=== PATIENT | male | born 1950 | race Caucasian/White ===

== ENCOUNTER → 2016-06-17 | Outpatient (REF) | payer MEDICARE ==
[2016-06-17 16:13] LABS: MEAN CORPUSCULAR HEMOGLOBIN 30.9 pg (27.0-33.0); MEAN CORPUSCULAR HGB CONC 36.1 g/dl (32.0-36.5); MEAN CORPUSCULAR VOLUME 85.7 fl (80.0-96.0); PLATELET COUNT, AUTOMATED 218 k/mm3 (150-450); RED CELL DISTRIBUTION WIDTH 14.2 % (11.5-14.5); WHITE BLOOD COUNT 8.1 K/mm3 (4.0-10.0)
[2016-06-17 16:32] LABS: ALBUMIN 4.2 GM/DL (3.2-5.2); ALBUMIN/GLOBULIN RATIO 1.27 (1.00-1.93); ALKALINE PHOSPHATASE 69 U/L (45-117); ALT/SGPT 58 U/L (12-78); ANION GAP 11 MEQ/L (8-16); AST/SGOT 30 U/L (15-37); BILIRUBIN,TOTAL 0.4 MG/DL (0.2-1.0); BLOOD UREA NITROGEN 16 MG/DL (7-18); CALCIUM LEVEL 9.3 MG/DL (8.8-10.2); CARBON DIOXIDE LEVEL 26 MEQ/L (21-32); CHLORIDE LEVEL 103 MEQ/L (98-107); CHOLESTEROL LEVEL 164 MG/DL (<200); CREATININE FOR GFR 1.07 MG/DL (0.70-1.30); FERRITIN 179 NG/ML (26-388); GLOMERULAR FILTRATION RATE > 60.0 (>49); GLUCOSE, FASTING 175 MG/DL (80-110); PERCENT SATURATION 25.4 % (19.7-37.4); POTASSIUM SERUM 4.3 MEQ/L (3.5-5.1); SODIUM LEVEL 140 MEQ/L (136-145); TOTAL IRON BINDING CAPACITY 350 UG/DL (250-450); TOTAL PROTEIN 7.5 GM/DL (6.4-8.2); TRIGLYCERIDES LEVEL 267 MG/DL (<150)
[2016-06-17 16:41] LABS: VITAMIN B12 LEVEL 463 PG/ML (247-911)
== END ==
LOC: M SFHCPLAZ 11:11
PROVIDERS: ATTEND Family Medicine
DX: E53.8 Deficiency of other specified B group vitamins (principal); E78.5 Hyperlipidemia, unspecified; I10 Essential (primary) hypertension; K02.9 Dental caries, unspecified; E11.69 Type 2 diabetes mellitus with other specified complication
CPT/HCPCS: 36415; 80053; 80061; 82550; 82607; 82728; 83036; 83550; 85025; 86140; G0463

== ENCOUNTER → 2016-09-01 | Outpatient (CLI) | payer MEDICARE ==
[~2016-09-01] VITALS: Ht 182.9 cm; Wt 108.9 kg
[~2016-09-01] MED LIST: AMLO5TAB2 PO; ASPI1TAB PO; CRES5TAB PO; DYAZ37.5 PO; ERGO500014 PO; GLIM2TAB PO; HUMU1INJ2 SC; IBUP200C PO; LOSA50TA20 PO; METF500T PO; NS 1,000 ML IV SCH; OMEP10CASR PO; PROPOFOL 200 MG/20 ML VIAL As Ordered ONE
--- NOTE | 2016-09-01 07:56 | ROOR ---
Patient Name: Kirill Bowers Procedure Date: 09/01/2016 7:33 AM Date of : 1950 Age: 65 Room: [facility] Gender: Male Note Status: Finalized Procedure: Colonoscopy Indications: Screening for colorectal malignant neoplasm Providers: Gustabo CHIU MD Referring MD: Hema Alston MD Requesting Provider: Medicines: Monitored Anesthesia Care Complications: No immediate complications. Procedure: Pre-Anesthesia Assessment: - The heart rate, respiratory rate, oxygen saturations, blood pressure, adequacy of pulmonary ventilation, and response to care were monitored throughout the procedure. The Colonoscope was introduced through the anus and advanced to the cecum, identified by appendiceal orifice and ileocecal valve. The colonoscopy was performed without difficulty. The patient tolerated the procedure well. The quality of the bowel preparation was good. Findings: The perianal exam findings include skin tags. (Exam: Complete, Prep: Good or Excellent.) Four sessile polyps were found in the sigmoid colon and cecum. The polyps were 3 to 4 mm in size. These polyps were removed with a cold snare. Resection and retrieval were complete. Multiple medium-mouthed diverticula were found in the sigmoid colon. The exam was otherwise without abnormality on direct and retroflexion views. Impression: - Perianal skin tags found on perianal exam. - Four 3 to 4 mm polyps in the sigmoid colon and in the cecum, removed with a cold snare. Resected and retrieved. - Moderate diverticulosis in the sigmoid colon. - The examination was otherwise normal on direct and retroflexion views. Recommendation: - Telephone endoscopist for pathology results in 2 weeks. - If the pathology report reveals adenomatous tissue, then repeat the colonoscopy for surveillance in 3 years. - If the pathology report indicates hyperplastic polyp, then repeat colonoscopy for screening purposes in 10 years. Gustabo Chiu MD Gustabo CHIU MD 09/01/2016 7:56:20 AM This report has been signed electronically. Number of Addenda: 0 Note Initiated On: 09/01/2016 7:33 AM Estimated Blood Loss: Estimated blood loss: none.
[2016-09-01 08:20] VITALS: BP 115/77
== END | disposition home or self-care (01) ==
LOC: M OPP 06:56
PROVIDERS: ATTEND Internal Medicine Gastroenterology
DX: Z12.31 Encounter for screening mammogram for malignant neoplasm of breast (principal); D12.5 Benign neoplasm of sigmoid colon; D12.0 Benign neoplasm of cecum; K57.30 Diverticulosis of large intestine without perforation or abscess without bleeding; K64.4 Residual hemorrhoidal skin tags; I10 Essential (primary) hypertension; E78.00 Pure hypercholesterolemia, unspecified; E11.9 Type 2 diabetes mellitus without complications; R12 Heartburn; M19.90 Unspecified osteoarthritis, unspecified site; L40.9 Psoriasis, unspecified; Z79.899 Other long term (current) drug therapy; Z79.84 Long term (current) use of oral hypoglycemic drugs; Z79.4 Long term (current) use of insulin; Z79.82 Long term (current) use of aspirin; Z88.8 Allergy status to other drugs, medicaments and biological substances

== ENCOUNTER → 2016-10-17 | Outpatient (CLI) | payer MEDICARE ==
[~2016-10-17] MED LIST changes: -NS 1,000 ML IV SCH; -PROPOFOL 200 MG/20 ML VIAL As Ordered ONE
[2016-10-17 09:17] LABS: ALBUMIN 3.9 GM/DL (3.2-5.2); ALBUMIN/GLOBULIN RATIO 1.15 (1.00-1.93); ALKALINE PHOSPHATASE 89 U/L (45-117); ALT/SGPT 52 U/L (12-78); ANION GAP 8 MEQ/L (8-16); AST/SGOT 21 U/L (15-37); BILIRUBIN,TOTAL 0.4 MG/DL (0.2-1.0); BLOOD UREA NITROGEN 15 MG/DL (7-18); CALCIUM LEVEL 8.7 MG/DL (8.8-10.2); CARBON DIOXIDE LEVEL 30 MEQ/L (21-32); CHLORIDE LEVEL 97 MEQ/L (98-107); CHOLESTEROL LEVEL 170 MG/DL (<200); FERRITIN 145 NG/ML (26-388); GLOMERULAR FILTRATION RATE > 60.0 (>49); GLUCOSE, FASTING 278 MG/DL (80-110); PERCENT SATURATION 27.7 % (19.7-37.4); SODIUM LEVEL 135 MEQ/L (136-145); TOTAL IRON BINDING CAPACITY 364 UG/DL (250-450); TOTAL PROTEIN 7.3 GM/DL (6.4-8.2); TRIGLYCERIDES LEVEL 442 MG/DL (<150)
[2016-10-17 09:24] LABS: BASO % 0.7 % (0.0-1.0); EOS # 0.1 K/mm3 (0.0-0.50); EOS % 1.7 % (0.0-3.0); LARGE UNSTAINED CELL # 0.2 K/mm3 (0.0-0.4); LARGE UNSTAINED CELL % 3.5 % (0.0-4.0); LYMPH # 1.6 K/mm3 (1.5-4.5); LYMPH % 28.6 % (24.0-44.0); MEAN CORPUSCULAR HEMOGLOBIN 31.7 pg (27.0-33.0); MEAN CORPUSCULAR HGB CONC 35.6 g/dl (32.0-36.5); MONO # 0.4 K/mm3 (0.0-0.8); MONO % 7.1 % (0.0-5.0); NEUTROPHILS # 3.2 K/mm3 (1.8-7.7); NEUTROPHILS % 58.4 % (36.0-66.0); PLATELET COUNT, AUTOMATED 200 k/mm3 (150-450); RED CELL DISTRIBUTION WIDTH 12.9 % (11.5-14.5); WHITE BLOOD COUNT 5.5 K/mm3 (4.0-10.0)
[2016-10-17 09:41] LABS: VITAMIN B12 LEVEL 381 PG/ML (247-911)
== END ==
LOC: M WUC 08:04
PROVIDERS: ATTEND Family Medicine
DX: E53.8 Deficiency of other specified B group vitamins (principal); E78.5 Hyperlipidemia, unspecified; I10 Essential (primary) hypertension; Z79.899 Other long term (current) drug therapy

== ENCOUNTER → 2017-03-02 | Outpatient (REF) | payer MEDICARE ==
[~2017-03-02] MED LIST changes: +ACET30TAB PO; +CLEO300C2 PO; -IBUP200C PO; +IBUP200C10 PO; -METF500T PO; +METF500T13 PO
[2017-03-02 13:11] LABS: BASO % 0.8 % (0.0-1.0); EOS # 0.1 10^3/uL (0.0-0.50); EOS % 1.7 % (0.0-3.0); IMMATURE GRANULOCYTE % 0.8 % (0-0); LYMPH # 1.5 10^3/uL (1.5-4.5); LYMPH % 29.5 % (24.0-44.0); MEAN CORPUSCULAR HEMOGLOBIN 29.5 pg (27.0-33.0); MEAN CORPUSCULAR HGB CONC 33.8 g/dl (32.0-36.5); MEAN CORPUSCULAR VOLUME 87.1 fl (80.0-96.0); MONO # 0.4 10^3/uL (0.0-0.8); MONO % 8.5 % (0.0-5.0); NEUTROPHILS % 58.7 % (36.0-66.0); PLATELET COUNT, AUTOMATED 187 10^3/uL (150-450); RED CELL DISTRIBUTION WIDTH 13.1 % (11.5-14.5); WHITE BLOOD COUNT 5.2 10^3/uL (4.0-10.0)
[2017-03-02 13:27] LABS: VITAMIN B12 LEVEL 916 PG/ML (247-911)
[2017-03-02 13:40] LABS: ALBUMIN 3.7 GM/DL (3.2-5.2); ALBUMIN/GLOBULIN RATIO 1.12 (1.00-1.93); ALKALINE PHOSPHATASE 79 U/L (45-117); ALT/SGPT 50 U/L (12-78); ANION GAP 10 MEQ/L (8-16); AST/SGOT 22 U/L (15-37); BILIRUBIN,TOTAL 0.3 MG/DL (0.2-1.0); BLOOD UREA NITROGEN 13 MG/DL (7-18); CALCIUM LEVEL 7.9 MG/DL (8.8-10.2); CARBON DIOXIDE LEVEL 25 MEQ/L (21-32); CHLORIDE LEVEL 102 MEQ/L (98-107); CHOLESTEROL LEVEL 182 MG/DL (<200); CREATININE FOR GFR 0.97 MG/DL (0.70-1.30); GLOMERULAR FILTRATION RATE > 60.0 (>49); GLUCOSE, FASTING 286 MG/DL (80-110); POTASSIUM SERUM 3.9 MEQ/L (3.5-5.1); SODIUM LEVEL 137 MEQ/L (136-145); TRIGLYCERIDES LEVEL 388 MG/DL (<150)
== END ==
LOC: M LABDRAW1 11:52
PROVIDERS: ATTEND Family Medicine
DX: N18.2 Chronic kidney disease, stage 2 (mild) (principal); Z12.5 Encounter for screening for malignant neoplasm of prostate; Z79.899 Other long term (current) drug therapy
CPT/HCPCS: 36415; 80053; 80061; 81001; 82043; 82607; 82747; 83036; 84443; 85025; G0103

== ENCOUNTER → 2017-04-02 | Outpatient (REF) | payer MEDICARE ==
[2017-04-02 13:22] LABS: BASO % 0.4 % (0.0-1.0); EOS # 0.1 10^3/uL (0.0-0.50); EOS % 1.1 % (0.0-3.0); IMMATURE GRANULOCYTE % 0.7 % (0-0); LYMPH # 1.4 10^3/uL (1.5-4.5); LYMPH % 18.7 % (24.0-44.0); MEAN CORPUSCULAR HEMOGLOBIN 29.6 pg (27.0-33.0); MEAN CORPUSCULAR VOLUME 87.1 fl (80.0-96.0); MONO # 0.8 10^3/uL (0.0-0.8); MONO % 10.4 % (0.0-5.0); NEUTROPHILS % 68.7 % (36.0-66.0); PLATELET COUNT, AUTOMATED 245 10^3/uL (150-450); RED CELL DISTRIBUTION WIDTH 12.6 % (11.5-14.5); WHITE BLOOD COUNT 7.3 10^3/uL (4.0-10.0)
== END ==
LOC: M LAB REF 12:51
PROVIDERS: ATTEND Physician Assistant
DX: M25.522 Pain in left elbow (principal)

== ENCOUNTER → 2017-04-02 | Outpatient (CLI) | payer MEDICARE ==
--- NOTE | 2017-04-02 12:29 | REP ---
LEFT ELBOW, FOUR VIEWS: Four views of the left elbow are performed. I see no acute fracture or dislocation. There is an oval calcification along the lateral humeral epicondyle which may be tendinous in nature. Two oval calcifications posteriorly on the lateral view at the level of the distal end of the humerus probably represent calcifications in the triceps tendon. There is mild olecranon spurring. There is focal soft tissue swelling over the olecranon suspicious for bursitis. IMPRESSION: There appear to be tendinous calcifications present in the distal triceps and along the lateral humeral epicondyle. Focal soft tissue swelling over the olecranon is suspicious for bursitis. Signed by Federico Patiño MD 04/02/2017 02:38 P
== END ==
LOC: M ADAMS 10:42
PROVIDERS: ATTEND Physician Assistant
DX: M70.22 Olecranon bursitis, left elbow (principal); R60.0 Localized edema; M25.522 Pain in left elbow

== ENCOUNTER 2017-04-03 14:29 | Emergency (ER) | payer MEDICARE ==
[~2017-04-03] VITALS: Ht 182.9 cm; Wt 109.1 kg
[~2017-04-03 14:29] MED LIST changes: -ACET30TAB PO; -CLEO300C2 PO
--- NOTE | 2017-04-03 17:08 | REP ---
Left upper extremity duplex Doppler venous ultrasound. Real time compression and duplex Doppler evaluation of the left upper extremity deep venous system is performed. The left subclavian, jugular, axillary, brachial, basilic and cephalic veins are fully compressible where accessible with transducer pressure, and demonstrate no intraluminal thrombus and normal venous waveforms. There is no evidence of deep venous thrombosis. Impression: No evidence of deep venous thrombosis of the left upper extremity deep vein system. Signed by Federico Patiño MD 04/03/2017 04:59 P
[2017-04-03] MEDS ORDERED: CLEO300C2 PO (17:14)
[2017-04-03 17:24] VITALS: BP 148/94
[2017-04-03] MEDS ORDERED: ACET30TAB PO (17:26)
== END 2017-04-03 17:25 | disposition home or self-care (01) ==
LOC: M ED 14:29
DX: L03.114 Cellulitis of left upper limb (principal); E10.9 Type 1 diabetes mellitus without complications; K42.9 Umbilical hernia without obstruction or gangrene; Z79.899 Other long term (current) drug therapy; Z79.82 Long term (current) use of aspirin; Z79.4 Long term (current) use of insulin; Z88.1 Allergy status to other antibiotic agents; Z88.8 Allergy status to other drugs, medicaments and biological substances

== ENCOUNTER → 2017-06-30 | Outpatient (REF) | payer MEDICARE ==
[2017-06-30 12:46] LABS: BASO % 0.6 % (0.0-1.0); EOS # 0.1 10^3/uL (0.0-0.50); EOS % 1.7 % (0.0-3.0); HEMOGLOBIN 16.4 g/dl (14.0-18.0); IMMATURE GRANULOCYTE % 0.6 % (0-0); LYMPH # 1.8 10^3/uL (1.5-4.5); MEAN CORPUSCULAR HGB CONC 34.2 g/dl (32.0-36.5); MEAN CORPUSCULAR VOLUME 84.8 fl (80.0-96.0); MONO # 0.6 10^3/uL (0.0-0.8); MONO % 9.7 % (0.0-5.0); NEUTROPHILS # 3.7 10^3/uL (1.8-7.7); NEUTROPHILS % 58.4 % (36.0-66.0); PLATELET COUNT, AUTOMATED 213 10^3/uL (150-450); RED BLOOD COUNT 5.66 10^6/uL (4.30-6.10); WHITE BLOOD COUNT 6.3 10^3/uL (4.0-10.0)
[2017-06-30 13:08] LABS: TOTAL 25(OH) VITAMIN D 23.7 NG/ML (30.0-100.0)
[2017-06-30 13:09] LABS: PTH INTACT 38.3 PG/ML (14.0-72.0)
[2017-06-30 13:16] LABS: ESTIMATED AVERAGE GLUCOSE 200 MG/DL (60-110); HEMOGLOBIN A1c 8.6 %
[2017-06-30 13:35] LABS: ALBUMIN/GLOBULIN RATIO 1.11 (1.00-1.93); ALKALINE PHOSPHATASE 72 U/L (45-117); ALT/SGPT 41 U/L (12-78); ANION GAP 10 MEQ/L (8-16); AST/SGOT 22 U/L (7-37); BILIRUBIN,TOTAL 0.5 MG/DL (0.2-1.0); BLOOD UREA NITROGEN 14 MG/DL (7-18); CALCIUM LEVEL 9.2 MG/DL (8.8-10.2); CARBON DIOXIDE LEVEL 29 MEQ/L (21-32); CHLORIDE LEVEL 97 MEQ/L (98-107); CREATININE FOR GFR 1.17 MG/DL (0.70-1.30); FERRITIN 149 NG/ML (26-388); GLOMERULAR FILTRATION RATE > 60.0 (>49); GLUCOSE, FASTING 215 MG/DL (70-100); IRON (FE) 90 UG/DL (65-175); PERCENT SATURATION 26.3 % (19.7-50.0); POTASSIUM SERUM 4.2 MEQ/L (3.5-5.1); SODIUM LEVEL 136 MEQ/L (136-145); TOTAL IRON BINDING CAPACITY 342 UG/DL (250-450); TOTAL PROTEIN 7.6 GM/DL (6.4-8.2)
== END ==
LOC: M SFHCPLAZ 07:58
DX: N18.2 Chronic kidney disease, stage 2 (mild) (principal); E55.9 Vitamin D deficiency, unspecified; E11.69 Type 2 diabetes mellitus with other specified complication
CPT/HCPCS: 83550

== ENCOUNTER → 2017-10-30 | Outpatient (REF) | payer MEDICARE ==
[2017-10-30 10:22] LABS: BASO % 0.5 % (0.0-1.0); EOS # 0.1 10^3/uL (0.0-0.50); EOS % 2.1 % (0.0-3.0); HEMATOCRIT 46.2 % (42.0-52.0); HEMOGLOBIN 16.1 g/dl (13.5-17.5); LYMPH # 1.7 10^3/uL (1.5-4.5); LYMPH % 29.8 % (24.0-44.0); MEAN CORPUSCULAR HEMOGLOBIN 29.5 pg (27.0-33.0); MEAN CORPUSCULAR HGB CONC 34.8 g/dl (32.0-36.5); MEAN CORPUSCULAR VOLUME 84.8 fl (80.0-96.0); MONO # 0.6 10^3/uL (0.0-0.8); MONO % 10.5 % (0.0-5.0); NEUTROPHILS # 3.3 10^3/uL (1.8-7.7); NEUTROPHILS % 56.1 % (36.0-66.0); PLATELET COUNT, AUTOMATED 186 10^3/uL (150-450); RED BLOOD COUNT 5.45 10^6/uL (4.30-6.10); RED CELL DISTRIBUTION WIDTH 12.8 % (11.5-14.5); WHITE BLOOD COUNT 5.8 10^3/uL (4.0-10.0)
[2017-10-30 10:31] LABS: ALBUMIN/GLOBULIN RATIO 1.08 (1.00-1.93); ALKALINE PHOSPHATASE 93 U/L (45-117); ALT/SGPT 44 U/L (12-78); ANION GAP 8 MEQ/L (8-16); AST/SGOT 21 U/L (7-37); BILIRUBIN,TOTAL 0.2 MG/DL (0.2-1.0); BLOOD UREA NITROGEN 14 MG/DL (7-18); CALCIUM LEVEL 8.9 MG/DL (8.8-10.2); CARBON DIOXIDE LEVEL 29 MEQ/L (21-32); CHLORIDE LEVEL 102 MEQ/L (98-107); CREATININE FOR GFR 1.04 MG/DL (0.70-1.30); GLOMERULAR FILTRATION RATE > 60.0 (>49); GLUCOSE, FASTING 221 MG/DL (70-100); MAGNESIUM LEVEL 1.8 MG/DL (1.8-2.4); POTASSIUM SERUM 3.8 MEQ/L (3.5-5.1); SODIUM LEVEL 139 MEQ/L (136-145); TOTAL PROTEIN 7.7 GM/DL (6.4-8.2)
[2017-10-30 10:51] LABS: ESTIMATED AVERAGE GLUCOSE 214 MG/DL (60-110); HEMOGLOBIN A1c 9.1 %
[2017-10-30 18:35] LABS: MAU/CREAT RATIO 153.9 MCG/MG (0.0-30.0)
[2017-10-30 19:01] LABS: AMORPHOUS SEDIMENT SMALL (NEGATIVE); APPEARANCE, URINE HAZY (CLEAR); BACTERIA, URINE AUTO NEGATIVE (NEGATIVE); BILIRUBIN, URINE AUTO NEGATIVE (NEGATIVE); BLOOD, URINE BLOOD NEGATIVE (NEGATIVE); CALCIUM OXALATE CRYSTALS SMALL; COLOR, URINE YELLOW (YELLOW); GLUCOSE, URINE (UA) AUTO 3+ mg/dL (NEGATIVE); KETONE, URINE AUTO TRACE mg/dL (NEGATIVE); LEUKOCYTE ESTERASE, URINE AUTO NEGATIVE (NEGATIVE); MUCUS, URINE SMALL (NEGATIVE); NITRITE, URINE AUTO NEGATIVE (NEGATIVE); PROTEIN, URINE AUTO 1+ mg/dL (NEGATIVE); RBC, URINE AUTO 0 /HPF (0-3); SQUAMOUS EPITHELIAL CELL UR AU 0 /HPF (0-6); UROBILINOGEN, URINE AUTO 0.2 mg/dL (0.0-2.0); WBC, URINE AUTO 1 /HPF (0-3); YEAST LIKE CELL URINE AUTO SMALL
[2017-10-31 10:14] LABS: H PYLORI SERUM QUANT IgG ABY 0.54 (0.00-0.79)
== END ==
LOC: M SFHCPLAZ 08:08
DX: I10 Essential (primary) hypertension (principal); E11.69 Type 2 diabetes mellitus with other specified complication; M17.0 Bilateral primary osteoarthritis of knee
CPT/HCPCS: 83735

== ENCOUNTER → 2017-11-25 | Outpatient (CLI) | payer MEDICARE | LOC: M RAD 12:58 | DX: Z12.2 Encounter for screening for malignant neoplasm of respiratory organs (principal); F17.210 Nicotine dependence, cigarettes, uncomplicated | CPT/HCPCS: G0297 ==

== ENCOUNTER → 2018-02-09 | Outpatient (REF) | payer MEDICARE ==
[2018-02-09 13:02] LABS: ALBUMIN 3.8 GM/DL (3.2-5.2); ALKALINE PHOSPHATASE 87 U/L (45-117); ALT/SGPT 36 U/L (12-78); ANION GAP 8 MEQ/L (8-16); AST/SGOT 17 U/L (7-37); BILIRUBIN,TOTAL 0.4 MG/DL (0.2-1.0); BLOOD UREA NITROGEN 16 MG/DL (7-18); CALCIUM LEVEL 8.9 MG/DL (8.8-10.2); CARBON DIOXIDE LEVEL 28 MEQ/L (21-32); CHLORIDE LEVEL 99 MEQ/L (98-107); CREATININE FOR GFR 1.14 MG/DL (0.70-1.30); GLOMERULAR FILTRATION RATE > 60.0 (>49); GLUCOSE, FASTING 263 MG/DL (70-100); SODIUM LEVEL 135 MEQ/L (136-145); TOTAL PROTEIN 7.6 GM/DL (6.4-8.2)
== END ==
LOC: M SFHCPLAZ 09:04
DX: B35.3 Tinea pedis (principal)
CPT/HCPCS: 80053

== ENCOUNTER → 2018-02-27 | Outpatient (REF) | payer MEDICARE | LOC: M LAB REF 18:13 | DX: L03.115 Cellulitis of right lower limb (principal) | CPT/HCPCS: 87186 ==

== ENCOUNTER → 2018-03-04 | Outpatient (REF) | payer MEDICARE ==
[2018-03-04 11:38] LABS: BASO % 0.6 % (0.0-1.0); EOS # 0.1 10^3/uL (0.0-0.50); EOS % 1.8 % (0.0-3.0); HEMATOCRIT 42.6 % (42.0-52.0); HEMOGLOBIN 14.2 g/dl (13.5-17.5); LYMPH # 1.9 10^3/uL (1.5-4.5); LYMPH % 27.6 % (24.0-44.0); MEAN CORPUSCULAR HEMOGLOBIN 29.3 pg (27.0-33.0); MEAN CORPUSCULAR HGB CONC 33.3 g/dl (32.0-36.5); MEAN CORPUSCULAR VOLUME 87.8 fl (80.0-96.0); MONO # 0.6 10^3/uL (0.0-0.8); MONO % 8.5 % (0.0-5.0); NEUTROPHILS # 3.9 10^3/uL (1.8-7.7); NEUTROPHILS % 57.5 % (36.0-66.0); PLATELET COUNT, AUTOMATED 333 10^3/uL (150-450); RED BLOOD COUNT 4.85 10^6/uL (4.30-6.10); RED CELL DISTRIBUTION WIDTH 12.7 % (11.5-14.5); WHITE BLOOD COUNT 6.8 10^3/uL (4.0-10.0)
[2018-03-04 11:51] LABS: C REACTIVE PROTEIN QUANTITATIV 4.12 MG/DL (0.00-0.30)
[2018-03-04 11:58] LABS: ERYTHROCYTE SEDIMENTATION RATE 16 mm/hr (0-20)
[2018-03-04 14:36] LABS: LACTIC ACID SEPSIS PROTOCOL 2.1 MMOL/L (0.4-2.0)
== END ==
LOC: M SFHCPLAZ 11:27
DX: E11.621 Type 2 diabetes mellitus with foot ulcer (principal)
CPT/HCPCS: 83605

== ENCOUNTER → 2018-03-05 | Outpatient (CLI) | payer MEDICARE | LOC: M PLARAD 11:21 | DX: L03.115 Cellulitis of right lower limb (principal); M79.89 Other specified soft tissue disorders; E11.621 Type 2 diabetes mellitus with foot ulcer ==

== ENCOUNTER 2018-03-06 10:22 | Inpatient (IN) | payer MEDICARE ==
[2018-03-06] MEDS: LOSARTAN 50 MG TAB PO ×2 (09:00→21:38)
[2018-03-06] MEDS: ROSUVASTATIN 10 MG TAB (CRESTOR) PO (09:00)
[2018-03-06] MEDS: DYAZIDE 37.5/25 CAP (TRIAM/HCTZ) PO (09:00)
[2018-03-06] MEDS: CelecoXIB (CeleBREX) 100 MG CAP PO (09:00)
[2018-03-06] MEDS: ASPIRIN 81 MG ENTERIC TAB PO (09:00)
[2018-03-06] MEDS: amLODIPine 5 MG TAB PO ×2 (09:00→21:39)
[2018-03-06] MEDS ORDERED: GLUCOSE 4 GM CHEW TABLET PO (11:00)
[2018-03-06] MEDS ORDERED: DEXTROSE 50% 50 ML SYRINGE IV (11:00)
[2018-03-06] MEDS ORDERED: ONDANSETRON 4MG/2ML VIAL (J2405) IV ×2 (11:00→15:45)
[2018-03-06] MEDS ORDERED: GLUCAGON FOR INJ 1 MG VIAL (J1610) SC (11:00)
[2018-03-06 11:21] LABS: BASO % 0.8 % (0.0-1.0); EOS # 0.1 10^3/uL (0.0-0.50); EOS % 1.9 % (0.0-3.0); HEMATOCRIT 41.3 % (42.0-52.0); LYMPH # 1.6 10^3/uL (1.5-4.5); LYMPH % 34.8 % (24.0-44.0); MEAN CORPUSCULAR HEMOGLOBIN 29.2 pg (27.0-33.0); MEAN CORPUSCULAR HGB CONC 33.9 g/dl (32.0-36.5); MEAN CORPUSCULAR VOLUME 86.2 fl (80.0-96.0); MONO # 0.4 10^3/uL (0.0-0.8); MONO % 8.9 % (0.0-5.0); NEUTROPHILS # 2.3 10^3/uL (1.8-7.7); NEUTROPHILS % 49.6 % (36.0-66.0); PLATELET COUNT, AUTOMATED 327 10^3/uL (150-450); RED BLOOD COUNT 4.79 10^6/uL (4.30-6.10); RED CELL DISTRIBUTION WIDTH 12.7 % (11.5-14.5); WHITE BLOOD COUNT 4.7 10^3/uL (4.0-10.0)
[2018-03-06 11:54] LABS: ALBUMIN 3.6 GM/DL (3.2-5.2); ALBUMIN/GLOBULIN RATIO 0.97 (1.00-1.93); ALKALINE PHOSPHATASE 76 U/L (45-117); ALT/SGPT 27 U/L (12-78); ANION GAP 11 MEQ/L (8-16); AST/SGOT 11 U/L (7-37); BILIRUBIN,TOTAL 0.2 MG/DL (0.2-1.0); BLOOD UREA NITROGEN 14 MG/DL (7-18); CALCIUM LEVEL 9.3 MG/DL (8.8-10.2); CARBON DIOXIDE LEVEL 25 MEQ/L (21-32); CHLORIDE LEVEL 101 MEQ/L (98-107); CREATININE FOR GFR 0.94 MG/DL (0.70-1.30); GLOMERULAR FILTRATION RATE > 60.0 (>49); GLUCOSE, FASTING 267 MG/DL (70-100); POTASSIUM SERUM 4.6 MEQ/L (3.5-5.1); SODIUM LEVEL 137 MEQ/L (136-145); TOTAL PROTEIN 7.3 GM/DL (6.4-8.2)
[2018-03-06] MEDS: HumaLOG INSULIN (NovoLOG) PER UNIT SC ×3 (12:00→21:39)
[2018-03-06 12:03] LABS: ERYTHROCYTE SEDIMENTATION RATE 42 mm/hr (0-20)
[2018-03-06 12:25] LABS: BEDSIDE GLUCOSE 216 MG/DL (80-115)
[2018-03-06] MEDS: NS 1,000 ML IV (13:32)
[2018-03-06] MEDS ORDERED: PROPOFOL 200 MG/20 ML VIAL As Ordered ×3 (14:25→15:03)
[2018-03-06] MEDS: LIDOCAINE 1% SDV INJ 30 ML VIAL As Ordered (14:55)
[2018-03-06] MEDS: BUPIVACAINE HCL 0.25% 30 ML VIAL As Ordered (14:55)
[2018-03-06 15:29] LABS: BEDSIDE GLUCOSE 170 MG/DL (80-115)
[2018-03-06] MEDS ORDERED: HYDROMORPHONE HCL 0.5 MG/ 0.5 ML SYRINGE (J1170 PER 1) As Ordered ×2 (15:33→15:45)
[2018-03-06] MEDS: HYDROMORPHONE HCL 0.5 MG/ 0.5 ML SYRINGE (J1170 PER 1) IV ×5 (15:36→16:00)
[2018-03-06] MEDS ORDERED: fentaNYL 100 MCG/2 ML INJECTION (J3010) IV (15:45)
[2018-03-06] MEDS: LR 1,000 ML IV (15:45)
[2018-03-06] MEDS ORDERED: PERCOCET 5MG/325MG TAB PO (15:45)
[2018-03-06] MEDS ORDERED: ACETAMINOPHEN 500 MG TAB As Ordered (16:01)
[2018-03-06] MEDS: ACETAMINOPHEN 500 MG TAB PO (16:03)
[2018-03-06 16:51] LABS: BEDSIDE GLUCOSE 142 MG/DL (80-115)
[2018-03-06] MEDS: OMEPRAZOLE 20 MG CAP PO (18:32)
[2018-03-06] MEDS: metFORMIN XR 500MG TAB *GLUCOPHAGE XR PO (18:33)
[2018-03-06 20:18] LABS: BEDSIDE GLUCOSE 192 MG/DL (80-115)
[2018-03-06] MEDS: LEVEMIR (INSULIN DETEMIR) 1 UNITS/0.01ML SC (21:38)
[2018-03-06] MEDS: NORCO, ANEXSIA 5/325MG TABLET (HYDROcodone/ACETAMINOPHEN) PO (21:38)
[2018-03-06] MEDS: ENOXAPARIN 40 MG/0.4 ML SYRINGE (J1650) SC (21:39)
[2018-03-07] MEDS: ACETAMINOPHEN 500 MG TAB PO (01:13)
[2018-03-07 05:51] LABS: BASO % 0.5 % (0.0-1.0); EOS # 0.1 10^3/uL (0.0-0.50); EOS % 1.8 % (0.0-3.0); HEMOGLOBIN 13.2 g/dl (13.5-17.5); IMMATURE GRANULOCYTE % 2.1 % (0-3.0); LYMPH # 1.8 10^3/uL (1.5-4.5); LYMPH % 28.3 % (24.0-44.0); MEAN CORPUSCULAR HEMOGLOBIN 29.4 pg (27.0-33.0); MEAN CORPUSCULAR HGB CONC 33.8 g/dl (32.0-36.5); MEAN CORPUSCULAR VOLUME 86.9 fl (80.0-96.0); MONO # 0.6 10^3/uL (0.0-0.8); MONO % 8.8 % (0.0-5.0); NEUTROPHILS # 3.7 10^3/uL (1.8-7.7); NEUTROPHILS % 58.5 % (36.0-66.0); PLATELET COUNT, AUTOMATED 296 10^3/uL (150-450); RED BLOOD COUNT 4.49 10^6/uL (4.30-6.10); RED CELL DISTRIBUTION WIDTH 12.8 % (11.5-14.5); WHITE BLOOD COUNT 6.3 10^3/uL (4.0-10.0)
[2018-03-07 06:17] LABS: ALBUMIN 2.9 GM/DL (3.2-5.2); ALBUMIN/GLOBULIN RATIO 0.71 (1.00-1.93); ALKALINE PHOSPHATASE 53 U/L (45-117); ALT/SGPT 25 U/L (12-78); ANION GAP 8 MEQ/L (8-16); AST/SGOT 17 U/L (7-37); BILIRUBIN,TOTAL 0.2 MG/DL (0.2-1.0); BLOOD UREA NITROGEN 11 MG/DL (7-18); CALCIUM LEVEL 8.3 MG/DL (8.8-10.2); CARBON DIOXIDE LEVEL 28 MEQ/L (21-32); CHLORIDE LEVEL 103 MEQ/L (98-107); CREATININE FOR GFR 0.96 MG/DL (0.70-1.30); GLOMERULAR FILTRATION RATE > 60.0 (>49); GLUCOSE, FASTING 123 MG/DL (70-100); POTASSIUM SERUM 3.7 MEQ/L (3.5-5.1); SODIUM LEVEL 139 MEQ/L (136-145)
[2018-03-07] MEDS: CelecoXIB (CeleBREX) 100 MG CAP PO (08:32)
[2018-03-07] MEDS: LOSARTAN 50 MG TAB PO ×2 (08:33→20:34)
[2018-03-07] MEDS: ROSUVASTATIN 10 MG TAB (CRESTOR) PO (08:33)
[2018-03-07] MEDS: metFORMIN XR 500MG TAB *GLUCOPHAGE XR PO ×2 (08:33→17:48)
[2018-03-07] MEDS: DYAZIDE 37.5/25 CAP (TRIAM/HCTZ) PO (08:35)
[2018-03-07] MEDS: amLODIPine 5 MG TAB PO ×2 (08:35→20:34)
[2018-03-07] MEDS: HumaLOG INSULIN (NovoLOG) PER UNIT SC ×4 (08:37→20:34)
[2018-03-07] MEDS: LEVEMIR (INSULIN DETEMIR) 1 UNITS/0.01ML SC ×2 (08:39→20:33)
[2018-03-07] MEDS: PREVNAR 13 VACCINE SYRINGE (CPT CODE:90670) IM (08:41)
[2018-03-07] MEDS: INFLUENZA VIRUS VACCINE HIGH DOSE 0.5 ML SYRINGE (90662) IM (08:44)
[2018-03-07] MEDS: ASPIRIN 81 MG ENTERIC TAB PO (09:03)
[2018-03-07] MEDS: NORCO, ANEXSIA 5/325MG TABLET (HYDROcodone/ACETAMINOPHEN) PO ×2 (11:41→20:33)
[2018-03-07 11:57] LABS: BEDSIDE GLUCOSE 166 MG/DL (80-115)
[2018-03-07] MEDS ORDERED: PILL CRUSHER/CUTTER 1 EACH XX (12:45)
[2018-03-07 17:12] LABS: BEDSIDE GLUCOSE 174 MG/DL (80-115)
[2018-03-07] MEDS: OMEPRAZOLE 20 MG CAP PO (17:48)
[2018-03-07] MEDS: ENOXAPARIN 40 MG/0.4 ML SYRINGE (J1650) SC (20:35)
[2018-03-08 06:03] LABS: BEDSIDE GLUCOSE 162 MG/DL (80-115)
[2018-03-08 07:43] LABS: BEDSIDE GLUCOSE 136 MG/DL (80-115)
[2018-03-08 07:50] LABS: BASO % 0.5 % (0.0-1.0); EOS # 0.1 10^3/uL (0.0-0.50); EOS % 1.5 % (0.0-3.0); HEMATOCRIT 42.3 % (42.0-52.0); HEMOGLOBIN 14.3 g/dl (13.5-17.5); IMMATURE GRANULOCYTE % 1.2 % (0-3.0); LYMPH # 1.2 10^3/uL (1.5-4.5); MEAN CORPUSCULAR HEMOGLOBIN 29.1 pg (27.0-33.0); MEAN CORPUSCULAR HGB CONC 33.8 g/dl (32.0-36.5); MEAN CORPUSCULAR VOLUME 86.2 fl (80.0-96.0); MONO # 0.5 10^3/uL (0.0-0.8); NEUTROPHILS # 4.5 10^3/uL (1.8-7.7); NEUTROPHILS % 69.8 % (36.0-66.0); PLATELET COUNT, AUTOMATED 301 10^3/uL (150-450); RED BLOOD COUNT 4.91 10^6/uL (4.30-6.10); RED CELL DISTRIBUTION WIDTH 12.8 % (11.5-14.5); WHITE BLOOD COUNT 6.5 10^3/uL (4.0-10.0)
[2018-03-08] MEDS: LEVEMIR (INSULIN DETEMIR) 1 UNITS/0.01ML SC ×2 (08:00→20:36)
[2018-03-08] MEDS: CelecoXIB (CeleBREX) 100 MG CAP PO (08:01)
[2018-03-08] MEDS: HumaLOG INSULIN (NovoLOG) PER UNIT SC ×4 (08:01→20:35)
[2018-03-08] MEDS: DYAZIDE 37.5/25 CAP (TRIAM/HCTZ) PO (08:01)
[2018-03-08] MEDS: ASPIRIN 81 MG ENTERIC TAB PO (08:01)
[2018-03-08] MEDS: ROSUVASTATIN 10 MG TAB (CRESTOR) PO (08:01)
[2018-03-08] MEDS: metFORMIN XR 500MG TAB *GLUCOPHAGE XR PO ×2 (08:02→17:21)
[2018-03-08] MEDS: amLODIPine 5 MG TAB PO ×2 (08:03→20:34)
[2018-03-08] MEDS: LOSARTAN 50 MG TAB PO ×2 (08:04→20:35)
[2018-03-08 08:22] LABS: ERYTHROCYTE SEDIMENTATION RATE 43 mm/hr (0-20)
[2018-03-08 08:28] LABS: ALBUMIN 3.3 GM/DL (3.2-5.2); ALBUMIN/GLOBULIN RATIO 0.85 (1.00-1.93); ALKALINE PHOSPHATASE 59 U/L (45-117); ALT/SGPT 20 U/L (12-78); ANION GAP 6 MEQ/L (8-16); AST/SGOT 15 U/L (7-37); BILIRUBIN,TOTAL 0.3 MG/DL (0.2-1.0); BLOOD UREA NITROGEN 13 MG/DL (7-18); C REACTIVE PROTEIN QUANTITATIV 1.57 MG/DL (0.00-0.30); CALCIUM LEVEL 9.4 MG/DL (8.8-10.2); CARBON DIOXIDE LEVEL 31 MEQ/L (21-32); CHLORIDE LEVEL 102 MEQ/L (98-107); CREATININE FOR GFR 0.94 MG/DL (0.70-1.30); GLOMERULAR FILTRATION RATE > 60.0 (>49); GLUCOSE, FASTING 125 MG/DL (70-100); POTASSIUM SERUM 3.9 MEQ/L (3.5-5.1); SODIUM LEVEL 139 MEQ/L (136-145); TOTAL PROTEIN 7.2 GM/DL (6.4-8.2)
[2018-03-08] MEDS ORDERED: LIDOCAINE 1% MDV 20ML VIAL As Ordered (11:36)
[2018-03-08 12:22] LABS: BEDSIDE GLUCOSE 179 MG/DL (80-115)
[2018-03-08 16:41] LABS: BEDSIDE GLUCOSE 178 MG/DL (80-115)
[2018-03-08] MEDS: SODIUM CHLORIDE 0.9% INJ 10 ML SYR IV ×2 (17:20→22:08)
[2018-03-08] MEDS: OMEPRAZOLE 20 MG CAP PO (17:21)
[2018-03-08 20:26] LABS: BEDSIDE GLUCOSE 192 MG/DL (80-115)
[2018-03-08] MEDS: ENOXAPARIN 40 MG/0.4 ML SYRINGE (J1650) SC (20:35)
[2018-03-08] MEDS: NORCO, ANEXSIA 5/325MG TABLET (HYDROcodone/ACETAMINOPHEN) PO (22:08)
[2018-03-09] MEDS: SODIUM CHLORIDE 0.9% INJ 10 ML SYR IV ×3 (04:52→22:03)
[2018-03-09 05:19] LABS: BASO # 0.1 10^3/uL (0.0-0.2); BASO % 0.8 % (0.0-1.0); EOS # 0.1 10^3/uL (0.0-0.50); EOS % 1.7 % (0.0-3.0); HEMATOCRIT 42.2 % (42.0-52.0); HEMOGLOBIN 14.2 g/dl (13.5-17.5); IMMATURE GRANULOCYTE % 1.3 % (0-3.0); LYMPH # 1.5 10^3/uL (1.5-4.5); LYMPH % 24.6 % (24.0-44.0); MEAN CORPUSCULAR HGB CONC 33.6 g/dl (32.0-36.5); MEAN CORPUSCULAR VOLUME 86.3 fl (80.0-96.0); MONO # 0.6 10^3/uL (0.0-0.8); MONO % 9.7 % (0.0-5.0); NEUTROPHILS # 3.7 10^3/uL (1.8-7.7); NEUTROPHILS % 61.9 % (36.0-66.0); PLATELET COUNT, AUTOMATED 281 10^3/uL (150-450); RED BLOOD COUNT 4.89 10^6/uL (4.30-6.10); RED CELL DISTRIBUTION WIDTH 12.9 % (11.5-14.5)
[2018-03-09 05:37] LABS: ERYTHROCYTE SEDIMENTATION RATE 56 mm/hr (0-20)
[2018-03-09 05:53] LABS: ALBUMIN 3.3 GM/DL (3.2-5.2); ALBUMIN/GLOBULIN RATIO 0.79 (1.00-1.93); ALKALINE PHOSPHATASE 64 U/L (45-117); ALT/SGPT 25 U/L (12-78); ANION GAP 7 MEQ/L (8-16); AST/SGOT 24 U/L (7-37); BILIRUBIN,TOTAL 0.3 MG/DL (0.2-1.0); BLOOD UREA NITROGEN 16 MG/DL (7-18); C REACTIVE PROTEIN QUANTITATIV 2.06 MG/DL (0.00-0.30); CALCIUM LEVEL 9.3 MG/DL (8.8-10.2); CARBON DIOXIDE LEVEL 29 MEQ/L (21-32); CHLORIDE LEVEL 103 MEQ/L (98-107); CREATININE FOR GFR 0.94 MG/DL (0.70-1.30); GLOMERULAR FILTRATION RATE > 60.0 (>49); GLUCOSE, FASTING 152 MG/DL (70-100); POTASSIUM SERUM 4.1 MEQ/L (3.5-5.1); SODIUM LEVEL 139 MEQ/L (136-145); TOTAL PROTEIN 7.5 GM/DL (6.4-8.2)
[2018-03-09] MEDS: HumaLOG INSULIN (NovoLOG) PER UNIT SC ×4 (07:53→21:00)
[2018-03-09] MEDS: metFORMIN XR 500MG TAB *GLUCOPHAGE XR PO ×2 (07:54→17:55)
[2018-03-09] MEDS: ROSUVASTATIN 10 MG TAB (CRESTOR) PO (09:15)
[2018-03-09] MEDS: ASPIRIN 81 MG ENTERIC TAB PO (09:15)
[2018-03-09] MEDS: CelecoXIB (CeleBREX) 100 MG CAP PO (09:15)
[2018-03-09] MEDS: LOSARTAN 50 MG TAB PO ×2 (09:16→21:32)
[2018-03-09] MEDS: DYAZIDE 37.5/25 CAP (TRIAM/HCTZ) PO (09:16)
[2018-03-09] MEDS: amLODIPine 5 MG TAB PO ×2 (09:17→21:32)
[2018-03-09] MEDS: LEVEMIR (INSULIN DETEMIR) 1 UNITS/0.01ML SC ×2 (09:18→21:33)
[2018-03-09 12:09] LABS: BEDSIDE GLUCOSE 201 MG/DL (80-115)
[2018-03-09 16:40] LABS: BEDSIDE GLUCOSE 202 MG/DL (80-115)
[2018-03-09] MEDS: OMEPRAZOLE 20 MG CAP PO (17:55)
[2018-03-09 21:14] LABS: BEDSIDE GLUCOSE 203 MG/DL (80-115)
[2018-03-09] MEDS: ENOXAPARIN 40 MG/0.4 ML SYRINGE (J1650) SC (21:33)
[2018-03-10] MEDS: SODIUM CHLORIDE 0.9% INJ 10 ML SYR IV (05:04)
[2018-03-10 05:28] LABS: BASO % 0.7 % (0.0-1.0); EOS # 0.2 10^3/uL (0.0-0.50); EOS % 2.6 % (0.0-3.0); HEMATOCRIT 42.4 % (42.0-52.0); HEMOGLOBIN 14.3 g/dl (13.5-17.5); IMMATURE GRANULOCYTE % 1.2 % (0-3.0); LYMPH # 1.7 10^3/uL (1.5-4.5); LYMPH % 28.9 % (24.0-44.0); MEAN CORPUSCULAR HEMOGLOBIN 29.2 pg (27.0-33.0); MEAN CORPUSCULAR HGB CONC 33.7 g/dl (32.0-36.5); MEAN CORPUSCULAR VOLUME 86.5 fl (80.0-96.0); MONO # 0.6 10^3/uL (0.0-0.8); NEUTROPHILS # 3.3 10^3/uL (1.8-7.7); NEUTROPHILS % 56.6 % (36.0-66.0); PLATELET COUNT, AUTOMATED 278 10^3/uL (150-450); RED CELL DISTRIBUTION WIDTH 12.8 % (11.5-14.5); WHITE BLOOD COUNT 5.9 10^3/uL (4.0-10.0)
[2018-03-10 05:52] LABS: ERYTHROCYTE SEDIMENTATION RATE 26 mm/hr (0-20)
[2018-03-10 06:01] LABS: ALBUMIN 3.4 GM/DL (3.2-5.2); ALBUMIN/GLOBULIN RATIO 0.81 (1.00-1.93); ALKALINE PHOSPHATASE 64 U/L (45-117); ALT/SGPT 27 U/L (12-78); ANION GAP 5 MEQ/L (8-16); AST/SGOT 23 U/L (7-37); BILIRUBIN,TOTAL 0.3 MG/DL (0.2-1.0); BLOOD UREA NITROGEN 18 MG/DL (7-18); C REACTIVE PROTEIN QUANTITATIV 1.43 MG/DL (0.00-0.30); CALCIUM LEVEL 9.3 MG/DL (8.8-10.2); CARBON DIOXIDE LEVEL 30 MEQ/L (21-32); CHLORIDE LEVEL 106 MEQ/L (98-107); CREATININE FOR GFR 1.04 MG/DL (0.70-1.30); GLOMERULAR FILTRATION RATE > 60.0 (>49); GLUCOSE, FASTING 144 MG/DL (70-100); POTASSIUM SERUM 4.1 MEQ/L (3.5-5.1); SODIUM LEVEL 141 MEQ/L (136-145); TOTAL PROTEIN 7.6 GM/DL (6.4-8.2)
[2018-03-10] MEDS: HumaLOG INSULIN (NovoLOG) PER UNIT SC ×2 (08:07→12:11)
[2018-03-10] MEDS: metFORMIN XR 500MG TAB *GLUCOPHAGE XR PO (09:03)
[2018-03-10] MEDS: CelecoXIB (CeleBREX) 100 MG CAP PO (09:25)
[2018-03-10] MEDS: LOSARTAN 50 MG TAB PO (09:26)
[2018-03-10] MEDS: DYAZIDE 37.5/25 CAP (TRIAM/HCTZ) PO (09:27)
[2018-03-10] MEDS: amLODIPine 5 MG TAB PO (09:27)
[2018-03-10] MEDS: ROSUVASTATIN 10 MG TAB (CRESTOR) PO (09:28)
[2018-03-10] MEDS: LEVEMIR (INSULIN DETEMIR) 1 UNITS/0.01ML SC (09:28)
[2018-03-10] MEDS: ASPIRIN 81 MG ENTERIC TAB PO (09:35)
[2018-03-10 11:54] LABS: BEDSIDE GLUCOSE 173 MG/DL (80-115)
== END 2018-03-10 13:15 | disposition home health service (06) | DRG 623 ==
LOC: M MS5PR 10:22
PROC: 0JBQ0ZZ Excision of Right Foot Subcutaneous Tissue and Fascia, Open Approach (ICD-10-PCS; principal; 2018-03-06 12:30)
PROC: 0HDMXZZ Extraction of Right Foot Skin, External Approach (ICD-10-PCS; 2018-03-06 12:30)
PROC: 02HV33Z Insertion of Infusion Device into Superior Vena Cava, Percutaneous Approach (ICD-10-PCS; 2018-03-06 14:39)
DX: E11.621 Type 2 diabetes mellitus with foot ulcer (principal); L03.115 Cellulitis of right lower limb; M86.171 Other acute osteomyelitis, right ankle and foot; M79.89 Other specified soft tissue disorders; E11.69 Type 2 diabetes mellitus with other specified complication; E11.21 Type 2 diabetes mellitus with diabetic nephropathy; E11.65 Type 2 diabetes mellitus with hyperglycemia; I12.9 Hypertensive chronic kidney disease with stage 1 through stage 4 chronic kidney disease, or unspecified chronic kidney disease; E11.51 Type 2 diabetes mellitus with diabetic peripheral angiopathy without gangrene; E66.9 Obesity, unspecified; K21.9 Gastro-esophageal reflux disease without esophagitis; M17.0 Bilateral primary osteoarthritis of knee; E78.5 Hyperlipidemia, unspecified; B35.3 Tinea pedis; L73.2 Hidradenitis suppurativa; L40.9 Psoriasis, unspecified; Z79.899 Other long term (current) drug therapy; Z79.4 Long term (current) use of insulin; E55.9 Vitamin D deficiency, unspecified; N18.2 Chronic kidney disease, stage 2 (mild); G25.0 Essential tremor; M20.11 Hallux valgus (acquired), right foot; Z88.1 Allergy status to other antibiotic agents; Z88.8 Allergy status to other drugs, medicaments and biological substances; M90.871 Osteopathy in diseases classified elsewhere, right ankle and foot; L97.509 Non-pressure chronic ulcer of other part of unspecified foot with unspecified severity

== ENCOUNTER → 2018-03-15 | Outpatient (REF) | payer MEDICARE ==
[2018-03-15 12:51] LABS: BASO # 0.1 10^3/uL (0.0-0.2); BASO % 0.6 % (0.0-1.0); EOS # 0.1 10^3/uL (0.0-0.50); EOS % 1.4 % (0.0-3.0); HEMATOCRIT 45.1 % (42.0-52.0); HEMOGLOBIN 15.4 g/dl (13.5-17.5); IMMATURE GRANULOCYTE % 0.7 % (0-3.0); LYMPH # 2.1 10^3/uL (1.5-4.5); MEAN CORPUSCULAR HGB CONC 34.1 g/dl (32.0-36.5); MEAN CORPUSCULAR VOLUME 87.7 fl (80.0-96.0); MONO # 0.8 10^3/uL (0.0-0.8); MONO % 9.6 % (0.0-5.0); NEUTROPHILS # 5.2 10^3/uL (1.8-7.7); NEUTROPHILS % 62.7 % (36.0-66.0); PLATELET COUNT, AUTOMATED 283 10^3/uL (150-450); RED BLOOD COUNT 5.14 10^6/uL (4.30-6.10); RETIC HEMOGLOBIN EQUIVALENT 35.3 pg (24-36); RETICULOCYTE # 106.9 10^9/L (17-77); RETICULOCYTE % 2.1 % (0.5-1.5); WHITE BLOOD COUNT 8.3 10^3/uL (4.0-10.0)
[2018-03-15 13:09] LABS: ALBUMIN 3.7 GM/DL (3.2-5.2); ALBUMIN/GLOBULIN RATIO 0.93 (1.00-1.93); ALKALINE PHOSPHATASE 67 U/L (45-117); ALT/SGPT 24 U/L (12-78); ANION GAP 8 MEQ/L (8-16); AST/SGOT 21 U/L (7-37); BILIRUBIN,TOTAL 0.3 MG/DL (0.2-1.0); BLOOD UREA NITROGEN 14 MG/DL (7-18); C REACTIVE PROTEIN QUANTITATIV 0.51 MG/DL (0.00-0.30); CALCIUM LEVEL 8.9 MG/DL (8.8-10.2); CARBON DIOXIDE LEVEL 30 MEQ/L (21-32); CHLORIDE LEVEL 101 MEQ/L (98-107); CREATININE FOR GFR 1.07 MG/DL (0.70-1.30); GLOMERULAR FILTRATION RATE > 60.0 (>49); GLUCOSE, FASTING 72 MG/DL (70-100); POTASSIUM SERUM 4.1 MEQ/L (3.5-5.1); SODIUM LEVEL 139 MEQ/L (136-145); TOTAL PROTEIN 7.7 GM/DL (6.4-8.2)
[2018-03-15 13:38] LABS: ESTIMATED AVERAGE GLUCOSE 209 MG/DL (60-110); HEMOGLOBIN A1c 8.9 %
[2018-03-15 13:45] LABS: ERYTHROCYTE SEDIMENTATION RATE 26 mm/hr (0-20)
== END ==
LOC: M LABDRAW1 12:31
DX: M86.60 Other chronic osteomyelitis, unspecified site (principal)
CPT/HCPCS: 80053

== ENCOUNTER → 2018-03-22 | Outpatient (REF) | payer MEDICARE ==
[2018-03-22 14:26] LABS: BASO % 0.5 % (0.0-1.0); EOS # 0.1 10^3/uL (0.0-0.50); EOS % 2.4 % (0.0-3.0); HEMATOCRIT 40.7 % (42.0-52.0); HEMOGLOBIN 13.8 g/dl (13.5-17.5); IMMATURE GRANULOCYTE % 0.5 % (0-3.0); LYMPH # 1.6 10^3/uL (1.5-4.5); LYMPH % 28.4 % (24.0-44.0); MEAN CORPUSCULAR HEMOGLOBIN 29.7 pg (27.0-33.0); MEAN CORPUSCULAR HGB CONC 33.9 g/dl (32.0-36.5); MEAN CORPUSCULAR VOLUME 87.7 fl (80.0-96.0); MONO # 0.6 10^3/uL (0.0-0.8); MONO % 10.5 % (0.0-5.0); NEUTROPHILS # 3.3 10^3/uL (1.8-7.7); NEUTROPHILS % 57.7 % (36.0-66.0); PLATELET COUNT, AUTOMATED 183 10^3/uL (150-450); RED BLOOD COUNT 4.64 10^6/uL (4.30-6.10); RED CELL DISTRIBUTION WIDTH 13.2 % (11.5-14.5); WHITE BLOOD COUNT 5.7 10^3/uL (4.0-10.0)
[2018-03-22 14:47] LABS: ERYTHROCYTE SEDIMENTATION RATE 16 mm/hr (0-20)
[2018-03-22 15:10] LABS: C REACTIVE PROTEIN QUANTITATIV 0.44 MG/DL (0.00-0.30)
== END ==
LOC: M SHH 14:09
DX: E11.69 Type 2 diabetes mellitus with other specified complication (principal)
CPT/HCPCS: 86140

== ENCOUNTER → 2018-04-01 | Outpatient (REF) | payer MEDICARE ==
[2018-04-01 12:26] LABS: BASO # 0.1 10^3/uL (0.0-0.2); BASO % 0.9 % (0.0-1.0); EOS # 0.2 10^3/uL (0.0-0.50); EOS % 2.7 % (0.0-3.0); HEMATOCRIT 42.7 % (42.0-52.0); HEMOGLOBIN 14.7 g/dl (13.5-17.5); IMMATURE GRANULOCYTE % 0.9 % (0-3.0); LYMPH # 1.6 10^3/uL (1.5-4.5); LYMPH % 29.2 % (24.0-44.0); MEAN CORPUSCULAR HEMOGLOBIN 29.4 pg (27.0-33.0); MEAN CORPUSCULAR HGB CONC 34.4 g/dl (32.0-36.5); MEAN CORPUSCULAR VOLUME 85.4 fl (80.0-96.0); MONO # 0.7 10^3/uL (0.0-0.8); MONO % 11.6 % (0.0-5.0); NEUTROPHILS # 3.1 10^3/uL (1.8-7.7); NEUTROPHILS % 54.7 % (36.0-66.0); PLATELET COUNT, AUTOMATED 205 10^3/uL (150-450); RED CELL DISTRIBUTION WIDTH 13.3 % (11.5-14.5); WHITE BLOOD COUNT 5.6 10^3/uL (4.0-10.0)
[2018-04-01 13:18] LABS: ERYTHROCYTE SEDIMENTATION RATE 22 mm/hr (0-20)
[2018-04-01 13:18] LABS: C REACTIVE PROTEIN QUANTITATIV 0.83 MG/DL (0.00-0.30)
== END ==
LOC: M SFHCPLAZ 09:40
DX: E11.69 Type 2 diabetes mellitus with other specified complication (principal)
CPT/HCPCS: 86140

== ENCOUNTER → 2018-04-12 | Outpatient (REF) | payer MEDICARE ==
[2018-04-12 15:04] LABS: BASO % 0.4 % (0.0-1.0); EOS # 0.2 10^3/uL (0.0-0.50); EOS % 3.1 % (0.0-3.0); HEMATOCRIT 40.6 % (42.0-52.0); HEMOGLOBIN 13.7 g/dl (13.5-17.5); IMMATURE GRANULOCYTE % 0.8 % (0-3.0); LYMPH # 1.4 10^3/uL (1.5-4.5); LYMPH % 26.8 % (24.0-44.0); MEAN CORPUSCULAR HEMOGLOBIN 29.5 pg (27.0-33.0); MEAN CORPUSCULAR HGB CONC 33.7 g/dl (32.0-36.5); MEAN CORPUSCULAR VOLUME 87.5 fl (80.0-96.0); MONO # 0.6 10^3/uL (0.0-0.8); MONO % 11.8 % (0.0-5.0); NEUTROPHILS % 57.1 % (36.0-66.0); PLATELET COUNT, AUTOMATED 197 10^3/uL (150-450); RED BLOOD COUNT 4.64 10^6/uL (4.30-6.10); RED CELL DISTRIBUTION WIDTH 13.7 % (11.5-14.5); WHITE BLOOD COUNT 5.2 10^3/uL (4.0-10.0)
[2018-04-12 15:16] LABS: ALBUMIN 3.8 GM/DL (3.2-5.2); ANION GAP 6 MEQ/L (8-16); BLOOD UREA NITROGEN 12 MG/DL (7-18); C REACTIVE PROTEIN QUANTITATIV 0.56 MG/DL (0.00-0.30); CALCIUM LEVEL 8.7 MG/DL (8.8-10.2); CARBON DIOXIDE LEVEL 29 MEQ/L (21-32); CHLORIDE LEVEL 101 MEQ/L (98-107); CREATININE FOR GFR 0.87 MG/DL (0.70-1.30); GLOMERULAR FILTRATION RATE > 60.0 (>49); GLUCOSE, FASTING 226 MG/DL (70-100); PHOSPHORUS LEVEL 2.7 MG/DL (2.5-4.9); SODIUM LEVEL 136 MEQ/L (136-145)
[2018-04-12 15:39] LABS: ERYTHROCYTE SEDIMENTATION RATE 10 mm/hr (0-20)
== END ==
LOC: M SHH 13:51
DX: M86.271 Subacute osteomyelitis, right ankle and foot (principal)
CPT/HCPCS: 80069

== ENCOUNTER 2018-06-30 15:50 | Inpatient (IN) | payer MEDICARE ==
[~2018-06-30] VITALS: Ht 180.3 cm; Wt 109.0 kg
[~2018-06-30 15:50] MED LIST changes: +ACET30TAB PO; -AMLO5TAB2 PO; +AMLO5TAB6 PO; +AUGM875T28 PO; +CELE1CAP4 PO; +CLEO300C2 PO; -IBUP200C10 PO; +IBUP200C25 PO; -LOSA50TA20 PO; +LOSA50TA88 PO; +METF500T4 PO; +NORCOTAB PO; +OMEP20TA PO; +TYLE650T35 PO; +VITA10002 PO; +VITA200016 PO
[2018-06-30 17:15] VITALS: BP 147/87
[2018-06-30] MEDS ORDERED: PERCOCET 5MG/325MG TAB PO PRN (17:30)
[2018-06-30] MEDS ORDERED: ACETAMINOPHEN TAB 650MG DOSE (2X325MG) PO PRN (17:30)
[2018-06-30 17:57] LABS: BASO # 0.1 10^3/uL (0.0-0.2); BASO % 0.7 % (0.0-1.0); EOS # 0.2 10^3/uL (0.0-0.50); EOS % 2.1 % (0.0-3.0); HEMATOCRIT 44.4 % (42.0-52.0); HEMOGLOBIN 15.2 g/dl (13.5-17.5); LYMPH # 2.4 10^3/uL (1.5-4.5); MEAN CORPUSCULAR HEMOGLOBIN 28.6 pg (27.0-33.0); MEAN CORPUSCULAR HGB CONC 34.2 g/dl (32.0-36.5); MEAN CORPUSCULAR VOLUME 83.5 fl (80.0-96.0); MONO # 0.8 10^3/uL (0.0-0.8); MONO % 10.9 % (0.0-5.0); NEUTROPHILS # 3.6 10^3/uL (1.8-7.7); NEUTROPHILS % 51.3 % (36.0-66.0); PLATELET COUNT, AUTOMATED 298 10^3/uL (150-450); RED BLOOD COUNT 5.32 10^6/uL (4.30-6.10)
[2018-06-30 18:14] LABS: BLOOD UREA NITROGEN 16 MG/DL (7-18); CALCIUM LEVEL 9.2 MG/DL (8.8-10.2); CARBON DIOXIDE LEVEL 29 MEQ/L (21-32); CHLORIDE LEVEL 104 MEQ/L (98-107); CREATININE FOR GFR 1.02 MG/DL (0.70-1.30); GLOMERULAR FILTRATION RATE > 60.0 (>49); GLUCOSE, FASTING 88 MG/DL (70-100); POTASSIUM SERUM 4.3 MEQ/L (3.5-5.1); SODIUM LEVEL 139 MEQ/L (136-145)
[2018-06-30] MEDS: PIPERACILLIN/TAZOBACTAM SOD 3.375 GM in D5W MINI-BAG PLUS 50 ML IV SCH (19:10)
[2018-06-30] MEDS ORDERED: ACETAMINOPHEN 650MG ER TAB (TYLENOL ARTHRITIS) PO PRN (20:45)
[2018-06-30] MEDS ORDERED: GLIMEPIRIDE 2 MG TAB PO SCH (21:00)
[2018-06-30] MEDS ORDERED: PILL CRUSHER/CUTTER 1 EACH XX PRN (21:00)
[2018-06-30 22:00] VITALS: BP 119/70
[2018-06-30] MEDS: VITAMIN D 1,000 INTERNATIONAL UNITS TABLET PO SCH (22:03)
[2018-06-30] MEDS: CYANOCOBALAMIN 500 MCG TAB PO SCH (22:03)
[2018-06-30] MEDS: OMEPRAZOLE 20 MG CAP PO SCH (22:03)
[2018-06-30] MEDS: amLODIPine 5 MG TAB PO SCH (22:04)
[2018-06-30] MEDS: HEPARIN SOD (PORCINE) 5000 UNITS/ML VIAL SC SCH (22:05)
[2018-06-30] MEDS: LOSARTAN 50 MG TAB PO SCH (22:05)
--- NOTE | 2018-06-30 22:12 | HPE ---
DATE OF ADMISSION: 06/30/2018 PRIMARY CARE PROVIDER: Hema Alston MD VETERINARY VIROLOGIST: Dr. Fraga CHIEF COMPLAINT: Worsening infection in the left second toe. 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 History is provided by himself. He stated he had infection in his right big toe and foot, which was treated by Dr. Chau last year in the hospital. In the last two weeks, he said he got infection in his left second toe, which is getting worse gradually. He saw urgent care recently, was started on Augmentin, which makes his infection a little bit better and he saw Dr. Fraga in the office today and had an x- ray done, which demonstrated he has bone infection. Dr. Fraga referred him to be admitted to the hospital directly for IV antibiotics, as well as possible amputation this coming Thursday. REVIEW OF SYSTEMS: No fever, no chills. No blurred vision. No shortness of breath. No chest pain. No nausea, no vomiting. No abdominal pain. No diarrhea. No tingling, numbness, weakness in arms, lower extremities. All other system review was negative. MEDICAL HISTORY: 1. Type 2 diabetes 2. Hypertension. 3. Dyslipidemia. PAST SURGICAL HISTORY: 1. Right 4th and big toe debridement. ALLERGIES: No known drug allergies. SOCIAL HISTORY: He smoked one and half packs a day for about 40 years and quit in 2016. No alcohol abuse. No illicit drug abuse. He is living at home. He is a full code. FAMILY HISTORY: Reviewed. No family history of diabetes or coronary artery disease. MEDICATIONS: - amlodipine 5 mg by mouth daily - aspirin 81 mg by mouth daily - Celebrex 200 mg by mouth daily - vitamin B12 1000 mcg by mouth daily - glimepiride 2 mg by mouth daily - Dyazide 37.5/25 mg one capsule per day. - insulin 26 units subcutaneous every morning and 100 mg every evening - losartan 50 mg by mouth twice a day - metformin 500 mg by mouth twice a day - omeprazole 20 mg by mouth daily - Crestor 5 mg by mouth daily PHYSICAL EXAMINATION: VITAL SIGNS: Temperature is 97.5, heart rate is 90, respiratory rate 20, blood pressure 140/87, oxygen saturation 96% on room air. GENERAL: He is awake, alert, oriented times 3. He is not acute distress. HEENT: Atraumatic. Pupils equal, round and reactive to light. No jaundice. Extraocular muscles intact. Ears, nose and throat normal. Mouth: Mucosa moist. NECK: No jugular venous distension (JVD) or bruits. LUNGS: Clear. No wheezing, no crackles. HEART: S1, S2 regular. No murmur. ABDOMEN: Soft, Bowel sounds positive, nontender. LOWER EXTREMITIES: No edema in bilateral lower extremities. Regarding his left foot, there is infection in the second toe with pus drainage. Also, he has more chronic wound of his right big toe, which seems like it is not infected. NEUROLOGICAL: Nonfocal. SKIN: No rash. PSYCHOLOGICAL: No acute psychosis. Complete blood count (CBC) and basic metabolic panel (BMP) are pending. IMPRESSION: 1. Left second toe osteomyelitis. 2. Type 2 diabetes. 3. Hypertension. 4. Dyslipidemia. 5. Chronic ulcer in the right big toe. PLAN: The patient will be admitted to the med-surg floor. I will treat him IV Zosyn and follow cultures. Will continue the home medications. Dr. Fraga was consulted and plan for toe amputation on Thursday. RODERICK
[2018-06-30] MEDS: HumuLIN N INSULIN (NovoLIN N) PER UNIT SC SCH (23:14)
[2018-07-01] MEDS: PIPERACILLIN/TAZOBACTAM SOD 3.375 GM in D5W MINI-BAG PLUS 50 ML IV SCH ×3 (02:00→18:42)
[2018-07-01 06:00] VITALS: BP 108/54
[2018-07-01] MEDS: HEPARIN SOD (PORCINE) 5000 UNITS/ML VIAL SC SCH ×3 (06:45→21:53)
[2018-07-01] MEDS ORDERED: CelecoXIB (CeleBREX) 100 MG CAP PO SCH (09:00)
[2018-07-01] MEDS ORDERED: ASPIRIN 81 MG ENTERIC TAB PO SCH (09:00)
[2018-07-01] MEDS ORDERED: DEXTROSE 50% 50 ML SYRINGE IV PRN (09:15)
[2018-07-01] MEDS ORDERED: GLUCOSE 4 GM CHEW TABLET PO PRN (09:15)
[2018-07-01] MEDS ORDERED: GLUCAGON FOR INJ 1 MG VIAL (J1610) SC PRN (09:15)
--- NOTE | 2018-07-01 09:23 | IPNPDOC ---
Subjective Date Seen The patient was seen on 07/01/18. Subjective Chief Complaint/HPI Pt is examined at bedside with family member in the room. He states that he is feeling good in general. Denies pain in the left second toe except some discomfort. Denies any fever, chills, SOB, chest pain, palpitation, of calf pain. General: Denies: Chills Constitutional: Denies: Chills, Fever Skin: Reports: Other (open wound on left 2nd toe per patient) Pulmonary: Denies: Dyspnea, Pleuritic Chest Pain Cardiovascular: Denies: Chest Pain, Palpitations Gastrointestinal: Denies: Nausea, Diarrhea, Constipation Neurological: Denies: Confusion Objective Physical Examination General Exam: Positive: Alert, Cooperative, No Acute Distress Eye Exam: Positive: Conjunctiva & lids normal; Negative: Sclera icteric ENT Exam: Positive: Atraumatic, Mucous membr. moist/pink Neck Exam: Positive: Supple Chest Exam: Positive: Clear to auscultation, Normal air movement; Negative: Rales, Rhonchi, Wheezing Heart Exam: Positive: Rate Normal, Regular Rhythm, Normal S1; Negative: Murmurs Abdomen Exam: Positive: Normal bowel sounds, Soft; Negative: Tenderness Extremity Exam: Positive: Other (left second and third big toe covered with dressing) Skin Exam: Positive: Nl turgor and temperature (except cannot assess left second index and third finger as it was covered with bandage/dressing), Other skin issue (left second and third big toe covered with dressing. Psoriasis noted on bilateral upper extremities) Neuro Exam: Positive: Normal Speech Psych Exam: Positive: Mental status NL, Mood NL, Memory Intact, Oriented x 3 Assessment /Plan Problems (1) Hypertension Status: Chronic Problem Text: BP 108/54 this morning. On home med amlodipine, Dyazide, and Lorsartan. Holding parameters with SBP<105 or DBP<65 were ordered. Continue aiden l signs as scheduled. (2) Osteomyelitis Status: Acute Problem Text: Left second phalanx osteomyelitis shown on X ray in Dr. Jill menard's office; source of infection from cutaneous tissue. Afebrile without leukocytosis. Podiatry is following. On IV Zosyn. Possible amputation tmrw. Continue vital signs, tylenol, and pain meds as scheduled. Trend CRP and CBC. Hold Aspirin and celecoxib now in preparation for surgery. Hold heparin SC 6-12 hrs before surgery. NPO after midnight and will start IV LR at midnight. Will order PT/OT after surgery 07/02 AM PMH of osteomyelitis of first right proximal phalanx shown in foot MRI treated w ith IV antibiotics; it was noted there was abscess and s/p I&D 02/2018. (3) DM2 (diabetes mellitus, type 2) Status: Chronic Problem Text: Patient POC glucose low this morning at 68. Home med Metformin already on hold. It is noted that pt's Metformin on ECW is 500mg BID instead of 1000mg BID; per ECW, pt is on Glimpiride 4mg QPM instead of 2mg QPM. D/t low blood glucose. Hold Glimpeiride. Sliding scale insulin, FSBS AC&HS, and h ypoglycemic protocol ordered. (4) Dyslipidemia Status: Chronic Problem Text: continue home med Crestor (5) Chronic ulcer of great toe of right foot Status: Chronic Problem Text: chronic ulcer of right big toe. 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 Consider wound care Plan/VTE VTE Prophylaxis Ordered?: Yes (SC heparin) Plan Diet: Continue Current Activity: Continue Current Medications: Other Med: (change home PO DM meds. Change to insulin sliding scale) Diagnostics: Repeat Labs in AM, Obtain Cultures Disposition left 2nd toe cellulitis scheduled 07/[address] Springer. Blood cx X2 ordered. Aspirin and Celecoxib ordered. Hold heparin 6-12 hrs before s urgery. NPO and start IV LR starting midnight. VS, I&O, 24H, Fishbone Vital Signs/I&O Vital Signs Date Time Temp Pulse Resp B/P (MAP) Pulse Ox O2 Delivery O2 Flow Rate FiO2 07/01/18 06:00 98.1 78 18 108/54 (72) 91 Room Air I&O- Last 24 Hours up to 6 AM 07/01/18 05:59 Intake Total 1180 ml Output Total 0 ml Balance 1180 ml Laboratory Data 24H LABS Laboratory Tests 2 06/30/18 17:02: Bedside Glucose (Misc Panel) 100 06/30/18 17:44: Immature Granulocyte % (Auto) 1.0, White Blood Count 7.0, Red Blood Count 5.32, Hemoglobin 15.2, Hematocrit 44.4, Mean Corpuscular Volume 83.5, Mean Corpuscular Hemoglobin 28.6, Mean Corpuscular Hemoglobin Concent 34.2, Red Cell Distribution Width 12.4, Platelet Count 298, Neutrophils (%) (Auto) 51.3, Lymphocytes (%) (Auto) 34.0, Monocytes (%) (Auto) 10.9H, Eosinophils (%) (Auto) 2.1, Basophils (%) (Auto) 0.7, Neutrophils # (Auto) 3.6, Lymphocytes # (Auto) 2.4, Monocytes # (Auto) 0.8, Eosinophils # (Auto) 0.2, Basophils # (Auto) 0.1, Nucleated Red Blood Cells % (auto) 0.0, Anion Gap 6L, Glomerular Filtration Rate > 60.0, Blood Urea Nitrogen 16, Creatinine 1.02, Sodium Level 139, Potassium Level 4.3, Chloride Level 104, Carbon Dioxide Level 29, Calcium Level 9.2 06/30/18 21:20: Bedside Glucose (Misc Panel) 120H 07/01/18 06:17: Bedside Glucose (Misc Panel) 68L 07/01/18 09:13: Bedside Glucose (Misc Panel) 92 CBC/BMP Laboratory Tests 06/30/18 17:44 Red Blood Count 5.32, Mean Corpuscular Volume 83.5, Mean Corpuscular Hemoglobin 28.6, Mean Corpuscular Hemoglobin Concent 34.2, Red Cell Distribution Width 12.4, Neutrophils (%) (Auto) 51.3, Lymphocytes (%) (Auto) 34.0, Monocytes (%) (Auto) 10.9 H, Eosinophils (%) (Auto) 2.1, Basophils (%) (Auto) 0.7, Neutrophils # (Auto) 3.6, Lymphocytes # (Auto) 2.4, Monocytes # (Auto) 0.8, Eosinophils # (Auto) 0.2, Basophils # (Auto) 0.1, Calcium Level 9.2 ELENA MCMILLAN DO Jul 01, 2018 09:23
[2018-07-01] MEDS: ROSUVASTATIN 10 MG TAB (CRESTOR) PO SCH (10:42)
[2018-07-01] MEDS: DYAZIDE 37.5/25 CAP (TRIAM/HCTZ) PO SCH (10:42)
[2018-07-01] MEDS: LOSARTAN 50 MG TAB PO SCH ×2 (10:42→21:50)
[2018-07-01] MEDS: amLODIPine 5 MG TAB PO SCH ×2 (10:43→21:51)
[2018-07-01] MEDS: HumuLIN N INSULIN (NovoLIN N) PER UNIT SC SCH ×2 (12:12→21:51)
[2018-07-01 14:00] VITALS: BP 120/71
[2018-07-01] MEDS ORDERED: LR 1,000 ML IV SCH (15:00)
--- NOTE | 2018-07-01 17:40 | IPN ---
DATE: 07/01/2018 at 5:21 p.m. CHIEF COMPLAINT: Patient seen today at bedside for evaluation of osteomyelitis of the 2nd toe of his left foot. Patient was seen in my office yesterday with swelling, increasing pain of the 2nd toe of the right foot. Patient was seen in urgent care on Thursday and put on antibiotics; however, his toe worsened. Evaluation at my office revealed osteomyelitis of the distal phalanx, and he was sent for hospital admission. HOME MEDICATIONS: - amlodipine 5 mg - aspirin 81 mg - Celebrex 200 mg - vitamin B12 at 1000 mcg - glimepiride 2 mg - Dyazide - insulin 26 units - losartan 50 mg - metformin 500 mg twice a day - omeprazole 20 mg daily - Crestor 5 mg daily PAST MEDICAL HISTORY: 1. Type 2 diabetes. 2. Hypertension. 3. Dyslipidemia. 4. Chronic foot ulcerations with diabetic neuropathy. PHYSICAL EXAMINATION: Reveals an ulceration with swelling on the distal aspect of the 2nd toe. Review of x-rays from my office reveal osteomyelitis of the distal phalanx. Patient's temperature today is 98.1, pulse 95, respirations 18, blood pressure is 120/71, pulse oximetry is 63 on room air. LABORATORY STUDIES: Reveal a white count of 7.0. C-reactive protein is 0.99. Fasting glucose is 88, GFR is greater than 60. ASSESSMENT: Osteomyelitis, 2nd toe, left foot. PLAN: Patient is nothing by mouth at midnight, scheduled in the morning for a partial 2nd toe amputation, left foot. We discussed with the patient on discharge Augmentin 875 mg one by mouth twice a day. His questions were answered.
[2018-07-01] MEDS ORDERED: HumaLOG INSULIN (NovoLOG) PER UNIT SC SCH (21:00)
[2018-07-01] MEDS: CYANOCOBALAMIN 500 MCG TAB PO SCH (21:49)
[2018-07-01] MEDS: VITAMIN D 1,000 INTERNATIONAL UNITS TABLET PO SCH (21:50)
[2018-07-01] MEDS: OMEPRAZOLE 20 MG CAP PO SCH (21:51)
[2018-07-01 22:00] VITALS: BP 129/95
[2018-07-02] MEDS: PIPERACILLIN/TAZOBACTAM SOD 3.375 GM in D5W MINI-BAG PLUS 50 ML IV SCH ×2 (01:00→09:15)
[2018-07-02] MEDS: LR 1,000 ML IV SCH ×3 (01:00→14:40)
[2018-07-02 06:00] VITALS: BP 117/60
[2018-07-02] MEDS ORDERED: NEOSPORIN GU IRRIG 20 ML VIAL As Ordered ONE (07:19)
[2018-07-02] MEDS ORDERED: BACITRACIN PWD 50,000 UNITS VIAL As Ordered ONE (07:19)
[2018-07-02] MEDS ORDERED: LIDOCAINE 2% MDV 20 ML VIAL As Ordered ONE (07:19)
[2018-07-02] MEDS ORDERED: BUPIVACAINE HCL 0.5% 30 ML VIAL As Ordered ONE (07:19)
--- NOTE | 2018-07-02 08:35 | IPNPDOC ---
Subjective Date Seen The patient was seen on 07/02/18. Subjective Chief Complaint/HPI Pt this morning without new concerns. Plans for OR today. General: Denies: Fatigue Constitutional: Denies: Chills, Fever Skin: Denies: Rash, Lesions Pulmonary: Denies: Dyspnea, Cough Cardiovascular: Denies: Chest Pain, Palpitations Gastrointestinal: Denies: Nausea, Vomiting Neurological: Denies: Weakness Psych: Reports: Mood Normal Objective Physical Examination General Exam: Positive: Alert, Cooperative, No Acute Distress ENT Exam: Positive: Atraumatic, Mucous membr. moist/pink Neck Exam: Positive: Supple Chest Exam: Positive: Clear to auscultation, Normal air movement; Negative: Rales, Rhonchi, Wheezing Heart Exam: Positive: Rate Normal, Regular Rhythm, Normal S1; Negative: Murmurs Abdomen Exam: Positive: Normal bowel sounds, Soft; Negative: Tenderness Extremity Exam: Positive: Other (left second and third big toe covered with dressing) Skin Exam: Positive: Nl turgor and temperature (except cannot assess left second index and third finger as it was covered with bandage/dressing), Other skin issue (left second and third big toe covered with dressing. Psoriasis noted on bilateral upper extremities) Neuro Exam: Positive: Normal Speech Psych Exam: Positive: Mental status NL, Mood NL Assessment /Plan Problems (1) Hypertension Status: Chronic Problem Text: 07/02 Pressures stable, will advise to hold morning dose of Dyazide and Losartan prior to OR today. 07/01 BP 108/54 this morning. On home med amlodipine, Dyazide, and Lorsartan. Holding parameters with SBP<105 or DBP<65 were ordered. Continue vital signs as scheduled. (2) Osteomyelitis Status: Acute Problem Text: Left second phalanx osteomyelitis shown on X ray in Dr. Fraga's office; source of infection from cutaneous tissue. Afebrile without leukocytosis. Podiatry is following. On IV Zosyn. Possible amputation today. Continue vital signs, tylenol, and pain meds as scheduled. Trend CRP and CBC. Hold Aspirin and celecoxib now in preparation for surgery. Hold heparin SC 6-12 hrs before surgery. NPO after midnight and will start IV LR at midnight. Will order PT/OT after surgery 07/02 AM PMH of osteomyelitis of first right proximal phalanx shown in foot MRI treated with IV antibiotics; it was noted there was abscess and s/p I&D 02/2018. (3) DM2 (diabetes mellitus, type 2) Status: Chronic Problem Text: Metformin and Glimipiride on hold. Sliding scale insulin, FSBS AC&HS, and hypoglycemic protocol ordered. (4) Dyslipidemia Status: Chronic Problem Text: continue home med Crestor (5) Chronic ulcer of great toe of right foot Status: Chronic Problem Text: chronic ulcer of right big toe. 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 Consider wound care Plan/VTE VTE Prophylaxis Ordered?: Yes (SC heparin) Plan Diet: Continue Current Activity: Continue Current Medications: Other Med: (change home PO DM meds. Change to insulin sliding scale) Diagnostics: Repeat Labs in AM, Obtain Cultures VS, I&O, 24H, Fishbone Vital Signs/I&O Vital Signs Date Time Temp Pulse Resp B/P (MAP) Pulse Ox O2 Delivery O2 Flow Rate FiO2 07/02/18 06:00 98.4 72 18 117/60 (79) 93 Room Air I&O- Last 24 Hours up to 6 AM 07/02/18 06:00 Intake Total 3065 ml Output Total 0 ml Balance 3065 ml Laboratory Data 24H LABS Laboratory Tests 2 07/01/18 09:13: Bedside Glucose (Misc Panel) 92 07/01/18 10:11: C-Reactive Protein, Quantitative 0.99H 07/01/18 11:25: Bedside Glucose (Misc Panel) 153H 07/01/18 16:27: Bedside Glucose (Misc Panel) 244H 07/01/18 20:41: Bedside Glucose (Misc Panel) 221H 07/02/18 05:31: C-Reactive Protein, Quantitative 0.77H 07/02/18 06:39: Bedside Glucose (Misc Panel) 97 Microbiology Microbiology 07/01/18 Blood Culture, Received Pending 07/01/18 Blood Culture, Received Pending ANGELICA LUCERO PA-C Jul 02, 2018 08:35
[2018-07-02] MEDS: ROSUVASTATIN 10 MG TAB (CRESTOR) PO SCH (09:15)
[2018-07-02 09:16] VITALS: BP 123/76
[2018-07-02] MEDS: amLODIPine 5 MG TAB PO SCH (09:16)
[2018-07-02] MEDS: HumuLIN N INSULIN (NovoLIN N) PER UNIT SC SCH (09:16)
[2018-07-02] MEDS: DYAZIDE 37.5/25 CAP (TRIAM/HCTZ) PO SCH (09:17)
[2018-07-02] MEDS: LOSARTAN 50 MG TAB PO SCH (09:17)
[2018-07-02] MEDS ORDERED: PROPOFOL 200 MG/20 ML VIAL As Ordered ONE ×4 (13:15→13:44)
[2018-07-02] MEDS ORDERED: LIDOCAINE 2% INJ 100 MG/5 ML SDV (FOR ANES.) As Ordered ONE (13:16)
[2018-07-02] MEDS ORDERED: MIDAZOLAM INJ 2 MG/2 ML VIAL (J2250) As Ordered ONE (13:16)
[2018-07-02] MEDS ORDERED: ONDANSETRON 4MG/2ML VIAL (J2405) As Ordered ONE (13:16)
[2018-07-02] MEDS ORDERED: fentaNYL 100 MCG/2 ML INJECTION (J3010) As Ordered ONE (13:18)
[2018-07-02] MEDS ORDERED: GENTAMICIN SULF INJ 80MG/2ML VIAL (J1580) As Ordered ONE (14:43)
[2018-07-02] MEDS ORDERED: LR 1,000 ML IV SCH (15:30)
[2018-07-02] MEDS ORDERED: PERCOCET 5MG/325MG TAB PO PRN (15:30)
[2018-07-02 15:45] VITALS: BP 126/79
[2018-07-02 16:15] VITALS: BP 158/98
[2018-07-02] MEDS ORDERED: HUMU1INJ2 SC (17:45)
[2018-07-02] MEDS ORDERED: METF500T4 PO (17:46)
[2018-07-02] MEDS ORDERED: GLIM4TAB PO (17:48)
[2018-07-02] MEDS ORDERED: AUGM875T28 PO (17:57)
--- NOTE | 2018-07-03 07:36 | RO ---
DATE OF PROCEDURE: 07/02/2018 PREPROCEDURE DIAGNOSIS: Osteomyelitis distal phalanx 2nd toe, left foot. POSTPROCEDURE DIAGNOSIS: Osteomyelitis distal phalanx 2nd toe, left foot. PROCEDURE: Partial 2nd toe amputation, left foot. SURGEON: Dr. Anthony Fraga DPM FORMWORK CARPENTER: None. ANESTHESIA: Local monitored anesthesia care (MAC). IRRIGATION: Dilute vancomycin solution 1 liter with a low pressure pulse lavage system. HARDWARE UTILIZED: None. HEMOSTASIS: None. ESTIMATED BLOOD LOSS: Less than 5 mL. DESCRIPTION OF PROCEDURE: On 07/02/2018, this 67-year-old male was taken from his hospital room to the operating room and placed on the operating table in the supine position. Following the induction of IV sedation and local and regional anesthesia, the left lower extremity was prepped and draped in the usual aseptic manner. Attention was directed to the patient's left foot. There was noted to be an ulcer extending to bone. Review of the x-rays revealed osteomyelitis of the distal phalanx. At this time, a fishmouth incision was placed on the 2nd toe just distal to the proximal interphalangeal joint. Dissection was carried down to bone. The skin was flapped in a dorsal direction, and the toe was disarticulated at the proximal interphalangeal joint. Utilizing a power saw, an osteotomy was performed at the anatomical neck of the proximal phalanx from dorsal to plantar, through and through. All bleeders as encountered were electrocoagulated using one liter of dilute gentamicin solution with a low pressure pulse lavage. The wound was irrigated. The wound was then closed with #3-0 nylon in a simple interrupted type fashion. The distal phalanx was dissected from the distal end of the toe and sent to microbacteriology for aerobic and anaerobic exam. The patient can be discharged on Augmentin 875 mg one by mouth twice a day until his bone cultures are available. His questions were answered.
== END 2018-07-02 18:50 | disposition home or self-care (01) | DRG 617 ==
LOC: M MS5PR 16:33
PROVIDERS: ADMIT Hospitalist; ATTEND Family Medicine
PROC: 0Y6S0Z3 Detachment at Left 2nd Toe, Low, Open Approach (ICD-10-PCS; principal; 2018-07-02 12:45)
DX: E11.69 Type 2 diabetes mellitus with other specified complication (principal); M86.172 Other acute osteomyelitis, left ankle and foot; E11.621 Type 2 diabetes mellitus with foot ulcer; I10 Essential (primary) hypertension; E78.5 Hyperlipidemia, unspecified; M90.872 Osteopathy in diseases classified elsewhere, left ankle and foot; Z79.899 Other long term (current) drug therapy; Z79.82 Long term (current) use of aspirin; Z79.4 Long term (current) use of insulin; E11.42 Type 2 diabetes mellitus with diabetic polyneuropathy; Z87.891 Personal history of nicotine dependence; L97.524 Non-pressure chronic ulcer of other part of left foot with necrosis of bone; E11.51 Type 2 diabetes mellitus with diabetic peripheral angiopathy without gangrene

== ENCOUNTER → 2018-07-20 | Outpatient (REF) | payer MEDICARE ==
[~2018-07-20] MED LIST changes: +GLIM4TAB PO
== END ==
LOC: M LAB REF 15:48
PROVIDERS: ATTEND Podiatrist
DX: L03.039 Cellulitis of unspecified toe (principal)

== ENCOUNTER → 2018-07-28 | Outpatient (REF) | payer MEDICARE ==
[2018-07-28 13:01] LABS: BASO % 0.3 % (0.0-1.0); EOS # 0.1 10^3/uL (0.0-0.50); HEMATOCRIT 46.2 % (42.0-52.0); HEMOGLOBIN 15.6 g/dl (13.5-17.5); LYMPH # 1.4 10^3/uL (1.5-4.5); LYMPH % 15.8 % (24.0-44.0); MEAN CORPUSCULAR HEMOGLOBIN 28.9 pg (27.0-33.0); MEAN CORPUSCULAR HGB CONC 33.8 g/dl (32.0-36.5); MEAN CORPUSCULAR VOLUME 85.7 fl (80.0-96.0); MONO # 0.7 10^3/uL (0.0-0.8); MONO % 8.1 % (0.0-5.0); NEUTROPHILS # 6.5 10^3/uL (1.8-7.7); NEUTROPHILS % 74.2 % (36.0-66.0); PLATELET COUNT, AUTOMATED 231 10^3/uL (150-450); RED BLOOD COUNT 5.39 10^6/uL (4.30-6.10); WHITE BLOOD COUNT 8.8 10^3/uL (4.0-10.0)
[2018-07-28 13:40] LABS: ALBUMIN 3.8 GM/DL (3.2-5.2); ALT/SGPT 33 U/L (12-78); BILIRUBIN,TOTAL 0.4 MG/DL (0.2-1.0); BLOOD UREA NITROGEN 18 MG/DL (7-18); C REACTIVE PROTEIN QUANTITATIV 0.66 MG/DL (0.00-0.30); CALCIUM LEVEL 8.9 MG/DL (8.8-10.2); CARBON DIOXIDE LEVEL 27 MEQ/L (21-32); CHLORIDE LEVEL 99 MEQ/L (98-107); CHOLESTEROL LEVEL 170 MG/DL (<200); CHOLESTEROL RISK RATIO 6.071 (<5); CREATININE FOR GFR 1.03 MG/DL (0.70-1.30); GLOMERULAR FILTRATION RATE > 60.0 (>49); GLUCOSE, FASTING 190 MG/DL (70-100); HDL CHOLESTEROL 28 MG/DL (>40); LDL CHOLESTEROL 68 MG/DL (<100); NON-HDL-C 142 MG/DL; POTASSIUM SERUM 4.3 MEQ/L (3.5-5.1); SODIUM LEVEL 134 MEQ/L (136-145); TOTAL 25(OH) VITAMIN D 30.2 NG/ML (30.0-100.0); TRIGLYCERIDES LEVEL 372 MG/DL (<150); VITAMIN B12 LEVEL 1205 PG/ML (247-911)
== END ==
LOC: M SFHCPLAZ 09:17
PROVIDERS: ATTEND Family Medicine
DX: I10 Essential (primary) hypertension (principal); E55.9 Vitamin D deficiency, unspecified; E53.8 Deficiency of other specified B group vitamins; E78.5 Hyperlipidemia, unspecified; N18.2 Chronic kidney disease, stage 2 (mild); E66.9 Obesity, unspecified

== ENCOUNTER 2018-08-13 14:51 | Day surgery (SDC) | payer MEDICARE ==
[~2018-08-13] VITALS: Ht 210.8 cm; Wt 114.7 kg
[2018-08-13] MEDS ORDERED: LR 1,000 ML IV ONE (15:00)
[2018-08-13] MEDS ORDERED: VANCOMYCIN HCL 1,000 MG, VIAL MATE ADAPTER 1 EACH in D5W 250 ML IV ONE (15:00)
[2018-08-13] MEDS ORDERED: BUPIVACAINE HCL 0.5% 10 ML VIAL SC ONE (18:52)
[2018-08-13] MEDS ORDERED: VANCOMYCIN HCL 500 MG/10 ML VIAL (J3370) As Ordered ONE (19:00)
[2018-08-13] MEDS ORDERED: LIDOCAINE 2% MDV 20 ML VIAL SC ONE (19:27)
[2018-08-13] MEDS ORDERED: dexameTHASONE 4 MG/ML 1ML VIAL (J1100) As Ordered ONE (19:33)
[2018-08-13] MEDS ORDERED: ONDANSETRON 4MG/2ML VIAL (J2405) As Ordered ONE (19:33)
[2018-08-13] MEDS ORDERED: MIDAZOLAM INJ 2 MG/2 ML VIAL (J2250) As Ordered ONE (19:33)
[2018-08-13] MEDS ORDERED: fentaNYL 100 MCG/2 ML INJECTION (J3010) As Ordered ONE (19:33)
[2018-08-13] MEDS ORDERED: PROPOFOL 500 MG/50 ML VIAL As Ordered ONE (19:33)
[2018-08-13 20:30] VITALS: BP 127/79
--- NOTE | 2018-08-14 09:02 | REP ---
Left foot four views post op second digit amputation: The second digit has been amputated at the MTP articulation. Mineralization is normal. Joint spaces and skeletal structures otherwise are unremarkable except for incidentally identified calcaneal plantar and Achilles spurs. Electronically Signed by Federico Parikh MD 08/14/2018 08:55 A
--- NOTE | 2018-08-14 11:38 | RO ---
DATE OF PROCEDURE: 08/13/2018 PREPROCEDURE DIAGNOSIS: Osteomyelitis second toe left foot. POSTPROCEDURE DIAGNOSIS: Osteomyelitis second toe left foot. PROCEDURE: Second toe amputation at the metatarsal phalangeal joint left foot. SURGEON: Dr. Anthony Fraga DPM MARKETING ANALYTICS LEAD: None. ANESTHESIA: Local MAC. IRRIGATION: Dilute gentamicin solution with a low pressure pulse lavage system 1 liter. HEMOSTASIS: None. DESCRIPTION OF OPERATION: On 08/13/2018, this 67-year old male was taken from his hospital room to the operating room and placed on the operating table in supine position. Following induction of IV sedation, local and regional anesthesia, the left lower extremity was prepped and draped in the usual aseptic manner. Attention was directed to the patient's left foot where there was noted to be an ulcer with the end of the proximal phalanx sticking into the wound. A modified Racquet incision was then placed over the second metatarsal phalangeal joint and incision was made straight to bone. Careful dissection, the proximal phalanx was released at the metatarsal phalangeal joint and the bone was sent to microbacteriology for aerobic and anaerobic cultures. All bleeders as encountered were electrocoagulated. Utilizing 1 liter of dilute vancomycin solution with a low pressure pulse lavage system, the wound was irrigated. The wound was closed with #3-0 Nylon suture in a simple interrupted type fashion. Dry sterile dressing was applied consisting of Adaptic, 4x4, 4x4 splint, and Coban. Patient apparently having tolerated the procedure well was taken from the operating room to the recovery room for further monitoring by the anesthesia department. Postoperative instructions given upon discharge.
== END 2018-08-13 20:35 | disposition home or self-care (01) ==
LOC: M SDC 14:51
PROVIDERS: ATTEND Podiatrist
DX: M86.172 Other acute osteomyelitis, left ankle and foot (principal); L97.522 Non-pressure chronic ulcer of other part of left foot with fat layer exposed; L97.524 Non-pressure chronic ulcer of other part of left foot with necrosis of bone; E11.42 Type 2 diabetes mellitus with diabetic polyneuropathy; E11.621 Type 2 diabetes mellitus with foot ulcer; Z79.82 Long term (current) use of aspirin; Z79.84 Long term (current) use of oral hypoglycemic drugs; Z79.4 Long term (current) use of insulin; Z79.899 Other long term (current) drug therapy; K21.9 Gastro-esophageal reflux disease without esophagitis; L40.8 Other psoriasis; I10 Essential (primary) hypertension; E78.5 Hyperlipidemia, unspecified; Z87.891 Personal history of nicotine dependence; J44.9 Chronic obstructive pulmonary disease, unspecified
CPT/HCPCS: 28820; 73630; 87070; 87075; 87077; 87186; 87205; 88304; 88311; J1100; J2250; J2405; J3010; J3370

== ENCOUNTER → 2018-12-02 | Outpatient (REF) | payer MEDICARE ==
[~2018-12-02] MED LIST changes: +ACET-716 PO; -ACET30TAB PO; -ASPI1TAB PO; +ASPI81TA26 PO; -ERGO500014 PO; +HYDR-3715 PO; -NORCOTAB PO; +VITA500045 PO
[2018-12-02 09:49] LABS: APPEARANCE, URINE CLEAR (CLEAR); BACTERIA, URINE AUTO NEGATIVE (NEGATIVE); BILIRUBIN, URINE AUTO NEGATIVE (NEGATIVE); BLOOD, URINE BLOOD NEGATIVE (NEGATIVE); COLOR, URINE YELLOW (YELLOW); GLUCOSE, URINE (UA) AUTO 1+ mg/dL (NEGATIVE); KETONE, URINE AUTO NEGATIVE (NEGATIVE); LEUKOCYTE ESTERASE, URINE AUTO NEGATIVE (NEGATIVE); MUCUS, URINE SMALL (NEGATIVE); NITRITE, URINE AUTO NEGATIVE (NEGATIVE); PROTEIN, URINE AUTO NEGATIVE (NEGATIVE); RBC, URINE AUTO 3 /HPF (0-3); SPECIFIC GRAVITY URINE AUTO 1.017 (1.002-1.035); SQUAMOUS EPITHELIAL CELL UR AU 0 /HPF (0-6); UROBILINOGEN, URINE AUTO 0.2 mg/dL (0.0-2.0); WBC, URINE AUTO 0 /HPF (0-3)
[2018-12-02 09:51] LABS: BASO % 0.7 % (0.0-1.0); EOS # 0.1 10^3/uL (0.0-0.50); EOS % 1.3 % (0.0-3.0); HEMATOCRIT 46.3 % (42.0-52.0); HEMOGLOBIN 15.7 g/dl (13.5-17.5); LYMPH # 1.7 10^3/uL (1.5-4.5); LYMPH % 28.5 % (24.0-44.0); MEAN CORPUSCULAR HEMOGLOBIN 28.6 pg (27.0-33.0); MEAN CORPUSCULAR HGB CONC 33.9 g/dl (32.0-36.5); MEAN CORPUSCULAR VOLUME 84.5 fl (80.0-96.0); MONO # 0.7 10^3/uL (0.0-0.8); MONO % 11.4 % (0.0-5.0); NEUTROPHILS # 3.4 10^3/uL (1.8-7.7); NEUTROPHILS % 56.9 % (36.0-66.0); PLATELET COUNT, AUTOMATED 208 10^3/uL (150-450); RED BLOOD COUNT 5.48 10^6/uL (4.30-6.10)
[2018-12-02 10:10] LABS: HEMOGLOBIN A1c 8.7 %
[2018-12-02 10:31] LABS: MALB URINE SIEMENS 49.4 MG/L; MAU/CREAT RATIO 41.1 MCG/MG (0.0-30.0)
[2018-12-02 10:36] LABS: ALT/SGPT 45 U/L (12-78); BILIRUBIN,TOTAL 0.4 MG/DL (0.2-1.0); BLOOD UREA NITROGEN 17 MG/DL (7-18); CALCIUM LEVEL 9.2 MG/DL (8.8-10.2); CARBON DIOXIDE LEVEL 28 MEQ/L (21-32); CHLORIDE LEVEL 101 MEQ/L (98-107); CREATININE FOR GFR 1.15 MG/DL (0.70-1.30); GLOMERULAR FILTRATION RATE > 60.0 (>49); GLUCOSE, FASTING 184 MG/DL (70-100); MAGNESIUM LEVEL 1.9 MG/DL (1.8-2.4); SODIUM LEVEL 137 MEQ/L (136-145); TOTAL PROTEIN 7.5 GM/DL (6.4-8.2)
== END ==
LOC: M SFHCPLAZ 08:14
PROVIDERS: ATTEND Family Medicine
DX: N18.2 Chronic kidney disease, stage 2 (mild) (principal); E11.69 Type 2 diabetes mellitus with other specified complication; Z12.5 Encounter for screening for malignant neoplasm of prostate
CPT/HCPCS: 36415; 80053; 81001; 82043; 83036; 83735; 85025; 85046; G0103

== ENCOUNTER → 2019-03-01 | Outpatient (REF) | payer MEDICARE ==
[~2019-03-01] MED LIST changes: +CYAN100049 PO; +METF-791 PO; -METF500T4 PO; -VITA10002 PO
== END ==
LOC: M LAB REF 17:11
PROVIDERS: ATTEND Podiatrist
DX: L03.125 Acute lymphangitis of right lower limb (principal); M79.674 Pain in right toe(s)

== ENCOUNTER → 2019-06-07 | Outpatient (REF) | payer MEDICARE ==
[~2019-06-07] MED LIST changes: -GLIM2TAB PO; +GLIM2TAB2 PO; -GLIM4TAB PO; +GLIM4TAB3 PO; +OMEP-358 PO; -OMEP20TA PO
== END ==
LOC: M LAB REF 15:29
PROVIDERS: ATTEND Podiatrist
DX: L03.031 Cellulitis of right toe (principal)

== ENCOUNTER → 2019-06-29 | Outpatient (CLI) | payer MEDICARE ==
[~2019-06-29] MED LIST changes: -GLIM2TAB2 PO; +GLIM2TAB4 PO; -GLIM4TAB3 PO; +GLIM4TAB5 PO
--- NOTE | 2019-06-29 14:43 | REP ---
Right lower extremity arterial duplex ultrasound for heel/mid foot ulcer: Brachial artery peak systole: 140 mmHg. Dorsalis pedis peak systole: 140 mmHg. AROMATHERAPIST peak systole: 130 mmHg. LEELEE: 1.0. Peak Systolic Phasicity Velocity NETWORK ADMINISTRATOR 104.4 triphasic Profunda 82 portable triphasic SFA prox 125.1 triphasic SFA mid 109.2 triphasic SFA dist 97.3 triphasic Pop 94.1 triphasic VERONICA prox 205.1 monophasic Tib/P tr 59.3 monophasic AROMATHERAPIST pr 53.1 monophasic AROMATHERAPIST dst 55.9 monophasic VERONICA dst 76.5 monophasic There is mild/moderate atheromatous plaque throughout. The plaque is focally more prominent in the mid femoral artery. There is focal stenosis in the proximal VERONICA. Wave forms are monophasic from the proximal to the distal VERONICA including the tibial/peroneal trunk; and in the proximal to distal AROMATHERAPIST. Wave forms are triphasic from the NETWORK ADMINISTRATOR to the popliteal artery. Electronically Signed by Federico Parikh MD 06/29/2019 02:36 P
== END ==
LOC: M RAD 09:57
PROVIDERS: ATTEND Surgery
DX: L97.412 Non-pressure chronic ulcer of right heel and midfoot with fat layer exposed (principal); L97.513 Non-pressure chronic ulcer of other part of right foot with necrosis of muscle

== ENCOUNTER → 2019-07-12 | Outpatient (CLI) | payer MEDICARE ==
--- NOTE | 2019-07-12 15:06 | REPPI ---
PA and lateral chest, three views single PA and two lateral views: Comparison is 03/16/2013. The lung aragon are clear. The cardiac size is normal. The hollis, mediastinum, and skeletal structures are unremarkable. Impression: Negative PA and lateral chest. There is no interval change. Electronically Signed by Federico Parikh MD 07/12/2019 02:57 P
[2019-07-12 18:17] LABS: ALBUMIN 3.9 GM/DL (3.2-5.2); ALT/SGPT 39 U/L (12-78); BILIRUBIN,TOTAL 0.2 MG/DL (0.2-1.0); BLOOD UREA NITROGEN 13 MG/DL (7-18); CARBON DIOXIDE LEVEL 29 MEQ/L (21-32); CHLORIDE LEVEL 97 MEQ/L (98-107); CREATININE FOR GFR 0.99 MG/DL (0.70-1.30); GLOMERULAR FILTRATION RATE > 60.0 (>49); GLUCOSE, FASTING 279 MG/DL (70-100); POTASSIUM SERUM 4.1 MEQ/L (3.5-5.1); SODIUM LEVEL 133 MEQ/L (136-145); TOTAL PROTEIN 7.4 GM/DL (6.4-8.2)
[2019-07-12 18:27] LABS: HEMOGLOBIN 15.1 g/dl (13.5-17.5); MEAN CORPUSCULAR HEMOGLOBIN 29.4 pg (27.0-33.0); MEAN CORPUSCULAR HGB CONC 33.6 g/dl (32.0-36.5); MEAN CORPUSCULAR VOLUME 87.7 fl (80.0-96.0); PLATELET COUNT, AUTOMATED 211 10^3/uL (150-450); RED BLOOD COUNT 5.13 10^6/uL (4.30-6.10); WHITE BLOOD COUNT 5.8 10^3/uL (4.0-10.0)
[2019-07-12 18:31] LABS: HEMOGLOBIN A1c 8.3 %
== END ==
LOC: M PLAIMG 14:09
PROVIDERS: ATTEND Surgery
DX: E11.621 Type 2 diabetes mellitus with foot ulcer (principal); L97.509 Non-pressure chronic ulcer of other part of unspecified foot with unspecified severity

== ENCOUNTER → 2019-07-29 | Outpatient (CLI) | payer MEDICARE ==
--- NOTE | 2019-07-29 16:38 | REP ---
CT chest without contrast: Low-dose screening exam. History: Nicotine dependence. Comparison chest CT study is from November 25, 2017. Comparison chest x-ray July 12, 2019. Findings: There are emphysematous changes again noted in the upper lobes. No pulmonary mass lesion is visible. No significant pulmonary nodule is seen. There is benign pleural plaquing on the right anteriorly. This is unchanged. Impression: Lung RADS 1 negative findings. Repeat screening exam suggested in 1 year. Electronically Signed by Ayo Tafoya MD 07/29/2019 05:08 P
== END ==
LOC: M RAD 14:22
PROVIDERS: ATTEND Family Medicine
DX: Z12.2 Encounter for screening for malignant neoplasm of respiratory organs (principal); Z87.891 Personal history of nicotine dependence

== ENCOUNTER → 2019-08-09 | Outpatient (POV) | payer MEDICARE ==
[~2019-08-09] VITALS: Ht 185.4 cm; Wt 115.9 kg
[2019-08-09 09:45] VITALS: BP 160/88
--- NOTE | 2019-08-10 08:59 | IRCOV ---
[facility] IR Consult Office Visit IR Consult Office Visit DATE: Aug 09, 2019 REASON FOR CONSULTATION/CHIEF COMPLAINT: Nonhealing right lower extremity wound. HISTORY OF PRESENT ILLNESS: 68-year-old diabetic male, ex-smoker presents with difficult to heal right plantar ulcer. This is present for greater than one year. He is now undergoing treatment with Dr. Pozo and wears a total contact cast. Post cast placement, he states ulcer is healing and is now less than 0.5 cm. Hyperbaric treatment was proposed but patient is extremely claustrophobic and could not tolerate the treatments. He does have a history of left second toe amputation performed a year ago. He reports intermittent claudication when he walks around [place]. It is relieved by rest. He does sometimes get rest pain in the legs in bed and has to get up and about. He denie s chest pain, shortness of breath, paroxysmal nocturnal dyspnea or orthopnea. No prior heart attacks or strokes. He states he is now controlling his diabetes better, prior hemoglobin A1c was 8.1. No prior leg angiograms or intervention. ALLERGIES: Please see below. HOME MEDICATIONS: Please see below. PAST MEDICAL HISTORY: Diabetes Psoriasis Hypertension Hidradenitis GERD Osteoarthritis PAST SURGICAL HISTORY: 1. Left second toe amputation 2019 Right phalanx debridement Colonoscopy FAMILY HISTORY: Noncontributory. SOCIAL HISTORY: Quit smoking 6 and half years ago. No alcohol or drugs. REVIEW OF SYSTEMS: Otherwise negative PHYSICAL EXAMINATION: VITAL SIGNS: Please see below. GENERAL APPEARANCE: Appears well. Comfortable at rest. HEENT: No scleral icterus. RESPIRATORY: Normal breathing at rest. CARDIOVASCULAR: Normal rate. ABDOMEN: Soft nontender. EXTREMITIES: Right lower extremity: Contact cast in place. Skin above-knee warm to touch. Femoral pulse 2+ Left lower extremity: No edema. 2 nd toe amputation. No gangrene. Warm to touch. Femoral pulse 2+ popliteal pulse 2+ DP/PT -. sensation normal. motor 5 out of 5. callous over the left medial arch. No open wounds. NEUROLOGICAL: Alert and oriented. PSYCHIATRIC: Appropriate to circumstance. LABORATORY DATA: 07/12/2019 hemoglobin 15.1 hematocrit 45 WBC 5.8 platelets 211 sodium 133 potassium 4.1 BUN 13 creatinine 0.99 hemoglobin A1c 8.3 LDL cholesterol 68 Imaging: I personally reviewed the lower extremity arterial ultrasound of the right leg from June 2019. There is below-knee atherosclerotic disease in run off vessels with monophasic waveforms. ASSESSMENT/PLAN: 68 male with diabetes and bilateral lower extremity critical limb ischemia with active wound on the right lower extremity and prior amputation on the left. Patient does suffer with intermittent claudication and rest pain. I agree patient would benefit from angiography and below-knee intervention if possible. We have scheduled the patient for this procedure. He has good cholesterol control with goal LDL less than 70. His hemoglobin A1c goal should be less than 7 and he is aware of this. We discussed the importance of exercise for peripheral circulation and diabetes control; target hemoglobin A1c less than 7. He is on a statin, aspirin and JOVANI inhibitor all cardioprotective. After intervention I may start him on Plavix. I spent 30 minutes in consultation with the patient. Thank you for this referral. CC Dr. Pozo Allergies Coded Allergies: MS - Atorvastatin (Unverified Adverse Reaction, Intermediate, ELEVATED LFT, 08/13/18) MS - Pravastatin (Unverified Adverse Reaction, Intermediate, ELEVATED LFT, 08/13/18) MS - JOVANI Inhibitors (Unverified Adverse Reaction, Unknown, COUGH, 08/13/18) Home Medications Scheduled Amlodipine Besylate (Amlodipine Besylate), 5 MG PO BID, (Reported) Aspirin (Aspirin EC), 81 MG PO DAILY, (Reported) Celecoxib (Celebrex), 200 MG PO DAILY, (Reported) Cholecalciferol (Vitamin D3) (Vitamin D3), 2,000 UNIT PO QPM, (Reported) Cyanocobalamin (Vitamin B-12) (Vitamin B-12), 1,000 MCG PO QPM, (Reported) Glimepiride (Glimepiride), 4 MG PO BID Insulin NPH Human Isophane (Humulin N Kwikpen), 100 UNITS SC QPM, (Reported) Insulin NPH Human Isophane (Humulin N Kwikpen), 26 UNITS SC QAM Losartan Potassium (Losartan Potassium), 50 MG PO BID, (Reported) Metformin HCl (Metformin HCl ER), 500 MG PO BID Omeprazole (Omeprazole), 20 MG PO QPM, (Reported) Rosuvastatin Calcium (Crestor), 5 MG PO DAILY, (Reported) Triamterene/Hydrochlorothiazid (Dyazide 37.5-25 Capsule), 1 CAP PO DAILY, (Reported) Scheduled PRN Acetaminophen (Tylenol Arthritis), 650 MG PO Q8H PRN for PAIN, (Reported) VS, I&O, 24H, Fishbone Vital Signs/I&O Vital Signs Date Time Temp Pulse Resp B/P (MAP) Pulse Ox O2 Delivery O2 Flow Rate FiO2 08/09/19 09:45 97.7 73 18 160/88 (112) 94 Room Air JUNIOR SHARIF MD Aug 10, 2019 08:59
== END ==
LOC: M IRPOV 09:36
PROVIDERS: ATTEND Radiology Diagnostic Radiology
DX: I70.245 Atherosclerosis of native arteries of left leg with ulceration of other part of foot (principal); I70.213 Atherosclerosis of native arteries of extremities with intermittent claudication, bilateral legs; I70.223 Atherosclerosis of native arteries of extremities with rest pain, bilateral legs; L97.419 Non-pressure chronic ulcer of right heel and midfoot with unspecified severity; E11.621 Type 2 diabetes mellitus with foot ulcer; L40.9 Psoriasis, unspecified; K21.9 Gastro-esophageal reflux disease without esophagitis; Z87.891 Personal history of nicotine dependence; Z89.422 Acquired absence of other left toe(s)

== ENCOUNTER → 2019-10-03 | Outpatient (REF) | payer MEDICARE ==
[2019-10-03 12:50] LABS: BASO % 0.5 % (0.0-1.0); EOS # 0.1 10^3/uL (0.0-0.5); EOS % 1.9 % (0.0-3.0); HEMATOCRIT 46.5 % (42.0-52.0); HEMOGLOBIN 16.4 g/dl (13.5-17.5); LYMPH # 1.5 10^3/uL (1.5-5.0); LYMPH % 25.7 % (24.0-44.0); MEAN CORPUSCULAR HEMOGLOBIN 30.2 pg (27.0-33.0); MEAN CORPUSCULAR HGB CONC 35.3 g/dl (32.0-36.5); MEAN CORPUSCULAR VOLUME 85.6 fl (80.0-96.0); MONO # 0.6 10^3/uL (0.0-0.8); MONO % 10.6 % (0.0-5.0); NEUTROPHILS # 3.5 10^3/uL (1.5-8.5); NEUTROPHILS % 60.4 % (36.0-66.0); PLATELET COUNT, AUTOMATED 179 10^3/uL (150-450); RED BLOOD COUNT 5.43 10^6/uL (4.30-6.10); WHITE BLOOD COUNT 5.8 10^3/uL (4.0-10.0)
[2019-10-03 13:01] LABS: ALBUMIN 3.9 GM/DL (3.2-5.2); ALT/SGPT 47 U/L (12-78); BILIRUBIN,TOTAL 0.4 MG/DL (0.2-1.0); BLOOD UREA NITROGEN 14 MG/DL (7-18); CALCIUM LEVEL 9.1 MG/DL (8.8-10.2); CARBON DIOXIDE LEVEL 29 MEQ/L (21-32); CHLORIDE LEVEL 102 MEQ/L (98-107); CHOLESTEROL LEVEL 141 MG/DL (<200); CREATININE FOR GFR 0.94 MG/DL (0.70-1.30); FREE T4 1.17 NG/DL (0.76-1.46); GLOMERULAR FILTRATION RATE > 60.0 (>49); GLUCOSE, FASTING 190 MG/DL (70-100); HDL CHOLESTEROL 30 MG/DL (>40); LDL CHOLESTEROL 46 MG/DL (<100); NON-HDL-C 111 MG/DL; PTH INTACT 30.7 PG/ML (18.5-88.0); SODIUM LEVEL 135 MEQ/L (136-145); TOTAL 25(OH) VITAMIN D 32.2 NG/ML (30.0-100.0); TOTAL PROTEIN 7.3 GM/DL (6.4-8.2); TRIGLYCERIDES LEVEL 323 MG/DL (<150)
[2019-10-03 13:32] LABS: HEMOGLOBIN A1c 8.1 %
== END ==
LOC: M SFHCPLAZ 09:57 → M SFHCADAM 10:00
PROVIDERS: ATTEND Family Medicine
DX: I10 Essential (primary) hypertension (principal); E78.5 Hyperlipidemia, unspecified; E11.69 Type 2 diabetes mellitus with other specified complication; Z12.5 Encounter for screening for malignant neoplasm of prostate
CPT/HCPCS: 80053; 80061; 82306; 83036; 83970; 84439; 84443; 85025; 85046; G0103

== ENCOUNTER → 2019-12-01 | Outpatient (CLI) | payer MEDICARE ==
[~2019-12-01] MED LIST changes: +ISOVUE-300 61% 50ML VIAL As Ordered ONE; +LIDOCAINE 1% MDV 20ML VIAL As Ordered ONE; -METF-791 PO; +METF-838 PO; +MIDAZOLAM INJ 2MG/2ML VIAL (J2250 PER 1MG) As Ordered ONE; +TRAM50TA2 PO; +diphenhydrAMINE 50MG/ML VIAL (J1200) As Ordered ONE; +fentaNYL 100 MCG/2 ML INJECTION (J3010) As Ordered ONE
[2019-12-01 07:06] LABS: HEMATOCRIT 48.2 % (42.0-52.0); HEMOGLOBIN 16.5 g/dl (13.5-17.5); MEAN CORPUSCULAR HEMOGLOBIN 29.5 pg (27.0-33.0); MEAN CORPUSCULAR HGB CONC 34.2 g/dl (32.0-36.5); MEAN CORPUSCULAR VOLUME 86.2 fl (80.0-96.0); PLATELET COUNT, AUTOMATED 198 10^3/uL (150-450); RED BLOOD COUNT 5.59 10^6/uL (4.30-6.10); WHITE BLOOD COUNT 5.5 10^3/uL (4.0-10.0)
--- NOTE | 2019-12-01 07:25 | IRHP ---
[facility] IR Pre-Procedure H & P General Date of Service: Dec 01, 2019 Procedure: Same Day Surgery Interval History and Physical I have seen the patient and reviewed last H & P performed within 30 days. There is no significant interval change. History of Present Illness Chief Complaint The patient is a 69-year-old male admitted with a reason for visit of PAD. PRE-PROCEDURE DIAGNOSIS: PAD HEART: normal rate. LUNGS: normal breathing at rest. ASA Classification ASA Classification: III-Severe systemic dis. Mallampati Score: II NPO: Yes Problems with prior sedation: No Obstructive Sleep Apnea: No Plan moderate sedation Allergies Coded Allergies: MS - Atorvastatin (Unverified Adverse Reaction, Intermediate, ELEVATED LFT, 08/13/18) MS - Pravastatin (Unverified Adverse Reaction, Intermediate, ELEVATED LFT, 08/13/18) MS - JOVANI Inhibitors (Unverified Adverse Reaction, Unknown, COUGH, 08/13/18) Home Medications Scheduled Amlodipine Besylate (Amlodipine Besylate), 5 MG PO BID, (Reported) Aspirin (Aspirin EC), 81 MG PO DAILY, (Reported) Celecoxib (Celebrex), 200 MG PO DAILY, (Reported) Cholecalciferol (Vitamin D3) (Vitamin D3), 2,000 UNIT PO QPM, (Reported) Glimepiride (Glimepiride), 4 MG PO BID Insulin NPH Human Isophane (Humulin N Kwikpen), 100 UNITS SC QPM, (Reported) Insulin NPH Human Isophane (Humulin N Kwikpen), 26 UNITS SC QAM Losartan Potassium (Losartan Potassium), 50 MG PO BID, (Reported) Metformin HCl (Metformin HCl ER), 500 MG PO BID Omeprazole (Omeprazole), 20 MG PO QPM, (Reported) Rosuvastatin Calcium (Crestor), 5 MG PO DAILY, (Reported) Triamterene/Hydrochlorothiazid (Dyazide 37.5-25 Capsule), 1 CAP PO DAILY, (Reported) Scheduled PRN Acetaminophen (Tylenol Arthritis), 650 MG PO Q8H PRN for PAIN, (Reported) Tramadol HCl (Tramadol HCl), 50 MG PO for PAIN OR FEVER, (Reported) Discontinued Medications Cyanocobalamin (Vitamin B-12) (Vitamin B-12), 1,000 MCG PO QPM, (Reported) Discontinued Reason: Pt states not taking VS, I&O, 24H, Fishbone Vital Signs/I&O Vital Signs Date Time Temp Pulse Resp B/P (MAP) Pulse Ox O2 Delivery O2 Flow Rate FiO2 12/01/19 06:56 97.6 78 20 95 Room Air Laboratory Data 24H LABS Laboratory Tests 2 12/01/19 06:55: Nucleated Red Blood Cells % (auto) 0.0 CBC/BMP Laboratory Tests 12/01/19 06:55 JUNIOR SHARIF MD Dec 01, 2019 07:25
[2019-12-01 07:29] LABS: ALBUMIN 3.9 GM/DL (3.2-5.2); ALT/SGPT 43 U/L (12-78); BILIRUBIN,TOTAL 0.3 MG/DL (0.2-1.0); BLOOD UREA NITROGEN 15 MG/DL (7-18); CALCIUM LEVEL 9.2 MG/DL (8.8-10.2); CARBON DIOXIDE LEVEL 27 MEQ/L (21-32); CHLORIDE LEVEL 105 MEQ/L (98-107); CREATININE FOR GFR 1.08 MG/DL (0.70-1.30); GLOMERULAR FILTRATION RATE > 60.0 (>49); GLUCOSE, FASTING 146 MG/DL (70-100); SODIUM LEVEL 136 MEQ/L (136-145); TOTAL PROTEIN 7.8 GM/DL (6.4-8.2)
--- NOTE | 2019-12-01 12:19 | POST-OPPD ---
Postoperative Procedure Note Date Of Procedure: Dec 01, 2019 Time Of Procedure: 12:17 PREOPERATIVE DIAGNOSIS:PAD POSTOPERATIVE DIAGNOSIS: same FINDINGS: right TP trunk and peroneal artery disease PROCEDURE: angioplasty of peroneal artery and TP trunk with improved 3 vessel run off to the right foot. SURGEON: Gaudencio ANESTHESIA: mod sed ESTIMATED BLOOD LOSS: < 5 ml COMPLICATIONS: none POSTOPERATIVE CONDITION: stable JUNIOR SHARIF MD Dec 01, 2019 12:19
[2019-12-01 13:22] VITALS: BP 164/96
--- NOTE | 2019-12-05 12:40 | REP ---
IR Right leg angiogram. IR Selective Right iliac artery catheterization. IR Selective Right common femoral artery catheterization. IR Ultrasound guided left common femoral artery access. IR Moderate sedation. Clinical Information: Right lower extremity rest pain. Prior non healing wounds. Physician: Dr Ratliff.Procedure: The patient was advised of the benefits, risks, and alternatives of the procedure and informed consent was obtained.A time out was performed with verification of the patient's name, MRN, site of procedure, and type of procedure to be performed. The patient was positioned in the supine position on the angiographic table. The site was prepped and draped in the usual sterile fashion.Moderate sedation was performed by the physician including the presence of an independent trained observer who assisted in monitoring the patient's level of consciousness and physiological status. Following the administration of Fentanyl and Versed, the physician spent 120 minutes of continuous [id number]-[id number] time with the patient. A body art technician radiograph reveals no gross abnormality. Ultrasound of the left groin demonstrates a patent left common femoral artery. The left common femoral artery was accessed with a micropuncture kit, under ultrasound guidance. A VIAP wire was advanced into the aorta, under ultrasound guidance. The micropuncture sheath was exchanged over the wire for a a 6-[place] vascular sheath. A flush catheter was advanced over the wire and used to catheterize the abdominal aorta. A pelvic arteriogram was performed. This demonstrates ectatic/ small aneurysmal infrarenal abdominal aorta. Patent bilateral common iliac, internal iliac and right external iliac artery. A Glidewire was advanced through the flush catheter and under fluoroscopy guidance was used to gain up and over access into the right common iliac artery. The flush catheter was exchanged over the wire for a glide cath. The glide cath in conjunction with a Glidewire was used to catheterize the right common femoral artery. A right leg angiogram was performed from this location. This demonstrates patent common femoral artery, superficial femoral artery and profunda femoris. Angiography further down the leg was performed and this demonstrates patent popliteal artery. A below-knee runoff arteriogram was performed and this demonstrates patent anterior tibial artery. Occlusion of the tibioperoneal trunk. There is slow three-vessel runoff to the right foot because of tibioperoneal, proximal peroneal artery occlusion/stenosis. The wire and catheter under fluoroscopy guidance were used to catheterize the peroneal artery. A 3 x 200 mm [place] balloon was advanced over the wire under fluoroscopy guidance and positioned in the peroneal artery and tibioperoneal trunk. This was used to angioplasty the tibioperoneal trunk and proximal peroneal artery. Heparin was administered. The balloon was deflated. A post angioplasty follow-up arteriogram was performed and this demonstrates resolution of tibioperoneal occlusion. There is now rapid flow through the tibioperoneal trunk into the posterior tibial and peroneal artery. Resolution of proximal peroneal artery stenosis. There is good flow within the anterior tibial artery. Completion runoff arteriogram to the right foot was performed and this demonstrates good flow in the anterior and posterior tibial arteries which, remain patent to the foot. Improved flow in the peroneal artery which terminates at the ankle. No vessel spasm, dissection, cutoff or distal emboli. Catheter wire and sheath were removed. A 6-[place] Mynx device was used to close the right groin arteriotomy, hemostasis achieved and a sterile dressing was applied to the site. Patient tolerated the procedure well and was transferred to PRU in stable condition. Complications: None. Estimated blood loss: Less than 5 ml. Impression: 1. Right leg angiogram demonstrates tibioperoneal occlusion and peroneal artery stenosis. 2. Successful tibioperoneal and peroneal artery angioplasty with improved three-vessel runoff to the right foot. Thank you for this referral. Cc Júnior Barnes PA-C Electronically Signed by Estelle Ratliff MD 12/05/2019 12:39 P
== END ==
LOC: M IRPRO 06:30
PROVIDERS: ATTEND Radiology Diagnostic Radiology
DX: I70.201 Unspecified atherosclerosis of native arteries of extremities, right leg (principal)
CPT/HCPCS: 37228; 37232; 75710; 80053; 85027; 99152; 99153; C1725; C1760; C1769; C1887; C1894; J1644; J2250; J3010; Q9967

== ENCOUNTER → 2019-12-08 | Outpatient (CLI) | payer MEDICARE ==
[~2019-12-08] MED LIST changes: +ACET650T61 PO; +AMLO1TAB24 PO; -AMLO5TAB6 PO; +CLOPIDOGREL 75 MG TAB As Ordered ONE; +INSUNSD SC; +KETOROLAC 30 MG/ML 1ML VIAL As Ordered ONE; +PERCOCET 5MG/325MG TAB As Ordered ONE; +PROMETHAZINE INJ 25 MG/ML VIAL (J2550) As Ordered ONE; -TYLE650T35 PO
--- NOTE | 2019-12-08 07:47 | IRHP ---
[facility] IR Pre-Procedure H & P General Date of Service: Dec 08, 2019 Procedure: Same Day Surgery Interval History and Physical I have seen the patient and reviewed last H & P performed within 30 days. There is no significant interval change. History of Present Illness Chief Complaint The patient is a 69-year-old male admitted with a reason for visit of PAD. PRE-PROCEDURE DIAGNOSIS: PAD HEART: normal rate. LUNGS: normal breathing at rest. ASA Classification ASA Classification: III-Severe systemic dis. Mallampati Score: II NPO: Yes Problems with prior sedation: No Obstructive Sleep Apnea: No Plan moderate sedation Allergies Coded Allergies: MS - Atorvastatin (Unverified Adverse Reaction, Intermediate, ELEVATED LFT, 08/13/18) MS - Pravastatin (Unverified Adverse Reaction, Intermediate, ELEVATED LFT, 08/13/18) MS - JOVANI Inhibitors (Unverified Adverse Reaction, Unknown, COUGH, 08/13/18) Home Medications Scheduled Amlodipine Besylate (Amlodipine Besylate), 5 MG PO BID, (Reported) Aspirin (Aspirin EC), 81 MG PO DAILY, (Reported) Celecoxib (Celebrex), 200 MG PO DAILY, (Reported) Cholecalciferol (Vitamin D3) (Vitamin D3), 2,000 UNIT PO QPM, (Reported) Glimepiride (Glimepiride), 4 MG PO BID Insulin Human NPH (Humulin N), 40 UNITS SC QAM, (Reported) Insulin NPH Human Isophane (Humulin N Kwikpen), 100 UNITS SC QPM, (Reported) Losartan Potassium (Losartan Potassium), 50 MG PO BID, (Reported) Metformin HCl (Metformin HCl ER), 500 MG PO BID Omeprazole (Omeprazole), 20 MG PO QPM, (Reported) Rosuvastatin Calcium (Crestor), 5 MG PO DAILY, (Reported) Triamterene/Hydrochlorothiazid (Dyazide 37.5-25 Capsule), 1 CAP PO DAILY, (Reported) Scheduled PRN Acetaminophen (Tylenol Arthritis), 650 MG PO Q8H PRN for PAIN, (Reported) Tramadol HCl (Tramadol HCl), 50 MG PO for PAIN OR FEVER, (Reported) Discontinued Medications Insulin NPH Human Isophane (Humulin N Kwikpen), 26 UNITS SC QAM Discontinued Reason: Re-entering as new VS, I&O, 24H, Fishbone Vital Signs/I&O Vital Signs Date Time Temp Pulse Resp B/P (MAP) Pulse Ox O2 Delivery O2 Flow Rate FiO2 12/08/19 06:57 97.6 91 20 96 Room Air JUNIOR SHARIF MD Dec 08, 2019 07:47
--- NOTE | 2019-12-08 10:13 | POST-OPPD ---
Postoperative Procedure Note Date Of Procedure: Dec 08, 2019 Time Of Procedure: 09:59 PREOPERATIVE DIAGNOSIS: Rest pain. POSTOPERATIVE DIAGNOSIS: same FINDINGS: complete left distal SFA and popliteal occlusion with distal reconstitution via collaterals. Poor below knee run off, AT patent. PT and peroneal fed by collateral. AT patent into foot. Distal posterior tibial occlusion. PROCEDURE: attempt at distal SFA and popliteal recanalization failed. Patient will be brought back for ipsilateral antegrade and pedal retrograde attempt. SURGEON: Gaudencio ANESTHESIA: mod sed ESTIMATED BLOOD LOSS: < 5 ml COMPLICATIONS: none POSTOPERATIVE CONDITION: stable JUNIOR SHARIF MD Dec 08, 2019 10:13
[2019-12-08 15:43] VITALS: BP 134/74
--- NOTE | 2019-12-12 14:36 | REP ---
IR Left leg angiogram. IR Selective left iliac artery catheterization. IR Selective left common femoral artery catheterization. IR Ultrasound guided right common femoral artery access. IR Moderate sedation. Clinical Information: Left lower extremity rest pain. Physician: Dr Ratliff.Procedure: The patient was advised of the benefits, risks, and alternatives of the procedure and informed consent was obtained.A time out was performed with verification of the patient's name, MRN, site of procedure, and type of procedure to be performed. The patient was positioned in the supine position on the angiographic table. The site was prepped and draped in the usual sterile fashion.Moderate sedation was performed by the physician including the presence of an independent trained observer who assisted in monitoring the patient's level of consciousness and physiological status. Following the administration of Fentanyl and Versed, the physician spent 120 minutes of continuous rrdd-[id number]-nwex time with the patient. A warehouseman radiograph reveals no gross abnormality. Ultrasound right groin demonstrates patent right common femoral artery. The right common femoral artery was accessed with a micropuncture kit, under ultrasound guidance. A [employer] wire was advanced into the aorta. The micropuncture sheath was exchanged over the wire for a a 6-[place] vascular sheath. A flush catheter was advanced over the wire and used to catheterize the abdominal aorta. A pelvic arteriogram was performed. This demonstrates small infrarenal abdominal aneurysm. Patent left common iliac, internal iliac and external iliac arteries. A Glidewire was advanced through the flush catheter and under fluoroscopy guidance was used to gain up and over access into the left common iliac artery. The flush catheter was exchanged over the wire for a glide cath. The glide cath in conjunction with a Glidewire was used to catheterize the left common femoral artery. A left leg angiogram was performed from this location. This demonstrates patent left common femoral, proximal superficial femoral and profunda femoris. Angiogram further down the left leg demonstrates patent mid superficial femoral artery. Complete occlusion of the distal superficial femoral artery with reconstitution of the popliteal artery via collaterals. Extensive collaterals around the left knee. A below-knee runoff arteriogram was performed and this demonstrates reconstitution of the distal popliteal artery via collaterals. Occlusion of the tibioperoneal trunk. Stenosis at the proximal anterior tibial artery. Patent proximal anterior tibial artery, posterior tibial artery and peroneal artery. Runoff arteriogram to the left foot demonstrates patent anterior tibial artery and dorsalis pedis. Distal posterior tibial artery occlusion; artery terminates at the ankle. The glide cath was exchanged over the wire for a [place] catheter. The catheter in conjunction with the wire was used under fluoroscopy guidance, to try to recanalize the occluded distal superficial femoral artery. The glide wire was exchanged for a glide advantage wire. Further attempts to recanalize the distal superficial femoral artery were made under fluoroscopy guidance. The [place] catheter was exchanged over the wire for a [employer] angled catheter. Intermittent injection of contrast shows catheterization of collaterals off the distal superficial femoral artery. Multiple attempts were made to try to recanalize the occluded left distal superficial femoral artery without success. The catheter was retracted back to the mid superficial femoral artery and injection of contrast demonstrates preserved forward flow in the distal popliteal artery, supplying the anterior tibial artery and tibioperoneal trunk. The distal SFA appears irregular with dissection planes. The catheter wire and sheath were removed, pressure held and hemostasis achieved. A sterile dressing was applied to the site. Patient tolerated the procedure well and was transferred to PRU in stable condition. Complications: None. Estimated blood loss: Less than 5 ml. Impression: 1. Left leg angiogram demonstrates complete occlusion of the distal left superficial femoral artery with distal reconstitution of the popliteal artery via collaterals. 2. Below-knee runoff arteriogram demonstrates poor supply to the popliteal artery due to occluded distal SFA. Patent anterior tibial artery which course into the foot. Patent dorsalis pedis. Occluded tibioperoneal trunk with reconstitution of the posterior tibial and peroneal artery which continue to the foot. Posterior tibial artery terminates at the ankle. 3. Unsuccessful contralateral antegrade distal SFA recanalization. The patient will be brought back for ipsilateral antegrade and retrograde approach to distal SFA occlusion. Thank you for this referral. Electronically Signed by Estelle Ratliff MD 12/12/2019 02:34 P
== END ==
LOC: M IRPRO 06:29
PROVIDERS: ATTEND Radiology Diagnostic Radiology
DX: I70.222 Atherosclerosis of native arteries of extremities with rest pain, left leg (principal); I70.92 Chronic total occlusion of artery of the extremities; I71.4 Abdominal aortic aneurysm, without rupture; Z79.4 Long term (current) use of insulin; Z79.82 Long term (current) use of aspirin; Z79.899 Other long term (current) drug therapy; Z88.1 Allergy status to other antibiotic agents; Z88.8 Allergy status to other drugs, medicaments and biological substances
CPT/HCPCS: 36245; 75710; 99152; 99153; C1760; C1769; C1887; C1894; J1200; J1644; J1885; J2250; J3010; Q9967

== ENCOUNTER → 2019-12-27 | Outpatient (POV) | payer MEDICARE ==
[~2019-12-27] MED LIST changes: -CLOPIDOGREL 75 MG TAB As Ordered ONE; -ISOVUE-300 61% 50ML VIAL As Ordered ONE; -KETOROLAC 30 MG/ML 1ML VIAL As Ordered ONE; -LIDOCAINE 1% MDV 20ML VIAL As Ordered ONE; -MIDAZOLAM INJ 2MG/2ML VIAL (J2250 PER 1MG) As Ordered ONE; -PERCOCET 5MG/325MG TAB As Ordered ONE; -PROMETHAZINE INJ 25 MG/ML VIAL (J2550) As Ordered ONE; -diphenhydrAMINE 50MG/ML VIAL (J1200) As Ordered ONE; -fentaNYL 100 MCG/2 ML INJECTION (J3010) As Ordered ONE
--- NOTE | 2019-12-28 08:28 | IRPN ---
[facility] IR Progress Note IR Progress Note DATE: Dec 27, 2019 Patient agreed to this telephone consultation. Duration of call 20 minutes. FOLLOW-UP: 69 male with PAD and prior 2 toe left lower extremity amputation, underwent diagnostic angiogram which shows complete distal SFA and proximal popliteal occlusion with collateral reconstitution of distal popliteal artery. 3 vessel run off to the foot with below knee, multifocal, small segment stenosis and occlusions. Recanalization of SFA was not possible at the last session. Patient report no mass or pain at the right groin access site. No change in symptoms in left leg which are mainly pain at rest. No new ulcers and no new gangrene. Patient is able to walk and allowed to bear weight on legs. Patient has had poor blood sugar control in the past and working to improve this. He is on aspirin and Plavix. ON EXAMINATION: No video on patient side. IMPRESSION: 69 male with diabetes, PAD and bilateral lower extremity pain at rest, improved after right leg intervention. Left leg angiogram shows long segment distal SFA occlusion. This maybe amenable to retrograde recanalization. However, patient would need to be on the table for a few hours plus flat in recovery and patient has back issues which make it hard for him to lay flat. We discussed options for better pain control for his back, in recovery and shortening the recovery period. He would like to proceed and we will schedule him for late February. cc Dr. Alston. Allergies Coded Allergies: MS - Atorvastatin (Unverified Adverse Reaction, Intermediate, ELEVATED LFT, 08/13/18) MS - Pravastatin (Unverified Adverse Reaction, Intermediate, ELEVATED LFT, 08/13/18) MS - JOVANI Inhibitors (Unverified Adverse Reaction, Unknown, COUGH, 08/13/18) JUNIOR SHARIF MD Dec 28, 2019 08:28
== END ==
LOC: M TMIRPOV 07:50
PROVIDERS: ATTEND Radiology Diagnostic Radiology
DX: I70.223 Atherosclerosis of native arteries of extremities with rest pain, bilateral legs (principal); I70.92 Chronic total occlusion of artery of the extremities; E11.51 Type 2 diabetes mellitus with diabetic peripheral angiopathy without gangrene; Z89.422 Acquired absence of other left toe(s)

== ENCOUNTER → 2020-02-29 | Outpatient (CLI) | payer MEDICARE ==
[2020-02-29 13:35] LABS: BASO # 0.1 10^3/uL (0.0-0.2); BASO % 0.8 % (0.0-1.0); EOS # 0.1 10^3/uL (0.0-0.5); EOS % 1.6 % (0.0-3.0); HEMOGLOBIN 16.8 g/dl (13.5-17.5); LYMPH % 31.1 % (24.0-44.0); MEAN CORPUSCULAR HEMOGLOBIN 29.4 pg (27.0-33.0); MEAN CORPUSCULAR HGB CONC 33.6 g/dl (32.0-36.5); MEAN CORPUSCULAR VOLUME 87.6 fl (80.0-96.0); MONO # 0.8 10^3/uL (0.0-0.8); MONO % 12.6 % (0.0-5.0); NEUTROPHILS # 3.4 10^3/uL (1.5-8.5); NEUTROPHILS % 53.1 % (36.0-66.0); PLATELET COUNT, AUTOMATED 214 10^3/uL (150-450); RED BLOOD COUNT 5.71 10^6/uL (4.30-6.10); WHITE BLOOD COUNT 6.3 10^3/uL (4.0-10.0)
[2020-02-29 14:04] LABS: ALBUMIN 4.1 GM/DL (3.2-5.2); ALT/SGPT 46 U/L (12-78); BILIRUBIN,TOTAL 0.4 MG/DL (0.2-1.0); BLOOD UREA NITROGEN 17 MG/DL (7-18); C REACTIVE PROTEIN QUANTITATIV 0.62 MG/DL (0.00-0.30); CALCIUM LEVEL 9.3 MG/DL (8.8-10.2); CARBON DIOXIDE LEVEL 28 MEQ/L (21-32); CHLORIDE LEVEL 102 MEQ/L (98-107); CHOLESTEROL LEVEL 153 MG/DL (<200); CREATININE FOR GFR 1.25 MG/DL (0.70-1.30); GLOMERULAR FILTRATION RATE > 60.0 (>49); GLUCOSE, FASTING 175 MG/DL (70-100); HDL CHOLESTEROL 34 MG/DL (>40); LDL CHOLESTEROL 77 MG/DL (<100); NON-HDL-C 119 MG/DL; NT-PRO BNP 30 PG/ML (<125); POTASSIUM SERUM 3.9 MEQ/L (3.5-5.1); SODIUM LEVEL 137 MEQ/L (136-145); TOTAL PROTEIN 7.7 GM/DL (6.4-8.2); TRIGLYCERIDES LEVEL 212 MG/DL (<150)
[2020-02-29 14:06] LABS: VITAMIN B12 LEVEL 420 PG/ML (247-911)
[2020-02-29 14:44] LABS: HEMOGLOBIN A1c 7.2 %
[2020-03-05 10:33] LABS: THYROID PEROXIDASE ANTIBODY 30.6 U/ML (<60.0)
== END ==
LOC: M PLALAB 09:14
PROVIDERS: ATTEND Family Medicine
DX: N18.3 Chronic kidney disease, stage 3 (moderate) (principal); I12.9 Hypertensive chronic kidney disease with stage 1 through stage 4 chronic kidney disease, or unspecified chronic kidney disease; Z79.899 Other long term (current) drug therapy

== ENCOUNTER → 2020-07-18 | Outpatient (REF) | payer MEDICARE ==
[2020-07-18 12:46] LABS: BASO % 0.6 % (0.0-1.0); EOS # 0.1 10^3/uL (0.0-0.5); EOS % 1.6 % (0.0-3.0); HEMATOCRIT 47.3 % (42.0-52.0); HEMOGLOBIN 16.3 g/dl (13.5-17.5); LYMPH # 1.9 10^3/uL (1.5-5.0); LYMPH % 31.4 % (24.0-44.0); MEAN CORPUSCULAR HEMOGLOBIN 29.9 pg (27.0-33.0); MEAN CORPUSCULAR HGB CONC 34.5 g/dl (32.0-36.5); MEAN CORPUSCULAR VOLUME 86.8 fl (80.0-96.0); MONO # 0.7 10^3/uL (0.0-0.8); MONO % 10.8 % (0.0-5.0); NEUTROPHILS # 3.4 10^3/uL (1.5-8.5); PLATELET COUNT, AUTOMATED 213 10^3/uL (150-450); RED BLOOD COUNT 5.45 10^6/uL (4.30-6.10); WHITE BLOOD COUNT 6.2 10^3/uL (4.0-10.0)
[2020-07-18 13:16] LABS: CHOLESTEROL RISK RATIO 4.818 (<5)
[2020-07-18 13:20] LABS: PTH INTACT 43.1 PG/ML (18.5-88.0); TOTAL 25(OH) VITAMIN D 18.2 NG/ML (30.0-100.0)
[2020-07-18 13:33] LABS: HEMOGLOBIN A1c 7.9 %
== END ==
LOC: M SFHCADAM 10:16
PROVIDERS: ATTEND Family Medicine
DX: E11.69 Type 2 diabetes mellitus with other specified complication (principal); E78.5 Hyperlipidemia, unspecified; I10 Essential (primary) hypertension; N18.2 Chronic kidney disease, stage 2 (mild); E53.8 Deficiency of other specified B group vitamins

== ENCOUNTER → 2020-09-19 | Outpatient (CLI) | payer MEDICARE ==
--- NOTE | 2020-09-19 15:02 | REP ---
INDICATION: ENCOUNTER SCREENING FOR LUNG CA. COMPARISON: 07/29/2019. TECHNIQUE: Low dose screening CT chest performed without the use of intravenous contrast. FINDINGS: Lungs: Clear, no infiltrate or nodule. There are stable emphysematous changes. Mild pleural plaquing is again noted bilaterally. Heart: Not enlarged. Thoracic aorta: No aneurysm. Visualized osseous structures: There are degenerative changes of the spine. IMPRESSION: Category 1 negative low dose noncontrast CT chest. Repeat screening exam suggested in 1 year. <Electronically signed by Federico Patiño > 09/19/20 [id number]
== END ==
LOC: M RAD 12:38
PROVIDERS: ATTEND Family Medicine
DX: Z12.2 Encounter for screening for malignant neoplasm of respiratory organs (principal); Z87.891 Personal history of nicotine dependence; J43.9 Emphysema, unspecified

== ENCOUNTER → 2020-10-19 | Outpatient (REF) | payer MEDICARE ==
[2020-10-19 12:50] LABS: BASO % 0.7 % (0.0-1.0); EOS # 0.1 10^3/uL (0.0-0.5); EOS % 1.5 % (0.0-3.0); HEMOGLOBIN 16.8 g/dl (13.5-17.5); LYMPH # 1.7 10^3/uL (1.5-5.0); LYMPH % 28.2 % (24.0-44.0); MEAN CORPUSCULAR HEMOGLOBIN 29.9 pg (27.0-33.0); MEAN CORPUSCULAR HGB CONC 33.6 g/dl (32.0-36.5); MONO # 0.7 10^3/uL (0.0-0.8); MONO % 11.4 % (2.0-8.0); NEUTROPHILS # 3.4 10^3/uL (1.5-8.5); NEUTROPHILS % 57.5 % (36.0-66.0); PLATELET COUNT, AUTOMATED 216 10^3/uL (150-450); RED BLOOD COUNT 5.62 10^6/uL (4.30-6.10); WHITE BLOOD COUNT 5.9 10^3/uL (4.0-10.0)
[2020-10-19 13:17] LABS: HEMOGLOBIN A1c 8.7 %
[2020-10-19 13:23] LABS: ALBUMIN 3.9 GM/DL (3.2-5.2); ALT/SGPT 56 U/L (12-78); BILIRUBIN,TOTAL 0.5 MG/DL (0.2-1.0); BLOOD UREA NITROGEN 10 MG/DL (7-18); CARBON DIOXIDE LEVEL 29 MEQ/L (21-32); CHLORIDE LEVEL 102 MEQ/L (98-107); CREATININE FOR GFR 0.95 MG/DL (0.70-1.30); FERRITIN 195 NG/ML (26-388); GLOMERULAR FILTRATION RATE > 60.0 (>49); GLUCOSE, FASTING 133 MG/DL (70-100); POTASSIUM SERUM 3.9 MEQ/L (3.5-5.1); SODIUM LEVEL 138 MEQ/L (136-145); TOTAL PROTEIN 7.2 GM/DL (6.4-8.2)
[2020-10-19 13:24] LABS: TOTAL 25(OH) VITAMIN D 17.3 NG/ML (30.0-100.0)
[2020-10-19 13:25] LABS: PTH INTACT 45.7 PG/ML (18.5-88.0)
== END ==
LOC: M SFHCPLAZ 09:58 → M SFHCADAM 10:27
PROVIDERS: ATTEND Family Medicine
DX: E11.69 Type 2 diabetes mellitus with other specified complication (principal); E55.9 Vitamin D deficiency, unspecified; Z12.5 Encounter for screening for malignant neoplasm of prostate; E53.8 Deficiency of other specified B group vitamins; Z79.899 Other long term (current) drug therapy
CPT/HCPCS: 80053; 82306; 82728; 83036; 83970; 85025; G0103

== ENCOUNTER 2020-12-06 15:23 | Inpatient (IN) | payer MEDICARE ==
[~2020-12-06] VITALS: Ht 182.9 cm; Wt 106.5 kg
[2020-12-06] MEDS ORDERED: ACETAMINOPHEN 325 MG TAB PO ONE (17:10)
[2020-12-06 17:19] LABS: BASO % 0.1 % (0.0-1.0); EOS % 0.1 % (0.0-3.0); HEMATOCRIT 46.5 % (42.0-52.0); HEMOGLOBIN 15.7 g/dl (13.5-17.5); LYMPH # 0.7 10^3/uL (1.5-5.0); LYMPH % 4.6 % (24.0-44.0); MEAN CORPUSCULAR HEMOGLOBIN 29.7 pg (27.0-33.0); MEAN CORPUSCULAR HGB CONC 33.8 g/dl (32.0-36.5); MEAN CORPUSCULAR VOLUME 87.9 fl (80.0-96.0); MONO # 1.5 10^3/uL (0.0-0.8); MONO % 10.2 % (2.0-8.0); NEUTROPHILS # 12.4 10^3/uL (1.5-8.5); NEUTROPHILS % 84.3 % (36.0-66.0); PLATELET COUNT, AUTOMATED 248 10^3/uL (150-450); RED BLOOD COUNT 5.29 10^6/uL (4.30-6.10)
[2020-12-06 17:25] LABS: WHITE BLOOD COUNT 14.7 10^3/uL (4.0-10.0)
--- NOTE | 2020-12-06 17:32 | REP ---
INDICATION: infection; r/o osteo/ air COMPARISON: 08/13/2018 TECHNIQUE: AP, lateral, bilateral oblique views left foot. FINDINGS: Prior amputation at the level of the 2nd metatarsophalangeal joint is again noted. Significant soft tissue swelling is now appreciated and elements of subcutaneous emphysema are identified adjacent to the 1st metatarsophalangeal joint suggesting cellulitis and underlying inflammatory changes. The osseous structures demonstrate degenerative changes primarily involving the 1st MTP joint as well as the midfoot and tarsometatarsal joints. No obvious acute fracture or dislocation. IMPRESSION: 1. Soft tissue swelling with elements of subcutaneous emphysema suggesting cellulitis and inflammatory changes primarily surrounding the 1st toe and MTP joint. 2. Prior 2nd toe amputation without progressive changes. 3. Degenerative changes are appreciated. No definite evidence to suggest osteomyelitis by radiographic evaluation. <Electronically signed by Balbir Brown > 12/06/20 [id number]
[2020-12-06] MEDS ORDERED: PIPERACILLIN/TAZOBACTAM SOD 3.375 GM in D5W MINI-BAG PLUS 50 ML IV ONE (17:45)
[2020-12-06] MEDS ORDERED: VANCOMYCIN HCL 2,000 MG in D5W 500 ML IV ONE (17:45)
[2020-12-06 17:53] LABS: ERYTHROCYTE SEDIMENTATION RATE 61 mm/hr (0-20)
[2020-12-06 17:55] LABS: ALBUMIN 3.5 GM/DL (3.2-5.2); ALT/SGPT 22 U/L (12-78); BILIRUBIN,DIRECT 0.3 MG/DL (0.0-0.2); BILIRUBIN,TOTAL 0.6 MG/DL (0.2-1.0); BLOOD UREA NITROGEN 14 MG/DL (7-18); CALCIUM LEVEL 9.2 MG/DL (8.8-10.2); CARBON DIOXIDE LEVEL 28 MEQ/L (21-32); CHLORIDE LEVEL 95 MEQ/L (98-107); CREATININE FOR GFR 1.09 MG/DL (0.70-1.30); GLOMERULAR FILTRATION RATE > 60.0 (>42); GLUCOSE, FASTING 135 MG/DL (70-100); POTASSIUM SERUM 3.8 MEQ/L (3.5-5.1); SODIUM LEVEL 133 MEQ/L (136-145); TOTAL PROTEIN 7.5 GM/DL (6.4-8.2)
[2020-12-06 19:12] LABS: RSV AMPLIFICATION NEGATIVE (NEGATIVE)
[2020-12-06] MEDS ORDERED: VANCOMYCIN HCL 1,000 MG, VIAL MATE ADAPTER 1 EACH in NS 250 ML IV ONE ×2 (20:00→21:00)
[2020-12-06] MEDS ORDERED: GLUCAGON INJ 1MG VIAL SC PRN (20:15)
[2020-12-06] MEDS ORDERED: DEXTROSE 50% 50 ML SYRINGE IV PRN (20:15)
[2020-12-06] MEDS ORDERED: GLUCOSE 4GM CHEW TABLET PO PRN (20:15)
[2020-12-06] MEDS ORDERED: GLIM4TAB5 PO (20:48)
[2020-12-06] MEDS ORDERED: TRIA37.53 PO (20:48)
[2020-12-06] MEDS ORDERED: CLOP75TA2 PO (20:48)
--- NOTE | 2020-12-06 21:37 | REPVR ---
PROCEDURE INFORMATION: Exam: CT Left Lower Extremity Without Contrast, Foot Exam date and time: 12/06/2020 7:57 PM Age: 70 years old Clinical indication: Swelling, leg or foot; Additional info: Left foot infection TECHNIQUE: Imaging protocol: CT of the Left lower extremity without contrast was performed. Exam focused on the foot. Radiation optimization: All CT scans at this facility use at least one of these dose optimization techniques: automated exposure control; mA and/or kV adjustment per patient size (includes targeted exams where dose is matched to clinical indication); or iterative reconstruction. COMPARISON: MRI-Foot W/O FOL WITH 03/05/2018 11:50 AM FINDINGS: Bones/joints: Prior amputation of the 2nd toe. Changes of advanced osteoarthritis in the ankle and foot with subchondral cystic changes throughout the intertarsal and tarsometatarsal joints. No acute fracture or destructive bone lesions. Soft tissues: Subcutaneous edema in the distal foreleg extending into the foot and ankle. There is subcutaneous emphysema in the medial forefoot with small area of ulceration along the plantar surface of the foot. No foreign bodies are seen. No abscess or fluid collections. IMPRESSION: 1. Generalized subcutaneous edema. Subcutaneous emphysema in the medial forefoot no drainable abscess or destructive changes to suggest osteomyelitis. 2. Advanced osteoarthritis. No acute fracture or malalignment. Electronically signed by: Gutierrez Fraser On 12/06/2020 21:36:57 PM
[2020-12-06] MEDS ORDERED: MAALOX 30 ML SUSP *UDC PO PRN (23:40)
[2020-12-06] MEDS ORDERED: MOM 30ML SUSPENSION UDC PO PRN (23:40)
[2020-12-07] VITALS (10 sets, daily range): BP systolic 117–140; BP diastolic 64–92
[2020-12-07] MEDS: HumaLOG INSULIN (NovoLOG) PER UNIT SC SCH ×5 (01:26→21:16)
[2020-12-07] MEDS: HumuLIN N INSULIN (NovoLIN N) PER UNIT SC SCH ×3 (01:30→21:16)
[2020-12-07] MEDS: DOCUSATE SODIUM 100MG CAPSULE PO SCH ×3 (01:36→21:18)
[2020-12-07] MEDS: ACETAMINOPHEN TAB 650MG DOSE (2X325MG) PO PRN ×2 (01:37→08:57)
--- NOTE | 2020-12-07 04:20 | HPEPDOC ---
[facility] Medical History & Physical Date of Admission Dec 06, 2020 Date of Service: Dec 06, 2020 Attending Physician: ROSANA CHAUDHARY MD MPH History and Physical CHIEF COMPLAINT: Left foot wound HISTORY OF PRESENT ILLNESS: Mr. Bowers is a 70 year old IDDM with mild neuropathy who developed worsening diabetic foot wound over the past few days. Patient believes that he may have stepped on something while walking out on his deck in socks but he is unable to reliably check is feet and eventually on day of presentation to the ED noticed that he was having bleeding drainage and decided to come into the ED. He reports mild pain to his left foot but otherwise feels well. He has been seen by wound care specialists in the past. ROS: A 10 point ROS was obtained and was unremarkable except as noted above PAST MEDICAL PROBLEMS: IDDM 2 Diabetic foot ulcers COPD GERD HLD HTN PAST SURGICAL HISTORY: Right foot resection Umbilical hernia repair MEDICATIONS: See record SOCIAL HISTORY: LIVES: Lives at home WORK: Retired TOBACCO: former ALCOHOL: occasional PHYSICAL EXAMINATION: VITAL SIGNS: Reviewed, see below GENERAL: Well appearing overweight male, lying in bed, serosang drainage from bottom of left foot, NAD HEENT: AT/NC, EOMI, PERRLA, Mucosa slightly dry NECK: supple HEART: RRR no M/R/G, DPP 1+ bilaterally LUNGS: CTAB, W/R/R ABDOMEN: obese, soft, nontender, active bowel sounds SKIN: 1cm puncture wound on mid plantar aspect of left foot with induration and redness surrounding foot. Slight pungent purulent odor is appreciated MSK: Moving extremities spontaneously NEURO: decreased sensation to soft touch to bilateral mid shins, Still able to feel pain associated with foot wound PSYCH: euthymic LABS: reviewed RADIOLOGY: Left foot XR: IMPRESSION: 1. Generalized subcutaneous edema. Subcutaneous emphysema in the medial forefoot no drainable abscess or destructive changes to suggest osteomyelitis. 2. Advanced osteoarthritis. No acute fracture or malalignment. Left foot CT: IMPRESSION: 1. Generalized subcutaneous edema. Subcutaneous emphysema in the medial forefoot no drainable abscess or destructive changes to suggest osteomyelitis. 2. Advanced osteoarthritis. No acute fracture or malalignment. MICROBIOLOGY: No recent, last cultures were 2019 of right foot showing staph, e coli, and strep ASSESSMENT: Mr. Bowers is a 70 year old male w/ diabetic neuropathy who presents with worsening diabetic foot wound on bottom of left foot. CT imaging shows cellulitis. PLAN: # Diabetic left foot wound: This is a new issue that is progressive with evidence of leukocytosis and elevated CRP as well as features concerning for SIRS. Blood cultures are pending as are wound cultures. HR has improved following abx and fluid administration and patient has minimal pain at this time. CT imaging is not evident of osteomyelitis or necrotizing fasciitis. Will have podiatry consult in the morning for consideration for debridement. Patient is currently NPO. Meds: Vancomycin Zosyn Trend blood cultures and wound cultures Podiatry consult NPO pending decision for surgery in the morning Tylenol PRN pain # IDDM 2 with neuropathy: Patient has had several diabetic foot infections in the past and presents with same. Glucose is currently well controlled. As he is NPO and hospitalized will reduce NPH and add ISS. Meds: NPH 35U QAM and 75U QHS ISS # Hyponatremia: This is a new but mild issue with unclear etiology, however likely related to acute illness. Will replete with IVF and recheck in the morning. Meds: None # HTN: Patient is currently normotensive. Will continue ARB and CCB but hold HCTZ in setting of possible surgical interventions. Meds: Losartan 50mg BID Amlodipine 5mg BID HOLD Triamterene/HCTZ # CAD: Continuing some medications, however in light of no recent cardiac procedures will hold Plavix in setting of possible OR and can resume after. Meds: BP and HLD medications as per above Hold Plavix # GERD: Continue home medication Meds: Omeprazole 20mg daily # HLD: Continue home medication Meds: Rosuvastatin 5mg DISPO: Med/Surg inpatient DIET: NPO DVT PROPHY: Lovenox DISCHARGE: Pending improvement in diabetic foot wound CONSULTS: PT, SW, podiatry Vital Signs Vital Signs Date Time Temp Pulse Resp B/P (MAP) Pulse Ox O2 Delivery O2 Flow Rate FiO2 12/07/20 03:44 97.7 20 119/70 (86) 98 Room Air 12/07/20 01:00 101 Laboratory Data Labs 24H Laboratory Tests 2 12/06/20 17:09: Immature Granulocyte % (Auto) 0.7, Neutrophils (%) (Auto) 84.3H, Lymphocytes (%) (Auto) 4.6L, Monocytes (%) (Auto) 10.2H, Eosinophils (%) (Auto) 0.1, Basophils (%) (Auto) 0.1, Neutrophils # (Auto) 12.4H, Lymphocytes # (Auto) 0.7L, Monocytes # (Auto) 1.5H, Eosinophils # (Auto) 0.0, Basophils # (Auto) 0.0, Nucleated Red Blood Cells % (auto) 0.0, Erythrocyte Sedimentation Rate 61H, Anion Gap 10, Glomerular Filtration Rate > 60.0, Lactic Acid Level 1.7, Calcium Level 9.2, Total Bilirubin 0.6, Direct Bilirubin 0.3H, Aspartate Amino Transf (AST/SGOT) 10, Alanine Aminotransferase (ALT/SGPT) 22, Alkaline Phosphatase 70, C-Reactive Protein, Quantitative 16.60H, Total Protein 7.5, Albumin 3.5, Albumin/Globulin Ratio 0.9 12/06/20 18:16: Coronavirus (COVID-19)(PCR) NEGATIVE, Influenza Type A (RT-PCR) NEGATIVE, Influenza Type B (RT-PCR) NEGATIVE, Respiratory Syncytial Virus (PCR) NEGATIVE 12/07/20 00:38: Bedside Glucose (Misc Panel) 156H CBC/BMP Laboratory Tests 12/06/20 17:09 Microbiology Microbiology 12/06/20 Blood Culture, Received Pending 12/06/20 Blood Culture, Received Pending Home Medications Scheduled Amlodipine Besylate (Amlodipine Besylate) 5 Mg Tab, 5 MG PO BID Clopidogrel Bisulfate (Clopidogrel) 75 Mg Tablet, 75 MG PO DAILY Glimepiride (Glimepiride) 4 Mg Tablet, 4 MG PO BID Insulin Human NPH (Humulin N) 100 Unit/1 Ml Vial, 44 UNITS SC DAILY Insulin NPH Human Isophane (Humulin N Kwikpen) 100 Unit/Ml Inj, 100 UNITS SC QHS Losartan Potassium (Losartan Potassium) 50 Mg Tab, 50 MG PO BID Omeprazole (Omeprazole) 20 Mg Tab, 20 MG PO QHS Rosuvastatin Calcium (Crestor) 5 Mg Tab, 5 MG PO DAILY Triamterene/Hydrochlorothiazid (Triamterene-Hctz 37.5-25 mg Cp) 1 Each Capsule, 1 CAP PO DAILY Scheduled PRN Acetaminophen (Tylenol Arthritis) 650 Mg Tab, 1,300 MG PO Q8H PRN for PAIN LEVEL 1-5 Tramadol HCl (Tramadol HCl) 50 Mg Tablet, 100 MG PO BID PRN for PAIN LEVEL 6-10 Allergies Coded Allergies: JOVANI Inhibitors (Verified Allergy, Unknown, 12/06/20) atorvastatin (Verified Allergy, Unknown, 12/06/20) pravastatin (Verified Allergy, Unknown, 12/06/20) A-FIB/CHADSVASC A-FIB History Current/History of A-Fib/PAF?: No Current PO Anticoag Therapy: No Age/Risk Factor Scoring CHADSVASC: CHADSVASC Response (Comments) Value Age Risk Factor Age 65-74 years old 1 Gender Risk Factor Male 0 Hx of CHF No 0 Hx of HTN Yes 1 Hx of Stroke/TIA/or VTE No 0 Hx of Diabetes Yes 1 Hx of Vascular Disease Yes 1 Total 4 Treatment Treatment ordered: Other Other anticoagulant ordered: ROSANA JASSO MD MPH Dec 07, 2020 04:20
[2020-12-07] MEDS: PIPERACILLIN/TAZOBACTAM SOD 3.375 GM in D5W MINI-BAG PLUS 50 ML IV SCH ×4 (04:44→22:34)
[2020-12-07] MEDS: OMEPRAZOLE 20 MG CAP PO SCH ×2 (04:44→21:17)
[2020-12-07 05:22] LABS: HEMATOCRIT 41.9 % (42.0-52.0); MEAN CORPUSCULAR HEMOGLOBIN 29.4 pg (27.0-33.0); MEAN CORPUSCULAR HGB CONC 33.4 g/dl (32.0-36.5); PLATELET COUNT, AUTOMATED 231 10^3/uL (150-450); RED BLOOD COUNT 4.76 10^6/uL (4.30-6.10); WHITE BLOOD COUNT 11.1 10^3/uL (4.0-10.0)
[2020-12-07 05:43] LABS: BLOOD UREA NITROGEN 14 MG/DL (7-18); CALCIUM LEVEL 8.2 MG/DL (8.8-10.2); CARBON DIOXIDE LEVEL 30 MEQ/L (21-32); CHLORIDE LEVEL 100 MEQ/L (98-107); CREATININE FOR GFR 0.95 MG/DL (0.70-1.30); GLOMERULAR FILTRATION RATE > 60.0 (>42); GLUCOSE, FASTING 136 MG/DL (70-100); POTASSIUM SERUM 3.5 MEQ/L (3.5-5.1); SODIUM LEVEL 138 MEQ/L (136-145)
[2020-12-07] MEDS: VANCOMYCIN HCL 1,000 MG, VIAL MATE ADAPTER 1 EACH in NS 250 ML IV SCH ×3 (06:02→21:15)
[2020-12-07] MEDS: LOSARTAN 50MG TABLET PO SCH ×2 (08:59→21:18)
[2020-12-07] MEDS: amLODIPine 5 MG TAB PO SCH ×2 (08:59→21:17)
[2020-12-07] MEDS: ROSUVASTATIN 10 MG TAB (CRESTOR) PO SCH (08:59)
[2020-12-07] MEDS: ENOXAPARIN 40MG/0.4ML SYRINGE (J1650 PER 10MG) SC SCH (09:04)
--- NOTE | 2020-12-07 13:12 | CR ---
CONSULTATION DATE: 12/07/2020 REASON FOR CONSULTATION: Left foot ulcer. HISTORY OF PRESENT ILLNESS: Mr. Bowers is a 70-year-old diabetic male who presents with an ulceration. He believes it has been there for about one week. He does have neuropathy so he is not sure. He presented to the ER for treatment of this. MEDICAL HISTORY: Significant for insulin dependent diabetes, COPD, GERD, hyperlipidemia, hypertension. PAST SURGICAL HISTORY: Left second toe amputation, umbilical hernia repair. ALLERGIES: JOVANI inhibitors, atorvastatin and pravastatin. REVIEW OF SYSTEMS: He denies nausea, vomiting, fever or chills. PHYSICAL EXAMINATION: Vitals are reviewed. T-max of 99.1. LABS: White blood cell count on admission was 14.7, today it is 11.1. ESR on admission 61. CRP on admission was 16.6. X-rays and CT scans are negative for osteomyelitis but there is soft tissue emphysema near the first metatarsal head. Lower extremity examination: There is erythema and edema to the left foot. There is a small ulceration on the plantar arch where there is some purulent material as well as a necrotic appearing bulla at the medial aspect of the left first metatarsal. ASSESSMENT: A 70-year-old diabetic male with left foot abscess. PLAN: Will bring to the Operating Room for incision and drainage, keep NPO.
--- NOTE | 2020-12-07 13:23 | IPNPDOC ---
Text Note Date of Service The patient was seen on 12/07/20. NOTE Subjective: Patient was seen and examined at bedside this morning. Tells me his foot hurts otherwise he feels well he denies fevers or chills denies shortness of breath or chest pain. No acute overnight events reported to me. Dr. Fraga was consulted however overnight physician did not speak with him and he is away I had to cancel the consult and place a new consult for Dr. Son who agreed to come and see the patient and likely will take him to the OR today for I&D. Objective: Constitutional: Awake and alert, in no apparent distress. ENT: Sclera are clear. Mucosa is moist. Respiratory: Lungs CTA bilaterally. No respiratory distress. Cardiovascular: RRR S1 and S2 are normal, no murmur Gastrointestinal: Abdomen is soft, non distended, non tender Neurologic: No focal neurological deficit. Mental Status: A&O x3, normal affect Skin: Left foot is dressed and was not examined again today and will be referred to podiatry Assessment/plan: Mr. Bowers is a 70 year old male w/ diabetic neuropathy who presents with worsening diabetic foot wound on bottom of left foot. podiatry consulted to take him to OR today. # Diabetic left foot wound: Podiatry Dr. Son will take him to the OR today for I&D. Leukocytosis is improving with IV vancomycin and Zosyn which will be continued. Wound cultures and blood cultures pending. CT imaging foot reviewed. # DM: ISS. Frequent Accu-Cheks. Hypoglycemic precautions. NPH 35U QAM and 75U QHS # Hyponatremia: Resolved with IV fluids. # Hypertension: Continue home meds. Monitor and titrate # CAD; Plavix on hold due to going to the OR today can be resumed after. Continue statin. # GERD: Omeprazole 20mg daily # HLD: Rosuvastatin 5mg # DVT prophylaxis: Lovenox A Yousef Hospitalist Meaghan HOLDEN, I+O Meaghan HOLDEN, I+O Laboratory Tests 12/06/20 17:09 12/07/20 04:36 Vital Signs Date Time Temp Pulse Resp B/P (MAP) Pulse Ox O2 Delivery O2 Flow Rate FiO2 12/07/20 08:59 140/72 12/07/20 08:59 90 12/07/20 08:00 99.1 18 92 Room Air I&O- Last 24 Hours up to 6 AM 12/07/20 06:00 Intake Total 100 ml Output Total 50 ml Balance 50 ml RENAN BEARD MD Dec 07, 2020 13:23
[2020-12-07] MEDS ORDERED: MIDAZOLAM INJ 2MG/2ML VIAL (J2250 PER 1MG) As Ordered ONE (15:53)
[2020-12-07] MEDS ORDERED: ONDANSETRON 4MG/2ML VIAL As Ordered ONE (15:53)
[2020-12-07] MEDS ORDERED: LIDOCAINE 2% 100MG/5ML SDV (FOR ANES.) As Ordered ONE (15:53)
[2020-12-07] MEDS ORDERED: propofoL 500 MG/50 ML VIAL As Ordered ONE (15:53)
[2020-12-07] MEDS ORDERED: fentaNYL 100 MCG/2 ML INJECTION (J3010) As Ordered ONE (15:54)
[2020-12-07] MEDS ORDERED: LIDOCAINE 1% SDV 30ML VIAL As Ordered ONE (15:57)
[2020-12-07] MEDS ORDERED: BUPIVACAINE HCL 0.5% 30 ML VIAL As Ordered ONE (15:57)
[2020-12-07] MEDS ORDERED: dexameTHASONE 4 MG/ML 1ML VIAL (J1100 PER 1MG) As Ordered ONE (15:58)
[2020-12-07] MEDS ORDERED: ONDANSETRON 4MG/2ML VIAL IV PRN (17:25)
[2020-12-07] MEDS ORDERED: oxyCODONE 5MG TAB PO PRN (17:25)
[2020-12-07] MEDS ORDERED: LR 1,000 ML IV SCH (17:25)
[2020-12-08] MEDS: VANCOMYCIN HCL 1,000 MG, VIAL MATE ADAPTER 1 EACH in NS 250 ML IV SCH ×3 (03:06→17:53)
[2020-12-08] MEDS: PIPERACILLIN/TAZOBACTAM SOD 3.375 GM in D5W MINI-BAG PLUS 50 ML IV SCH ×4 (04:44→21:00)
[2020-12-08 06:00] VITALS: BP 115/64
--- NOTE | 2020-12-08 07:25 | RO ---
OPERATIVE NOTE DATE OF OPERATION: 12/07/2020 PREOPERATIVE DIAGNOSIS: Left foot infection. POSTOPERATIVE DIAGNOSIS: Left foot infection. PROCEDURE: Left foot incision and drainage. SURGEON: Ricardo Son DPM CONDITIONER TENDER: None ANESTHESIA: Monitored anesthesia care, preop injection of 20 mL of a 1:1 mixture of 1% lidocaine plain, 1/2% Marcaine plain. ESTIMATED BLOOD LOSS: Minimal. MATERIALS: None. COMPLICATION: None. SPECIMEN: Anaerobic and aerobic cultures. CONDITION: Stable. INDICATIONS: Kirill Bowers is a 70-year-old diabetic male was admitted with left foot infection. He was noted to have soft tissue gas on x-ray and CT. Decision was made to bring him to the operating room for incision and drainage. The patient's side and site were identified and marked in the preoperative area. Consent was reviewed and obtained. The risks, complications and alternatives to the procedure were explained to the patient in detail and all questions were answered. DESCRIPTION OF PROCEDURE: The patient was brought to the operating room on a stretcher in supine position on monitored anesthesia care delivered by the anesthesia team. A preoperative injection of 20 mL of a 1:1 mixture of 1% Lidocaine plain and 1/2% Marcaine plain were injected into the left foot. The left foot was prepped and draped in normal sterile fashion. A tourniquet was applied to the left ankle but was not utilized during the procedure. The wound was inspected. There was necrotic tissue near the medial first metatarsal head and an ulceration on the plantar surface of the arch. A 15 blade was used to make an incision along the plantar arch as well as excise the necrotic tissue at the medial metatarsal head. The wound was deep going to the joint capsule and involving some of the capsule itself but does not penetrate deeper through the capsule or into the bone and seemed to be remaining superficial to the plantar fascia on the plantar surface. After all tissue was debrided, the site was irrigated with normal saline solution, bulb syringe. Cultures were taken of the purulent fluid, aerobic and anaerobic, gram stain. The site was packed with saline gauze. Sterile dressings were applied. The patient was brought to the PACU with vital signs stable, neurovascular status intact. He will be readmitted to the floor for antibiotics and wound care.
[2020-12-08] MEDS: ACETAMINOPHEN TAB 650MG DOSE (2X325MG) PO PRN ×2 (08:09→15:17)
[2020-12-08] MEDS: DOCUSATE SODIUM 100MG CAPSULE PO SCH ×2 (08:09→20:56)
[2020-12-08] MEDS: HumaLOG INSULIN (NovoLOG) PER UNIT SC SCH ×4 (08:09→20:46)
[2020-12-08] MEDS: ENOXAPARIN 40MG/0.4ML SYRINGE (J1650 PER 10MG) SC SCH (08:10)
[2020-12-08] MEDS: HumuLIN N INSULIN (NovoLIN N) PER UNIT SC SCH ×2 (08:10→20:59)
[2020-12-08] MEDS: ROSUVASTATIN 10 MG TAB (CRESTOR) PO SCH (08:10)
[2020-12-08] MEDS: LOSARTAN 50MG TABLET PO SCH ×2 (08:13→20:58)
[2020-12-08] MEDS: amLODIPine 5 MG TAB PO SCH ×2 (08:13→20:59)
[2020-12-08 08:23] LABS: HEMOGLOBIN 14.5 g/dl (13.5-17.5); MEAN CORPUSCULAR HEMOGLOBIN 29.5 pg (27.0-33.0); MEAN CORPUSCULAR VOLUME 89.6 fl (80.0-96.0); PLATELET COUNT, AUTOMATED 240 10^3/uL (150-450); RED BLOOD COUNT 4.91 10^6/uL (4.30-6.10); WHITE BLOOD COUNT 10.4 10^3/uL (4.0-10.0)
[2020-12-08 08:50] LABS: BLOOD UREA NITROGEN 12 MG/DL (7-18); CALCIUM LEVEL 8.6 MG/DL (8.8-10.2); CARBON DIOXIDE LEVEL 32 MEQ/L (21-32); CHLORIDE LEVEL 99 MEQ/L (98-107); CREATININE FOR GFR 0.97 MG/DL (0.70-1.30); GLOMERULAR FILTRATION RATE > 60.0 (>42); GLUCOSE, FASTING 185 MG/DL (70-100); POTASSIUM SERUM 4.2 MEQ/L (3.5-5.1); SODIUM LEVEL 137 MEQ/L (136-145); VANCOMYCIN LEVEL TROUGH 14.4 UG/ML (10.0-20.0)
--- NOTE | 2020-12-08 12:14 | IPN ---
PROGRESS NOTE DATE: 12/08/2020 Kirill is [facility]. He has osteomyelitis of his left foot as well as cellulitis. 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 He had an incision and drainage (I and D) of the left foot abscess in the operating room (OR) yesterday by Dr. Son. PHYSICAL EXAMINATION: Afebrile. Vital signs stable. LUNGS: Clear. HEART: Regular rate and rhythm. ABDOMEN: Soft, nontender. Foot is dressed. Defer to podiatry. LABORATORY DATA: White count is down to 10.4, hemoglobin is 14. Electrolytes unremarkable. Renal function is normal. IMPRESSION: 1. Osteomyelitis plus abscess, left foot. He is on Zosyn and vancomycin. Cultures are pending. White count is coming down. We will check a C-reactive protein (CRP) tomorrow. 2. Diabetes. Sliding-scale insulin. coverage recommended. 3. Hyperlipidemia. Will continue rosuvastatin 5 mg daily. 4. Blood pressure is well controlled on his current regimen.
--- NOTE | 2020-12-08 12:26 | IPN ---
PROGRESS NOTE DATE: 12/08/2020 SUBJECTIVE: Patient seen and examined. He states just a little pain. He denies other complaints. OBJECTIVE: Vitals are reviewed. He has remained afebrile. Lower extremity examination erythema and edema are improved. Limbs are inspected and seem free of any necrotic tissue or purulence. ASSESSMENT: A 70-year-old diabetic male with a left foot abscess status post incision and drainage. TREATMENT PLAN: Vashe and Hydrofera BLUE dressing changes ordered. Will tentatively plan to bring him to the operating room for partial wound closure on Thursday.
[2020-12-08 14:00] VITALS: BP 118/65
[2020-12-08] MEDS: OMEPRAZOLE 20 MG CAP PO SCH (20:58)
[2020-12-09] MEDS: VANCOMYCIN HCL 1,000 MG, VIAL MATE ADAPTER 1 EACH in NS 250 ML IV SCH ×3 (01:53→17:35)
[2020-12-09] MEDS: PIPERACILLIN/TAZOBACTAM SOD 3.375 GM in D5W MINI-BAG PLUS 50 ML IV SCH ×4 (03:34→21:22)
[2020-12-09 06:00] VITALS: BP 124/69
[2020-12-09 06:29] LABS: BASO # 0.1 10^3/uL (0.0-0.2); BASO % 0.6 % (0.0-1.0); EOS # 0.1 10^3/uL (0.0-0.5); EOS % 1.5 % (0.0-3.0); HEMATOCRIT 40.5 % (42.0-52.0); HEMOGLOBIN 13.3 g/dl (13.5-17.5); LYMPH # 1.5 10^3/uL (1.5-5.0); LYMPH % 18.8 % (24.0-44.0); MEAN CORPUSCULAR HEMOGLOBIN 29.3 pg (27.0-33.0); MEAN CORPUSCULAR HGB CONC 32.8 g/dl (32.0-36.5); MEAN CORPUSCULAR VOLUME 89.2 fl (80.0-96.0); MONO # 0.8 10^3/uL (0.0-0.8); MONO % 10.2 % (2.0-8.0); NEUTROPHILS # 5.3 10^3/uL (1.5-8.5); NEUTROPHILS % 67.9 % (36.0-66.0); PLATELET COUNT, AUTOMATED 227 10^3/uL (150-450); RED BLOOD COUNT 4.54 10^6/uL (4.30-6.10); WHITE BLOOD COUNT 7.8 10^3/uL (4.0-10.0)
[2020-12-09 06:47] LABS: BLOOD UREA NITROGEN 12 MG/DL (7-18); C REACTIVE PROTEIN QUANTITATIV 9.65 MG/DL (0.00-0.30); CALCIUM LEVEL 8.1 MG/DL (8.8-10.2); CARBON DIOXIDE LEVEL 31 MEQ/L (21-32); CHLORIDE LEVEL 103 MEQ/L (98-107); CREATININE FOR GFR 0.92 MG/DL (0.70-1.30); GLOMERULAR FILTRATION RATE > 60.0 (>42); GLUCOSE, FASTING 100 MG/DL (70-100); POTASSIUM SERUM 3.5 MEQ/L (3.5-5.1); SODIUM LEVEL 137 MEQ/L (136-145)
[2020-12-09] MEDS: HumaLOG INSULIN (NovoLOG) PER UNIT SC SCH ×4 (07:30→21:20)
[2020-12-09] MEDS: ENOXAPARIN 40MG/0.4ML SYRINGE (J1650 PER 10MG) SC SCH (09:53)
[2020-12-09] MEDS: HumuLIN N INSULIN (NovoLIN N) PER UNIT SC SCH ×2 (09:53→21:21)
[2020-12-09] MEDS: DOCUSATE SODIUM 100MG CAPSULE PO SCH ×2 (09:54→21:18)
[2020-12-09] MEDS: LOSARTAN 50MG TABLET PO SCH ×2 (09:55→21:20)
[2020-12-09] MEDS: ROSUVASTATIN 10 MG TAB (CRESTOR) PO SCH (09:55)
[2020-12-09] MEDS: amLODIPine 5 MG TAB PO SCH ×2 (09:57→21:19)
[2020-12-09] MEDS: traMADol 50 MG TAB PO PRN ×2 (10:07→18:06)
--- NOTE | 2020-12-09 10:56 | IPN ---
PROGRESS NOTE DATE: 12/09/2020 SUBJECTIVE: Kirill is seen in [address] [place] [id number]. He has osteomyelitis of his left foot. I dictated in error that he had amputation of his right foot; this was dictated in error, he has had a surgical procedure and there has been no amputation. He underwent incision and drainage (I&D) of his left foot abscess in the operating room on 12/07, and Dr. Son plans to take him back tomorrow for partial wound closure. He is having quite a bit of pain and uses tramadol on a regular basis at home. This has not been reordered. OBJECTIVE: VITAL SIGNS: Stable. LUNGS: Clear. HEART: Regular rate and rhythm. ABDOMEN: Soft and nontender. EXTREMITIES: No peripheral edema. His foot is dressed. LABORATORY DATA: White count 7.8. C-reactive is down to 9.6. Electrolytes unremarkable. IMPRESSION AND PLAN: Osteomyelitis of the foot. Continue vancomycin and Zosyn. Sensitivities are pending and just report Staphylococcus aureus, but does not tell me whether it is methicillin-sensitive Staphylococcus aureus (MSSA) and or methicillin-resistant Staphylococcus aureus (MRSA) yet. Surgical treatment per Dr. Son. Restart tramadol as needed. The rest of his medical problems are stable today.
[2020-12-09 14:00] VITALS: BP 121/64
[2020-12-09] MEDS: OMEPRAZOLE 20 MG CAP PO SCH (21:18)
[2020-12-09 22:00] VITALS: BP 157/90
[2020-12-10] MEDS: VANCOMYCIN HCL 1,000 MG, VIAL MATE ADAPTER 1 EACH in NS 250 ML IV SCH (01:59)
[2020-12-10] MEDS: PIPERACILLIN/TAZOBACTAM SOD 3.375 GM in D5W MINI-BAG PLUS 50 ML IV SCH ×4 (03:42→21:22)
[2020-12-10 06:00] VITALS: BP 130/70
[2020-12-10 06:05] LABS: HEMATOCRIT 41.5 % (42.0-52.0); HEMOGLOBIN 13.5 g/dl (13.5-17.5); MEAN CORPUSCULAR HEMOGLOBIN 29.3 pg (27.0-33.0); MEAN CORPUSCULAR HGB CONC 32.5 g/dl (32.0-36.5); MEAN CORPUSCULAR VOLUME 90.2 fl (80.0-96.0); PLATELET COUNT, AUTOMATED 255 10^3/uL (150-450); WHITE BLOOD COUNT 6.7 10^3/uL (4.0-10.0)
[2020-12-10 06:26] LABS: BLOOD UREA NITROGEN 10 MG/DL (7-18); CALCIUM LEVEL 8.6 MG/DL (8.8-10.2); CARBON DIOXIDE LEVEL 29 MEQ/L (21-32); CHLORIDE LEVEL 105 MEQ/L (98-107); CREATININE FOR GFR 0.93 MG/DL (0.70-1.30); GLOMERULAR FILTRATION RATE > 60.0 (>42); GLUCOSE, FASTING 97 MG/DL (70-100); POTASSIUM SERUM 4.1 MEQ/L (3.5-5.1); SODIUM LEVEL 141 MEQ/L (136-145)
[2020-12-10] MEDS: HumaLOG INSULIN (NovoLOG) PER UNIT SC SCH ×4 (07:12→20:52)
[2020-12-10] MEDS: HumuLIN N INSULIN (NovoLIN N) PER UNIT SC SCH ×2 (09:00→20:52)
[2020-12-10] MEDS: ROSUVASTATIN 10 MG TAB (CRESTOR) PO SCH (09:39)
[2020-12-10] MEDS: DOCUSATE SODIUM 100MG CAPSULE PO SCH ×2 (09:39→20:52)
[2020-12-10] MEDS: LOSARTAN 50MG TABLET PO SCH ×2 (09:40→20:53)
[2020-12-10] MEDS: amLODIPine 5 MG TAB PO SCH ×2 (09:40→20:54)
--- NOTE | 2020-12-10 11:50 | IPN ---
PROGRESS NOTE DATE: 12/10/2020 SUBJECTIVE: Kirill is going to the OR today with Dr. Son. No new symptoms. No fever, no chills. OBJECTIVE: VITAL SIGNS: Afebrile, vital signs stable. LUNGS: Clear. HEART: Regular rate and rhythm. ABDOMEN: Soft, nontender. EXTREMITIES: Left foot is dressed. IMPRESSION AND PLAN: 1. Osteomyelitis left foot. Going to the OR today for a partial wound closure by Dr. Son. We will continue Zosyn. We stopped Vancomycin toady. 2. Diabetes. Hold morning insulins as the patient is NPO. 3. Hyperlipidemia. Continue rosuvastatin. 4. Hypertension. Blood pressure is well controlled.
[2020-12-10] MEDS ORDERED: DEXTROSE 50% 50 ML SYRINGE IV ONE (11:55)
[2020-12-10] MEDS ORDERED: D5W/0.45% SODIUM CHLORIDE 1,000 ML IV SCH (11:55)
[2020-12-10 14:00] VITALS: BP 115/64
[2020-12-10] MEDS: OMEPRAZOLE 20 MG CAP PO SCH (20:52)
[2020-12-10] MEDS: traMADol 50 MG TAB PO PRN (21:23)
[2020-12-10 22:00] VITALS: BP 119/72
[2020-12-11] MEDS: PIPERACILLIN/TAZOBACTAM SOD 3.375 GM in D5W MINI-BAG PLUS 50 ML IV SCH ×4 (03:59→21:46)
[2020-12-11 06:00] VITALS: BP 130/78
[2020-12-11 06:36] LABS: HEMATOCRIT 42.1 % (42.0-52.0); HEMOGLOBIN 13.7 g/dl (13.5-17.5); MEAN CORPUSCULAR HEMOGLOBIN 29.1 pg (27.0-33.0); MEAN CORPUSCULAR HGB CONC 32.5 g/dl (32.0-36.5); MEAN CORPUSCULAR VOLUME 89.6 fl (80.0-96.0); PLATELET COUNT, AUTOMATED 265 10^3/uL (150-450); WHITE BLOOD COUNT 6.5 10^3/uL (4.0-10.0)
[2020-12-11 07:01] LABS: BLOOD UREA NITROGEN 9 MG/DL (7-18); CALCIUM LEVEL 8.4 MG/DL (8.8-10.2); CARBON DIOXIDE LEVEL 28 MEQ/L (21-32); CHLORIDE LEVEL 104 MEQ/L (98-107); CREATININE FOR GFR 0.97 MG/DL (0.70-1.30); GLOMERULAR FILTRATION RATE > 60.0 (>42); GLUCOSE, FASTING 146 MG/DL (70-100); POTASSIUM SERUM 4.3 MEQ/L (3.5-5.1); SODIUM LEVEL 137 MEQ/L (136-145)
[2020-12-11] MEDS: HumuLIN N INSULIN (NovoLIN N) PER UNIT SC SCH ×2 (08:50→19:55)
[2020-12-11] MEDS: ACETAMINOPHEN TAB 650MG DOSE (2X325MG) PO PRN (08:50)
[2020-12-11] MEDS: traMADol 50 MG TAB PO PRN ×2 (08:51→17:32)
[2020-12-11] MEDS: DOCUSATE SODIUM 100MG CAPSULE PO SCH ×2 (08:51→19:55)
[2020-12-11] MEDS: LOSARTAN 50MG TABLET PO SCH ×2 (08:51→19:56)
[2020-12-11] MEDS: amLODIPine 5 MG TAB PO SCH ×2 (08:51→19:56)
[2020-12-11] MEDS: HumaLOG INSULIN (NovoLOG) PER UNIT SC SCH ×4 (08:52→19:56)
[2020-12-11] MEDS: ROSUVASTATIN 10 MG TAB (CRESTOR) PO SCH (08:52)
[2020-12-11] MEDS: ENOXAPARIN 40MG/0.4ML SYRINGE (J1650 PER 10MG) SC SCH (09:00)
--- NOTE | 2020-12-11 10:16 | IPN ---
PROGRESS NOTE DATE: 12/11/2020 SUBJECTIVE: Kirill did not have his podiatry procedure yesterday and is being done at bedside today. No real change in status otherwise. OBJECTIVE: VITAL SIGNS: As listed. LUNGS: Clear. HEART: Regular rate and rhythm. ABDOMEN: Soft and nontender. EXTREMITIES: Left leg is dressed. IMPRESSION/PLAN: 1. Osteomyelitis, left foot. Bedside partial wound closure today. Currently on Zosyn. 2. Diabetes. Medications were held pending procedure that organomegaly was indicated to be performed yesterday, but is being performed today. 3. Hypertension/hyperlipidemia both stable.
[2020-12-11 14:00] VITALS: BP 141/80
--- NOTE | 2020-12-11 14:15 | IPN ---
PROGRESS NOTE DATE: 12/11/2020 SUBJECTIVE: The patient is seen and examined at bedside. He states he is doing alright and having very little pain. OBJECTIVE: Vitals are reviewed. He has been afebrile. On lower extremity examination erythema and edema are improved. Wound without significant necrotic tissue. LABORATORY DATA: Reviewed. White blood cell count is 6.5. Most recent CRP is 9.65. ASSESSMENT: A 70-year-old diabetic male with abscess status post incision and drainage. TREATMENT PLAN: Partial wound closure was performed using 3-0 nylon to the plantar wound and to the medial wound. The remaining wound covered with dry sterile gauze. New wound care orders written. Surgical shoe to be dispensed. The patient most likely will be able to be discharged tomorrow possibly on oral Levaquin. He should have follow-up with my office within one week.
[2020-12-11] MEDS: OMEPRAZOLE 20 MG CAP PO SCH (19:55)
[2020-12-11 22:00] VITALS: BP 137/75
[2020-12-12] MEDS: PIPERACILLIN/TAZOBACTAM SOD 3.375 GM in D5W MINI-BAG PLUS 50 ML IV SCH ×2 (03:37→09:06)
[2020-12-12 06:00] VITALS: BP 133/70
[2020-12-12 06:51] LABS: HEMATOCRIT 43.5 % (42.0-52.0); MEAN CORPUSCULAR HEMOGLOBIN 29.2 pg (27.0-33.0); MEAN CORPUSCULAR HGB CONC 32.2 g/dl (32.0-36.5); MEAN CORPUSCULAR VOLUME 90.6 fl (80.0-96.0); PLATELET COUNT, AUTOMATED 289 10^3/uL (150-450); WHITE BLOOD COUNT 7.8 10^3/uL (4.0-10.0)
[2020-12-12 07:14] LABS: BLOOD UREA NITROGEN 9 MG/DL (7-18); CALCIUM LEVEL 8.5 MG/DL (8.8-10.2); CARBON DIOXIDE LEVEL 32 MEQ/L (21-32); CHLORIDE LEVEL 102 MEQ/L (98-107); CREATININE FOR GFR 1.02 MG/DL (0.70-1.30); GLOMERULAR FILTRATION RATE > 60.0 (>42); GLUCOSE, FASTING 68 MG/DL (70-100); POTASSIUM SERUM 4.1 MEQ/L (3.5-5.1); SODIUM LEVEL 138 MEQ/L (136-145)
[2020-12-12] MEDS: HumaLOG INSULIN (NovoLOG) PER UNIT SC SCH ×2 (07:30→12:23)
[2020-12-12] MEDS: ENOXAPARIN 40MG/0.4ML SYRINGE (J1650 PER 10MG) SC SCH (09:00)
[2020-12-12] MEDS: HumuLIN N INSULIN (NovoLIN N) PER UNIT SC SCH (09:00)
[2020-12-12] MEDS: LOSARTAN 50MG TABLET PO SCH (09:01)
[2020-12-12] MEDS: ROSUVASTATIN 10 MG TAB (CRESTOR) PO SCH (09:01)
[2020-12-12 09:02] VITALS: BP 132/81
[2020-12-12] MEDS: amLODIPine 5 MG TAB PO SCH (09:02)
[2020-12-12] MEDS: DOCUSATE SODIUM 100MG CAPSULE PO SCH (09:02)
[2020-12-12] MEDS: traMADol 50 MG TAB PO PRN (09:12)
[2020-12-12] MEDS ORDERED: LEVO500T3 PO (10:42)
--- NOTE | 2020-12-12 11:07 | DSES ---
DISCHARGE SUMMARY DATE OF ADMISSION: 12/06/2020 DATE OF DISCHARGE: 12/12/2020 PRINCIPAL DIAGNOSIS: Abscess and osteomyelitis, left foot. SECONDARY DIAGNOSES: 1. Type 2 diabetes. 2. Hypertension. 3. Hyperlipidemia. HISTORY: The patient was admitted to hospital with an abscess/osteomyelitis left foot and underwent incision and drainage on 12/08/2020, by Dr. Son, and was placed on Zosyn and vancomycin. The vancomycin was discontinued. He was again placed on Zosyn and he improved with that. Yesterday, Dr. Son did a partial wound closure with surgical shoe planned and discharge on Levaquin planned. DISCHARGE PHYSICAL EXAMINATION: GENERAL APPEARANCE: On the day of discharge, he is eager to go. We are still waiting for the shoe. VITAL SIGNS: He is afebrile. His vitals are stable. LUNGS: Clear. HEART: Regular rhythm. ABDOMEN: Soft and nontender. EXTREMITIES: His wound is dressed. LABORATORY DATA: White count is normal at 7.8, hemoglobin 14, platelets 289,000, sodium 138, potassium 4, BUN 9, creatinine 1.0. Glucose this morning was 68. C-reactive protein was 16.6 on admission and 9.6 on 12/09. DISCHARGE DISPOSITION: The patient is discharged home in improved and stable condition. He will follow-up with his primary care provider, Dr. Alston, in a week. Follow-up with Dr. Son per his office. DISCHARGE DIET: Consistent carbohydrate and no added salt diet. DISCHARGE ACTIVITY: He is to be nonweightbearing on the affected foot. DISCHARGE MEDICATIONS: 1. Levaquin 500 mg daily for a week. Otherwise, he will continue: 1. Amlodipine 5 mg b.i.d. 2. Plavix 75 mg daily. 3. Glimepiride is on hold; we will see what his blood sugar looks like after discharge. He is just going to restart his NPH insulin and hold his oral agent. 4. NPH insulin 44 units in the morning and 100 units in the evening. 5. Losartan 50 mg b.i.d. 6. Omeprazole 20 mg q. h.s. 7. Rosuvastatin 5 mg daily. 8. Tramadol as needed for pain. 9. Triamterene/hydrochlorothiazide 37.5/25 one daily. At the time of this dictation, there are no pending labs.
[2020-12-12] MEDS ORDERED: FLAG500T PO (14:53)
== END 2020-12-12 13:31 | disposition home health service (06) | DRG 623 ==
LOC: M ED 15:23 → M ED INP 15:24 → OBSVTOIN 15:24 → M PCU 12-07 01:03 → M MSPAV 12-07 22:53
PROVIDERS: ADMIT General Practice; ATTEND Family Medicine
PROC: 0JBR0ZZ Excision of Left Foot Subcutaneous Tissue and Fascia, Open Approach (ICD-10-PCS; principal; 2020-12-07 16:00)
DX: E11.621 Type 2 diabetes mellitus with foot ulcer (principal); L97.929 Non-pressure chronic ulcer of unspecified part of left lower leg with unspecified severity; M86.272 Subacute osteomyelitis, left ankle and foot; I10 Essential (primary) hypertension; E78.5 Hyperlipidemia, unspecified; Z79.4 Long term (current) use of insulin; Z79.899 Other long term (current) drug therapy; J44.9 Chronic obstructive pulmonary disease, unspecified; K21.9 Gastro-esophageal reflux disease without esophagitis; I25.10 Atherosclerotic heart disease of native coronary artery without angina pectoris

== ENCOUNTER → 2021-01-29 | Outpatient (REF) | payer MEDICARE ==
[~2021-01-29] MED LIST changes: +CLOP75TA2 PO; +FLAG500T PO; +LEVO500T3 PO; +TRIA37.53 PO
== END ==
LOC: M LAB REF 11:46
PROVIDERS: ATTEND Physician Assistant
DX: L97.423 Non-pressure chronic ulcer of left heel and midfoot with necrosis of muscle (principal)

== ENCOUNTER → 2021-02-26 | Outpatient (CLI) | payer MEDICARE ==
[2021-02-26 10:30] LABS: BASO % 0.5 % (0.0-1.0); EOS # 0.1 10^3/uL (0.0-0.5); HEMATOCRIT 46.4 % (42.0-52.0); HEMOGLOBIN 15.3 g/dl (13.5-17.5); LYMPH % 25.4 % (24.0-44.0); MEAN CORPUSCULAR HEMOGLOBIN 28.3 pg (27.0-33.0); MEAN CORPUSCULAR VOLUME 85.8 fl (80.0-96.0); MONO # 0.9 10^3/uL (0.0-0.8); MONO % 11.1 % (2.0-8.0); NEUTROPHILS # 4.7 10^3/uL (1.5-8.5); NEUTROPHILS % 61.3 % (36.0-66.0); PLATELET COUNT, AUTOMATED 294 10^3/uL (150-450); RED BLOOD COUNT 5.41 10^6/uL (4.30-6.10); WHITE BLOOD COUNT 7.7 10^3/uL (4.0-10.0)
[2021-02-26 11:04] LABS: ALBUMIN 3.6 GM/DL (3.2-5.2); ALT/SGPT 25 U/L (12-78); BILIRUBIN,TOTAL 0.4 MG/DL (0.2-1.0); BLOOD UREA NITROGEN 11 MG/DL (7-18); CALCIUM LEVEL 9.6 MG/DL (8.8-10.2); CARBON DIOXIDE LEVEL 29 MEQ/L (21-32); CHLORIDE LEVEL 103 MEQ/L (98-107); CHOLESTEROL LEVEL 148 MG/DL (<200); CHOLESTEROL RISK RATIO 4.484 (<5); CREATININE FOR GFR 0.96 MG/DL (0.70-1.30); FREE T4 1.07 NG/DL (0.76-1.46); GLOMERULAR FILTRATION RATE > 60.0 (>42); GLUCOSE, FASTING 93 MG/DL (70-100); HDL CHOLESTEROL 33 MG/DL (>40); LDL CHOLESTEROL 77 MG/DL (<100); NON-HDL-C 115 MG/DL; NT-PRO BNP 69 PG/ML (<125); POTASSIUM SERUM 4.1 MEQ/L (3.5-5.1); SODIUM LEVEL 139 MEQ/L (136-145); TOTAL PROTEIN 7.7 GM/DL (6.4-8.2); TRIGLYCERIDES LEVEL 191 MG/DL (<150)
[2021-02-26 11:05] LABS: VITAMIN B12 LEVEL 377 PG/ML (247-911)
[2021-02-26 11:27] LABS: HEMOGLOBIN A1c 6.8 %
== END ==
LOC: M PLALAB 08:13
PROVIDERS: ATTEND Family Medicine
DX: E53.8 Deficiency of other specified B group vitamins (principal); E11.69 Type 2 diabetes mellitus with other specified complication; I10 Essential (primary) hypertension; Z79.4 Long term (current) use of insulin; Z79.899 Other long term (current) drug therapy

== ENCOUNTER → 2021-03-26 | Outpatient (POV) | payer MEDICARE ==
[~2021-03-26] VITALS: Ht 182.9 cm; Wt 105.0 kg
[2021-03-26 13:03] VITALS: BP 135/85
--- NOTE | 2021-03-28 10:54 | IRPN ---
[facility] IR Progress Note IR Progress Note DATE: Mar 26, 2021 FOLLOW-UP: Patient known to me with severe PAD and left lower extremity SFA popliteal occlusion. Patient's left lower extremity wounds are worsening. ON EXAMINATION: Left lower extremity edema. Skin pink in color. Warm to touch. Multiple wounds on the left foot freshly dressed today. I reviewed the wound descriptions from wound care. IMPRESSION: 70-year-old male with known severe PAD and known left lower extremity SFA and popliteal occlusion. I will attempt antegrade ipsilateral approach to this SFA popliteal occlusion and attempt recanalization/angioplasty and stenting if necessary. We discussed the risks and benefits of the procedure and patient is willing to proceed. We have scheduled the patient for left lower extremity antegrade ipsilateral SFA popliteal recanalization. Thank you for this referral. CC Dr. Pozo Cc Mandi Barnes PA-C Allergies Coded Allergies: JOVANI Inhibitors (Verified Allergy, Unknown, 12/06/20) atorvastatin (Verified Allergy, Unknown, 12/06/20) pravastatin (Verified Allergy, Unknown, 12/06/20) VS,Fishbone, I+O VS, Fishbone, I+O Vital Signs Date Time Temp Pulse Resp B/P (MAP) Pulse Ox O2 Delivery O2 Flow Rate FiO2 03/26/21 13:03 98.5 118 20 135/85 (102) 96 Room Air JUNIOR SHARIF MD Mar 28, 2021 10:54
== END ==
LOC: M IRPOV 10:57
PROVIDERS: ATTEND Radiology Diagnostic Radiology
DX: I70.235 Atherosclerosis of native arteries of right leg with ulceration of other part of foot (principal); L97.529 Non-pressure chronic ulcer of other part of left foot with unspecified severity; Z88.8 Allergy status to other drugs, medicaments and biological substances

== ENCOUNTER → 2021-04-03 | Outpatient (CLI) | payer MEDICARE ==
[~2021-04-03] MED LIST changes: +ISOVUE-300 61% 50ML VIAL As Ordered ONE; +LIDOCAINE 1% MDV 20ML VIAL As Ordered ONE; +MIDAZOLAM INJ 2MG/2ML VIAL (J2250 PER 1MG) As Ordered ONE; +NS 1,000 ML IV SCH; +ONDANSETRON 4MG/2ML VIAL IV PRN; +PERCOCET 5MG/325MG TAB As Ordered ONE; +PERCOCET 5MG/325MG TAB PO PRN; +diphenhydrAMINE 50MG/ML VIAL (J1200) As Ordered ONE; +fentaNYL 100 MCG/2 ML INJECTION (J3010) As Ordered ONE
--- NOTE | 2021-04-03 08:04 | IRHP ---
[facility] IR Pre-Procedure H & P General Date of Service: Apr 03, 2021 Procedure: Same Day Surgery Interval History and Physical I have seen the patient and reviewed last H & P performed within 30 days. There is no significant interval change. History of Present Illness Chief Complaint The patient is a 70-year-old male admitted with a reason for visit of PAD. PRE-PROCEDURE DIAGNOSIS: PAD HEART: Normal rate. LUNGS: Normal breathing at rest. ASA Classification ASA Classification: III-Severe systemic dis. Mallampati Score: II NPO: Yes Problems with prior sedation: No Obstructive Sleep Apnea: No Plan moderate sedation Allergies Coded Allergies: JOVANI Inhibitors (Verified Allergy, Unknown, 12/06/20) atorvastatin (Verified Allergy, Unknown, 12/06/20) pravastatin (Verified Allergy, Unknown, 12/06/20) Home Medications Scheduled Amlodipine Besylate (Amlodipine Besylate), 5 MG PO BID, (Reported) Clopidogrel Bisulfate (Clopidogrel), 75 MG PO DAILY, (Reported) Insulin Human NPH (Humulin N), 44 UNITS SC DAILY, (Reported) Insulin NPH Human Isophane (Humulin N Kwikpen), 100 UNITS SC QHS, (Reported) Levofloxacin (Levofloxacin), 1 TAB PO DAILY Losartan Potassium (Losartan Potassium), 50 MG PO BID, (Reported) Omeprazole (Omeprazole), 20 MG PO QHS, (Reported) Rosuvastatin Calcium (Crestor), 5 MG PO DAILY, (Reported) Triamterene/Hydrochlorothiazid (Triamterene-Hctz 37.5-25 mg Cp), 1 CAP PO DAILY, (Reported) Scheduled PRN Acetaminophen (Tylenol Arthritis), 1,300 MG PO Q8H PRN for PAIN LEVEL 1-5, (Reported) Tramadol HCl (Tramadol HCl), 100 MG PO BID PRN for PAIN LEVEL 6-10, (Reported) Discontinued Medications Metronidazole (Flagyl), 500 MG PO BID Discontinued Reason: Pt states not taking VS, I&O, 24H, Fishbone Vital Signs/I&O Vital Signs Date Time Temp Pulse Resp B/P (MAP) Pulse Ox O2 Delivery O2 Flow Rate FiO2 04/03/21 07:17 96.5 87 18 98 Room Air JUNIOR SHARIF MD Apr 03, 2021 08:04
[2021-04-03 16:00] VITALS: BP 127/66
--- NOTE | 2021-04-04 13:38 | IRPON ---
IR Postoperative Note Date Of Procedure: Apr 03, 2021 Time Of Procedure: 16:00 IR Postoperative Note IR Left leg angiogram IR Left below-knee runoff arteriogram. IR Ultrasound-guided left common femoral artery access. IR Moderate sedation. Clinical Information:Left lower extremity nonhealing wounds. Known distal SFA/popliteal P1 segment occlusion with reconstitution of the P2 segment of the popliteal artery and two-vessel runoff to the left foot. Attempt at ipsilateral antegrade SFA/pop recanalization. Physician: Dr. Ratliff. Procedure: The patient was advised of the benefits, risks, and alternatives of the procedure and informed consent was obtained. A time out was performed with verification of the patient's name, MRN, site of procedure, and type of procedure to be performed. The patient was positioned in the supine position on the angiographic table. The site was prepped and draped in the usual sterile fashion. Moderate sedation was performed by the physician including the presence of an independent trained RN, who assisted in monitoring the patient's level of consciousness and physiological status. Following the administration of fentanyl and Versed, the physician spent 60 minutes of continuous [id number] time with the patient. Ultrasound of the left groin demonstrates patent left common femoral artery. Lidocaine was used for local anesthesia. The left common femoral artery was accessed antegrade, under ultrasound guidance with a microintroducer set. A short 0.018" [place] wire was inserted under fluoroscopy guidance and the needle was exchanged for a 4 Fr microintroducer sheath. The guidewire and dilator were removed and a 0.035" Bentson wire was advanced under fluoroscopy guidance, into the superficial femoral artery. A 6 Fr sheath was placed over the wire. 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 This demonstrates a blunt cap. Large collaterals arise off the vessel, proximal to the occlusion and give preferential antegrade flow. We know from prior angiograms that there is distal reconstitution at the P2 level, therefore repeat angiography further down the left leg was not required on this occasion. An 035 Navic[place] catheter was advanced over the wire, under fluoroscopy guidance and advanced to the cap of the chronic total occlusion. A Glidewire was used in conjunction with the catheter, to try to recanalize the occluded vessel. The Glidewire was exchanged for an 018 fathom wire. The catheter was removed over the wire. An 018 [place] catheter was advanced over the fathom microwire, and used in conjunction with the microcatheter, to try to recanalize occluded vessel. The catheter was removed over the wire. A 5 Yi glide cath was advanced over the wire to the site of occlusion. A 2.4 Progret microcatheter was then advanced over the wire, through the diagnosti c catheter and a triaxial system was used, to try to probe the plaque to attempt recanalization of the occluded vessel. Multiple wire and catheter combinations were used without success. Follow-up contrast run was performed through the left sheath which demonstrates preserved antegrade flow in the patent superficial femoral artery and filling of the collaterals with no vessel damage, spasm or new cut off. Catheters, wire and sheath were removed, pressure held and hemostasis achieved. A sterile dressing was applied to the site. The patient tolerated the procedure well and was returned to the PRU in stable condition. EBL: < 5 mL. Complications:None. Impression: 1. Antegrade left lower extremity access and attempt at recanalization of distal SFA/proximal popliteal artery occlusion without success. 2. From prior angiograms, patient has known reconstitution of the P2 segment of the popliteal artery, and two-vessel runoff to the left foot. Patient and will be referred to vascular surgery for potential femoropopliteal bypass. Thank you for this referral. CC JUNIOR Alicea MD Apr 04, 2021 13:38
== END ==
LOC: M IRPRO 06:56
PROVIDERS: ATTEND Radiology Diagnostic Radiology
DX: I70.249 Atherosclerosis of native arteries of left leg with ulceration of unspecified site (principal); I70.92 Chronic total occlusion of artery of the extremities; L97.929 Non-pressure chronic ulcer of unspecified part of left lower leg with unspecified severity; Z79.4 Long term (current) use of insulin; Z79.899 Other long term (current) drug therapy; Z88.8 Allergy status to other drugs, medicaments and biological substances
CPT/HCPCS: 36247; 75710; 99152; 99153; C1729; C1769; C1887; C1894; J1644; J2250; J3010; Q9967

== ENCOUNTER → 2021-07-05 | Outpatient (REF) | payer MEDICARE ==
[~2021-07-05] MED LIST changes: -ISOVUE-300 61% 50ML VIAL As Ordered ONE; -LEVO500T3 PO; +LEVO500T4 PO; -LIDOCAINE 1% MDV 20ML VIAL As Ordered ONE; +LOSA50TA28 PO; -LOSA50TA88 PO; -MIDAZOLAM INJ 2MG/2ML VIAL (J2250 PER 1MG) As Ordered ONE; -NS 1,000 ML IV SCH; -ONDANSETRON 4MG/2ML VIAL IV PRN; -PERCOCET 5MG/325MG TAB As Ordered ONE; -PERCOCET 5MG/325MG TAB PO PRN; -diphenhydrAMINE 50MG/ML VIAL (J1200) As Ordered ONE; -fentaNYL 100 MCG/2 ML INJECTION (J3010) As Ordered ONE
[2021-07-05 12:33] LABS: BASO % 0.5 % (0.0-1.0); EOS # 0.1 10^3/uL (0.0-0.5); HEMOGLOBIN 14.6 g/dl (13.5-17.5); LYMPH # 1.5 10^3/uL (1.5-5.0); MEAN CORPUSCULAR HEMOGLOBIN 27.3 pg (27.0-33.0); MEAN CORPUSCULAR HGB CONC 31.7 g/dl (32.0-36.5); MONO # 0.7 10^3/uL (0.0-0.8); MONO % 9.8 % (2.0-8.0); NEUTROPHILS # 4.9 10^3/uL (1.5-8.5); NEUTROPHILS % 67.3 % (36.0-66.0); PLATELET COUNT, AUTOMATED 252 10^3/uL (150-450); RED BLOOD COUNT 5.35 10^6/uL (4.30-6.10); WHITE BLOOD COUNT 7.3 10^3/uL (4.0-10.0)
[2021-07-05 13:12] LABS: ALBUMIN 3.8 GM/DL (3.2-5.2); ALT/SGPT 21 U/L (12-78); BILIRUBIN,TOTAL 0.2 MG/DL (0.2-1.0); BLOOD UREA NITROGEN 15 MG/DL (7-18); CALCIUM LEVEL 9.4 MG/DL (8.8-10.2); CARBON DIOXIDE LEVEL 30 MEQ/L (21-32); CHLORIDE LEVEL 103 MEQ/L (98-107); CREATININE FOR GFR 0.99 MG/DL (0.70-1.30); FERRITIN 94 NG/ML (26-388); GLOMERULAR FILTRATION RATE > 60.0 (>42); GLUCOSE, FASTING 55 MG/DL (70-100); MAGNESIUM LEVEL 2.2 MG/DL (1.8-2.4); POTASSIUM SERUM 4.2 MEQ/L (3.5-5.1); SODIUM LEVEL 138 MEQ/L (136-145); TOTAL PROTEIN 7.8 GM/DL (6.4-8.2); VITAMIN B12 LEVEL 256 PG/ML (247-911)
[2021-07-05 15:54] LABS: HEMOGLOBIN A1c 6.6 %
== END ==
LOC: M SFHCADAM 09:46
PROVIDERS: ATTEND Family Medicine
DX: E11.69 Type 2 diabetes mellitus with other specified complication (principal); E53.8 Deficiency of other specified B group vitamins; Z12.5 Encounter for screening for malignant neoplasm of prostate
CPT/HCPCS: 80053; 82607; 82728; 83036; 83525; 83735; 85025; G0103

== ENCOUNTER 2021-07-15 12:41 | Inpatient (IN) | payer MEDICARE ==
[~2021-07-15] VITALS: Ht 182.9 cm; Wt 105.1 kg
[2021-07-15 14:20] VITALS: BP 129/91
[2021-07-15] MEDS ORDERED: GLUCAGON INJ 1MG VIAL SC PRN ×2 (14:45→16:35)
[2021-07-15] MEDS ORDERED: DEXTROSE 50% 50 ML SYRINGE IV PRN ×2 (14:45→16:35)
[2021-07-15] MEDS ORDERED: GLUCOSE 4GM CHEW TABLET PO PRN ×2 (14:45→16:35)
[2021-07-15 15:27] LABS: HEMATOCRIT 45.4 % (42.0-52.0); HEMOGLOBIN 14.1 g/dl (13.5-17.5); MEAN CORPUSCULAR HEMOGLOBIN 26.8 pg (27.0-33.0); MEAN CORPUSCULAR HGB CONC 31.1 g/dl (32.0-36.5); MEAN CORPUSCULAR VOLUME 86.1 fl (80.0-96.0); PLATELET COUNT, AUTOMATED 317 10^3/uL (150-450); RED BLOOD COUNT 5.27 10^6/uL (4.30-6.10)
[2021-07-15 15:35] LABS: INR 1.07; PROTHROMBIN TIME 14.3 SECONDS (12.7-14.5)
[2021-07-15 15:36] LABS: PARTIAL THROMBOPLASTIN TIME 40.8 SECONDS (25.9-37.0)
[2021-07-15 15:50] LABS: ALBUMIN 2.9 GM/DL (3.2-5.2); ALT/SGPT 20 U/L (12-78); BILIRUBIN,TOTAL 0.5 MG/DL (0.2-1.0); BLOOD UREA NITROGEN 16 MG/DL (7-18); CALCIUM LEVEL 9.6 MG/DL (8.8-10.2); CARBON DIOXIDE LEVEL 30 MEQ/L (21-32); CHLORIDE LEVEL 97 MEQ/L (98-107); CREATININE FOR GFR 1.06 MG/DL (0.70-1.30); GLOMERULAR FILTRATION RATE > 60.0 (>42); GLUCOSE, FASTING 302 MG/DL (70-100); POTASSIUM SERUM 4.1 MEQ/L (3.5-5.1); SODIUM LEVEL 133 MEQ/L (136-145); TOTAL PROTEIN 8.4 GM/DL (6.4-8.2)
[2021-07-15] MEDS ORDERED: METF-838 PO (15:50)
[2021-07-15] MEDS ORDERED: GLIM4TAB5 PO (15:50)
[2021-07-15] MEDS ORDERED: HOME MED LIST COMPLETE! XX SCH (16:35)
[2021-07-15] MEDS: ACETAMINOPHEN 500 MG TAB PO SCH ×2 (17:00→21:33)
[2021-07-15] MEDS ORDERED: HumaLOG INSULIN (NovoLOG) PER UNIT SC SCH ×2 (17:30→21:00)
[2021-07-15] MEDS: PIPERACILLIN/TAZOBACTAM SOD 3.375 GM in D5W MINI-BAG PLUS 50 ML IV SCH ×2 (17:38→23:12)
[2021-07-15] MEDS ORDERED: VANCOMYCIN HCL 1,000 MG, VIAL MATE ADAPTER 1 EACH in NS 250 ML IV ONE ×2 (18:00→19:00)
[2021-07-15 20:00] VITALS: BP 148/78
[2021-07-15] MEDS: OMEPRAZOLE 20MG CAP PO SCH (21:32)
[2021-07-15] MEDS: amLODIPine 5 MG TAB PO SCH (21:35)
[2021-07-15] MEDS: traMADol 50 MG TAB PO PRN (23:12)
[2021-07-15] MEDS: HumaLOG INSULIN (NovoLOG) PER UNIT SC SCH (23:50)
[2021-07-16] VITALS (10 sets, daily range): BP systolic 102–146; BP diastolic 41–78
[2021-07-16] MEDS: VANCOMYCIN HCL 1,000 MG, VIAL MATE ADAPTER 1 EACH in NS 250 ML IV SCH ×2 (04:14→13:33)
[2021-07-16] MEDS: PIPERACILLIN/TAZOBACTAM SOD 3.375 GM in D5W MINI-BAG PLUS 50 ML IV SCH ×4 (05:26→23:00)
[2021-07-16] MEDS: ACETAMINOPHEN 500 MG TAB PO SCH ×3 (05:27→20:25)
[2021-07-16 05:48] LABS: HEMOGLOBIN 12.4 g/dl (13.5-17.5); MEAN CORPUSCULAR HEMOGLOBIN 27.2 pg (27.0-33.0); MEAN CORPUSCULAR HGB CONC 31.8 g/dl (32.0-36.5); MEAN CORPUSCULAR VOLUME 85.5 fl (80.0-96.0); PLATELET COUNT, AUTOMATED 299 10^3/uL (150-450); RED BLOOD COUNT 4.56 10^6/uL (4.30-6.10); WHITE BLOOD COUNT 8.9 10^3/uL (4.0-10.0)
[2021-07-16 06:08] LABS: BLOOD UREA NITROGEN 13 MG/DL (7-18); CALCIUM LEVEL 8.6 MG/DL (8.8-10.2); CARBON DIOXIDE LEVEL 26 MEQ/L (21-32); CHLORIDE LEVEL 100 MEQ/L (98-107); CREATININE FOR GFR 0.95 MG/DL (0.70-1.30); GLOMERULAR FILTRATION RATE > 60.0 (>42); GLUCOSE, FASTING 183 MG/DL (70-100); POTASSIUM SERUM 3.9 MEQ/L (3.5-5.1); SODIUM LEVEL 134 MEQ/L (136-145)
[2021-07-16] MEDS: HumaLOG INSULIN (NovoLOG) PER UNIT SC SCH ×4 (06:08→21:00)
[2021-07-16] MEDS: ROSUVASTATIN 10 MG TAB (CRESTOR) PO SCH (08:28)
[2021-07-16] MEDS: traMADol 50 MG TAB PO PRN (08:30)
[2021-07-16] MEDS: amLODIPine 5 MG TAB PO SCH ×2 (08:30→20:26)
[2021-07-16] MEDS: ENOXAPARIN 40MG/0.4ML SYRINGE (J1650 PER 10MG) SC SCH (08:31)
[2021-07-16] MEDS ORDERED: propofoL 200 MG/20 ML VIAL As Ordered ONE (09:31)
[2021-07-16] MEDS ORDERED: LIDOCAINE 2% 100MG/5ML SDV (FOR ANES.) As Ordered ONE (09:32)
[2021-07-16] MEDS ORDERED: fentaNYL 100 MCG/2 ML INJECTION As Ordered ONE (09:32)
[2021-07-16] MEDS ORDERED: MIDAZOLAM INJ 2MG/2ML VIAL (J2250 PER 1MG) As Ordered ONE (09:32)
[2021-07-16] MEDS ORDERED: ONDANSETRON 4MG/2ML VIAL As Ordered ONE (09:32)
[2021-07-16] MEDS ORDERED: BUPIVACAINE HCL 0.5% 10ML VIAL As Ordered ONE (11:28)
[2021-07-16] MEDS ORDERED: LIDOCAINE 1% MDV 20ML VIAL As Ordered ONE (11:28)
[2021-07-16] MEDS ORDERED: LR 1,000 ML IV SCH (13:00)
[2021-07-16] MEDS ORDERED: oxyCODONE 5MG TAB PO PRN (13:00)
[2021-07-16] MEDS ORDERED: ONDANSETRON 4MG/2ML VIAL IV PRN (13:00)
[2021-07-16] MEDS: OMEPRAZOLE 20MG CAP PO SCH (20:25)
[2021-07-17] MEDS ORDERED: VANCOMYCIN HCL 1,000 MG, VIAL MATE ADAPTER 1 EACH in NS 250 ML IV SCH (01:00)
[2021-07-17 03:00] VITALS: BP 135/71
[2021-07-17] MEDS: ACETAMINOPHEN 500 MG TAB PO SCH ×3 (05:26→21:40)
[2021-07-17] MEDS: PIPERACILLIN/TAZOBACTAM SOD 3.375 GM in D5W MINI-BAG PLUS 50 ML IV SCH ×3 (05:26→17:18)
[2021-07-17 05:55] LABS: HEMOGLOBIN 12.8 g/dl (13.5-17.5); MEAN CORPUSCULAR HEMOGLOBIN 27.1 pg (27.0-33.0); MEAN CORPUSCULAR VOLUME 84.7 fl (80.0-96.0); PLATELET COUNT, AUTOMATED 321 10^3/uL (150-450); RED BLOOD COUNT 4.72 10^6/uL (4.30-6.10); WHITE BLOOD COUNT 8.9 10^3/uL (4.0-10.0)
[2021-07-17 06:00] VITALS: BP 129/80
[2021-07-17 06:19] LABS: BLOOD UREA NITROGEN 11 MG/DL (7-18); CALCIUM LEVEL 8.7 MG/DL (8.8-10.2); CARBON DIOXIDE LEVEL 27 MEQ/L (21-32); CHLORIDE LEVEL 100 MEQ/L (98-107); CREATININE FOR GFR 0.98 MG/DL (0.70-1.30); GLOMERULAR FILTRATION RATE > 60.0 (>42); GLUCOSE, FASTING 234 MG/DL (70-100); POTASSIUM SERUM 4.4 MEQ/L (3.5-5.1); SODIUM LEVEL 136 MEQ/L (136-145)
[2021-07-17 06:20] LABS: ERYTHROCYTE SEDIMENTATION RATE 57 mm/hr (0-20)
[2021-07-17] MEDS: ENOXAPARIN 40MG/0.4ML SYRINGE (J1650 PER 10MG) SC SCH (08:04)
[2021-07-17] MEDS: amLODIPine 5 MG TAB PO SCH ×2 (08:04→21:42)
[2021-07-17] MEDS: ROSUVASTATIN 10 MG TAB (CRESTOR) PO SCH (08:04)
[2021-07-17] MEDS: HumaLOG INSULIN (NovoLOG) PER UNIT SC SCH ×4 (08:05→22:06)
[2021-07-17] MEDS: ULTRACET TAB PO PRN ×2 (10:51→21:41)
[2021-07-17 14:00] VITALS: BP 130/70
[2021-07-17] MEDS: VANCOMYCIN HCL 1,000 MG, VIAL MATE ADAPTER 1 EACH in NS 250 ML IV SCH ×2 (14:16→21:40)
[2021-07-17] MEDS: OMEPRAZOLE 20MG CAP PO SCH (21:41)
[2021-07-17 22:00] VITALS: BP 144/78
[2021-07-18] MEDS: PIPERACILLIN/TAZOBACTAM SOD 3.375 GM in D5W MINI-BAG PLUS 50 ML IV SCH ×5 (01:53→21:53)
[2021-07-18 02:00] VITALS: BP 138/74
[2021-07-18] MEDS: ACETAMINOPHEN 500 MG TAB PO SCH ×3 (05:38→21:39)
[2021-07-18] MEDS: VANCOMYCIN HCL 1,000 MG, VIAL MATE ADAPTER 1 EACH in NS 250 ML IV SCH (06:45)
[2021-07-18] MEDS: HumaLOG INSULIN (NovoLOG) PER UNIT SC SCH ×4 (07:30→21:38)
[2021-07-18 08:19] LABS: HEMATOCRIT 37.4 % (42.0-52.0); HEMOGLOBIN 11.8 g/dl (13.5-17.5); MEAN CORPUSCULAR HGB CONC 31.6 g/dl (32.0-36.5); MEAN CORPUSCULAR VOLUME 85.6 fl (80.0-96.0); PLATELET COUNT, AUTOMATED 287 10^3/uL (150-450); RED BLOOD COUNT 4.37 10^6/uL (4.30-6.10); WHITE BLOOD COUNT 6.8 10^3/uL (4.0-10.0)
[2021-07-18 08:39] LABS: ERYTHROCYTE SEDIMENTATION RATE 82 mm/hr (0-20)
[2021-07-18 08:44] LABS: BLOOD UREA NITROGEN 7 MG/DL (7-18); CALCIUM LEVEL 8.6 MG/DL (8.8-10.2); CARBON DIOXIDE LEVEL 28 MEQ/L (21-32); CHLORIDE LEVEL 102 MEQ/L (98-107); CREATININE FOR GFR 0.92 MG/DL (0.70-1.30); GLOMERULAR FILTRATION RATE > 60.0 (>42); GLUCOSE, FASTING 227 MG/DL (70-100); POTASSIUM SERUM 4.2 MEQ/L (3.5-5.1); SODIUM LEVEL 138 MEQ/L (136-145)
[2021-07-18] MEDS: traMADol 50 MG TAB PO PRN (08:45)
[2021-07-18] MEDS: amLODIPine 5 MG TAB PO SCH ×2 (08:46→21:40)
[2021-07-18] MEDS: ENOXAPARIN 40MG/0.4ML SYRINGE (J1650 PER 10MG) SC SCH (08:46)
[2021-07-18] MEDS: ROSUVASTATIN 10 MG TAB (CRESTOR) PO SCH (08:46)
[2021-07-18 08:48] LABS: HEMOGLOBIN A1c 7.2 %
[2021-07-18 14:00] VITALS: BP 129/73
[2021-07-18] MEDS: ULTRACET TAB PO PRN (15:51)
[2021-07-18] MEDS: VANCOMYCIN HCL 750 MG, VIAL MATE ADAPTER 1 EACH in NS 250 ML IV SCH ×2 (15:52→22:59)
[2021-07-18 18:00] VITALS: BP 130/78
[2021-07-18] MEDS: LEVEMIR (INSULIN DETEMIR) 1 UNITS/0.01ML SC SCH (21:40)
[2021-07-18] MEDS: OMEPRAZOLE 20MG CAP PO SCH (21:40)
[2021-07-18 22:00] VITALS: BP 144/82
[2021-07-19 02:00] VITALS: BP 124/51
[2021-07-19] MEDS: PIPERACILLIN/TAZOBACTAM SOD 3.375 GM in D5W MINI-BAG PLUS 50 ML IV SCH ×4 (04:32→22:01)
[2021-07-19] MEDS: ULTRACET TAB PO PRN ×3 (04:41→20:06)
[2021-07-19 06:00] VITALS: BP 128/70
[2021-07-19] MEDS: VANCOMYCIN HCL 750 MG, VIAL MATE ADAPTER 1 EACH in NS 250 ML IV SCH ×3 (06:06→23:43)
[2021-07-19] MEDS: ACETAMINOPHEN 500 MG TAB PO SCH ×3 (06:06→22:01)
[2021-07-19 08:15] LABS: HEMATOCRIT 37.7 % (42.0-52.0); HEMOGLOBIN 11.9 g/dl (13.5-17.5); MEAN CORPUSCULAR HEMOGLOBIN 26.9 pg (27.0-33.0); MEAN CORPUSCULAR HGB CONC 31.6 g/dl (32.0-36.5); MEAN CORPUSCULAR VOLUME 85.3 fl (80.0-96.0); PLATELET COUNT, AUTOMATED 307 10^3/uL (150-450); RED BLOOD COUNT 4.42 10^6/uL (4.30-6.10); WHITE BLOOD COUNT 5.7 10^3/uL (4.0-10.0)
[2021-07-19] MEDS: ROSUVASTATIN 10 MG TAB (CRESTOR) PO SCH (08:24)
[2021-07-19] MEDS: ENOXAPARIN 40MG/0.4ML SYRINGE (J1650 PER 10MG) SC SCH (08:24)
[2021-07-19] MEDS: amLODIPine 5 MG TAB PO SCH ×2 (08:25→20:05)
[2021-07-19] MEDS: HumaLOG INSULIN (NovoLOG) PER UNIT SC SCH ×4 (08:26→20:06)
[2021-07-19 08:35] LABS: BLOOD UREA NITROGEN 8 MG/DL (7-18); CALCIUM LEVEL 8.6 MG/DL (8.8-10.2); CARBON DIOXIDE LEVEL 28 MEQ/L (21-32); CHLORIDE LEVEL 103 MEQ/L (98-107); CREATININE FOR GFR 0.88 MG/DL (0.70-1.30); GLOMERULAR FILTRATION RATE > 60.0 (>42); GLUCOSE, FASTING 237 MG/DL (70-100); POTASSIUM SERUM 4.1 MEQ/L (3.5-5.1); SODIUM LEVEL 136 MEQ/L (136-145)
[2021-07-19 16:00] VITALS: BP 134/78
[2021-07-19 20:01] VITALS: BP 145/83
[2021-07-19] MEDS: OMEPRAZOLE 20MG CAP PO SCH (20:05)
[2021-07-19] MEDS: LEVEMIR (INSULIN DETEMIR) 1 UNITS/0.01ML SC SCH (20:06)
[2021-07-20 04:56] VITALS: BP 125/72
[2021-07-20] MEDS: PIPERACILLIN/TAZOBACTAM SOD 3.375 GM in D5W MINI-BAG PLUS 50 ML IV SCH ×2 (05:01→11:20)
[2021-07-20] MEDS: ACETAMINOPHEN 500 MG TAB PO SCH (05:02)
[2021-07-20] MEDS: VANCOMYCIN HCL 750 MG, VIAL MATE ADAPTER 1 EACH in NS 250 ML IV SCH (06:20)
[2021-07-20 06:42] LABS: HEMATOCRIT 39.9 % (42.0-52.0); HEMOGLOBIN 12.6 g/dl (13.5-17.5); MEAN CORPUSCULAR HEMOGLOBIN 26.9 pg (27.0-33.0); MEAN CORPUSCULAR HGB CONC 31.6 g/dl (32.0-36.5); MEAN CORPUSCULAR VOLUME 85.3 fl (80.0-96.0); PLATELET COUNT, AUTOMATED 344 10^3/uL (150-450); RED BLOOD COUNT 4.68 10^6/uL (4.30-6.10); WHITE BLOOD COUNT 5.5 10^3/uL (4.0-10.0)
[2021-07-20 07:07] LABS: BLOOD UREA NITROGEN 9 MG/DL (7-18); CALCIUM LEVEL 8.8 MG/DL (8.8-10.2); CARBON DIOXIDE LEVEL 29 MEQ/L (21-32); CHLORIDE LEVEL 100 MEQ/L (98-107); CREATININE FOR GFR 0.97 MG/DL (0.70-1.30); GLOMERULAR FILTRATION RATE > 60.0 (>42); GLUCOSE, FASTING 257 MG/DL (70-100); POTASSIUM SERUM 4.1 MEQ/L (3.5-5.1); SODIUM LEVEL 135 MEQ/L (136-145)
[2021-07-20] MEDS ORDERED: PROB250C PO (09:13)
[2021-07-20] MEDS ORDERED: METR375C3 PO (09:13)
[2021-07-20] MEDS ORDERED: LEVO750T13 PO (09:13)
[2021-07-20] MEDS: HumaLOG INSULIN (NovoLOG) PER UNIT SC SCH ×2 (09:13→12:23)
[2021-07-20 09:14] VITALS: BP 125/72
[2021-07-20] MEDS: ROSUVASTATIN 10 MG TAB (CRESTOR) PO SCH (09:14)
[2021-07-20] MEDS: amLODIPine 5 MG TAB PO SCH (09:14)
[2021-07-20] MEDS: ENOXAPARIN 40MG/0.4ML SYRINGE (J1650 PER 10MG) SC SCH (09:14)
[2021-07-20] MEDS: ULTRACET TAB PO PRN (12:24)
== END 2021-07-20 13:20 | disposition home health service (06) | DRG 264 ==
LOC: M MS5PR 13:41
PROVIDERS: ADMIT Family Medicine; ATTEND Internal Medicine
PROC: 0Y9N0ZZ Drainage of Left Foot, Open Approach (ICD-10-PCS; 2021-07-16)
PROC: 0JBR0ZZ Excision of Left Foot Subcutaneous Tissue and Fascia, Open Approach (ICD-10-PCS; principal; 2021-07-16 11:30)
DX: E11.52 Type 2 diabetes mellitus with diabetic peripheral angiopathy with gangrene (principal); E11.610 Type 2 diabetes mellitus with diabetic neuropathic arthropathy; L97.519 Non-pressure chronic ulcer of other part of right foot with unspecified severity; E11.621 Type 2 diabetes mellitus with foot ulcer; L97.529 Non-pressure chronic ulcer of other part of left foot with unspecified severity; I73.9 Peripheral vascular disease, unspecified; K21.9 Gastro-esophageal reflux disease without esophagitis; J44.9 Chronic obstructive pulmonary disease, unspecified; Z87.891 Personal history of nicotine dependence; Z89.422 Acquired absence of other left toe(s); Z88.8 Allergy status to other drugs, medicaments and biological substances; Z79.82 Long term (current) use of aspirin; Z79.84 Long term (current) use of oral hypoglycemic drugs; Z79.899 Other long term (current) drug therapy; E11.42 Type 2 diabetes mellitus with diabetic polyneuropathy; Z20.822 Contact with and (suspected) exposure to COVID-19

== ENCOUNTER → 2021-11-07 | Outpatient (CLI) | payer MEDICARE ==
[~2021-11-07] MED LIST changes: +LEVO750T13 PO; +METR375C3 PO; +PROB250C PO; -TRIA37.53 PO; +TRIA37.577 PO
[2021-11-07 15:16] LABS: APPEARANCE, URINE CLEAR (CLEAR); BACTERIA, URINE AUTO NEGATIVE (NEGATIVE); BILIRUBIN, URINE AUTO NEGATIVE (NEGATIVE); BLOOD, URINE BLOOD NEGATIVE (NEGATIVE); COLOR, URINE YELLOW (YELLOW); GLUCOSE, URINE (UA) AUTO NEGATIVE (NEGATIVE); KETONE, URINE AUTO NEGATIVE (NEGATIVE); LEUKOCYTE ESTERASE, URINE AUTO NEGATIVE (NEGATIVE); MUCUS, URINE SMALL (NEGATIVE); NITRITE, URINE AUTO NEGATIVE (NEGATIVE); PROTEIN, URINE AUTO 1+ mg/dL (NEGATIVE); RBC, URINE AUTO 0 /HPF (0-3); SPECIFIC GRAVITY URINE AUTO 1.021 (1.002-1.035); SQUAMOUS EPITHELIAL CELL UR AU 0 /HPF (0-6); UROBILINOGEN, URINE AUTO 0.2 mg/dL (0.0-2.0); WBC, URINE AUTO 0 /HPF (0-3)
[2021-11-07 15:20] LABS: BASO # 0.1 10^3/uL (0.0-0.2); BASO % 0.8 % (0.0-1.0); EOS # 0.1 10^3/uL (0.0-0.5); EOS % 1.8 % (0.0-3.0); HEMATOCRIT 43.3 % (42.0-52.0); HEMOGLOBIN 13.1 g/dl (13.5-17.5); LYMPH # 1.4 10^3/uL (1.5-5.0); LYMPH % 21.6 % (24.0-44.0); MEAN CORPUSCULAR HEMOGLOBIN 25.5 pg (27.0-33.0); MEAN CORPUSCULAR HGB CONC 30.3 g/dl (32.0-36.5); MEAN CORPUSCULAR VOLUME 84.2 fl (80.0-96.0); MONO # 0.7 10^3/uL (0.0-0.8); NEUTROPHILS # 4.2 10^3/uL (1.5-8.5); NEUTROPHILS % 64.4 % (36.0-66.0); PLATELET COUNT, AUTOMATED 342 10^3/uL (150-450); RED BLOOD COUNT 5.14 10^6/uL (4.30-6.10); WHITE BLOOD COUNT 6.5 10^3/uL (4.0-10.0)
[2021-11-07 15:51] LABS: ALBUMIN 3.3 GM/DL (3.2-5.2); ALT/SGPT 14 U/L (12-78); BILIRUBIN,TOTAL 0.2 MG/DL (0.2-1.0); BLOOD UREA NITROGEN 12 MG/DL (7-18); CALCIUM LEVEL 9.8 MG/DL (8.8-10.2); CARBON DIOXIDE LEVEL 33 MEQ/L (21-32); CHLORIDE LEVEL 101 MEQ/L (98-107); CREATININE FOR GFR 1.04 MG/DL (0.70-1.30); GLOMERULAR FILTRATION RATE > 60.0 (>42); GLUCOSE, FASTING 68 MG/DL (70-100); NT-PRO BNP 84 PG/ML (<125); POTASSIUM SERUM 4.8 MEQ/L (3.5-5.1); SODIUM LEVEL 139 MEQ/L (136-145); TOTAL PROTEIN 8.2 GM/DL (6.4-8.2)
[2021-11-07 15:55] LABS: TOTAL 25(OH) VITAMIN D 15.9 NG/ML (30.0-100.0)
[2021-11-07 15:56] LABS: MALB URINE SIEMENS 47.6 MG/L; PTH INTACT 31.2 PG/ML (18.5-88.0); VITAMIN B12 LEVEL 425 PG/ML (247-911)
== END ==
LOC: M PLALAB 10:41
PROVIDERS: ATTEND Family Medicine
DX: E53.8 Deficiency of other specified B group vitamins (principal); I10 Essential (primary) hypertension; E55.9 Vitamin D deficiency, unspecified; R10.13 Epigastric pain; E11.69 Type 2 diabetes mellitus with other specified complication

== ENCOUNTER 2022-01-08 20:47 | Observation (INO) | payer MEDICARE ==
[~2022-01-08] VITALS: Ht 182.9 cm; Wt 110.5 kg
[~2022-01-08 20:47] MED LIST changes: +LEVO1TAB39 PO; +LEVO1TAB40 PO; -LEVO500T4 PO; -LEVO750T13 PO
[2022-01-08] MEDS ORDERED: ISOVUE-370 76% 100ML VIAL As Ordered ONE (21:07)
[2022-01-08 21:22] LABS: BASO % 0.4 % (0.0-1.0); EOS # 0.1 10^3/uL (0.0-0.5); EOS % 0.7 % (0.0-3.0); HEMATOCRIT 43.9 % (42.0-52.0); LYMPH # 1.4 10^3/uL (1.5-5.0); LYMPH % 17.1 % (24.0-44.0); MEAN CORPUSCULAR HEMOGLOBIN 25.1 pg (27.0-33.0); MEAN CORPUSCULAR HGB CONC 31.9 g/dl (32.0-36.5); MEAN CORPUSCULAR VOLUME 78.8 fl (80.0-96.0); MONO # 0.7 10^3/uL (0.0-0.8); MONO % 8.7 % (2.0-8.0); NEUTROPHILS % 71.8 % (36.0-66.0); PLATELET COUNT, AUTOMATED 302 10^3/uL (150-450); RED BLOOD COUNT 5.57 10^6/uL (4.30-6.10); WHITE BLOOD COUNT 8.3 10^3/uL (4.0-10.0)
[2022-01-08 21:33] LABS: INR 1.01; PROTHROMBIN TIME 13.7 SECONDS (12.7-14.5)
[2022-01-08 21:34] LABS: PARTIAL THROMBOPLASTIN TIME 43.8 SECONDS (25.9-37.0)
[2022-01-08] MEDS ORDERED: MIDAZOLAM INJ 2MG/2ML VIAL (J2250 PER 1MG) IV ONE ×2 (22:00→22:50)
[2022-01-08 22:06] LABS: CK-MB VALUE MASS 1.6 NG/ML (<3.6); MB/CK RELATIVE INDEX 1.8 (< OR =4)
[2022-01-09] MEDS ORDERED: CLOPIDOGREL 75 MG TAB PO ONE (01:15)
[2022-01-09] MEDS ORDERED: ASPIRIN 325 MG TAB PO ONE (01:15)
[2022-01-09 01:38] LABS: RSV AMPLIFICATION NEGATIVE (NEGATIVE)
[2022-01-09] MEDS ORDERED: DEXTROSE 50% 50 ML SYRINGE IV PRN (01:45)
[2022-01-09] MEDS ORDERED: ACETAMINOPHEN TAB 650MG DOSE (2X325MG) PO PRN (01:45)
[2022-01-09] MEDS ORDERED: GLUCOSE 4GM CHEW TABLET PO PRN (01:45)
[2022-01-09] MEDS ORDERED: GLUCAGON INJ 1MG VIAL SC PRN (01:45)
[2022-01-09] MEDS ORDERED: MOM 30ML SUSPENSION UDC PO PRN (01:45)
[2022-01-09] MEDS ORDERED: MAALOX 30 ML SUSP *UDC PO PRN (01:45)
[2022-01-09] MEDS ORDERED: traMADol 50 MG TAB PO ONE (02:15)
[2022-01-09] MEDS ORDERED: INSUNSD SC (02:47)
[2022-01-09] MEDS ORDERED: HOME MED LIST COMPLETE! XX SCH (02:50)
[2022-01-09] MEDS ORDERED: OMEPRAZOLE 20MG CAP PO PRN (03:20)
[2022-01-09 04:26] VITALS: BP 136/84
[2022-01-09 06:06] LABS: HEMATOCRIT 45.5 % (42.0-52.0); HEMOGLOBIN 14.1 g/dl (13.5-17.5); MEAN CORPUSCULAR HEMOGLOBIN 24.7 pg (27.0-33.0); MEAN CORPUSCULAR VOLUME 79.8 fl (80.0-96.0); PLATELET COUNT, AUTOMATED 297 10^3/uL (150-450); WHITE BLOOD COUNT 7.2 10^3/uL (4.0-10.0)
[2022-01-09 06:43] LABS: ALBUMIN 3.4 GM/DL (3.2-5.2); ALT/SGPT 18 U/L (12-78); BILIRUBIN,TOTAL 0.3 MG/DL (0.2-1.0); BLOOD UREA NITROGEN 12 MG/DL (7-18); CALCIUM LEVEL 9.2 MG/DL (8.8-10.2); CARBON DIOXIDE LEVEL 27 MEQ/L (21-32); CHLORIDE LEVEL 101 MEQ/L (98-107); CHOLESTEROL LEVEL 133 MG/DL (<200); CHOLESTEROL RISK RATIO 4.586 (<5); CREATININE FOR GFR 0.89 MG/DL (0.70-1.30); GLOMERULAR FILTRATION RATE > 60.0 (>42); GLUCOSE, FASTING 125 MG/DL (70-100); HDL CHOLESTEROL 29 MG/DL (>40); LDL CHOLESTEROL 66 MG/DL (<100); MAGNESIUM LEVEL 2.1 MG/DL (1.8-2.4); NON-HDL-C 104 MG/DL; POTASSIUM SERUM 3.8 MEQ/L (3.5-5.1); SODIUM LEVEL 135 MEQ/L (136-145); TOTAL PROTEIN 7.7 GM/DL (6.4-8.2); TRIGLYCERIDES LEVEL 192 MG/DL (<150)
[2022-01-09 07:05] LABS: HEMOGLOBIN A1c 6.5 %
[2022-01-09] MEDS: HumuLIN N INSULIN (NovoLIN N) PER UNIT SC SCH (09:00)
[2022-01-09] MEDS ORDERED: LOSARTAN 50MG TABLET PO SCH (09:00)
[2022-01-09] MEDS ORDERED: DYAZIDE 37.5/25 CAP (TRIAM/HCTZ) PO SCH (09:00)
[2022-01-09] MEDS ORDERED: amLODIPine 5 MG TAB PO SCH (09:00)
[2022-01-09] MEDS ORDERED: ROSUVASTATIN 10 MG TAB (CRESTOR) PO SCH ×2 (09:00→14:00)
[2022-01-09] MEDS: traMADol 50 MG TAB PO SCH ×3 (09:44→20:29)
[2022-01-09] MEDS: HEPARIN SOD (PORCINE) 5000UNITS/ML 1ML VIAL/SYRINGE SC SCH ×2 (09:45→20:29)
[2022-01-09] MEDS: INSULIN LISPRO (NovoLOG) PER UNIT SC SCH ×3 (09:45→17:49)
[2022-01-09] MEDS ORDERED: PILL CUTTER 1 EACH XX PRN (18:30)
[2022-01-09 20:00] VITALS: BP 138/93
[2022-01-09] MEDS ORDERED: HumuLIN N INSULIN (NovoLIN N) PER UNIT SC SCH (21:00)
[2022-01-09] MEDS ORDERED: INSULIN LISPRO (NovoLOG) PER UNIT SC SCH (21:00)
[2022-01-09 22:00] VITALS: BP 138/93
[2022-01-10 06:16] VITALS: BP 134/79
[2022-01-10 06:35] LABS: HEMATOCRIT 45.6 % (42.0-52.0); HEMOGLOBIN 13.9 g/dl (13.5-17.5); MEAN CORPUSCULAR HEMOGLOBIN 24.8 pg (27.0-33.0); MEAN CORPUSCULAR HGB CONC 30.5 g/dl (32.0-36.5); MEAN CORPUSCULAR VOLUME 81.4 fl (80.0-96.0); PLATELET COUNT, AUTOMATED 304 10^3/uL (150-450); WHITE BLOOD COUNT 7.5 10^3/uL (4.0-10.0)
[2022-01-10 07:14] LABS: ALBUMIN 3.5 GM/DL (3.2-5.2); ALT/SGPT 19 U/L (12-78); BILIRUBIN,TOTAL 0.4 MG/DL (0.2-1.0); BLOOD UREA NITROGEN 15 MG/DL (7-18); CALCIUM LEVEL 9.1 MG/DL (8.8-10.2); CARBON DIOXIDE LEVEL 28 MEQ/L (21-32); CHLORIDE LEVEL 97 MEQ/L (98-107); CREATININE FOR GFR 1.09 MG/DL (0.70-1.30); GLOMERULAR FILTRATION RATE > 60.0 (>42); GLUCOSE, FASTING 166 MG/DL (70-100); MAGNESIUM LEVEL 2.1 MG/DL (1.8-2.4); POTASSIUM SERUM 4.2 MEQ/L (3.5-5.1); SODIUM LEVEL 133 MEQ/L (136-145); TOTAL PROTEIN 8.1 GM/DL (6.4-8.2)
[2022-01-10] MEDS: INSULIN LISPRO (NovoLOG) PER UNIT SC SCH (07:47)
[2022-01-10] MEDS ORDERED: CLOPIDOGREL 75 MG TAB PO SCH (09:00)
[2022-01-10] MEDS ORDERED: ASPIRIN 81 MG CHEW TABLET PO SCH (09:00)
[2022-01-10] MEDS ORDERED: ROSUVASTATIN 10 MG TAB (CRESTOR) PO SCH ×2 (09:00)
[2022-01-10] MEDS ORDERED: PNEUMOCOCCAL VACCINE 0.5ML SYRINGE (PNEUMOVAX 23) IM.IMMUN ONE (09:00)
[2022-01-10] MEDS: HumuLIN N INSULIN (NovoLIN N) PER UNIT SC SCH (09:07)
[2022-01-10] MEDS: HEPARIN SOD (PORCINE) 5000UNITS/ML 1ML VIAL/SYRINGE SC SCH (09:07)
[2022-01-10 09:08] VITALS: BP 128/84
[2022-01-10] MEDS: traMADol 50 MG TAB PO SCH (09:08)
[2022-01-10] MEDS ORDERED: CRES10TA PO (09:54)
== END 2022-01-10 12:05 | disposition home or self-care (01) ==
LOC: M ED 20:47 → EDBD 20:47 → M ED INP 20:48 → ENRESERV 01-09 03:19 → M MSPAV 01-09 04:26
PROVIDERS: ADMIT Internal Medicine; ATTEND Student in an Organized Health Care Education/Training Program
DX: I63.321 Cerebral infarction due to thrombosis of right anterior cerebral artery (principal); I65.01 Occlusion and stenosis of right vertebral artery; U07.1 COVID-19; E11.9 Type 2 diabetes mellitus without complications; I10 Essential (primary) hypertension; I73.9 Peripheral vascular disease, unspecified; E78.5 Hyperlipidemia, unspecified; K21.9 Gastro-esophageal reflux disease without esophagitis; L97.509 Non-pressure chronic ulcer of other part of unspecified foot with unspecified severity; Z79.4 Long term (current) use of insulin; Z79.84 Long term (current) use of oral hypoglycemic drugs; Z79.82 Long term (current) use of aspirin; Z79.899 Other long term (current) drug therapy; Z88.8 Allergy status to other drugs, medicaments and biological substances
CPT/HCPCS: 36415; 70450; 70496; 70498; 70551; 71045; 80047; 80053; 80061; 82550; 82553; 83036; 83735; 84484; 85025; 85027; 85610; 85730; 87631; 93005; 93041; 93306; 94760; 96372; 96374; 96376; 97161; 97165; 97530; 99285; G0378; J1644; J1815; J2250; Q9967

== ENCOUNTER → 2022-02-13 | Outpatient (CLI) | payer MEDICARE ==
[~2022-02-13] MED LIST changes: +CRES10TA PO
[2022-02-13 15:57] LABS: BASO % 0.4 % (0.0-1.0); EOS # 0.1 10^3/uL (0.0-0.5); HEMATOCRIT 44.7 % (42.0-52.0); LYMPH # 1.9 10^3/uL (1.5-5.0); LYMPH % 23.7 % (24.0-44.0); MEAN CORPUSCULAR HEMOGLOBIN 25.7 pg (27.0-33.0); MEAN CORPUSCULAR HGB CONC 31.3 g/dl (32.0-36.5); MONO # 0.8 10^3/uL (0.0-0.8); MONO % 9.7 % (2.0-8.0); NEUTROPHILS # 5.2 10^3/uL (1.5-8.5); NEUTROPHILS % 64.7 % (36.0-66.0); PLATELET COUNT, AUTOMATED 285 10^3/uL (150-450); RED BLOOD COUNT 5.45 10^6/uL (4.30-6.10)
[2022-02-13 16:59] LABS: ALBUMIN 3.6 GM/DL (3.2-5.2); ALT/SGPT 19 U/L (12-78); BILIRUBIN,TOTAL 0.3 MG/DL (0.2-1.0); BLOOD UREA NITROGEN 12 MG/DL (7-18); CALCIUM LEVEL 9.3 MG/DL (8.8-10.2); CARBON DIOXIDE LEVEL 27 MEQ/L (21-32); CHLORIDE LEVEL 101 MEQ/L (98-107); CREATININE FOR GFR 0.93 MG/DL (0.70-1.30); FERRITIN 52 NG/ML (26-388); GLOMERULAR FILTRATION RATE > 60.0 (>42); GLUCOSE, FASTING 83 MG/DL (70-100); SODIUM LEVEL 135 MEQ/L (136-145); TOTAL PROTEIN 7.8 GM/DL (6.4-8.2)
[2022-02-14 09:29] LABS: ALBUMIN 3.93 GM/DL (3.29-5.55); ALBUMIN % 50.4 % (55.8-66.1); ALPHA-1-GLOBULIN % 6.3 % (2.9-4.9); ALPHA-1-GLOBULINS 0.49 GM/DL (0.17-0.41); ALPHA-2-GLOBULINS % 15.4 % (7.1-11.8); BETA-1-GLOBULINS 0.44 GM/DL (0.28-0.60); BETA-1-GLOBULINS % 5.7 % (4.7-7.2); BETA-2-GLOBULINS 0.48 GM/DL (0.19-0.55); BETA-2-GLOBULINS % 6.2 % (3.2-6.5); GAMMA GLOBULINS 1.25 GM/DL (0.65-1.58)
== END ==
LOC: M PLALAB 14:04
PROVIDERS: ATTEND Family Medicine
DX: E53.8 Deficiency of other specified B group vitamins (principal); E11.69 Type 2 diabetes mellitus with other specified complication; M17.0 Bilateral primary osteoarthritis of knee
CPT/HCPCS: 36415; 80053; 80307; 82728; 83520; 84165; 85025; 85046; 86335; G0480

== ENCOUNTER → 2022-04-09 | Outpatient (CLI) | payer MEDICARE ==
[2022-04-09 13:01] LABS: BASO % 0.6 % (0.0-1.0); EOS # 0.1 10^3/uL (0.0-0.5); EOS % 1.6 % (0.0-3.0); HEMATOCRIT 44.2 % (42.0-52.0); HEMOGLOBIN 13.4 g/dl (13.5-17.5); LYMPH # 1.6 10^3/uL (1.5-5.0); LYMPH % 22.5 % (24.0-44.0); MEAN CORPUSCULAR HEMOGLOBIN 25.8 pg (27.0-33.0); MEAN CORPUSCULAR HGB CONC 30.3 g/dl (32.0-36.5); MONO # 0.8 10^3/uL (0.0-0.8); MONO % 11.2 % (2.0-8.0); NEUTROPHILS # 4.4 10^3/uL (1.5-8.5); NEUTROPHILS % 63.4 % (36.0-66.0); PLATELET COUNT, AUTOMATED 259 10^3/uL (150-450)
[2022-04-09 14:05] LABS: ALBUMIN 3.5 GM/DL (3.2-5.2); ALT/SGPT 17 U/L (12-78); BILIRUBIN,TOTAL 0.3 MG/DL (0.2-1.0); BLOOD UREA NITROGEN 16 MG/DL (7-18); CALCIUM LEVEL 9.2 MG/DL (8.8-10.2); CARBON DIOXIDE LEVEL 30 MEQ/L (21-32); CHLORIDE LEVEL 100 MEQ/L (98-107); CHOLESTEROL LEVEL 134 MG/DL (<200); CHOLESTEROL RISK RATIO 4.466 (<5); FREE T4 1.04 NG/DL (0.76-1.46); GLOMERULAR FILTRATION RATE > 60.0 (>42); GLUCOSE, FASTING 146 MG/DL (70-100); HDL CHOLESTEROL 30 MG/DL (>40); LDL CHOLESTEROL 69 MG/DL (<100); MAGNESIUM LEVEL 2.2 MG/DL (1.8-2.4); NON-HDL-C 104 MG/DL; NT-PRO BNP 65 PG/ML (<125); POTASSIUM SERUM 4.3 MEQ/L (3.5-5.1); SODIUM LEVEL 135 MEQ/L (136-145); TOTAL PROTEIN 7.9 GM/DL (6.4-8.2); TRIGLYCERIDES LEVEL 173 MG/DL (<150)
[2022-04-09 15:17] LABS: HEMOGLOBIN A1c 6.7 %
== END ==
LOC: M LABDRWAD 09:42
PROVIDERS: ATTEND Family Medicine
DX: I10 Essential (primary) hypertension (principal); E11.69 Type 2 diabetes mellitus with other specified complication

== ENCOUNTER → 2022-06-13 | Outpatient (CLI) | payer MEDICARE | LOC: M RAD 08:48 | PROVIDERS: ATTEND Family Medicine | DX: Z12.2 Encounter for screening for malignant neoplasm of respiratory organs (principal); Z87.891 Personal history of nicotine dependence ==

== ENCOUNTER → 2022-08-13 | Outpatient (REF) | payer MEDICARE ==
[2022-08-13 13:42] LABS: BASO % 0.7 % (0.0-1.0); EOS # 0.1 10^3/uL (0.0-0.5); EOS % 1.2 % (0.0-3.0); HEMATOCRIT 46.7 % (42.0-52.0); HEMOGLOBIN 14.5 g/dl (13.5-17.5); LYMPH # 1.5 10^3/uL (1.5-5.0); LYMPH % 24.8 % (24.0-44.0); MEAN CORPUSCULAR HEMOGLOBIN 25.9 pg (27.0-33.0); MEAN CORPUSCULAR VOLUME 83.5 fl (80.0-96.0); MONO # 0.7 10^3/uL (0.0-0.8); MONO % 12.1 % (2.0-8.0); NEUTROPHILS # 3.6 10^3/uL (1.5-8.5); NEUTROPHILS % 60.7 % (36.0-66.0); PLATELET COUNT, AUTOMATED 232 10^3/uL (150-450); RED BLOOD COUNT 5.59 10^6/uL (4.30-6.10); WHITE BLOOD COUNT 5.9 10^3/uL (4.0-10.0)
[2022-08-13 14:41] LABS: ALBUMIN 3.7 G/DL (3.2-5.2); ALKALINE PHOSPHATASE 85 U/L (46-116); ALT/SGPT 20 U/L (7.0-40); AST/SGOT 20 U/L (<34); BILIRUBIN,TOTAL 0.5 MG/DL (0.3-1.2); BLOOD UREA NITROGEN 18 MG/DL (9-23); CARBON DIOXIDE LEVEL 28 MMOL/L (20-31); CHLORIDE LEVEL 100 MMOL/L (98-107); CREATININE FOR GFR 0.91 MG/DL (0.70-1.30); FERRITIN 48.2 NG/ML (10.5-307.3); GLOMERULAR FILTRATION RATE > 60.0 (>42); GLUCOSE, FASTING 174 MG/DL (74-106); POTASSIUM SERUM 4.5 MMOL/L (3.5-5.1); PTH INTACT 56.9 PG/ML (18.5-88.0); SODIUM LEVEL 137 MMOL/L (136-145); TOTAL PROTEIN 7.5 G/DL (5.7-8.2)
[2022-08-13 16:28] LABS: HEMOGLOBIN A1c 6.7 % (4.0-6.0)
== END ==
LOC: M SFHCADAM 10:25
PROVIDERS: ATTEND Family Medicine
DX: E11.69 Type 2 diabetes mellitus with other specified complication (principal); I10 Essential (primary) hypertension; Z12.5 Encounter for screening for malignant neoplasm of prostate; E53.8 Deficiency of other specified B group vitamins; E55.9 Vitamin D deficiency, unspecified
CPT/HCPCS: 80053; 82306; 82728; 83036; 83880; 83970; 85025; 85046; G0103

== ENCOUNTER → 2022-11-21 | Outpatient (CLI) | payer MEDICARE | LOC: M RAD 13:14 | PROVIDERS: ATTEND Surgery | DX: E11.621 Type 2 diabetes mellitus with foot ulcer (principal); L97.522 Non-pressure chronic ulcer of other part of left foot with fat layer exposed; E11.51 Type 2 diabetes mellitus with diabetic peripheral angiopathy without gangrene; I70.335 Atherosclerosis of unspecified type of bypass graft(s) of the right leg with ulceration of other part of foot ==

== ENCOUNTER → 2022-12-31 | Outpatient (REF) | payer MEDICARE ==
[2022-12-31 13:43] LABS: HEMOGLOBIN A1c 7.1 % (4.0-6.0)
[2022-12-31 14:04] LABS: ALBUMIN 3.6 G/DL (3.2-5.2); ALKALINE PHOSPHATASE 73 U/L (46-116); ALT/SGPT 15 U/L (7.0-40); AST/SGOT 9 U/L (<34); BILIRUBIN,TOTAL 0.4 MG/DL (0.3-1.2); BLOOD UREA NITROGEN 9 MG/DL (9-23); CALCIUM LEVEL 9.4 MG/DL (8.3-10.6); CARBON DIOXIDE LEVEL 30 MMOL/L (20-31); CHLORIDE LEVEL 101 MMOL/L (98-107); CREATININE FOR GFR 0.93 MG/DL (0.70-1.30); GLOMERULAR FILTRATION RATE > 60.0 (>42); GLUCOSE, FASTING 87 MG/DL (74-106); MAGNESIUM LEVEL 1.7 MG/DL (1.8-2.4); POTASSIUM SERUM 4.5 MMOL/L (3.5-5.1); SODIUM LEVEL 139 MMOL/L (136-145); TOTAL PROTEIN 7.2 G/DL (5.7-8.2)
[2022-12-31 14:05] LABS: VITAMIN B12 LEVEL 332 PG/ML (211-911)
[2023-01-01 11:02] LABS: BASO % 0.5 % (0.0-1.0); EOS # 0.1 10^3/uL (0.0-0.5); EOS % 1.8 % (0.0-3.0); HEMATOCRIT 46.2 % (42.0-52.0); HEMOGLOBIN 14.5 g/dl (13.5-17.5); LYMPH # 1.8 10^3/uL (1.5-5.0); LYMPH % 23.1 % (24.0-44.0); MEAN CORPUSCULAR HEMOGLOBIN 26.9 pg (27.0-33.0); MEAN CORPUSCULAR HGB CONC 31.4 g/dl (32.0-36.5); MEAN CORPUSCULAR VOLUME 85.7 fl (80.0-96.0); MONO # 0.6 10^3/uL (0.0-0.8); MONO % 7.9 % (2.0-8.0); NEUTROPHILS % 65.4 % (36.0-66.0); PLATELET COUNT, AUTOMATED 296 10^3/uL (150-450); RED BLOOD COUNT 5.39 10^6/uL (4.30-6.10); WHITE BLOOD COUNT 7.7 10^3/uL (4.0-10.0)
== END ==
LOC: M SFHCPLAZ 10:22
PROVIDERS: ATTEND Family Medicine
DX: I50.32 Chronic diastolic (congestive) heart failure (principal); E11.42 Type 2 diabetes mellitus with diabetic polyneuropathy; E53.8 Deficiency of other specified B group vitamins; I10 Essential (primary) hypertension

== ENCOUNTER → 2023-01-05 | Outpatient (CLI) | payer MEDICARE ==
[~2023-01-05] MED LIST changes: +ISOVUE-370 76% 100ML VIAL As Ordered ONE
== END ==
LOC: M RAD 14:41
PROVIDERS: ATTEND Physician Assistant
DX: I70.245 Atherosclerosis of native arteries of left leg with ulceration of other part of foot (principal)
CPT/HCPCS: 75635; Q9967

== ENCOUNTER → 2023-02-02 | Outpatient (CLI) | payer MEDICARE ==
[~2023-02-02] MED LIST changes: -ISOVUE-370 76% 100ML VIAL As Ordered ONE
[2023-02-02 16:01] LABS: BASO % 0.6 % (0.0-1.0); EOS # 0.1 10^3/uL (0.0-0.5); EOS % 1.5 % (0.0-3.0); HEMATOCRIT 44.9 % (42.0-52.0); HEMOGLOBIN 14.1 g/dl (13.5-17.5); LYMPH # 1.5 10^3/uL (1.5-5.0); LYMPH % 22.4 % (24.0-44.0); MEAN CORPUSCULAR HEMOGLOBIN 26.5 pg (27.0-33.0); MEAN CORPUSCULAR HGB CONC 31.4 g/dl (32.0-36.5); MEAN CORPUSCULAR VOLUME 84.4 fl (80.0-96.0); MONO # 0.7 10^3/uL (0.0-0.8); MONO % 10.3 % (2.0-8.0); NEUTROPHILS # 4.4 10^3/uL (1.5-8.5); NEUTROPHILS % 64.3 % (36.0-66.0); PLATELET COUNT, AUTOMATED 271 10^3/uL (150-450); RED BLOOD COUNT 5.32 10^6/uL (4.30-6.10); WHITE BLOOD COUNT 6.9 10^3/uL (4.0-10.0)
[2023-02-02 16:21] LABS: INR 1.12; PROTHROMBIN TIME 14.1 SECONDS (12.5-14.5)
[2023-02-02 16:22] LABS: PARTIAL THROMBOPLASTIN TIME 34.3 SECONDS (24.8-34.2)
[2023-02-02 16:46] LABS: ALBUMIN 3.6 G/DL (3.2-5.2); ALKALINE PHOSPHATASE 88 U/L (46-116); ALT/SGPT 14 U/L (7.0-40); AST/SGOT 11 U/L (<34); BILIRUBIN,TOTAL 0.2 MG/DL (0.3-1.2); BLOOD UREA NITROGEN 10 MG/DL (9-23); CALCIUM LEVEL 8.9 MG/DL (8.3-10.6); CARBON DIOXIDE LEVEL 25 MMOL/L (20-31); CHLORIDE LEVEL 103 MMOL/L (98-107); CREATININE FOR GFR 0.84 MG/DL (0.70-1.30); GLOMERULAR FILTRATION RATE > 60.0 (>42); GLUCOSE, FASTING 173 MG/DL (74-106); POTASSIUM SERUM 4.4 MMOL/L (3.5-5.1); SODIUM LEVEL 139 MMOL/L (136-145); TOTAL PROTEIN 7.2 G/DL (5.7-8.2)
[2023-02-02 16:47] LABS: FERRITIN 56.5 NG/ML (10.5-307.3)
== END ==
LOC: M PLALAB 14:47
PROVIDERS: ATTEND Family Medicine
DX: Z01.818 Encounter for other preprocedural examination (principal); I50.32 Chronic diastolic (congestive) heart failure

== ENCOUNTER 2023-04-26 16:05 | Inpatient (IN) | payer MEDICARE ==
[~2023-04-26] VITALS: Ht 182.9 cm; Wt 112.7 kg
[2023-04-26] MEDS ORDERED: ACETAMINOPHEN 325 MG TAB PO ONE (16:25)
[2023-04-26] MEDS ORDERED: cefTRIAXone SOD 2 GM in D5W MINI-BAG PLUS 50 ML IV ONE (16:25)
[2023-04-26 16:53] LABS: VENOUS BASE EXCESS -1.6 (-2.0-2.0); VENOUS HCO3 23.3 MMOL/L (23.0-27.0); VENOUS PARTIAL PRESSURE O2 49.2 mmHg (30.0-50.0); VENOUS PH 7.383 UNITS (7.330-7.430); VENOUS STANDARD HCO3 22.8 MMOL/L; VENOUS TOTAL CO2 24.5 MMOL/L (24.0-28.0)
[2023-04-26 17:20] LABS: BASO % 0.2 % (0.0-1.0); EOS % 0.1 % (0.0-3.0); HEMATOCRIT 44.7 % (42.0-52.0); HEMOGLOBIN 14.6 g/dl (13.5-17.5); LYMPH # 0.7 10^3/uL (1.5-5.0); LYMPH % 5.5 % (24.0-44.0); MEAN CORPUSCULAR HEMOGLOBIN 27.5 pg (27.0-33.0); MEAN CORPUSCULAR HGB CONC 32.7 g/dl (32.0-36.5); MEAN CORPUSCULAR VOLUME 84.2 fl (80.0-96.0); MONO # 1.1 10^3/uL (0.0-0.8); MONO % 8.6 % (2.0-8.0); NEUTROPHILS # 10.5 10^3/uL (1.5-8.5); PLATELET COUNT, AUTOMATED 244 10^3/uL (150-450); RED BLOOD COUNT 5.31 10^6/uL (4.30-6.10); WHITE BLOOD COUNT 12.3 10^3/uL (4.0-10.0)
[2023-04-26 17:23] LABS: INR 1.19; PROTHROMBIN TIME 14.8 SECONDS (12.5-14.5)
[2023-04-26 17:24] LABS: PARTIAL THROMBOPLASTIN TIME 32.8 SECONDS (24.8-34.2)
[2023-04-26 17:27] LABS: ALBUMIN 3.7 G/DL (3.2-5.2); ALKALINE PHOSPHATASE 73 U/L (46-116); ALT/SGPT 16 U/L (7.0-40); AST/SGOT 13 U/L (<34); BILIRUBIN,DIRECT 0.2 MG/DL (<0.4); BILIRUBIN,TOTAL 0.5 MG/DL (0.3-1.2); BLOOD UREA NITROGEN 19 MG/DL (9-23); CALCIUM LEVEL 8.7 MG/DL (8.3-10.6); CARBON DIOXIDE LEVEL 24 MMOL/L (20-31); CHLORIDE LEVEL 100 MMOL/L (98-107); CREATININE FOR GFR 0.89 MG/DL (0.70-1.30); GLOMERULAR FILTRATION RATE > 60.0 (>42); GLUCOSE, FASTING 188 MG/DL (74-106); POTASSIUM SERUM 4.3 MMOL/L (3.5-5.1); SODIUM LEVEL 135 MMOL/L (136-145); TOTAL PROTEIN 7.5 G/DL (5.7-8.2)
[2023-04-26 17:33] LABS: PROCALCITONIN 0.11 ng/ml
[2023-04-26] MEDS ORDERED: ACET-683 PO (18:58)
[2023-04-26] MEDS ORDERED: HOME MED LIST COMPLETE! XX SCH (19:00)
[2023-04-26] MEDS ORDERED: GLUCOSE 4GM CHEW TABLET PO PRN (19:15)
[2023-04-26] MEDS ORDERED: GLUCAGON INJ 1MG VIAL SC PRN (19:15)
[2023-04-26] MEDS ORDERED: DEXTROSE 50% 50ML SYRINGE IV PRN (19:15)
[2023-04-26] MEDS ORDERED: OMEPRAZOLE 20MG CAP PO PRN (19:55)
[2023-04-26] MEDS ORDERED: PILL CUTTER 1 EACH XX PRN (20:15)
[2023-04-26] MEDS: INSULIN LISPRO (NovoLOG) PER UNIT SC SCH (21:00)
[2023-04-26] MEDS: ACETAMINOPHEN TAB 650MG DOSE (2X325MG) PO PRN (21:07)
[2023-04-26] MEDS: amLODIPine 5 MG TAB PO SCH (21:08)
[2023-04-26] MEDS: traMADol 50 MG TAB PO SCH (21:10)
[2023-04-26 21:26] VITALS: BP 139/76; TEMP 99.6; O2SAT 94
[2023-04-26] MEDS ORDERED: VANCOMYCIN HCL 1,000 MG, VIAL MATE ADAPTER 1 EACH in D5W 250 ML IV SCH (22:00)
[2023-04-26] MEDS ORDERED: VANCOMYCIN HCL 1,000 MG, VIAL MATE ADAPTER 1 EACH in D5W 250 ML IV ONE (23:00)
[2023-04-26] MEDS ORDERED: LOSARTAN 50MG TABLET PO ONE (23:00)
[2023-04-26] MEDS: PIPERACILLIN/TAZOBACTAM SOD 3.375 GM in D5W MINI-BAG PLUS 50 ML IV SCH (23:35)
[2023-04-27] VITALS (8 sets, daily range): BP systolic 108–142; BP diastolic 55–71; TEMP 98.2–101.3; O2SAT 92–98
[2023-04-27] MEDS: ACETAMINOPHEN TAB 650MG DOSE (2X325MG) PO PRN (01:24)
[2023-04-27] MEDS: PIPERACILLIN/TAZOBACTAM SOD 3.375 GM in D5W MINI-BAG PLUS 50 ML IV SCH ×4 (03:44→22:25)
[2023-04-27 06:21] LABS: MEAN CORPUSCULAR HEMOGLOBIN 27.7 pg (27.0-33.0); MEAN CORPUSCULAR HGB CONC 32.6 g/dl (32.0-36.5); PLATELET COUNT, AUTOMATED 233 10^3/uL (150-450); RED BLOOD COUNT 5.06 10^6/uL (4.30-6.10); WHITE BLOOD COUNT 12.1 10^3/uL (4.0-10.0)
[2023-04-27 07:26] LABS: ALBUMIN 3.3 G/DL (3.2-5.2); ALKALINE PHOSPHATASE 64 U/L (46-116); ALT/SGPT 12 U/L (7.0-40); AST/SGOT 9 U/L (<34); BLOOD UREA NITROGEN 18 MG/DL (9-23); CALCIUM LEVEL 8.2 MG/DL (8.3-10.6); CARBON DIOXIDE LEVEL 26 MMOL/L (20-31); CHLORIDE LEVEL 97 MMOL/L (98-107); CREATININE FOR GFR 1.02 MG/DL (0.70-1.30); GLOMERULAR FILTRATION RATE > 60.0 (>42); GLUCOSE, FASTING 239 MG/DL (74-106); POTASSIUM SERUM 4.1 MMOL/L (3.5-5.1); SODIUM LEVEL 131 MMOL/L (136-145); TOTAL PROTEIN 6.7 G/DL (5.7-8.2)
[2023-04-27] MEDS ORDERED: LEVEMIR (INSULIN DETEMIR) 1 UNITS/0.01ML SC SCH (09:00)
[2023-04-27] MEDS ORDERED: DYAZIDE 37.5/25 CAP (TRIAM/HCTZ) PO SCH (09:00)
[2023-04-27] MEDS: INSULIN LISPRO (NovoLOG) PER UNIT SC SCH ×4 (09:44→21:00)
[2023-04-27] MEDS: ROSUVASTATIN 10 MG TAB (CRESTOR) PO SCH (09:45)
[2023-04-27] MEDS: LOSARTAN 50MG TABLET PO SCH (09:48)
[2023-04-27] MEDS: amLODIPine 5 MG TAB PO SCH ×2 (09:48→22:25)
[2023-04-27] MEDS: CLOPIDOGREL 75 MG TAB PO SCH (09:48)
[2023-04-27] MEDS: traMADol 50 MG TAB PO SCH ×3 (09:49→22:26)
[2023-04-27] MEDS: ENOXAPARIN 40MG/0.4ML SYRINGE (J1650 PER 10MG) SC SCH (09:49)
[2023-04-27] MEDS: VANCOMYCIN HCL 750 MG, VIAL MATE ADAPTER 1 EACH in D5W 250 ML IV SCH ×2 (11:21→17:40)
[2023-04-27] MEDS ORDERED: NS 1,000 ML IV ONE (12:00)
[2023-04-27] MEDS ORDERED: ISOVUE-370 76% 100ML VIAL As Ordered ONE (18:53)
[2023-04-28] MEDS: VANCOMYCIN HCL 750 MG, VIAL MATE ADAPTER 1 EACH in D5W 250 ML IV SCH (01:12)
[2023-04-28 02:00] VITALS: BP 117/56; TEMP 99.7; O2SAT 90
[2023-04-28] MEDS: PIPERACILLIN/TAZOBACTAM SOD 3.375 GM in D5W MINI-BAG PLUS 50 ML IV SCH ×4 (02:22→21:38)
[2023-04-28 06:00] VITALS: BP 122/75; TEMP 98.8; O2SAT 98
[2023-04-28 06:10] LABS: BASO % 0.2 % (0.0-1.0); EOS % 0.2 % (0.0-3.0); HEMATOCRIT 39.1 % (42.0-52.0); HEMOGLOBIN 12.8 g/dl (13.5-17.5); LYMPH # 1.2 10^3/uL (1.5-5.0); LYMPH % 10.1 % (24.0-44.0); MEAN CORPUSCULAR HEMOGLOBIN 27.5 pg (27.0-33.0); MEAN CORPUSCULAR HGB CONC 32.7 g/dl (32.0-36.5); MEAN CORPUSCULAR VOLUME 84.1 fl (80.0-96.0); MONO # 1.2 10^3/uL (0.0-0.8); MONO % 10.1 % (2.0-8.0); NEUTROPHILS % 78.8 % (36.0-66.0); PLATELET COUNT, AUTOMATED 224 10^3/uL (150-450); RED BLOOD COUNT 4.65 10^6/uL (4.30-6.10); WHITE BLOOD COUNT 11.5 10^3/uL (4.0-10.0)
[2023-04-28 06:39] LABS: BLOOD UREA NITROGEN 14 MG/DL (9-23); CALCIUM LEVEL 8.2 MG/DL (8.3-10.6); CARBON DIOXIDE LEVEL 26 MMOL/L (20-31); CHLORIDE LEVEL 97 MMOL/L (98-107); GLOMERULAR FILTRATION RATE > 60.0 (>42); GLUCOSE, FASTING 251 MG/DL (74-106); POTASSIUM SERUM 4.3 MMOL/L (3.5-5.1); SODIUM LEVEL 130 MMOL/L (136-145)
[2023-04-28] MEDS: INSULIN LISPRO (NovoLOG) PER UNIT SC SCH ×4 (08:45→21:39)
[2023-04-28] MEDS: ENOXAPARIN 40MG/0.4ML SYRINGE (J1650 PER 10MG) SC SCH (08:48)
[2023-04-28] MEDS: amLODIPine 5 MG TAB PO SCH ×2 (08:49→21:37)
[2023-04-28] MEDS: traMADol 50 MG TAB PO SCH ×3 (08:49→21:38)
[2023-04-28] MEDS: ROSUVASTATIN 10 MG TAB (CRESTOR) PO SCH (08:49)
[2023-04-28] MEDS: LOSARTAN 50MG TABLET PO SCH (08:50)
[2023-04-28] MEDS: CLOPIDOGREL 75 MG TAB PO SCH (08:50)
[2023-04-28] MEDS ORDERED: LEVEMIR (INSULIN DETEMIR) 1 UNITS/0.01ML SC SCH (09:00)
[2023-04-28 10:00] VITALS: BP 117/71; TEMP 98.8; O2SAT 97
[2023-04-28] MEDS: VANCOMYCIN HCL 1,000 MG, VIAL MATE ADAPTER 1 EACH in D5W 250 ML IV SCH ×2 (10:10→17:39)
[2023-04-28 14:00] VITALS: BP 115/70; TEMP 97.6; O2SAT 97
[2023-04-28] MEDS: FLUCONAZOLE 100 MG TAB PO SCH (16:34)
[2023-04-28 18:00] VITALS: BP 113/82; TEMP 97.3; O2SAT 95
[2023-04-28 21:18] VITALS: BP 117/82; TEMP 98.1; O2SAT 100
[2023-04-28] MEDS: VANICREAM MOISTURIZING SKIN CREAM 113GM TUBE TOP SCH (21:38)
[2023-04-29] MEDS: VANCOMYCIN HCL 1,000 MG, VIAL MATE ADAPTER 1 EACH in D5W 250 ML IV SCH ×3 (01:27→16:47)
[2023-04-29 02:00] VITALS: BP 119/78; TEMP 98.8; O2SAT 96
[2023-04-29] MEDS: PIPERACILLIN/TAZOBACTAM SOD 3.375 GM in D5W MINI-BAG PLUS 50 ML IV SCH ×4 (02:47→20:45)
[2023-04-29 05:37] LABS: BASO % 0.4 % (0.0-1.0); EOS # 0.1 10^3/uL (0.0-0.5); EOS % 0.8 % (0.0-3.0); HEMATOCRIT 38.3 % (42.0-52.0); HEMOGLOBIN 12.8 g/dl (13.5-17.5); LYMPH # 1.1 10^3/uL (1.5-5.0); LYMPH % 13.3 % (24.0-44.0); MEAN CORPUSCULAR HEMOGLOBIN 27.8 pg (27.0-33.0); MEAN CORPUSCULAR HGB CONC 33.4 g/dl (32.0-36.5); MEAN CORPUSCULAR VOLUME 83.3 fl (80.0-96.0); MONO # 0.8 10^3/uL (0.0-0.8); MONO % 9.1 % (2.0-8.0); NEUTROPHILS # 6.3 10^3/uL (1.5-8.5); NEUTROPHILS % 75.9 % (36.0-66.0); PLATELET COUNT, AUTOMATED 228 10^3/uL (150-450); WHITE BLOOD COUNT 8.3 10^3/uL (4.0-10.0)
[2023-04-29 06:00] VITALS: BP_SYST 103; BP_SYST 117; BP_DIAS 63; BP_DIAS 76; TEMP 98.1; TEMP 98.2; O2SAT 94; O2SAT 99
[2023-04-29 06:18] LABS: BLOOD UREA NITROGEN 15 MG/DL (9-23); CALCIUM LEVEL 8.2 MG/DL (8.3-10.6); CARBON DIOXIDE LEVEL 26 MMOL/L (20-31); CHLORIDE LEVEL 99 MMOL/L (98-107); CREATININE FOR GFR 0.89 MG/DL (0.70-1.30); GLOMERULAR FILTRATION RATE > 60.0 (>42); GLUCOSE, FASTING 248 MG/DL (74-106); POTASSIUM SERUM 4.1 MMOL/L (3.5-5.1); SODIUM LEVEL 131 MMOL/L (136-145)
[2023-04-29] MEDS ORDERED: LEVEMIR (INSULIN DETEMIR) 1 UNITS/0.01ML SC SCH (09:00)
[2023-04-29] MEDS: INSULIN LISPRO (NovoLOG) PER UNIT SC SCH ×5 (09:14→20:44)
[2023-04-29] MEDS: CLOPIDOGREL 75 MG TAB PO SCH (09:15)
[2023-04-29] MEDS: ROSUVASTATIN 10 MG TAB (CRESTOR) PO SCH (09:15)
[2023-04-29] MEDS: ENOXAPARIN 40MG/0.4ML SYRINGE (J1650 PER 10MG) SC SCH (09:15)
[2023-04-29] MEDS: FLUCONAZOLE 100 MG TAB PO SCH (09:15)
[2023-04-29] MEDS: traMADol 50 MG TAB PO SCH ×3 (09:16→20:44)
[2023-04-29] MEDS: amLODIPine 5 MG TAB PO SCH ×2 (09:18→20:42)
[2023-04-29] MEDS: LOSARTAN 50MG TABLET PO SCH (09:18)
[2023-04-29] MEDS: VANICREAM MOISTURIZING SKIN CREAM 113GM TUBE TOP SCH ×2 (09:23→20:45)
[2023-04-29 10:00] VITALS: BP 117/62; TEMP 98.1; O2SAT 95
[2023-04-29 14:00] VITALS: BP 95/64; TEMP 98.1; O2SAT 95
[2023-04-29 18:42] VITALS: BP 109/58; TEMP 98.2; O2SAT 96
[2023-04-29] MEDS: LEVEMIR (INSULIN DETEMIR) 1 UNITS/0.01ML SC SCH (20:44)
[2023-04-29 21:24] VITALS: BP 116/63; TEMP 97.9; O2SAT 97
[2023-04-30] MEDS: VANCOMYCIN HCL 1,000 MG, VIAL MATE ADAPTER 1 EACH in D5W 250 ML IV SCH ×3 (01:31→18:06)
[2023-04-30 01:37] VITALS: BP 121/72; TEMP 98.1; O2SAT 98
[2023-04-30] MEDS: PIPERACILLIN/TAZOBACTAM SOD 3.375 GM in D5W MINI-BAG PLUS 50 ML IV SCH ×4 (03:29→20:58)
[2023-04-30 05:11] VITALS: BP 118/69; TEMP 98.4; O2SAT 97
[2023-04-30 05:36] LABS: BASO % 0.4 % (0.0-1.0); EOS # 0.1 10^3/uL (0.0-0.5); EOS % 1.4 % (0.0-3.0); HEMATOCRIT 38.5 % (42.0-52.0); HEMOGLOBIN 12.6 g/dl (13.5-17.5); LYMPH # 1.4 10^3/uL (1.5-5.0); LYMPH % 18.7 % (24.0-44.0); MEAN CORPUSCULAR HEMOGLOBIN 27.5 pg (27.0-33.0); MEAN CORPUSCULAR HGB CONC 32.7 g/dl (32.0-36.5); MEAN CORPUSCULAR VOLUME 84.1 fl (80.0-96.0); MONO # 0.9 10^3/uL (0.0-0.8); MONO % 11.8 % (2.0-8.0); NEUTROPHILS # 4.9 10^3/uL (1.5-8.5); NEUTROPHILS % 66.6 % (36.0-66.0); PLATELET COUNT, AUTOMATED 261 10^3/uL (150-450); RED BLOOD COUNT 4.58 10^6/uL (4.30-6.10); WHITE BLOOD COUNT 7.3 10^3/uL (4.0-10.0)
[2023-04-30 05:59] LABS: BLOOD UREA NITROGEN 11 MG/DL (9-23); CALCIUM LEVEL 8.2 MG/DL (8.3-10.6); CARBON DIOXIDE LEVEL 27 MMOL/L (20-31); CHLORIDE LEVEL 100 MMOL/L (98-107); CREATININE FOR GFR 0.81 MG/DL (0.70-1.30); GLOMERULAR FILTRATION RATE > 60.0 (>42); GLUCOSE, FASTING 208 MG/DL (74-106); POTASSIUM SERUM 4.2 MMOL/L (3.5-5.1); SODIUM LEVEL 134 MMOL/L (136-145)
[2023-04-30] MEDS: ROSUVASTATIN 10 MG TAB (CRESTOR) PO SCH (08:34)
[2023-04-30] MEDS: CLOPIDOGREL 75 MG TAB PO SCH (08:35)
[2023-04-30] MEDS: FLUCONAZOLE 100 MG TAB PO SCH (08:35)
[2023-04-30] MEDS: INSULIN LISPRO (NovoLOG) PER UNIT SC SCH ×7 (08:36→20:58)
[2023-04-30] MEDS: ENOXAPARIN 40MG/0.4ML SYRINGE (J1650 PER 10MG) SC SCH (08:36)
[2023-04-30] MEDS: traMADol 50 MG TAB PO SCH ×3 (08:37→20:57)
[2023-04-30] MEDS: VANICREAM MOISTURIZING SKIN CREAM 113GM TUBE TOP SCH ×2 (08:37→21:00)
[2023-04-30] MEDS: LEVEMIR (INSULIN DETEMIR) 1 UNITS/0.01ML SC SCH ×2 (08:38→20:59)
[2023-04-30] MEDS: LOSARTAN 50MG TABLET PO SCH (08:39)
[2023-04-30] MEDS: amLODIPine 5 MG TAB PO SCH ×2 (08:39→20:57)
[2023-04-30 10:00] VITALS: BP 134/65; TEMP 97.5; O2SAT 93
[2023-04-30 14:00] VITALS: BP 134/69; TEMP 98.2; O2SAT 96
[2023-04-30 18:00] VITALS: BP 115/54; TEMP 98.1; O2SAT 95
[2023-04-30 21:03] VITALS: BP 130/73; TEMP 98; O2SAT 97
[2023-05-01] MEDS: VANCOMYCIN HCL 1,000 MG, VIAL MATE ADAPTER 1 EACH in D5W 250 ML IV SCH ×2 (01:51→10:32)
[2023-05-01 01:53] VITALS: BP 112/59; TEMP 98.2; O2SAT 96
[2023-05-01] MEDS: PIPERACILLIN/TAZOBACTAM SOD 3.375 GM in D5W MINI-BAG PLUS 50 ML IV SCH ×2 (03:29→08:49)
[2023-05-01 04:53] VITALS: BP 133/71; TEMP 98.2; O2SAT 95
[2023-05-01 06:13] LABS: BASO # 0.1 10^3/uL (0.0-0.2); BASO % 0.8 % (0.0-1.0); EOS # 0.1 10^3/uL (0.0-0.5); EOS % 1.9 % (0.0-3.0); HEMOGLOBIN 12.5 g/dl (13.5-17.5); LYMPH # 1.3 10^3/uL (1.5-5.0); LYMPH % 19.8 % (24.0-44.0); MEAN CORPUSCULAR HEMOGLOBIN 27.1 pg (27.0-33.0); MEAN CORPUSCULAR HGB CONC 32.1 g/dl (32.0-36.5); MEAN CORPUSCULAR VOLUME 84.6 fl (80.0-96.0); MONO # 0.8 10^3/uL (0.0-0.8); MONO % 11.6 % (2.0-8.0); NEUTROPHILS # 4.1 10^3/uL (1.5-8.5); NEUTROPHILS % 63.9 % (36.0-66.0); PLATELET COUNT, AUTOMATED 266 10^3/uL (150-450); RED BLOOD COUNT 4.61 10^6/uL (4.30-6.10); WHITE BLOOD COUNT 6.5 10^3/uL (4.0-10.0)
[2023-05-01 06:41] LABS: BLOOD UREA NITROGEN 13 MG/DL (9-23); CALCIUM LEVEL 8.2 MG/DL (8.3-10.6); CARBON DIOXIDE LEVEL 27 MMOL/L (20-31); CHLORIDE LEVEL 100 MMOL/L (98-107); CREATININE FOR GFR 0.84 MG/DL (0.70-1.30); GLOMERULAR FILTRATION RATE > 60.0 (>42); GLUCOSE, FASTING 228 MG/DL (74-106); POTASSIUM SERUM 4.4 MMOL/L (3.5-5.1); SODIUM LEVEL 134 MMOL/L (136-145)
[2023-05-01] MEDS: INSULIN LISPRO (NovoLOG) PER UNIT SC SCH ×4 (07:30→12:35)
[2023-05-01] MEDS: LEVEMIR (INSULIN DETEMIR) 1 UNITS/0.01ML SC SCH (08:49)
[2023-05-01] MEDS: ENOXAPARIN 40MG/0.4ML SYRINGE (J1650 PER 10MG) SC SCH (08:49)
[2023-05-01 08:50] VITALS: BP 134/76
[2023-05-01] MEDS: LOSARTAN 50MG TABLET PO SCH (08:50)
[2023-05-01] MEDS: traMADol 50 MG TAB PO SCH (08:50)
[2023-05-01] MEDS: ROSUVASTATIN 10 MG TAB (CRESTOR) PO SCH (08:50)
[2023-05-01] MEDS: CLOPIDOGREL 75 MG TAB PO SCH (08:51)
[2023-05-01] MEDS: amLODIPine 5 MG TAB PO SCH (08:51)
[2023-05-01] MEDS: FLUCONAZOLE 100 MG TAB PO SCH (08:51)
[2023-05-01] MEDS: VANICREAM MOISTURIZING SKIN CREAM 113GM TUBE TOP SCH (08:58)
[2023-05-01 10:00] VITALS: BP 114/69; TEMP 97.9; O2SAT 94
[2023-05-01] MEDS ORDERED: BACT800T5 PO ×2 (11:15→11:20)
== END 2023-05-01 13:55 | disposition home or self-care (01) | DRG 314 ==
LOC: M ED 16:05 → EEVIPCON 18:57 → M ED INP 18:57 → ENRESERV 20:19 → M MSPAV 21:29
PROVIDERS: ADMIT Internal Medicine; ATTEND Internal Medicine Nephrology
DX: T82.898A Other specified complication of vascular prosthetic devices, implants and grafts, initial encounter (principal); A41.9 Sepsis, unspecified organism; L03.116 Cellulitis of left lower limb; L97.419 Non-pressure chronic ulcer of right heel and midfoot with unspecified severity; L97.929 Non-pressure chronic ulcer of unspecified part of left lower leg with unspecified severity; L97.519 Non-pressure chronic ulcer of other part of right foot with unspecified severity; I73.9 Peripheral vascular disease, unspecified; L40.9 Psoriasis, unspecified; E11.610 Type 2 diabetes mellitus with diabetic neuropathic arthropathy; E11.628 Type 2 diabetes mellitus with other skin complications; B37.9 Candidiasis, unspecified; E11.621 Type 2 diabetes mellitus with foot ulcer; E78.5 Hyperlipidemia, unspecified; E11.42 Type 2 diabetes mellitus with diabetic polyneuropathy; M17.0 Bilateral primary osteoarthritis of knee; I10 Essential (primary) hypertension; E66.9 Obesity, unspecified; E11.51 Type 2 diabetes mellitus with diabetic peripheral angiopathy without gangrene; Z79.4 Long term (current) use of insulin; Z79.899 Other long term (current) drug therapy; Z88.8 Allergy status to other drugs, medicaments and biological substances; Z20.822 Contact with and (suspected) exposure to COVID-19; Z89.422 Acquired absence of other left toe(s); Z86.73 Personal history of transient ischemic attack (TIA), and cerebral infarction without residual deficits; Z95.828 Presence of other vascular implants and grafts

== ENCOUNTER → 2023-06-16 | Outpatient (REF) | payer MEDICARE ==
[~2023-06-16] MED LIST changes: +ACET-683 PO; +BACT800T5 PO
[2023-06-16 13:34] LABS: BASO % 0.4 % (0.0-1.0); EOS # 0.1 10^3/uL (0.0-0.5); EOS % 1.1 % (0.0-3.0); HEMOGLOBIN 14.8 g/dl (13.5-17.5); LYMPH # 1.4 10^3/uL (1.5-5.0); LYMPH % 18.2 % (24.0-44.0); MEAN CORPUSCULAR HEMOGLOBIN 27.5 pg (27.0-33.0); MEAN CORPUSCULAR HGB CONC 31.5 g/dl (32.0-36.5); MEAN CORPUSCULAR VOLUME 87.2 fl (80.0-96.0); MONO # 0.8 10^3/uL (0.0-0.8); MONO % 11.1 % (2.0-8.0); NEUTROPHILS # 5.2 10^3/uL (1.5-8.5); NEUTROPHILS % 68.7 % (36.0-66.0); PLATELET COUNT, AUTOMATED 266 10^3/uL (150-450); RED BLOOD COUNT 5.39 10^6/uL (4.30-6.10); WHITE BLOOD COUNT 7.5 10^3/uL (4.0-10.0)
[2023-06-16 13:55] LABS: PSA SCREENING 0.86 NG/ML (< 4.00)
[2023-06-16 14:04] LABS: ALBUMIN 3.8 G/DL (3.2-5.2); ALKALINE PHOSPHATASE 76 U/L (46-116); ALT/SGPT 14 U/L (7.0-40); AST/SGOT 16 U/L (<34); BILIRUBIN,TOTAL 0.4 MG/DL (0.3-1.2); BLOOD UREA NITROGEN 16 MG/DL (9-23); CALCIUM LEVEL 8.9 MG/DL (8.3-10.6); CARBON DIOXIDE LEVEL 30 MMOL/L (20-31); CHLORIDE LEVEL 103 MMOL/L (98-107); CREATININE FOR GFR 0.88 MG/DL (0.70-1.30); GLOMERULAR FILTRATION RATE > 60.0 (>42); GLUCOSE, FASTING 91 MG/DL (74-106); POTASSIUM SERUM 4.3 MMOL/L (3.5-5.1); SODIUM LEVEL 141 MMOL/L (136-145); TOTAL PROTEIN 7.4 G/DL (5.7-8.2)
[2023-06-16 14:08] LABS: FERRITIN 40.3 NG/ML (10.5-307.3); PTH INTACT 47.5 PG/ML (18.5-88.0)
[2023-06-16 14:09] LABS: VITAMIN B12 LEVEL 262 PG/ML (211-911)
== END ==
LOC: M SFHCADAM 09:09
PROVIDERS: ATTEND Family Medicine
DX: I50.32 Chronic diastolic (congestive) heart failure (principal); Z79.899 Other long term (current) drug therapy; Z12.5 Encounter for screening for malignant neoplasm of prostate
CPT/HCPCS: 80053; 82607; 82728; 83036; 83735; 83970; 85025; G0103

== ENCOUNTER → 2023-10-08 | Outpatient (REF) | payer MEDICARE ==
[~2023-10-08] MED LIST changes: +BD I1MIS14 SC; +CEFD1CAP9 PO; +D31000CA4 PO; +DOXY-440 PO; +ELIQ5TAB PO; +GABA-282 PO; +INSU100I48 SQ; +INSUDET SC; +[UNRECOGNIZED DRUG - CODE] XX
== END ==
LOC: M SFHCPLAZ 11:34
PROVIDERS: ATTEND Family Medicine
DX: E53.8 Deficiency of other specified B group vitamins (principal); D50.9 Iron deficiency anemia, unspecified; E11.69 Type 2 diabetes mellitus with other specified complication; I50.32 Chronic diastolic (congestive) heart failure

== ENCOUNTER → 2023-11-05 | Outpatient (REF) | payer MEDICARE ==
[2023-11-05 14:44] LABS: BASO % 0.5 % (0.0-1.0); EOS # 0.1 10^3/uL (0.0-0.5); EOS % 1.4 % (0.0-3.0); HEMATOCRIT 45.9 % (42.0-52.0); HEMOGLOBIN 14.7 g/dl (13.5-17.5); LYMPH # 1.7 10^3/uL (1.5-5.0); LYMPH % 27.1 % (24.0-44.0); MEAN CORPUSCULAR HEMOGLOBIN 27.9 pg (27.0-33.0); MEAN CORPUSCULAR VOLUME 87.3 fl (80.0-96.0); MONO # 0.8 10^3/uL (0.0-0.8); MONO % 12.4 % (2.0-8.0); NEUTROPHILS # 3.6 10^3/uL (1.5-8.5); NEUTROPHILS % 57.6 % (36.0-66.0); PLATELET COUNT, AUTOMATED 270 10^3/uL (150-450); RED BLOOD COUNT 5.26 10^6/uL (4.30-6.10); WHITE BLOOD COUNT 6.3 10^3/uL (4.0-10.0)
[2023-11-05 14:57] LABS: ERYTHROCYTE SEDIMENTATION RATE 64 mm/hr (0-20)
== END ==
LOC: M SFHCADAM 09:42
PROVIDERS: ATTEND Family Medicine
DX: L03.116 Cellulitis of left lower limb (principal)

== ENCOUNTER → 2023-11-06 | Outpatient (REF) | payer MEDICARE | LOC: M SFHCLERA 11:09 | PROVIDERS: ATTEND Physician Assistant | DX: R53.1 Weakness (principal) ==

== ENCOUNTER → 2023-11-17 | Outpatient (REF) | payer MEDICARE ==
[2023-11-17 14:40] LABS: BASO % 0.7 % (0.0-1.0); EOS # 0.1 10^3/uL (0.0-0.5); EOS % 1.7 % (0.0-3.0); HEMATOCRIT 46.1 % (42.0-52.0); HEMOGLOBIN 14.6 g/dl (13.5-17.5); LYMPH # 1.6 10^3/uL (1.5-5.0); LYMPH % 26.4 % (24.0-44.0); MEAN CORPUSCULAR HGB CONC 31.7 g/dl (32.0-36.5); MEAN CORPUSCULAR VOLUME 88.3 fl (80.0-96.0); MONO # 0.6 10^3/uL (0.0-0.8); MONO % 10.5 % (2.0-8.0); NEUTROPHILS # 3.6 10^3/uL (1.5-8.5); PLATELET COUNT, AUTOMATED 231 10^3/uL (150-450); RED BLOOD COUNT 5.22 10^6/uL (4.30-6.10)
[2023-11-17 15:02] LABS: HEMOGLOBIN A1c 7.6 % (4.0-6.0)
[2023-11-17 15:25] LABS: FERRITIN 47.6 NG/ML (10.5-307.3); THYROID STIMULATING HORMONE 1.407 uIU/ML (0.55-4.78)
[2023-11-17 15:26] LABS: FREE T4 1.03 NG/DL (0.89-1.76)
[2023-11-17 15:27] LABS: VITAMIN B12 LEVEL 349 PG/ML (211-911)
[2023-11-17 15:31] LABS: ALBUMIN 3.6 G/DL (3.2-5.2); ALKALINE PHOSPHATASE 72 U/L (46-116); ALT/SGPT 19 U/L (7.0-40); AST/SGOT 19 U/L (<34); BILIRUBIN,TOTAL 0.2 MG/DL (0.3-1.2); BLOOD UREA NITROGEN 18 MG/DL (9-23); CARBON DIOXIDE LEVEL 29 MMOL/L (20-31); CHLORIDE LEVEL 104 MMOL/L (98-107); CHOLESTEROL LEVEL 174 MG/DL (<200); CHOLESTEROL RISK RATIO 5.87 (<5); CREATININE FOR GFR 0.86 MG/DL (0.70-1.30); GLOMERULAR FILTRATION RATE > 60.0 (>42); GLUCOSE, FASTING 115 MG/DL (74-106); HDL CHOLESTEROL 29.6 MG/DL (>40); NON-HDL-C 144.4 MG/DL; POTASSIUM SERUM 4.7 MMOL/L (3.5-5.1); SODIUM LEVEL 138 MMOL/L (136-145); TOTAL PROTEIN 7.2 G/DL (5.7-8.2); TRIGLYCERIDES LEVEL 357 MG/DL (<150)
== END ==
LOC: M SFHCPLAZ 10:55
PROVIDERS: ATTEND Family Medicine
DX: E53.8 Deficiency of other specified B group vitamins (principal); D50.9 Iron deficiency anemia, unspecified; E11.69 Type 2 diabetes mellitus with other specified complication; I50.32 Chronic diastolic (congestive) heart failure

== ENCOUNTER → 2024-01-11 | Outpatient (REF) | payer MEDICARE ==
[2024-01-11 18:27] LABS: BASO % 0.3 % (0.0-1.0); EOS # 0.1 10^3/uL (0.0-0.5); HEMOGLOBIN 14.6 g/dl (13.5-17.5); LYMPH # 1.3 10^3/uL (1.5-5.0); LYMPH % 22.8 % (24.0-44.0); MEAN CORPUSCULAR HEMOGLOBIN 28.4 pg (27.0-33.0); MEAN CORPUSCULAR HGB CONC 32.4 g/dl (32.0-36.5); MEAN CORPUSCULAR VOLUME 87.5 fl (80.0-96.0); MONO # 0.7 10^3/uL (0.0-0.8); MONO % 11.3 % (2.0-8.0); NEUTROPHILS # 3.7 10^3/uL (1.5-8.5); NEUTROPHILS % 63.9 % (36.0-66.0); PLATELET COUNT, AUTOMATED 239 10^3/uL (150-450); RED BLOOD COUNT 5.14 10^6/uL (4.30-6.10); WHITE BLOOD COUNT 5.8 10^3/uL (4.0-10.0)
[2024-01-11 18:38] LABS: INR 1.58; PROTHROMBIN TIME 18.3 SECONDS (12.5-14.5)
== END ==
LOC: M SFHCPLAZ 16:53 → M LABDRAWP 16:53
PROVIDERS: ATTEND Family Medicine
DX: D50.9 Iron deficiency anemia, unspecified (principal)

== ENCOUNTER 2024-02-27 19:36 | Inpatient (IN) | payer MEDICARE ==
[~2024-02-27] VITALS: Ht 172.7 cm; Wt 106.6 kg
[2024-02-27 20:22] LABS: VENOUS BASE EXCESS -0.7 (-2.0-2.0); VENOUS HCO3 24.8 MMOL/L (23.0-27.0); VENOUS O2 SATURATION 88.3 % (60.0-80.0); VENOUS PARTIAL PRESSURE CO2 44.1 mmHg (38.0-50.0); VENOUS PARTIAL PRESSURE O2 53.9 mmHg (30.0-50.0); VENOUS PH 7.368 UNITS (7.330-7.430); VENOUS STANDARD HCO3 23.7 MMOL/L; VENOUS TOTAL CO2 26.2 MMOL/L (24.0-28.0)
[2024-02-27 20:29] LABS: BASO % 0.2 % (0.0-1.0); EOS % 0.2 % (0.0-3.0); HEMATOCRIT 41.3 % (42.0-52.0); HEMOGLOBIN 13.5 g/dl (13.5-17.5); LYMPH # 0.4 10^3/uL (1.5-5.0); LYMPH % 5.2 % (24.0-44.0); MEAN CORPUSCULAR HGB CONC 32.7 g/dl (32.0-36.5); MEAN CORPUSCULAR VOLUME 85.7 fl (80.0-96.0); MONO # 0.6 10^3/uL (0.0-0.8); MONO % 7.2 % (2.0-8.0); NEUTROPHILS # 7.3 10^3/uL (1.5-8.5); NEUTROPHILS % 86.4 % (36.0-66.0); PLATELET COUNT, AUTOMATED 203 10^3/uL (150-450); RED BLOOD COUNT 4.82 10^6/uL (4.30-6.10); WHITE BLOOD COUNT 8.5 10^3/uL (4.0-10.0)
[2024-02-27 20:49] LABS: INR 2.41; PARTIAL THROMBOPLASTIN TIME 65.1 SECONDS (24.8-34.2); PROTHROMBIN TIME 25.3 SECONDS (12.5-14.5)
[2024-02-27 20:52] LABS: ALBUMIN 3.4 G/DL (3.2-5.2); ALKALINE PHOSPHATASE 76 U/L (46-116); ALT/SGPT 15 U/L (7.0-40); AMYLASE 60 U/L (30-118); AST/SGOT 36 U/L (<34); BILIRUBIN,DIRECT 0.1 MG/DL (<0.4); BILIRUBIN,TOTAL 0.4 MG/DL (0.3-1.2); BLOOD UREA NITROGEN 13 MG/DL (9-23); CALCIUM LEVEL 8.3 MG/DL (8.3-10.6); CARBON DIOXIDE LEVEL 26 MMOL/L (20-31); CHLORIDE LEVEL 104 MMOL/L (98-107); CREATININE FOR GFR 0.86 MG/DL (0.70-1.30); GLOMERULAR FILTRATION RATE > 60.0 (>42); GLUCOSE, FASTING 251 MG/DL (74-106); POTASSIUM SERUM 4.7 MMOL/L (3.5-5.1); SODIUM LEVEL 134 MMOL/L (136-145)
[2024-02-27 20:59] LABS: PROCALCITONIN 0.73 ng/ml
[2024-02-27] MEDS: NS 500 ML IV ONE (21:00)
[2024-02-27 21:15] LABS: APPEARANCE, URINE CLEAR (CLEAR); BACTERIA, URINE AUTO NEGATIVE (NEGATIVE); BILIRUBIN, URINE AUTO NEGATIVE (NEGATIVE); BLOOD, URINE BLOOD 2+ (NEGATIVE); COLOR, URINE YELLOW (YELLOW); GLUCOSE, URINE (UA) AUTO 3+ mg/dL (NEGATIVE); KETONE, URINE AUTO TRACE mg/dL (NEGATIVE); LEUKOCYTE ESTERASE, URINE AUTO NEGATIVE (NEGATIVE); MUCUS, URINE SMALL (NEGATIVE); NITRITE, URINE AUTO NEGATIVE (NEGATIVE); PROTEIN, URINE AUTO 2+ mg/dL (NEGATIVE); RBC, URINE AUTO 2 /HPF (0-3); SPECIFIC GRAVITY URINE AUTO 1.017 (1.002-1.035); SQUAMOUS EPITHELIAL CELL UR AU 0 /HPF (0-6); UROBILINOGEN, URINE AUTO 0.2 mg/dL (0.0-2.0); WBC, URINE AUTO 2 /HPF (0-3)
[2024-02-27] MEDS ORDERED: ISOVUE-370 76% 100ML VIAL As Ordered ONE (22:20)
[2024-02-27] MEDS: ACETAMINOPHEN *IV* 1,000 MG in IV 1 EA IV ONE (22:39)
[2024-02-27 23:11] LABS: CK-MB VALUE MASS < 1.0 NG/ML (<3.6)
[2024-02-27 23:17] LABS: CPK CREATINE PHOSPHOKINASE 127 U/L (46-171); MB/CK RELATIVE INDEX 0.78 (< OR =4)
[2024-02-27] MEDS: LEVALBUTEROL 1.25MG 0.5ML CONCENTRATE NEB NEB ONE ×2 (23:44)
[2024-02-28] MEDS ORDERED: GLUCAGON INJ 1MG VIAL SC PRN (00:10)
[2024-02-28] MEDS ORDERED: DEXTROSE 50% 50ML SYRINGE IV PRN (00:10)
[2024-02-28] MEDS ORDERED: GLUCOSE 4 GM CHEW PO PRN (00:10)
[2024-02-28] MEDS: UNRESOLVED CLARIFICATION ENTRY XX STA (00:13)
[2024-02-28] MEDS ORDERED: ACE65ERTAB PO (01:11)
[2024-02-28] MEDS ORDERED: ROSU5TAB40 PO (01:16)
[2024-02-28] MEDS ORDERED: HOME MED LIST COMPLETE! XX SCH (01:20)
[2024-02-28] MEDS ORDERED: HUMU1INJ2 INJ ×2 (01:21)
[2024-02-28] MEDS ORDERED: WARF-60 PO (01:21)
[2024-02-28] MEDS ORDERED: IPRATROPIUM 0.5MG/ALBUTEROL 2.5MG INH SOL UD 3ML (DUONEB) NEB PRN (01:55)
[2024-02-28] MEDS: cefTRIAXone SOD 2 GM in D5W MINI-BAG PLUS 50 ML IV SCH (02:45)
[2024-02-28] MEDS: amLODIPine 5 MG TAB PO SCH ×2 (02:46→20:14)
[2024-02-28] MEDS: traMADol 50 MG TAB PO PRN (02:46)
[2024-02-28] MEDS: GABAPENTIN 300 MG CAP PO SCH (02:46)
[2024-02-28] MEDS: ROSUVASTATIN 10 MG TAB (CRESTOR) PO SCH (02:47)
[2024-02-28] MEDS: NS 1,000 ML IV SCH (02:47)
[2024-02-28] MEDS: LOSARTAN 50MG TABLET PO SCH (02:47)
[2024-02-28] MEDS: NYSTATIN 100,000 UNITS/GM TOPICAL PWD 15GM TOP SCH (03:42)
[2024-02-28] MEDS: VANCOMYCIN HCL 1,000 MG, VIAL MATE ADAPTER 1 EACH in D5W 250 ML IV SCH (03:42)
[2024-02-28] MEDS: VANCOMYCIN HCL 1,000 MG, VIAL MATE ADAPTER 1 EACH in D5W 250 ML IV ONE (05:45)
[2024-02-28] MEDS: METOPROLOL TART 25 MG TABLET PO SCH (06:00)
[2024-02-28 06:56] LABS: HEMATOCRIT 39.7 % (42.0-52.0); HEMOGLOBIN 12.6 g/dl (13.5-17.5); MEAN CORPUSCULAR HEMOGLOBIN 27.5 pg (27.0-33.0); MEAN CORPUSCULAR HGB CONC 31.7 g/dl (32.0-36.5); MEAN CORPUSCULAR VOLUME 86.7 fl (80.0-96.0); PLATELET COUNT, AUTOMATED 202 10^3/uL (150-450); RED BLOOD COUNT 4.58 10^6/uL (4.30-6.10); WHITE BLOOD COUNT 9.7 10^3/uL (4.0-10.0)
[2024-02-28 07:00] LABS: INR 1.88; PROTHROMBIN TIME 20.9 SECONDS (12.5-14.5)
[2024-02-28 07:23] LABS: ALBUMIN 3.2 G/DL (3.2-5.2); ALKALINE PHOSPHATASE 67 U/L (46-116); ALT/SGPT 19 U/L (7.0-40); AST/SGOT 35 U/L (<34); BILIRUBIN,TOTAL 0.4 MG/DL (0.3-1.2); BLOOD UREA NITROGEN 11 MG/DL (9-23); CARBON DIOXIDE LEVEL 27 MMOL/L (20-31); CHLORIDE LEVEL 100 MMOL/L (98-107); CREATININE FOR GFR 0.86 MG/DL (0.70-1.30); GLOMERULAR FILTRATION RATE > 60.0 (>42); GLUCOSE, FASTING 340 MG/DL (74-106); MAGNESIUM LEVEL 1.7 MG/DL (1.8-2.4); POTASSIUM SERUM 4.4 MMOL/L (3.5-5.1); SODIUM LEVEL 131 MMOL/L (136-145); TOTAL PROTEIN 6.7 G/DL (5.7-8.2)
[2024-02-28 07:35] LABS: PROCALCITONIN 4.08 ng/ml
[2024-02-28] MEDS: PIPERACILLIN/TAZOBACTAM SOD 3.375 GM in D5W MINI-BAG PLUS 50 ML IV SCH (08:16)
[2024-02-28] MEDS: traMADol 50 MG TAB PO SCH (08:18)
[2024-02-28] MEDS: PANTOPRAZOLE 40MG TAB (PROTONIX) PO SCH (08:18)
[2024-02-28] MEDS: INSULIN LISPRO (NovoLOG) PER UNIT SC SCH (08:34)
[2024-02-28] MEDS: DYAZIDE 37.5/25 CAP (TRIAM/HCTZ) PO SCH (08:34)
[2024-02-28] MEDS: LEVEMIR (INSULIN DETEMIR) 1 UNITS/0.01ML SC SCH ×2 (08:34→20:13)
[2024-02-28] MEDS ORDERED: HumuLIN N INSULIN (NovoLIN N) PER UNIT SC SCH ×2 (09:00)
[2024-02-28] MEDS: MAG SULF 1GM/100ML (MAG RUN) 1 GM in IV 1 EA IV SCH (11:46)
[2024-02-28] MEDS: LEVEMIR (INSULIN DETEMIR) 1 UNITS/0.01ML SC ONE (11:46)
[2024-02-28 13:02] VITALS: BP 122/66; TEMP 100.4; O2SAT 95
[2024-02-28 16:43] VITALS: BP 120/66; TEMP 99.2; O2SAT 95
[2024-02-28] MEDS: WARFARIN SOD 3MG TAB PO SCH (17:09)
[2024-02-28 20:01] VITALS: BP 118/63; TEMP 99.8; O2SAT 94
[2024-02-28] MEDS ORDERED: PILL CUTTER 1 EACH XX ONE (20:23)
[2024-02-28] MEDS ORDERED: LEVEMIR (INSULIN DETEMIR) 1 UNITS/0.01ML SC SCH (21:00)
[2024-02-28 23:42] VITALS: BP 131/77; TEMP 100.9; O2SAT 20; O2SAT 95
[2024-02-29 03:43] VITALS: BP 134/72; TEMP 97.8; O2SAT 95
[2024-02-29] MEDS: ACETAMINOPHEN TAB 650MG DOSE (2X325MG) PO PRN (03:58)
[2024-02-29 07:02] LABS: HEMATOCRIT 39.3 % (42.0-52.0); HEMOGLOBIN 12.5 g/dl (13.5-17.5); MEAN CORPUSCULAR HEMOGLOBIN 27.7 pg (27.0-33.0); MEAN CORPUSCULAR HGB CONC 31.8 g/dl (32.0-36.5); MEAN CORPUSCULAR VOLUME 86.9 fl (80.0-96.0); PLATELET COUNT, AUTOMATED 192 10^3/uL (150-450); RED BLOOD COUNT 4.52 10^6/uL (4.30-6.10); WHITE BLOOD COUNT 9.4 10^3/uL (4.0-10.0)
[2024-02-29 07:34] LABS: ALBUMIN 2.8 G/DL (3.2-5.2); ALKALINE PHOSPHATASE 57 U/L (46-116); ALT/SGPT 13 U/L (7.0-40); AST/SGOT 19 U/L (<34); BILIRUBIN,TOTAL 0.7 MG/DL (0.3-1.2); BLOOD UREA NITROGEN 14 MG/DL (9-23); CALCIUM LEVEL 7.6 MG/DL (8.3-10.6); CARBON DIOXIDE LEVEL 27 MMOL/L (20-31); CHLORIDE LEVEL 103 MMOL/L (98-107); CREATININE FOR GFR 0.85 MG/DL (0.70-1.30); GLOMERULAR FILTRATION RATE > 60.0 (>42); GLUCOSE, FASTING 169 MG/DL (74-106); SODIUM LEVEL 131 MMOL/L (136-145); TOTAL PROTEIN 6.4 G/DL (5.7-8.2)
[2024-02-29 08:00] VITALS: BP 125/69; TEMP 99.2; O2SAT 93
[2024-02-29] MEDS: LEVEMIR (INSULIN DETEMIR) 1 UNITS/0.01ML SC SCH ×2 (08:48→20:29)
[2024-02-29] MEDS: FUROSEMIDE 40MG/4ML VIAL IV ONE ×2 (08:49→16:36)
[2024-02-29 12:00] VITALS: BP 112/58; TEMP 97.7; O2SAT 95
[2024-02-29 16:00] VITALS: BP 120/56; TEMP 97.8
[2024-02-29 20:00] VITALS: BP 109/70; TEMP 97.9; O2SAT 96
[2024-02-29] MEDS: DOXYCYCLINE HYCLATE 100MG TABLET PO SCH (20:27)
[2024-03-01 04:11] VITALS: BP 110/63; TEMP 97.8; O2SAT 92
[2024-03-01 06:31] LABS: HEMATOCRIT 40.5 % (42.0-52.0); MEAN CORPUSCULAR HEMOGLOBIN 27.5 pg (27.0-33.0); MEAN CORPUSCULAR HGB CONC 32.1 g/dl (32.0-36.5); MEAN CORPUSCULAR VOLUME 85.8 fl (80.0-96.0); PLATELET COUNT, AUTOMATED 195 10^3/uL (150-450); RED BLOOD COUNT 4.72 10^6/uL (4.30-6.10)
[2024-03-01 06:52] LABS: INR 1.65; PARTIAL THROMBOPLASTIN TIME 50.1 SECONDS (24.8-34.2)
[2024-03-01 07:05] LABS: ALBUMIN 2.8 G/DL (3.2-5.2); ALKALINE PHOSPHATASE 57 U/L (46-116); ALT/SGPT 22 U/L (7.0-40); AST/SGOT 56 U/L (<34); BILIRUBIN,TOTAL 0.4 MG/DL (0.3-1.2); BLOOD UREA NITROGEN 15 MG/DL (9-23); CARBON DIOXIDE LEVEL 28 MMOL/L (20-31); CHLORIDE LEVEL 102 MMOL/L (98-107); CREATININE FOR GFR 0.93 MG/DL (0.70-1.30); GLOMERULAR FILTRATION RATE > 60.0 (>42); GLUCOSE, FASTING 95 MG/DL (74-106); POTASSIUM SERUM 3.7 MMOL/L (3.5-5.1); SODIUM LEVEL 135 MMOL/L (136-145); TOTAL PROTEIN 6.7 G/DL (5.7-8.2)
[2024-03-01] MEDS: LEVEMIR (INSULIN DETEMIR) 1 UNITS/0.01ML SC SCH ×2 (11:47→21:40)
[2024-03-01 12:38] VITALS: BP 133/64; TEMP 98.4; O2SAT 96
[2024-03-01 16:00] VITALS: BP 126/59; TEMP 97.9; O2SAT 96
[2024-03-01] MEDS: FLUCONAZOLE 100 MG TAB PO SCH (17:02)
[2024-03-01 19:25] VITALS: BP 121/64; TEMP 97.9; O2SAT 96
[2024-03-01] MEDS: LORazepam 0.5 MG TAB PO ONE (19:59)
[2024-03-01] MEDS: LORazepam 1 MG TAB PO ONE (20:20)
[2024-03-01] MEDS: DICLOFENAC EPOLAMINE 1.3% PATCH TOP SCH (21:43)
[2024-03-02 03:45] VITALS: BP 129/68; TEMP 97.5; O2SAT 95
[2024-03-02 08:11] VITALS: BP 119/58; O2SAT 96
[2024-03-02 08:36] LABS: BASO % 0.4 % (0.0-1.0); EOS # 0.1 10^3/uL (0.0-0.5); EOS % 1.1 % (0.0-3.0); HEMATOCRIT 40.1 % (42.0-52.0); LYMPH # 1.1 10^3/uL (1.5-5.0); LYMPH % 15.1 % (24.0-44.0); MEAN CORPUSCULAR HEMOGLOBIN 27.7 pg (27.0-33.0); MEAN CORPUSCULAR HGB CONC 32.4 g/dl (32.0-36.5); MEAN CORPUSCULAR VOLUME 85.3 fl (80.0-96.0); MONO # 0.7 10^3/uL (0.0-0.8); MONO % 9.9 % (2.0-8.0); NEUTROPHILS # 5.2 10^3/uL (1.5-8.5); NEUTROPHILS % 72.7 % (36.0-66.0); PLATELET COUNT, AUTOMATED 207 10^3/uL (150-450); WHITE BLOOD COUNT 7.2 10^3/uL (4.0-10.0)
[2024-03-02 08:42] LABS: ERYTHROCYTE SEDIMENTATION RATE 89 mm/hr (0-20)
[2024-03-02 09:13] LABS: BLOOD UREA NITROGEN 12 MG/DL (9-23); CALCIUM LEVEL 8.3 MG/DL (8.3-10.6); CARBON DIOXIDE LEVEL 27 MMOL/L (20-31); CHLORIDE LEVEL 103 MMOL/L (98-107); CREATININE FOR GFR 0.77 MG/DL (0.70-1.30); GLOMERULAR FILTRATION RATE > 60.0 (>42); GLUCOSE, FASTING 133 MG/DL (74-106); POTASSIUM SERUM 3.9 MMOL/L (3.5-5.1); SODIUM LEVEL 136 MMOL/L (136-145)
[2024-03-02] MEDS: LACTIC ACID 12% LOTION 225 GM BTL EXT SCH (10:15)
[2024-03-02 16:05] VITALS: BP 148/78; O2SAT 94
[2024-03-02 23:48] VITALS: BP 129/71; TEMP 98; O2SAT 94
[2024-03-03] MEDS: CEPHALEXIN 500 MG CAP PO SCH (00:19)
[2024-03-03 01:31] VITALS: BP 154/91; TEMP 97.7; O2SAT 96
[2024-03-03 04:09] VITALS: BP 126/70; TEMP 98.2; O2SAT 94
[2024-03-03 05:32] LABS: BASO % 0.4 % (0.0-1.0); EOS # 0.1 10^3/uL (0.0-0.5); EOS % 1.3 % (0.0-3.0); HEMATOCRIT 37.4 % (42.0-52.0); HEMOGLOBIN 12.5 g/dl (13.5-17.5); LYMPH # 1.1 10^3/uL (1.5-5.0); LYMPH % 14.6 % (24.0-44.0); MEAN CORPUSCULAR HEMOGLOBIN 28.5 pg (27.0-33.0); MEAN CORPUSCULAR HGB CONC 33.4 g/dl (32.0-36.5); MEAN CORPUSCULAR VOLUME 85.4 fl (80.0-96.0); MONO # 0.8 10^3/uL (0.0-0.8); MONO % 10.9 % (2.0-8.0); NEUTROPHILS # 5.5 10^3/uL (1.5-8.5); PLATELET COUNT, AUTOMATED 226 10^3/uL (150-450); RED BLOOD COUNT 4.38 10^6/uL (4.30-6.10); WHITE BLOOD COUNT 7.7 10^3/uL (4.0-10.0)
[2024-03-03 05:55] LABS: BLOOD UREA NITROGEN 13 MG/DL (9-23); CALCIUM LEVEL 8.2 MG/DL (8.3-10.6); CARBON DIOXIDE LEVEL 28 MMOL/L (20-31); CHLORIDE LEVEL 102 MMOL/L (98-107); CREATININE FOR GFR 0.78 MG/DL (0.70-1.30); GLOMERULAR FILTRATION RATE > 60.0 (>42); GLUCOSE, FASTING 149 MG/DL (74-106); POTASSIUM SERUM 3.9 MMOL/L (3.5-5.1); SODIUM LEVEL 133 MMOL/L (136-145)
[2024-03-03 09:17] VITALS: BP 122/69
[2024-03-03 12:00] VITALS: BP 122/70; TEMP 97.9; O2SAT 94
[2024-03-03] MEDS: LEVEMIR (INSULIN DETEMIR) 1 UNITS/0.01ML SC SCH (12:50)
[2024-03-03] MEDS ORDERED: DOXY100T PO (15:39)
[2024-03-03] MEDS ORDERED: CEPH500C PO (15:39)
[2024-03-03] MEDS ORDERED: DICL1PAT6 TOP (15:39)
[2024-03-03] MEDS ORDERED: PROBCAP14 PO (15:56)
[2024-03-03] MEDS ORDERED: NYST10006 TOP (15:56)
[2024-03-03] MEDS ORDERED: FLUC100T3 PO (15:56)
== END 2024-03-03 17:00 | disposition home or self-care (01) | DRG 871 ==
LOC: EDBD 19:36 → M ED 19:36 → M ED INP 23:59 → M PCU 02-28 12:59 → M MSPAV 03-03 01:31
PROVIDERS: ADMIT Preventive Medicine Undersea and Hyperbaric Medicine; ATTEND Internal Medicine Nephrology
PROC: 0JBR3ZZ Excision of Left Foot Subcutaneous Tissue and Fascia, Percutaneous Approach (ICD-10-PCS; principal; 2024-02-29)
PROC: 0JBQ3ZZ Excision of Right Foot Subcutaneous Tissue and Fascia, Percutaneous Approach (ICD-10-PCS; 2024-02-29)
DX: A41.9 Sepsis, unspecified organism (principal); J96.01 Acute respiratory failure with hypoxia; I50.23 Acute on chronic systolic (congestive) heart failure; L03.116 Cellulitis of left lower limb; I48.20 Chronic atrial fibrillation, unspecified; E87.1 Hypo-osmolality and hyponatremia; E78.00 Pure hypercholesterolemia, unspecified; E11.42 Type 2 diabetes mellitus with diabetic polyneuropathy; E78.5 Hyperlipidemia, unspecified; E11.51 Type 2 diabetes mellitus with diabetic peripheral angiopathy without gangrene; K21.9 Gastro-esophageal reflux disease without esophagitis; E11.65 Type 2 diabetes mellitus with hyperglycemia; I11.0 Hypertensive heart disease with heart failure; R65.20 Severe sepsis without septic shock; Z86.73 Personal history of transient ischemic attack (TIA), and cerebral infarction without residual deficits; E66.9 Obesity, unspecified; M75.02 Adhesive capsulitis of left shoulder; B37.2 Candidiasis of skin and nail; F40.240 Claustrophobia; L97.529 Non-pressure chronic ulcer of other part of left foot with unspecified severity; L97.519 Non-pressure chronic ulcer of other part of right foot with unspecified severity; E11.621 Type 2 diabetes mellitus with foot ulcer; Z88.8 Allergy status to other drugs, medicaments and biological substances; Z79.899 Other long term (current) drug therapy; Z79.4 Long term (current) use of insulin; Z79.01 Long term (current) use of anticoagulants

== ENCOUNTER 2024-04-12 23:54 | Inpatient (IN) | payer MEDICARE ==
[~2024-04-12] VITALS: Ht 182.9 cm; Wt 107.6 kg
[~2024-04-12 23:54] MED LIST changes: +ACE65ERTAB PO; +CEPH500C PO; +DICL1PAT6 TOP; +DOXY100T PO; +FLUC100T3 PO; +GABA-1172 PO; -GABA-282 PO; +HUMU1INJ2 INJ; +NYST10006 TOP; +PROBCAP14 PO; +ROSU5TAB49 PO; +WARF-60 PO
[2024-04-13 00:46] LABS: VENOUS BASE EXCESS -0.7 (-2.0-2.0); VENOUS HCO3 22.5 MMOL/L (23.0-27.0); VENOUS O2 SATURATION 98.6 % (60.0-80.0); VENOUS PARTIAL PRESSURE CO2 32.7 mmHg (38.0-50.0); VENOUS PARTIAL PRESSURE O2 112.6 mmHg (30.0-50.0); VENOUS PH 7.455 UNITS (7.330-7.430); VENOUS TOTAL CO2 23.5 MMOL/L (24.0-28.0)
[2024-04-13 00:54] LABS: BASO % 0.2 % (0.0-1.0); EOS % 0.1 % (0.0-3.0); HEMOGLOBIN 12.8 g/dl (13.5-17.5); LYMPH # 0.9 10^3/uL (1.5-5.0); LYMPH % 7.2 % (24.0-44.0); MEAN CORPUSCULAR HEMOGLOBIN 27.7 pg (27.0-33.0); MEAN CORPUSCULAR HGB CONC 32.8 g/dl (32.0-36.5); MEAN CORPUSCULAR VOLUME 84.4 fl (80.0-96.0); MONO # 1.1 10^3/uL (0.0-0.8); MONO % 8.8 % (2.0-8.0); NEUTROPHILS # 10.1 10^3/uL (1.5-8.5); PLATELET COUNT, AUTOMATED 204 10^3/uL (150-450); RED BLOOD COUNT 4.62 10^6/uL (4.30-6.10); WHITE BLOOD COUNT 12.1 10^3/uL (4.0-10.0)
[2024-04-13 01:16] LABS: AMYLASE 36 U/L (30-118)
[2024-04-13 01:17] LABS: ALBUMIN 3.2 G/DL (3.2-5.2); ALKALINE PHOSPHATASE 69 U/L (40-129); ALT/SGPT 14 U/L (7.0-40); AST/SGOT 42 U/L (<34); BILIRUBIN,DIRECT 0.1 MG/DL (<0.4); BILIRUBIN,TOTAL 0.5 MG/DL (0.3-1.2); BLOOD UREA NITROGEN 14 MG/DL (9-23); CALCIUM LEVEL 8.9 MG/DL (8.3-10.6); CARBON DIOXIDE LEVEL 23 MMOL/L (20-31); CHLORIDE LEVEL 98 MMOL/L (98-107); CREATININE FOR GFR 0.81 MG/DL (0.70-1.30); GLOMERULAR FILTRATION RATE > 60.0 (>42); GLUCOSE, FASTING 262 MG/DL (74-106); INR 1.6; PARTIAL THROMBOPLASTIN TIME 48.2 SECONDS (24.8-34.2); POTASSIUM SERUM 4.9 MMOL/L (3.5-5.1); PROTHROMBIN TIME 19.2 SECONDS (12.5-14.5); SODIUM LEVEL 128 MMOL/L (136-145); TOTAL PROTEIN 7.6 G/DL (5.7-8.2)
[2024-04-13 01:24] LABS: PROCALCITONIN 0.27 ng/ml
[2024-04-13 01:29] LABS: CPK CREATINE PHOSPHOKINASE 203 U/L (46-171); MB/CK RELATIVE INDEX 0.49 (< OR =4)
[2024-04-13] MEDS ORDERED: RISATAB3 PO (02:06)
[2024-04-13] MEDS ORDERED: NYST1POW3 TOP (02:06)
[2024-04-13] MEDS ORDERED: BISO5TAB14 PO (02:06)
[2024-04-13 02:07] LABS: APPEARANCE, URINE CLEAR (CLEAR); BACTERIA, URINE AUTO NEGATIVE (NEGATIVE); BILIRUBIN, URINE AUTO NEGATIVE (NEGATIVE); BLOOD, URINE BLOOD 2+ (NEGATIVE); COLOR, URINE YELLOW (YELLOW); GLUCOSE, URINE (UA) AUTO 3+ mg/dL (NEGATIVE); GRANULAR CAST, URINE AUTO 4 /LPF; KETONE, URINE AUTO TRACE mg/dL (NEGATIVE); LEUKOCYTE ESTERASE, URINE AUTO NEGATIVE (NEGATIVE); MUCUS, URINE SMALL (NEGATIVE); NITRITE, URINE AUTO NEGATIVE (NEGATIVE); PROTEIN, URINE AUTO 2+ mg/dL (NEGATIVE); RBC, URINE AUTO 9 /HPF (0-3); SPECIFIC GRAVITY URINE AUTO 1.018 (1.002-1.035); SQUAMOUS EPITHELIAL CELL UR AU 0 /HPF (0-6); UROBILINOGEN, URINE AUTO 0.2 mg/dL (0.0-2.0); WBC, URINE AUTO 0 /HPF (0-3)
[2024-04-13] MEDS ORDERED: HOME MED LIST COMPLETE! XX SCH (02:10)
[2024-04-13 02:24] LABS: CK-MB VALUE MASS 1.5 NG/ML (<3.6)
[2024-04-13 02:31] LABS: MB/CK RELATIVE INDEX 0.56 (< OR =4)
[2024-04-13 03:44] LABS: THYROID STIMULATING HORMONE 0.884 uIU/ML (0.55-4.78)
[2024-04-13 05:09] LABS: CK-MB VALUE MASS 1.5 NG/ML (<3.6)
[2024-04-13 05:11] LABS: MB/CK RELATIVE INDEX 0.46 (< OR =4)
[2024-04-13] MEDS: NS 1,000 ML IV ONE (06:05)
[2024-04-13] MEDS ORDERED: HumuLIN N INSULIN (NovoLIN N) PER UNIT SC SCH (09:00)
[2024-04-13] MEDS ORDERED: VANCOMYCIN/WATER FOR INJ (PEG) 2,000 MG in IV 1 EA IV ONE (09:40)
[2024-04-13] MEDS ORDERED: DEXTROSE 50% 50ML SYRINGE IV PRN (09:50)
[2024-04-13] MEDS ORDERED: OMEPRAZOLE 20MG CAP PO PRN (09:50)
[2024-04-13] MEDS ORDERED: GLUCOSE 4 GM CHEW PO PRN (09:50)
[2024-04-13] MEDS ORDERED: GLUCAGON INJ 1MG VIAL SC PRN (09:50)
[2024-04-13] MEDS: VANCOMYCIN 2,000 MG/400 ML IV BAG *LOAD IV ONE (10:21)
[2024-04-13] MEDS: NS 1,000 ML IV SCH (10:47)
[2024-04-13] MEDS: amLODIPine 5 MG TAB PO SCH (10:48)
[2024-04-13] MEDS: LOSARTAN 50MG TABLET PO SCH (11:02)
[2024-04-13] MEDS: bisoproloL fumarate 5 MG TAB PO SCH (11:02)
[2024-04-13] MEDS ORDERED: PILL CUTTER 1 EACH XX PRN (12:00)
[2024-04-13] MEDS: INSULIN LISPRO (NovoLOG) PER UNIT SC SCH ×2 (12:20→20:50)
[2024-04-13 13:44] VITALS: BP 118/52; TEMP 97.7; O2SAT 95
[2024-04-13] MEDS: WARFARIN SOD 4MG TAB PO SCH (17:09)
[2024-04-13 17:46] VITALS: TEMP 96.7
[2024-04-13 20:10] VITALS: BP 106/58; TEMP 100.1; O2SAT 93
[2024-04-13] MEDS: VANCOMYCIN 1,250 MG/250 ML IV BAG IV SCH (20:49)
[2024-04-13] MEDS: ROSUVASTATIN 10 MG TAB (CRESTOR) PO SCH (20:50)
[2024-04-13] MEDS: GABAPENTIN 300 MG CAP PO SCH (20:50)
[2024-04-13] MEDS: HumuLIN N INSULIN (NovoLIN N) PER UNIT SC SCH (20:50)
[2024-04-13] MEDS: NYSTATIN 100,000 UNITS/GM TOPICAL PWD 15GM TOP SCH (20:51)
[2024-04-13 20:52] VITALS: TEMP 101.4
[2024-04-13] MEDS: traMADol 50 MG TAB PO PRN (20:52)
[2024-04-13] MEDS: ACETAMINOPHEN 325 MG TAB PO PRN (21:01)
[2024-04-13 22:44] VITALS: BP 98/51; TEMP 100.2; O2SAT 96
[2024-04-13 22:48] VITALS: BP 104/58
[2024-04-14] VITALS (7 sets, daily range): BP systolic 105–128; BP diastolic 53–66; TEMP 97.5–101.7; O2SAT 92–96
[2024-04-14] MEDS: IBUPROFEN 800 MG TAB PO ONE (02:26)
[2024-04-14 07:15] LABS: HEMATOCRIT 38.7 % (42.0-52.0); HEMOGLOBIN 12.2 g/dl (13.5-17.5); MEAN CORPUSCULAR HEMOGLOBIN 27.2 pg (27.0-33.0); MEAN CORPUSCULAR HGB CONC 31.5 g/dl (32.0-36.5); MEAN CORPUSCULAR VOLUME 86.2 fl (80.0-96.0); PLATELET COUNT, AUTOMATED 199 10^3/uL (150-450); RED BLOOD COUNT 4.49 10^6/uL (4.30-6.10); WHITE BLOOD COUNT 9.1 10^3/uL (4.0-10.0)
[2024-04-14 07:27] LABS: INR 1.42; PROTHROMBIN TIME 17.6 SECONDS (12.5-14.5)
[2024-04-14 07:45] LABS: BLOOD UREA NITROGEN 15 MG/DL (9-23); CALCIUM LEVEL 8.2 MG/DL (8.3-10.6); CARBON DIOXIDE LEVEL 27 MMOL/L (20-31); CHLORIDE LEVEL 106 MMOL/L (98-107); CREATININE FOR GFR 0.88 MG/DL (0.70-1.30); GLOMERULAR FILTRATION RATE > 60.0 (>42); GLUCOSE, FASTING 94 MG/DL (74-106); SODIUM LEVEL 137 MMOL/L (136-145)
[2024-04-14] MEDS ORDERED: amLODIPine 5 MG TAB PO SCH (09:00)
[2024-04-14] MEDS: CEFEPIME HCL 2 GM in DEXTROSE 5% (D5W) ADV/MINI-BAG 50 ML IV SCH (10:01)
[2024-04-14] MEDS: WARFARIN SOD 5MG TAB PO SCH (17:29)
[2024-04-14] MEDS: VANICREAM MOISTURIZING SKIN CREAM 113GM TUBE TOP SCH (17:29)
[2024-04-14] MEDS: HumuLIN N INSULIN (NovoLIN N) PER UNIT SC SCH (21:42)
[2024-04-15 03:50] VITALS: BP 126/62; TEMP 100.2; O2SAT 91
[2024-04-15 07:30] LABS: BASO % 0.2 % (0.0-1.0); EOS # 0.1 10^3/uL (0.0-0.5); EOS % 0.7 % (0.0-3.0); HEMATOCRIT 38.8 % (42.0-52.0); HEMOGLOBIN 12.2 g/dl (13.5-17.5); LYMPH % 12.8 % (24.0-44.0); MEAN CORPUSCULAR HEMOGLOBIN 27.2 pg (27.0-33.0); MEAN CORPUSCULAR HGB CONC 31.4 g/dl (32.0-36.5); MEAN CORPUSCULAR VOLUME 86.6 fl (80.0-96.0); MONO # 0.8 10^3/uL (0.0-0.8); MONO % 10.2 % (2.0-8.0); NEUTROPHILS # 6.1 10^3/uL (1.5-8.5); NEUTROPHILS % 75.4 % (36.0-66.0); PLATELET COUNT, AUTOMATED 212 10^3/uL (150-450); RED BLOOD COUNT 4.48 10^6/uL (4.30-6.10); WHITE BLOOD COUNT 8.1 10^3/uL (4.0-10.0)
[2024-04-15 07:41] LABS: INR 1.77; PROTHROMBIN TIME 20.8 SECONDS (12.5-14.5)
[2024-04-15 08:00] VITALS: BP 102/58; TEMP 99.4; O2SAT 92
[2024-04-15 08:04] LABS: BLOOD UREA NITROGEN 13 MG/DL (9-23); CALCIUM LEVEL 8.4 MG/DL (8.3-10.6); CARBON DIOXIDE LEVEL 27 MMOL/L (20-31); CHLORIDE LEVEL 105 MMOL/L (98-107); CREATININE FOR GFR 0.85 MG/DL (0.70-1.30); GLOMERULAR FILTRATION RATE > 60.0 (>42); GLUCOSE, FASTING 119 MG/DL (74-106); POTASSIUM SERUM 4.4 MMOL/L (3.5-5.1); SODIUM LEVEL 135 MMOL/L (136-145)
[2024-04-15 09:22] VITALS: BP 132/68; TEMP 97.9; O2SAT 97
[2024-04-15 09:24] VITALS: BP 132/68; O2SAT 97
[2024-04-15 10:55] LABS: ANTI-STREPTOLYSIN O QUANT 353.1 IU/ML (<195)
[2024-04-15] MEDS ORDERED: ISOVUE-370 76% 100ML VIAL As Ordered ONE (12:46)
[2024-04-15 12:58] VITALS: BP 124/85; TEMP 97.5; O2SAT 97
[2024-04-15] MEDS: WARFARIN SOD 4MG TAB PO SCH (17:16)
[2024-04-15 20:45] VITALS: BP 119/63; TEMP 99.4; O2SAT 94
[2024-04-16] VITALS (7 sets, daily range): BP systolic 116–139; BP diastolic 55–85; TEMP 99.2–101; O2SAT 92–96
[2024-04-16 06:20] LABS: BASO % 0.5 % (0.0-1.0); EOS # 0.1 10^3/uL (0.0-0.5); EOS % 1.5 % (0.0-3.0); HEMATOCRIT 38.9 % (42.0-52.0); HEMOGLOBIN 12.5 g/dl (13.5-17.5); LYMPH % 16.1 % (24.0-44.0); MEAN CORPUSCULAR HEMOGLOBIN 27.7 pg (27.0-33.0); MEAN CORPUSCULAR HGB CONC 32.1 g/dl (32.0-36.5); MEAN CORPUSCULAR VOLUME 86.1 fl (80.0-96.0); MONO # 0.7 10^3/uL (0.0-0.8); MONO % 12.1 % (2.0-8.0); NEUTROPHILS # 4.1 10^3/uL (1.5-8.5); NEUTROPHILS % 68.8 % (36.0-66.0); PLATELET COUNT, AUTOMATED 223 10^3/uL (150-450); RED BLOOD COUNT 4.52 10^6/uL (4.30-6.10)
[2024-04-16 06:44] LABS: BLOOD UREA NITROGEN 12 MG/DL (9-23); CALCIUM LEVEL 8.6 MG/DL (8.3-10.6); CARBON DIOXIDE LEVEL 29 MMOL/L (20-31); CHLORIDE LEVEL 103 MMOL/L (98-107); CREATININE FOR GFR 0.94 MG/DL (0.70-1.30); GLOMERULAR FILTRATION RATE > 60.0 (>42); GLUCOSE, FASTING 200 MG/DL (74-106); POTASSIUM SERUM 4.1 MMOL/L (3.5-5.1); SODIUM LEVEL 136 MMOL/L (136-145)
[2024-04-16 08:39] LABS: INR 2.25
[2024-04-16] MEDS: DOXYCYCLINE HYCLATE 100MG TABLET PO SCH (10:29)
[2024-04-16] MEDS: WARFARIN SOD 3MG TAB PO SCH (17:43)
[2024-04-17] VITALS (8 sets, daily range): BP systolic 103–126; BP diastolic 54–77; TEMP 97.7–99.9; O2SAT 93–98
[2024-04-17 06:23] LABS: BASO % 0.4 % (0.0-1.0); EOS # 0.1 10^3/uL (0.0-0.5); EOS % 1.4 % (0.0-3.0); HEMATOCRIT 38.7 % (42.0-52.0); HEMOGLOBIN 12.2 g/dl (13.5-17.5); LYMPH # 1.2 10^3/uL (1.5-5.0); LYMPH % 17.4 % (24.0-44.0); MEAN CORPUSCULAR HEMOGLOBIN 27.1 pg (27.0-33.0); MEAN CORPUSCULAR HGB CONC 31.5 g/dl (32.0-36.5); MEAN CORPUSCULAR VOLUME 85.8 fl (80.0-96.0); MONO # 0.8 10^3/uL (0.0-0.8); MONO % 10.7 % (2.0-8.0); NEUTROPHILS # 4.9 10^3/uL (1.5-8.5); PLATELET COUNT, AUTOMATED 252 10^3/uL (150-450); RED BLOOD COUNT 4.51 10^6/uL (4.30-6.10); WHITE BLOOD COUNT 7.1 10^3/uL (4.0-10.0)
[2024-04-17 06:49] LABS: BLOOD UREA NITROGEN 13 MG/DL (9-23); CALCIUM LEVEL 8.4 MG/DL (8.3-10.6); CARBON DIOXIDE LEVEL 28 MMOL/L (20-31); CHLORIDE LEVEL 104 MMOL/L (98-107); CREATININE FOR GFR 0.89 MG/DL (0.70-1.30); GLOMERULAR FILTRATION RATE > 60.0 (>42); GLUCOSE, FASTING 76 MG/DL (74-106); POTASSIUM SERUM 3.9 MMOL/L (3.5-5.1); SODIUM LEVEL 137 MMOL/L (136-145)
[2024-04-17 08:24] LABS: INR 2.15; PROTHROMBIN TIME 24.1 SECONDS (12.5-14.5)
[2024-04-18] VITALS: BP 110/74; TEMP 99.1; O2SAT 95
[2024-04-18 04:00] VITALS: BP 115/72; TEMP 97.7; O2SAT 97
[2024-04-18 05:16] LABS: BASO % 0.7 % (0.0-1.0); EOS # 0.1 10^3/uL (0.0-0.5); EOS % 1.8 % (0.0-3.0); HEMATOCRIT 39.2 % (42.0-52.0); HEMOGLOBIN 12.7 g/dl (13.5-17.5); LYMPH # 1.1 10^3/uL (1.5-5.0); LYMPH % 18.9 % (24.0-44.0); MEAN CORPUSCULAR HEMOGLOBIN 27.4 pg (27.0-33.0); MEAN CORPUSCULAR HGB CONC 32.4 g/dl (32.0-36.5); MEAN CORPUSCULAR VOLUME 84.5 fl (80.0-96.0); MONO # 0.7 10^3/uL (0.0-0.8); MONO % 11.6 % (2.0-8.0); NEUTROPHILS # 3.9 10^3/uL (1.5-8.5); NEUTROPHILS % 65.5 % (36.0-66.0); PLATELET COUNT, AUTOMATED 248 10^3/uL (150-450); RED BLOOD COUNT 4.64 10^6/uL (4.30-6.10)
[2024-04-18 05:44] LABS: BLOOD UREA NITROGEN 11 MG/DL (9-23); CALCIUM LEVEL 8.8 MG/DL (8.3-10.6); CARBON DIOXIDE LEVEL 27 MMOL/L (20-31); CHLORIDE LEVEL 105 MMOL/L (98-107); GLOMERULAR FILTRATION RATE > 60.0 (>42); GLUCOSE, FASTING 131 MG/DL (74-106); POTASSIUM SERUM 4.3 MMOL/L (3.5-5.1); SODIUM LEVEL 138 MMOL/L (136-145)
[2024-04-18 07:48] LABS: INR 2.26; PROTHROMBIN TIME 25.1 SECONDS (12.5-14.5)
[2024-04-18 08:00] VITALS: BP 124/76; TEMP 97.9; O2SAT 93
[2024-04-18] MEDS ORDERED: CEPH500C PO (09:44)
[2024-04-18] MEDS ORDERED: DOXY100T PO (09:44)
[2024-04-18 09:45] VITALS: BP 121/76
== END 2024-04-18 11:35 | disposition home or self-care (01) | DRG 638 ==
LOC: M ED 23:54 → EDBD 23:54 → M ED INP 23:55 → M MSPAV 04-13 13:32 → OBSVTOIN 04-14 10:10 → EEVIPCON 04-14 10:10
PROVIDERS: ADMIT Internal Medicine; ATTEND Internal Medicine
DX: E11.628 Type 2 diabetes mellitus with other skin complications (principal); L03.116 Cellulitis of left lower limb; E87.1 Hypo-osmolality and hyponatremia; I10 Essential (primary) hypertension; E11.621 Type 2 diabetes mellitus with foot ulcer; E11.649 Type 2 diabetes mellitus with hypoglycemia without coma; E11.51 Type 2 diabetes mellitus with diabetic peripheral angiopathy without gangrene; E11.42 Type 2 diabetes mellitus with diabetic polyneuropathy; I48.91 Unspecified atrial fibrillation; K21.9 Gastro-esophageal reflux disease without esophagitis; G89.29 Other chronic pain; I73.9 Peripheral vascular disease, unspecified; L97.519 Non-pressure chronic ulcer of other part of right foot with unspecified severity; L97.529 Non-pressure chronic ulcer of other part of left foot with unspecified severity; S00.83XA Contusion of other part of head, initial encounter; W01.0XXA Fall on same level from slipping, tripping and stumbling without subsequent striking against object, initial encounter; Y92.009 Unspecified place in unspecified non-institutional (private) residence as the place of occurrence of the external cause; R26.89 Other abnormalities of gait and mobility; E78.5 Hyperlipidemia, unspecified; Z95.828 Presence of other vascular implants and grafts; Z87.891 Personal history of nicotine dependence; L30.4 Erythema intertrigo; Z79.4 Long term (current) use of insulin; Z79.84 Long term (current) use of oral hypoglycemic drugs; Z79.01 Long term (current) use of anticoagulants; Z79.899 Other long term (current) drug therapy; Z88.8 Allergy status to other drugs, medicaments and biological substances; Z11.52 Encounter for screening for COVID-19

== ENCOUNTER → 2024-07-20 | Outpatient (REF) | payer MEDICARE ==
[~2024-07-20] MED LIST changes: +BISO5TAB14 PO; +NYST1POW3 TOP; +RISATAB3 PO
[2024-07-20 15:02] LABS: BASO % 0.4 % (0.0-1.0); EOS # 0.1 10^3/uL (0.0-0.5); EOS % 0.9 % (0.0-3.0); HEMATOCRIT 45.9 % (42.0-52.0); HEMOGLOBIN 14.5 g/dl (13.5-17.5); LYMPH # 1.2 10^3/uL (1.5-5.0); MEAN CORPUSCULAR HEMOGLOBIN 27.5 pg (27.0-33.0); MEAN CORPUSCULAR HGB CONC 31.6 g/dl (32.0-36.5); MEAN CORPUSCULAR VOLUME 86.9 fl (80.0-96.0); MONO # 0.7 10^3/uL (0.0-0.8); MONO % 10.1 % (2.0-8.0); NEUTROPHILS # 4.9 10^3/uL (1.5-8.5); PLATELET COUNT, AUTOMATED 242 10^3/uL (150-450); RED BLOOD COUNT 5.28 10^6/uL (4.30-6.10); WHITE BLOOD COUNT 6.9 10^3/uL (4.0-10.0)
[2024-07-20 15:25] LABS: ALBUMIN 3.6 G/DL (3.2-5.2); ALKALINE PHOSPHATASE 68 U/L (40-129); ALT/SGPT 15 U/L (7.0-40); AST/SGOT 22 U/L (<34); BILIRUBIN,TOTAL 0.3 MG/DL (0.3-1.2); BLOOD UREA NITROGEN 14 MG/DL (9-23); CALCIUM LEVEL 9.3 MG/DL (8.3-10.6); CARBON DIOXIDE LEVEL 30 MMOL/L (20-31); CHLORIDE LEVEL 105 MMOL/L (98-107); CREATININE FOR GFR 1.04 MG/DL (0.70-1.30); FERRITIN 30.6 NG/ML (10.5-307.3); GLOMERULAR FILTRATION RATE > 60.0 (>42); GLUCOSE, FASTING 61 MG/DL (74-106); POTASSIUM SERUM 4.8 MMOL/L (3.5-5.1); SODIUM LEVEL 142 MMOL/L (136-145); TOTAL PROTEIN 7.5 G/DL (5.7-8.2)
[2024-07-20 15:26] LABS: TOTAL 25(OH) VITAMIN D 14.3 NG/ML (20.0-100.0)
[2024-07-20 15:27] LABS: VITAMIN B12 LEVEL 168 PG/ML (211-911)
[2024-07-20 15:34] LABS: PTH INTACT 42.9 PG/ML (18.5-88.0)
== END ==
LOC: M LABDRWAD 13:22
PROVIDERS: ATTEND Family Medicine
DX: D50.9 Iron deficiency anemia, unspecified (principal); I50.32 Chronic diastolic (congestive) heart failure; E53.8 Deficiency of other specified B group vitamins; E55.9 Vitamin D deficiency, unspecified; K76.0 Fatty (change of) liver, not elsewhere classified; E11.69 Type 2 diabetes mellitus with other specified complication

== ENCOUNTER 2024-08-07 09:33 | Outpatient (CLI) | payer MEDICARE ==
[~2024-08-07] VITALS: Ht 182.9 cm; Wt 103.4 kg
[2024-08-07] MEDS: DALBAVANCIN 1,500 MG in D5W 250 ML IV ONE (10:46)
== END 2024-08-07 13:00 | disposition home or self-care (01) ==
LOC: EEVIPCON 09:33 → M OPCLI5PR 09:33 → M MS5PR 09:34 → M OPCLI5PR 13:00
PROVIDERS: ATTEND Internal Medicine Infectious Disease
DX: L97.509 Non-pressure chronic ulcer of other part of unspecified foot with unspecified severity (principal); L03.116 Cellulitis of left lower limb; M14.672 Charcot's joint, left ankle and foot; Z88.8 Allergy status to other drugs, medicaments and biological substances
CPT/HCPCS: 96365; 97116; J0875

== ENCOUNTER 2024-08-19 15:14 | Outpatient (CLI) | payer MEDICARE ==
[~2024-08-19] VITALS: Ht 182.9 cm; Wt 103.5 kg
[2024-08-19] MEDS: DALBAVANCIN 1,500 MG in D5W 250 ML IV ONE (15:51)
[2024-08-19 16:03] LABS: BASO % 0.3 % (0.0-1.0); EOS # 0.1 10^3/uL (0.0-0.5); EOS % 0.9 % (0.0-3.0); HEMATOCRIT 42.5 % (42.0-52.0); HEMOGLOBIN 13.4 g/dl (13.5-17.5); LYMPH # 0.9 10^3/uL (1.5-5.0); LYMPH % 7.4 % (24.0-44.0); MEAN CORPUSCULAR HEMOGLOBIN 26.5 pg (27.0-33.0); MEAN CORPUSCULAR HGB CONC 31.5 g/dl (32.0-36.5); MEAN CORPUSCULAR VOLUME 84.2 fl (80.0-96.0); MONO # 1.2 10^3/uL (0.0-0.8); MONO % 9.1 % (2.0-8.0); NEUTROPHILS # 10.4 10^3/uL (1.5-8.5); NEUTROPHILS % 81.8 % (36.0-66.0); PLATELET COUNT, AUTOMATED 278 10^3/uL (150-450); RED BLOOD COUNT 5.05 10^6/uL (4.30-6.10); WHITE BLOOD COUNT 12.7 10^3/uL (4.0-10.0)
[2024-08-19 16:11] LABS: ERYTHROCYTE SEDIMENTATION RATE > 130 mm/hr (0-20)
[2024-08-19 16:26] LABS: C REACTIVE PROTEIN QUANTITATIV 21.69 MG/DL (<1.0)
[2024-08-19 16:27] LABS: ALBUMIN 2.9 G/DL (3.2-5.2); ALKALINE PHOSPHATASE 94 U/L (40-129); ALT/SGPT 39 U/L (7.0-40); AST/SGOT 45 U/L (<34); BILIRUBIN,TOTAL 0.4 MG/DL (0.3-1.2); BLOOD UREA NITROGEN 17 MG/DL (9-23); CALCIUM LEVEL 9.2 MG/DL (8.3-10.6); CARBON DIOXIDE LEVEL 27 MMOL/L (20-31); CHLORIDE LEVEL 96 MMOL/L (98-107); CREATININE FOR GFR 0.97 MG/DL (0.70-1.30); GLOMERULAR FILTRATION RATE > 60.0 (>42); GLUCOSE, FASTING 220 MG/DL (74-106); POTASSIUM SERUM 5.1 MMOL/L (3.5-5.1); SODIUM LEVEL 133 MMOL/L (136-145); TOTAL PROTEIN 8.4 G/DL (5.7-8.2)
[2024-08-19 16:35] VITALS: BP 134/72; O2SAT 95
== END 2024-08-19 16:35 | disposition home or self-care (01) ==
LOC: M INFU 15:14
PROVIDERS: ATTEND Internal Medicine Infectious Disease
DX: A49.02 Methicillin resistant Staphylococcus aureus infection, unspecified site (principal); L03.116 Cellulitis of left lower limb; Z88.8 Allergy status to other drugs, medicaments and biological substances
CPT/HCPCS: 36592; 80053; 85025; 85652; 86140; 96365; J0875

== ENCOUNTER 2024-08-25 12:09 | Outpatient (CLI) | payer MEDICARE ==
[~2024-08-25] VITALS: Ht 182.9 cm; Wt 104.5 kg
[~2024-08-25 12:09] MED LIST changes: +ALBUTEROL SULFATE 2.5MG/0.5ML INH NEB SOLN INH PRN; +EPINEPHrine INJ 1 MG/ML 1ML AMP IM PRN; +FERRIC CARBOXYMALTOSE 750 MG (VIAL MATE) IN 100ML NS IV ONE; +diphenhydrAMINE 50MG/ML VIAL IV PRN; +methylPREDNISolone 125MG 2ML VIAL IV PRN
[2024-08-25 12:25] VITALS: BP 134/79; O2SAT 92
[2024-08-25] MEDS: FERRIC CARBOXYMALTOSE 750 MG (VIAL MATE) IN 100ML NS IV ONE (12:27)
[2024-08-25 13:00] VITALS: BP 122/76; O2SAT 100
[2024-08-27] MEDS ORDERED: CEPH500C PO (09:19)
[2024-08-27] MEDS ORDERED: MINO100C4 PO (09:19)
[2024-08-27] MEDS ORDERED: CYAN1000VL IM (09:19)
== END 2024-08-25 13:03 ==
LOC: M INFU 12:09
PROVIDERS: ATTEND Family Medicine
DX: D50.9 Iron deficiency anemia, unspecified (principal); Z88.8 Allergy status to other drugs, medicaments and biological substances

== ENCOUNTER → 2024-09-19 | Outpatient (CLI) | payer MEDICARE ==
[~2024-09-19] MED LIST changes: -ALBUTEROL SULFATE 2.5MG/0.5ML INH NEB SOLN INH PRN; +AMOX875T2 PO; +BACI1CAP PO; +CYAN1000VL IM; -EPINEPHrine INJ 1 MG/ML 1ML AMP IM PRN; -FERRIC CARBOXYMALTOSE 750 MG (VIAL MATE) IN 100ML NS IV ONE; +MINO100C4 PO; -diphenhydrAMINE 50MG/ML VIAL IV PRN; -methylPREDNISolone 125MG 2ML VIAL IV PRN
[2024-09-19 17:00] LABS: BASO % 0.7 % (0.0-1.0); EOS # 0.2 10^3/uL (0.0-0.5); HEMOGLOBIN 12.9 g/dl (13.5-17.5); LYMPH # 1.3 10^3/uL (1.5-5.0); LYMPH % 24.4 % (24.0-44.0); MEAN CORPUSCULAR HEMOGLOBIN 26.5 pg (27.0-33.0); MEAN CORPUSCULAR HGB CONC 30.7 g/dl (32.0-36.5); MEAN CORPUSCULAR VOLUME 86.2 fl (80.0-96.0); MONO # 0.6 10^3/uL (0.0-0.8); MONO % 10.9 % (2.0-8.0); NEUTROPHILS # 3.3 10^3/uL (1.5-8.5); NEUTROPHILS % 59.9 % (36.0-66.0); PLATELET COUNT, AUTOMATED 242 10^3/uL (150-450); RED BLOOD COUNT 4.87 10^6/uL (4.30-6.10); WHITE BLOOD COUNT 5.4 10^3/uL (4.0-10.0)
[2024-09-19 17:05] LABS: ERYTHROCYTE SEDIMENTATION RATE 80 mm/hr (0-20); INR 1.47; PROTHROMBIN TIME 18.1 SECONDS (12.5-14.5)
[2024-09-19 17:25] LABS: HEMOGLOBIN A1c 7.2 % (4.0-6.0)
[2024-09-19 17:26] LABS: ALBUMIN 3.3 G/DL (3.2-5.2); ALKALINE PHOSPHATASE 136 U/L (40-129); ALT/SGPT 19 U/L (7.0-40); AST/SGOT 16 U/L (<34); BILIRUBIN,TOTAL 0.3 MG/DL (0.3-1.2); BLOOD UREA NITROGEN 13 MG/DL (9-23); C REACTIVE PROTEIN QUANTITATIV 1.31 MG/DL (<1.0); CALCIUM LEVEL 8.7 MG/DL (8.3-10.6); CARBON DIOXIDE LEVEL 27 MMOL/L (20-31); CHLORIDE LEVEL 105 MMOL/L (98-107); CREATININE FOR GFR 0.78 MG/DL (0.70-1.30); GLOMERULAR FILTRATION RATE > 90.0 (>42); GLUCOSE, FASTING 71 MG/DL (74-106); POTASSIUM SERUM 4.4 MMOL/L (3.5-5.1); SODIUM LEVEL 141 MMOL/L (136-145); TOTAL PROTEIN 7.2 G/DL (5.7-8.2)
== END ==
LOC: M PLALAB 15:51
PROVIDERS: ATTEND Physician Assistant Medical
DX: I10 Essential (primary) hypertension (principal); I48.91 Unspecified atrial fibrillation; E83.51 Hypocalcemia; E87.6 Hypokalemia; I48.0 Paroxysmal atrial fibrillation; M86.172 Other acute osteomyelitis, left ankle and foot; E11.69 Type 2 diabetes mellitus with other specified complication

== ENCOUNTER → 2024-10-20 | Outpatient (REF) | payer MEDICARE ==
[2024-10-20 18:46] LABS: C REACTIVE PROTEIN QUANTITATIV 2.18 MG/DL (<1.0)
[2024-10-20 18:51] LABS: BLOOD UREA NITROGEN 14 MG/DL (9-23); CARBON DIOXIDE LEVEL 30 MMOL/L (20-31); CHLORIDE LEVEL 103 MMOL/L (98-107); CREATININE FOR GFR 0.87 MG/DL (0.70-1.30); GLOMERULAR FILTRATION RATE > 90.0 (>42); GLUCOSE, FASTING 68 MG/DL (74-106); POTASSIUM SERUM 4.6 MMOL/L (3.5-5.1); SODIUM LEVEL 142 MMOL/L (136-145)
[2024-10-20 19:04] LABS: BASO % 0.5 % (0.0-1.0); EOS # 0.1 10^3/uL (0.0-0.5); EOS % 1.2 % (0.0-3.0); HEMATOCRIT 43.8 % (42.0-52.0); HEMOGLOBIN 13.7 g/dl (13.5-17.5); LYMPH # 1.2 10^3/uL (1.5-5.0); LYMPH % 19.1 % (24.0-44.0); MEAN CORPUSCULAR HEMOGLOBIN 27.7 pg (27.0-33.0); MEAN CORPUSCULAR HGB CONC 31.3 g/dl (32.0-36.5); MEAN CORPUSCULAR VOLUME 88.5 fl (80.0-96.0); MONO # 0.7 10^3/uL (0.0-0.8); NEUTROPHILS % 67.2 % (36.0-66.0); PLATELET COUNT, AUTOMATED 244 10^3/uL (150-450); RED BLOOD COUNT 4.95 10^6/uL (4.30-6.10)
[2024-10-20 19:22] LABS: ERYTHROCYTE SEDIMENTATION RATE 53 mm/hr (0-20)
== END ==
LOC: M SFHCADAM 12:58
PROVIDERS: ATTEND Internal Medicine Infectious Disease
DX: M86.172 Other acute osteomyelitis, left ankle and foot (principal)

== ENCOUNTER 2024-12-22 14:05 | Inpatient (IN) | payer MEDICARE ==
[~2024-12-22] VITALS: Ht 182.9 cm; Wt 95.4 kg
[~2024-12-22 14:05] MED LIST changes: -ACE65ERTAB PO; +ACET-1593 PO; -ACET500T15 PO; -ASPI81CH33 PO; -CYAN100017 INJ; -ROSU10TA61 PO; -TRIA37.5 PO; -VITA200030 PO
[2024-12-22 19:56] VITALS: BP 111/65; TEMP 97.9; O2SAT 94
[2024-12-22 21:24] LABS: VENOUS BASE EXCESS 2.6 (-2.0-2.0); VENOUS HCO3 27.8 MMOL/L (23.0-27.0); VENOUS O2 SATURATION 57.0 % (60.0-80.0); VENOUS PARTIAL PRESSURE CO2 44.9 mmHg (38.0-50.0); VENOUS PARTIAL PRESSURE O2 31.2 mmHg (30.0-50.0); VENOUS PH 7.409 UNITS (7.330-7.430); VENOUS STANDARD HCO3 25.8 MMOL/L; VENOUS TOTAL CO2 29.1 MMOL/L (24.0-28.0)
[2024-12-22 21:27] LABS: BASO # 0.0 10^3/uL (0.0-0.2); BASO % 0.3 % (0.0-1.0); EOS # 0.0 10^3/uL (0.0-0.5); EOS % 0.3 % (0.0-3.0); LYMPH # 1.1 10^3/uL (1.5-5.0); LYMPH % 9.6 % (24.0-44.0); MONO # 1.2 10^3/uL (0.0-0.8); MONO % 10.3 % (2.0-8.0); NEUTROPHILS # 9.2 10^3/uL (1.5-8.5); NEUTROPHILS % 78.2 % (36.0-66.0); PLATELET COUNT, AUTOMATED 421 10^3/uL (150-450)
[2024-12-22] MEDS ORDERED: MAALOX 30 ML SUSP *UDC PO PRN (21:35)
[2024-12-22] MEDS ORDERED: ACETAMINOPHEN 325 MG TAB PO PRN (21:35)
[2024-12-22 21:37] LABS: ERYTHROCYTE SEDIMENTATION RATE > 130 mm/hr (0-20)
[2024-12-22 21:59] LABS: ALT/SGPT 24.0 U/L (7.0-40); AST/SGOT 39.0 U/L (<34); CALCIUM LEVEL 8.7 MG/DL (8.3-10.6); CARBON DIOXIDE LEVEL 30.0 MMOL/L (20-31); CHLORIDE LEVEL 93.0 MMOL/L (98-107); CREATININE FOR GFR 1.1 MG/DL (0.70-1.30); GLOMERULAR FILTRATION RATE 70.4 (>42); MAGNESIUM LEVEL 2.1 MG/DL (1.8-2.4); POTASSIUM SERUM 4.7 MMOL/L (3.5-5.1); SODIUM LEVEL 133.0 MMOL/L (136-145)
[2024-12-22 22:17] LABS: C REACTIVE PROTEIN QUANTITATIV 25.38 MG/DL (<1.0)
[2024-12-22] MEDS: CEFEPIME HCL 2 GM in DEXTROSE 5% (D5W) ADV/MINI-BAG 50 ML IV SCH (22:57)
[2024-12-22] MEDS: NS (Normal Saline) 0.9% 1,000 ML IV SCH (22:57)
[2024-12-22] MEDS ORDERED: ROSU10TA61 PO (23:01)
[2024-12-22] MEDS ORDERED: ACET500T15 PO (23:01)
[2024-12-22] MEDS ORDERED: LEVO1TAB40 PO (23:01)
[2024-12-22] MEDS ORDERED: VITA200030 PO (23:01)
[2024-12-22] MEDS ORDERED: TRIA37.5 PO (23:01)
[2024-12-22] MEDS ORDERED: CYAN100017 INJ (23:01)
[2024-12-22] MEDS ORDERED: ASPI81CH33 PO (23:01)
[2024-12-22] MEDS ORDERED: HOME MED LIST COMPLETE! XX SCH (23:05)
[2024-12-23] VITALS: BP 114/65; TEMP 98.2; O2SAT 93
[2024-12-23 00:38] LABS: INR 1.65
[2024-12-23] MEDS: VANCOMYCIN HCL 2,000 MG, VIAL MATE ADAPTER 1 EACH in NS 500 ML IV ONE (01:02)
[2024-12-23] MEDS ORDERED: OMEPRAZOLE 20MG CAP PO PRN (02:20)
[2024-12-23] MEDS: traMADol 50 MG TAB PO SCH (02:48)
[2024-12-23 03:50] VITALS: BP 115/51; TEMP 98.8; O2SAT 90
[2024-12-23 06:03] LABS: PLATELET COUNT, AUTOMATED 410 10^3/uL (150-450)
[2024-12-23 06:17] LABS: ALT/SGPT 23.0 U/L (7.0-40); AST/SGOT 29.0 U/L (<34); CALCIUM LEVEL 8.6 MG/DL (8.3-10.6); CARBON DIOXIDE LEVEL 27.0 MMOL/L (20-31); CHLORIDE LEVEL 97.0 MMOL/L (98-107); CREATININE FOR GFR 0.95 MG/DL (0.70-1.30); GLOMERULAR FILTRATION RATE 84.0 (>42); MAGNESIUM LEVEL 2.0 MG/DL (1.8-2.4); POTASSIUM SERUM 4.4 MMOL/L (3.5-5.1); SODIUM LEVEL 136.0 MMOL/L (136-145)
[2024-12-23] MEDS: HumuLIN N INSULIN (NovoLIN N) PER UNIT SC SCH ×2 (09:00→22:52)
[2024-12-23] MEDS: MYCOLOG CREAM 15GM (NYSTATIN/TRIAMCINOLONE) TOP SCH (09:27)
[2024-12-23] MEDS: ASPIRIN 81 MG CHEWABLE TABLET PO SCH (09:29)
[2024-12-23] MEDS: DOCUSATE SODIUM 100 MG CAPSULE PO SCH (09:30)
[2024-12-23] MEDS: amLODIPine 5 MG TAB PO SCH (09:34)
[2024-12-23] MEDS: BISOPROLOL FUM 2.5 MG PER 1/2 TAB PO SCH (09:34)
[2024-12-23] MEDS ORDERED: GLUCAGON INJ 1 MG VIAL SC PRN (10:30)
[2024-12-23] MEDS ORDERED: GLUCOSE 4 GM CHEW PO PRN (10:30)
[2024-12-23] MEDS ORDERED: DEXTROSE 50% 50 ML SYRINGE IV PRN (10:30)
[2024-12-23] MEDS ORDERED: MEROPENEM IV SCH (10:35)
[2024-12-23] MEDS ORDERED: SODIUM CHLORIDE 0.9% IV SCH (10:35)
[2024-12-23] MEDS: LOSARTAN 50 MG TABLET PO SCH (11:08)
[2024-12-23 12:00] VITALS: BP 116/63; TEMP 97.9; O2SAT 96
[2024-12-23] MEDS ORDERED: VANCOMYCIN HCL 1,500 MG, VIAL MATE ADAPTER 1 EACH in NS 500 ML IV SCH (12:00)
[2024-12-23] MEDS ORDERED: PROHANCE 279.3MG/ML 15ML VIAL As Ordered ONE (12:22)
[2024-12-23] MEDS ORDERED: PROHANCE 279.3MG/ML 5ML VIAL As Ordered ONE (12:22)
[2024-12-23] MEDS: VANCOMYCIN HCL 1,250 MG, VIAL MATE ADAPTER 1 EACH in NS 250 ML IV SCH (13:27)
[2024-12-23] MEDS: INSULIN LISPRO (NovoLOG) PER UNIT SC SCH ×2 (14:11→21:00)
[2024-12-23] MEDS: ENOXAPARIN 100 MG/1 ML SYRINGE (J1650 PER 10MG) SC SCH (14:11)
[2024-12-23] MEDS: PERCOCET 5MG/325MG TAB PO PRN (14:19)
[2024-12-23] MEDS: MEROPENEM 1 GM in IV 1 EA IV SCH (15:45)
[2024-12-23 16:00] VITALS: BP 96/56; TEMP 97.7; O2SAT 95
[2024-12-23] MEDS: NS (Normal Saline) 0.9% 1,000 ML IV ONE (17:49)
[2024-12-23 19:02] VITALS: BP 121/63
[2024-12-23 19:55] VITALS: BP 142/66; TEMP 97.7; O2SAT 93
[2024-12-23] MEDS: ROSUVASTATIN 10 MG TAB PO SCH (20:53)
[2024-12-24] VITALS (8 sets, daily range): BP systolic 84–127; BP diastolic 53–71; TEMP 97.5–98.4; O2SAT 91–96
[2024-12-24 06:07] LABS: BASO # 0.0 10^3/uL (0.0-0.2); BASO % 0.3 % (0.0-1.0); EOS # 0.1 10^3/uL (0.0-0.5); EOS % 1.2 % (0.0-3.0); LYMPH # 1.0 10^3/uL (1.5-5.0); LYMPH % 10.4 % (24.0-44.0); MONO # 0.8 10^3/uL (0.0-0.8); MONO % 8.8 % (2.0-8.0); NEUTROPHILS # 7.1 10^3/uL (1.5-8.5); NEUTROPHILS % 77.7 % (36.0-66.0); PLATELET COUNT, AUTOMATED 417 10^3/uL (150-450)
[2024-12-24 06:33] LABS: CALCIUM LEVEL 8.5 MG/DL (8.3-10.6); CARBON DIOXIDE LEVEL 28 MMOL/L (20-31); CHLORIDE LEVEL 99 MMOL/L (98-107); CREATININE FOR GFR 0.84 MG/DL (0.70-1.30); GLOMERULAR FILTRATION RATE > 90.0 (>42); POTASSIUM SERUM 4.5 MMOL/L (3.5-5.1); SODIUM LEVEL 137 MMOL/L (136-145)
[2024-12-24 06:54] LABS: C REACTIVE PROTEIN QUANTITATIV 20.92 MG/DL (<1.0)
[2024-12-24] MEDS: MEROPENEM 1 GM in IV 1 EA IV SCH (12:00)
[2024-12-24] MEDS: BISOPROLOL FUM 2.5 MG PER 1/2 TAB PO SCH (12:55)
[2024-12-24] MEDS: HumuLIN N INSULIN (NovoLIN N) PER UNIT SC SCH (20:07)
[2024-12-24] MEDS ORDERED: HumuLIN N INSULIN (NovoLIN N) PER UNIT SC SCH (21:00)
[2024-12-25 05:34] VITALS: BP 128/71; TEMP 97.9; O2SAT 93
[2024-12-25 05:40] LABS: BASO # 0.0 10^3/uL (0.0-0.2); BASO % 0.5 % (0.0-1.0); EOS # 0.1 10^3/uL (0.0-0.5); EOS % 1.3 % (0.0-3.0); LYMPH # 1.2 10^3/uL (1.5-5.0); LYMPH % 14.8 % (24.0-44.0); MONO # 0.8 10^3/uL (0.0-0.8); MONO % 9.6 % (2.0-8.0); NEUTROPHILS # 5.7 10^3/uL (1.5-8.5); NEUTROPHILS % 71.0 % (36.0-66.0); PLATELET COUNT, AUTOMATED 441 10^3/uL (150-450)
[2024-12-25 06:07] LABS: CALCIUM LEVEL 8.3 MG/DL (8.3-10.6); CARBON DIOXIDE LEVEL 27 MMOL/L (20-31); CHLORIDE LEVEL 99 MMOL/L (98-107); CREATININE FOR GFR 0.85 MG/DL (0.70-1.30); GLOMERULAR FILTRATION RATE > 90.0 (>42); POTASSIUM SERUM 4.6 MMOL/L (3.5-5.1); SODIUM LEVEL 137 MMOL/L (136-145)
[2024-12-25 06:11] LABS: C REACTIVE PROTEIN QUANTITATIV 11.98 MG/DL (<1.0)
[2024-12-25 07:44] VITALS: BP 143/72; TEMP 97.8; O2SAT 96
[2024-12-25] MEDS: HumuLIN N INSULIN (NovoLIN N) PER UNIT SC SCH (07:48)
[2024-12-25] MEDS ORDERED: HumuLIN N INSULIN (NovoLIN N) PER UNIT SC SCH (09:00)
[2024-12-25] MEDS: MOM 30 ML SUSPENSION UDC PO PRN (12:36)
[2024-12-25 14:00] VITALS: TEMP 97.7; O2SAT 93
[2024-12-25 19:39] VITALS: BP 124/65; TEMP 97.7; O2SAT 100
[2024-12-25 23:53] VITALS: BP 134/68; TEMP 97.9; O2SAT 94
[2024-12-26] VITALS (11 sets, daily range): BP systolic 93–142; BP diastolic 56–89; TEMP 97.3–97.9; O2SAT 88–95
[2024-12-26 05:54] LABS: BASO # 0.0 10^3/uL (0.0-0.2); BASO % 0.5 % (0.0-1.0); EOS # 0.1 10^3/uL (0.0-0.5); EOS % 1.4 % (0.0-3.0); LYMPH # 1.3 10^3/uL (1.5-5.0); LYMPH % 15.4 % (24.0-44.0); MONO # 0.8 10^3/uL (0.0-0.8); MONO % 9.8 % (2.0-8.0); NEUTROPHILS # 5.9 10^3/uL (1.5-8.5); NEUTROPHILS % 70.2 % (36.0-66.0); PLATELET COUNT, AUTOMATED 488 10^3/uL (150-450)
[2024-12-26 06:37] LABS: C REACTIVE PROTEIN QUANTITATIV 7.66 MG/DL (<1.0); CALCIUM LEVEL 8.5 MG/DL (8.3-10.6); CARBON DIOXIDE LEVEL 27 MMOL/L (20-31); CHLORIDE LEVEL 98 MMOL/L (98-107); CREATININE FOR GFR 0.79 MG/DL (0.70-1.30); GLOMERULAR FILTRATION RATE > 90.0 (>42); POTASSIUM SERUM 4.9 MMOL/L (3.5-5.1); SODIUM LEVEL 137 MMOL/L (136-145)
[2024-12-26] MEDS: NYSTATIN 100,000 UNITS/GM TOPICAL PWD 15 GM TOP PRN (08:19)
[2024-12-26] MEDS: MORPHINE 2 MG/ML 1 ML VIAL IV PRN (08:27)
[2024-12-26] MEDS ORDERED: dexAMETHasone 4 MG/ML 1 ML VIAL As Ordered ONE (11:00)
[2024-12-26] MEDS ORDERED: LIDOCAINE 2% 100 MG/5 ML SDV (FOR ANES.) As Ordered ONE (11:00)
[2024-12-26] MEDS ORDERED: ONDANSETRON 4MG 2ML VIAL As Ordered ONE (11:00)
[2024-12-26] MEDS ORDERED: KETOROLAC 30 MG/ML 1 ML VIAL As Ordered ONE (11:04)
[2024-12-26] MEDS ORDERED: ROCURONIUM BROMIDE 50MG/5ML VIAL As Ordered ONE (11:38)
[2024-12-26] MEDS ORDERED: SUGAMMADEX SODIUM 200 MG/2 ML VIAL As Ordered ONE (12:06)
[2024-12-26] MEDS: VANCOMYCIN 500MG/10ML VIAL As Ordered ONE (12:36)
[2024-12-26] MEDS: VANCOMYCIN 1000MG/20ML VIAL As Ordered ONE (12:36)
[2024-12-26] MEDS ORDERED: PHENYLephrine 500MCG 5ML (100MCG/ML) SYRINGE As Ordered ONE (13:01)
[2024-12-26] MEDS ORDERED: HYDROmorphone HCL 2 MG/ML 1 ML VIAL As Ordered ONE (13:09)
[2024-12-26] MEDS ORDERED: VASOPRESSIN INJ 20UNITS/ML 1ML VIAL As Ordered ONE (14:28)
[2024-12-26] MEDS ORDERED: HYDROMORPHONE HCL 0.5 MG/0.5 ML SYRINGE IV PRN (15:00)
[2024-12-26] MEDS ORDERED: ONDANSETRON 4MG 2ML VIAL IV PRN (15:00)
[2024-12-26] MEDS: LR 1,000 ML IV SCH (15:00)
[2024-12-26] MEDS ORDERED: GLUCOSE 4 GM CHEW PO PRN (15:25)
[2024-12-26] MEDS ORDERED: GLUCAGON INJ 1 MG VIAL SC PRN (15:25)
[2024-12-26] MEDS ORDERED: DEXTROSE 50% 50 ML SYRINGE IV PRN (15:25)
[2024-12-26] MEDS: INSULIN LISPRO (NovoLOG) PER UNIT SC PRN (15:35)
[2024-12-26] MEDS: NYSTATIN 100,000 UNITS/GM TOPICAL PWD 15 GM TOP SCH (15:55)
[2024-12-26] MEDS: HYDROMORPHONE HCL 0.5 MG/0.5 ML SYRINGE IV PRN (16:33)
[2024-12-27] VITALS (7 sets, daily range): BP systolic 104–138; BP diastolic 57–81; TEMP 97.5–98.1; O2SAT 93–98
[2024-12-27 06:17] LABS: BASO # 0.0 10^3/uL (0.0-0.2); BASO % 0.4 % (0.0-1.0); EOS # 0.1 10^3/uL (0.0-0.5); EOS % 0.5 % (0.0-3.0); LYMPH # 1.4 10^3/uL (1.5-5.0); LYMPH % 14.4 % (24.0-44.0); MONO # 1.0 10^3/uL (0.0-0.8); MONO % 10.4 % (2.0-8.0); NEUTROPHILS # 7.1 10^3/uL (1.5-8.5); NEUTROPHILS % 71.7 % (36.0-66.0); PLATELET COUNT, AUTOMATED 521 10^3/uL (150-450)
[2024-12-27 06:40] LABS: C REACTIVE PROTEIN QUANTITATIV 6.74 MG/DL (<1.0); CALCIUM LEVEL 7.7 MG/DL (8.3-10.6); CARBON DIOXIDE LEVEL 26 MMOL/L (20-31); CHLORIDE LEVEL 100 MMOL/L (98-107); CREATININE FOR GFR 0.76 MG/DL (0.70-1.30); GLOMERULAR FILTRATION RATE > 90.0 (>42); POTASSIUM SERUM 4.8 MMOL/L (3.5-5.1); SODIUM LEVEL 136 MMOL/L (136-145)
[2024-12-27] MEDS: HYDROMORPHONE HCL 0.5 MG/0.5 ML SYRINGE IV PRN (08:32)
[2024-12-27] MEDS: VANCOMYCIN HCL 1,000 MG, VIAL MATE ADAPTER 1 EACH in NS 250 ML IV SCH (14:19)
[2024-12-27] MEDS: FLUCONAZOLE 100 MG TAB PO ONE (18:22)
[2024-12-27] MEDS: CYCLOBENZAPRINE 5 MG TABLET PO PRN (20:48)
[2024-12-27] MEDS ORDERED: MORPHINE 2 MG/ML 1 ML VIAL IV PRN (22:15)
[2024-12-28] MEDS: MORPHINE 4 MG/ML 1 ML VIAL IV PRN (01:10)
[2024-12-28 05:19] VITALS: BP 128/66; TEMP 97.9; O2SAT 93
[2024-12-28 06:15] LABS: BASO # 0.1 10^3/uL (0.0-0.2); BASO % 0.5 % (0.0-1.0); EOS # 0.1 10^3/uL (0.0-0.5); EOS % 0.6 % (0.0-3.0); LYMPH # 1.8 10^3/uL (1.5-5.0); LYMPH % 17.6 % (24.0-44.0); MONO # 1.1 10^3/uL (0.0-0.8); MONO % 11.3 % (2.0-8.0); NEUTROPHILS # 6.8 10^3/uL (1.5-8.5); NEUTROPHILS % 67.6 % (36.0-66.0); PLATELET COUNT, AUTOMATED 504 10^3/uL (150-450)
[2024-12-28 06:52] LABS: C REACTIVE PROTEIN QUANTITATIV 4.93 MG/DL (<1.0); CALCIUM LEVEL 7.7 MG/DL (8.3-10.6); CARBON DIOXIDE LEVEL 28 MMOL/L (20-31); CHLORIDE LEVEL 100 MMOL/L (98-107); CREATININE FOR GFR 0.73 MG/DL (0.70-1.30); GLOMERULAR FILTRATION RATE > 90.0 (>42); POTASSIUM SERUM 4.7 MMOL/L (3.5-5.1); SODIUM LEVEL 137 MMOL/L (136-145)
[2024-12-28 08:00] VITALS: BP 127/67; TEMP 98.3; O2SAT 98
[2024-12-28] MEDS: HumuLIN N INSULIN (NovoLIN N) PER UNIT SC SCH ×2 (09:00→21:29)
[2024-12-28] MEDS: MOM 30 ML SUSPENSION UDC PO SCH (10:28)
[2024-12-28 12:00] VITALS: BP 121/67; TEMP 97.5; O2SAT 98
[2024-12-28] MEDS: PERCOCET 5MG/325MG TAB PO PRN (14:32)
[2024-12-28 16:00] VITALS: BP 125/72; TEMP 97.8; O2SAT 96
[2024-12-28 19:48] VITALS: BP 127/68; TEMP 98.1; O2SAT 96
[2024-12-28 20:10] LABS: INR 1.21
[2024-12-28] MEDS: SENNA 8.6 MG TAB PO SCH (21:30)
[2024-12-28] MEDS: LOSARTAN 50 MG TABLET PO SCH (21:32)
[2024-12-28] MEDS: ENOXAPARIN 100 MG/1 ML SYRINGE (J1650 PER 10MG) SC SCH (21:35)
[2024-12-28] MEDS: WARFARIN SOD 3MG TAB PO SCH (21:53)
[2024-12-28 23:15] VITALS: BP 124/61; TEMP 97.7; O2SAT 92
[2024-12-29] MEDS: VANCOMYCIN HCL 1,250 MG, VIAL MATE ADAPTER 1 EACH in NS 250 ML IV SCH (02:00)
[2024-12-29 04:08] VITALS: BP 127/66; TEMP 97.7; O2SAT 97
[2024-12-29 06:27] LABS: BASO # 0.1 10^3/uL (0.0-0.2); BASO % 0.6 % (0.0-1.0); EOS # 0.1 10^3/uL (0.0-0.5); EOS % 1.4 % (0.0-3.0); LYMPH # 1.8 10^3/uL (1.5-5.0); LYMPH % 18.8 % (24.0-44.0); MONO # 1.0 10^3/uL (0.0-0.8); MONO % 10.2 % (2.0-8.0); NEUTROPHILS # 6.4 10^3/uL (1.5-8.5); NEUTROPHILS % 65.6 % (36.0-66.0); PLATELET COUNT, AUTOMATED 534 10^3/uL (150-450)
[2024-12-29 06:39] LABS: INR 1.24
[2024-12-29 06:57] LABS: C REACTIVE PROTEIN QUANTITATIV 7.18 MG/DL (<1.0); CALCIUM LEVEL 8.1 MG/DL (8.3-10.6); CARBON DIOXIDE LEVEL 28 MMOL/L (20-31); CHLORIDE LEVEL 99 MMOL/L (98-107); CREATININE FOR GFR 0.64 MG/DL (0.70-1.30); GLOMERULAR FILTRATION RATE > 90.0 (>42); POTASSIUM SERUM 4.6 MMOL/L (3.5-5.1); SODIUM LEVEL 136 MMOL/L (136-145)
[2024-12-29 08:00] VITALS: BP 124/67; TEMP 98.2; O2SAT 95
[2024-12-29] MEDS: HumuLIN N INSULIN (NovoLIN N) PER UNIT SC SCH (09:11)
[2024-12-29 12:00] VITALS: BP 108/66; TEMP 97.5; O2SAT 95
[2024-12-29 16:00] VITALS: BP 111/60; TEMP 97.9; O2SAT 94
[2024-12-29] MEDS: LACTULOSE 20 GM/30 ML SYRUP UDC PO ONE (17:38)
[2024-12-29 19:47] VITALS: BP_SYST 124; BP_SYST 97; BP_DIAS 42; BP_DIAS 72; TEMP 97.9; O2SAT 94
[2024-12-29] MEDS: DOCUSATE SODIUM 100 MG CAPSULE PO SCH (21:21)
[2024-12-30] VITALS: BP 126/71; TEMP 97.9; O2SAT 91
[2024-12-30 03:42] VITALS: BP 101/52; TEMP 97.8; O2SAT 93
[2024-12-30 06:03] LABS: BASO # 0.0 10^3/uL (0.0-0.2); BASO % 0.5 % (0.0-1.0); EOS # 0.1 10^3/uL (0.0-0.5); EOS % 1.5 % (0.0-3.0); LYMPH # 1.8 10^3/uL (1.5-5.0); LYMPH % 22.6 % (24.0-44.0); MONO # 0.7 10^3/uL (0.0-0.8); MONO % 9.4 % (2.0-8.0); NEUTROPHILS # 4.8 10^3/uL (1.5-8.5); NEUTROPHILS % 61.5 % (36.0-66.0); PLATELET COUNT, AUTOMATED 507 10^3/uL (150-450)
[2024-12-30 06:11] LABS: INR 1.25
[2024-12-30 06:16] LABS: C REACTIVE PROTEIN QUANTITATIV 7.07 MG/DL (<1.0); CALCIUM LEVEL 8.0 MG/DL (8.3-10.6); CARBON DIOXIDE LEVEL 27 MMOL/L (20-31); CHLORIDE LEVEL 102 MMOL/L (98-107); CREATININE FOR GFR 0.76 MG/DL (0.70-1.30); GLOMERULAR FILTRATION RATE > 90.0 (>42); POTASSIUM SERUM 4.8 MMOL/L (3.5-5.1); SODIUM LEVEL 140 MMOL/L (136-145)
[2024-12-30 08:40] VITALS: BP 116/55; TEMP 97.7; O2SAT 92
[2024-12-30] MEDS: LINEZOLID 600 MG TABLET PO SCH (09:00)
[2024-12-30] MEDS: PERCOCET 5MG/325MG TAB PO PRN (09:02)
[2024-12-30] MEDS: HumuLIN N INSULIN (NovoLIN N) PER UNIT SC SCH (09:03)
[2024-12-30 12:25] VITALS: BP 106/60; TEMP 97.5; O2SAT 95
[2024-12-30 16:30] VITALS: BP 114/62; TEMP 97.8; O2SAT 96
[2024-12-30] MEDS: WARFARIN SOD 5MG TAB PO ONE (17:19)
[2024-12-30 20:09] VITALS: BP 132/71; TEMP 97.7; O2SAT 95
[2024-12-30] MEDS ORDERED: PERCOCET PO (20:36)
[2024-12-30] MEDS ORDERED: ACET32TAB PO (20:36)
[2024-12-30] MEDS ORDERED: ENOX100I3 SC (20:36)
[2024-12-30] MEDS ORDERED: MOM30SS2 PO (20:36)
[2024-12-30] MEDS ORDERED: JANT3TAB PO (20:36)
[2024-12-30] MEDS ORDERED: SENN18TA PO (20:36)
[2024-12-30] MEDS ORDERED: HUMU1INJ2 SC ×2 (20:36)
[2024-12-30] MEDS ORDERED: CYCL5TAB4 PO (20:36)
[2024-12-30] MEDS ORDERED: LINE1TAB6 PO (20:36)
[2024-12-30] MEDS ORDERED: RISATAB3 PO (20:36)
[2024-12-30] MEDS ORDERED: INSUHUMDS SC ×2 (20:36)
[2024-12-30] MEDS ORDERED: COLA100C5 PO (20:36)
[2024-12-31] VITALS: BP 119/64; TEMP 97; O2SAT 94
[2024-12-31 00:07] VITALS: BP 125/69; TEMP 97.7; O2SAT 93
[2024-12-31 03:16] VITALS: BP 123/70; TEMP 97.9; O2SAT 92
[2024-12-31 06:23] LABS: PLATELET COUNT, AUTOMATED 505 10^3/uL (150-450)
[2024-12-31 06:41] LABS: INR 1.49
[2024-12-31 06:52] LABS: ALT/SGPT 32 U/L (7.0-40); AST/SGOT 49 U/L (<34); CALCIUM LEVEL 8.5 MG/DL (8.3-10.6); CARBON DIOXIDE LEVEL 26 MMOL/L (20-31); CHLORIDE LEVEL 100 MMOL/L (98-107); CREATININE FOR GFR 0.74 MG/DL (0.70-1.30); GLOMERULAR FILTRATION RATE > 90.0 (>42); POTASSIUM SERUM 4.7 MMOL/L (3.5-5.1); SODIUM LEVEL 137 MMOL/L (136-145)
[2024-12-31 08:21] VITALS: BP 127/73; TEMP 98.2; O2SAT 92
[2024-12-31 08:24] VITALS: BP 127/73
== END 2024-12-31 09:21 | DRG 617 ==
LOC: M MSPAV 19:41
PROVIDERS: ADMIT Internal Medicine; ATTEND Internal Medicine
PROC: 0Y6J0Z2 Detachment at Left Lower Leg, Mid, Open Approach (ICD-10-PCS; principal; 2024-12-26 11:15)
DX: E11.69 Type 2 diabetes mellitus with other specified complication (principal); L03.116 Cellulitis of left lower limb; M00.9 Pyogenic arthritis, unspecified; M86.172 Other acute osteomyelitis, left ankle and foot; B37.89 Other sites of candidiasis; L02.416 Cutaneous abscess of left lower limb; E11.621 Type 2 diabetes mellitus with foot ulcer; E11.610 Type 2 diabetes mellitus with diabetic neuropathic arthropathy; G89.4 Chronic pain syndrome; I10 Essential (primary) hypertension; E11.42 Type 2 diabetes mellitus with diabetic polyneuropathy; K21.9 Gastro-esophageal reflux disease without esophagitis; E78.5 Hyperlipidemia, unspecified; I48.91 Unspecified atrial fibrillation; I73.9 Peripheral vascular disease, unspecified; E11.51 Type 2 diabetes mellitus with diabetic peripheral angiopathy without gangrene; Z95.828 Presence of other vascular implants and grafts; Z86.73 Personal history of transient ischemic attack (TIA), and cerebral infarction without residual deficits; Z87.891 Personal history of nicotine dependence; Z79.01 Long term (current) use of anticoagulants; Z79.82 Long term (current) use of aspirin; Z79.84 Long term (current) use of oral hypoglycemic drugs; Z79.4 Long term (current) use of insulin; Z79.899 Other long term (current) drug therapy; Z88.8 Allergy status to other drugs, medicaments and biological substances

== ENCOUNTER → 2024-12-22 | Outpatient (REF) | payer MEDICARE ==
[~2024-12-22] MED LIST changes: +ACET500T15 PO; +ASPI81CH33 PO; +CYAN100017 INJ; +ROSU10TA61 PO; +TRIA37.5 PO; +VITA200030 PO
== END ==
LOC: M SFHCPLAZ 16:54
PROVIDERS: ATTEND Internal Medicine Infectious Disease
DX: M86.172 Other acute osteomyelitis, left ankle and foot (principal)

== ENCOUNTER → 2025-03-06 | Outpatient (CLI) | payer MEDICARE ==
[~2025-03-06] MED LIST changes: +ACET32TAB PO; +ACET500T15 PO; +ASPI81CH33 PO; +COLA100C5 PO; +CYAN100017 INJ; +CYCL5TAB4 PO; +ENOX100I3 SC; +INSUHUMDS SC; +JANT3TAB PO; +LINE1TAB6 PO; +MOM30SS2 PO; +PERCOCET PO; +ROSU10TA61 PO; +SENN18TA PO; +TRIA37.5 PO; +VITA200030 PO
[2025-03-06 18:04] LABS: CREATININE FOR GFR 0.83 MG/DL (0.70-1.30); GLOMERULAR FILTRATION RATE > 90.0 (>42)
== END ==
LOC: M PLALAB 15:57
PROVIDERS: ATTEND Physician Assistant
DX: I70.348 Atherosclerosis of unspecified type of bypass graft(s) of the left leg with ulceration of other part of lower leg (principal)

== ENCOUNTER → 2025-03-10 | Outpatient (CLI) | payer MEDICARE ==
[~2025-03-10] MED LIST changes: +ACET1TAB55 PO; +DULO30CA9 PO; +ISOVUE-370 76% 100 ML VIAL As Ordered ONE; +MM S100C PO
== END ==
LOC: M RAD 12:54
PROVIDERS: ATTEND Surgery Vascular Surgery
DX: T82.856A Stenosis of peripheral vascular stent, initial encounter (principal)

== ENCOUNTER 2025-03-12 10:09 | Inpatient (IN) | payer MEDICARE ==
[~2025-03-12] VITALS: Ht 182.9 cm; Wt 98.1 kg
[~2025-03-12 10:09] MED LIST changes: -ACET1TAB55 PO; -DULO30CA9 PO; -ISOVUE-370 76% 100 ML VIAL As Ordered ONE; -MM S100C PO
[2025-03-12] MEDS: LIDOCAINE 2% W/EPINEPHrine 20 ML VIAL **PRES FREE INJ ONE (10:25)
[2025-03-12] MEDS: SILVER NITRATE APPLICATOR (1 = QTY 10) TOP ONE ×2 (10:35→11:20)
[2025-03-12 10:41] LABS: BASO # 0.0 10^3/uL (0.0-0.2); BASO % 0.3 % (0.0-1.0); EOS # 0.1 10^3/uL (0.0-0.5); EOS % 1.2 % (0.0-3.0); LYMPH # 1.5 10^3/uL (1.5-5.0); LYMPH % 16.6 % (24.0-44.0); MONO # 1.0 10^3/uL (0.0-0.8); MONO % 11.7 % (2.0-8.0); NEUTROPHILS # 6.2 10^3/uL (1.5-8.5); NEUTROPHILS % 69.5 % (36.0-66.0); PLATELET COUNT, AUTOMATED 322 10^3/uL (150-450)
[2025-03-12 10:55] LABS: INR 1.13
[2025-03-12 11:03] LABS: CALCIUM LEVEL 9.1 MG/DL (8.3-10.6); CARBON DIOXIDE LEVEL 27.0 MMOL/L (20-31); CHLORIDE LEVEL 100.0 MMOL/L (98-107); CREATININE FOR GFR 0.92 MG/DL (0.70-1.30); GLOMERULAR FILTRATION RATE 87.3 (>42); POTASSIUM SERUM 5.3 MMOL/L (3.5-5.1); SODIUM LEVEL 135.0 MMOL/L (136-145)
[2025-03-12] MEDS: PERCOCET 5MG/325MG TAB PO ONE (12:15)
[2025-03-12] MEDS ORDERED: ISOVUE-370 76% 100 ML VIAL As Ordered ONE (13:20)
[2025-03-12] MEDS ORDERED: **NOTE PATIENT COMMENT** MISC XX SCH (15:40)
[2025-03-12] MEDS ORDERED: GLUCOSE 4 GM CHEW PO PRN (15:40)
[2025-03-12] MEDS ORDERED: DEXTROSE 50% 50 ML SYRINGE IV PRN (15:40)
[2025-03-12] MEDS ORDERED: GLUCAGON INJ 1 MG VIAL SC PRN (15:40)
[2025-03-12] MEDS ORDERED: HUMU1INJ2 SC (15:51)
[2025-03-12] MEDS ORDERED: ACET1TAB55 PO (15:51)
[2025-03-12] MEDS ORDERED: ELIQ5TAB PO (15:51)
[2025-03-12] MEDS ORDERED: MM S100C PO (15:51)
[2025-03-12] MEDS ORDERED: DULO30CA9 PO (15:51)
[2025-03-12] MEDS ORDERED: BACT800T5 PO (15:51)
[2025-03-12] MEDS ORDERED: RISATAB3 PO (15:51)
[2025-03-12] MEDS ORDERED: HOME MED LIST COMPLETE! XX SCH (15:55)
[2025-03-12 17:47] VITALS: BP 145/87; TEMP 97.9; O2SAT 94
[2025-03-12] MEDS: INSULIN LISPRO (NovoLOG) PER UNIT SC SCH (18:00)
[2025-03-12 18:02] LABS: CALCIUM LEVEL 8.8 MG/DL (8.3-10.6); CARBON DIOXIDE LEVEL 25.0 MMOL/L (20-31); CHLORIDE LEVEL 101.0 MMOL/L (98-107); CREATININE FOR GFR 0.92 MG/DL (0.70-1.30); GLOMERULAR FILTRATION RATE 87.3 (>42); POTASSIUM SERUM 4.3 MMOL/L (3.5-5.1); SODIUM LEVEL 136.0 MMOL/L (136-145)
[2025-03-12] MEDS: MORPHINE 4 MG/ML 1 ML VIAL IV PRN (19:16)
[2025-03-12 20:05] VITALS: BP 111/66; TEMP 100; O2SAT 91
[2025-03-12 21:33] LABS: CALCIUM LEVEL 8.8 MG/DL (8.3-10.6); CARBON DIOXIDE LEVEL 25 MMOL/L (20-31); CHLORIDE LEVEL 101 MMOL/L (98-107); CREATININE FOR GFR 0.88 MG/DL (0.70-1.30); GLOMERULAR FILTRATION RATE > 90.0 (>42); POTASSIUM SERUM 4.6 MMOL/L (3.5-5.1); SODIUM LEVEL 133 MMOL/L (136-145)
[2025-03-13] VITALS (11 sets, daily range): BP systolic 130–149; BP diastolic 63–90; TEMP 97.7–100.9; O2SAT 90–95
[2025-03-13] MEDS: LR 1,000 ML IV SCH (01:29)
[2025-03-13 01:42] LABS: BASO # 0.0 10^3/uL (0.0-0.2); BASO % 0.3 % (0.0-1.0); EOS # 0.0 10^3/uL (0.0-0.5); EOS % 0.3 % (0.0-3.0); LYMPH # 1.1 10^3/uL (1.5-5.0); LYMPH % 10.8 % (24.0-44.0); MONO # 1.0 10^3/uL (0.0-0.8); MONO % 9.6 % (2.0-8.0); NEUTROPHILS # 7.8 10^3/uL (1.5-8.5); NEUTROPHILS % 78.4 % (36.0-66.0); PLATELET COUNT, AUTOMATED 280 10^3/uL (150-450)
[2025-03-13 02:06] LABS: ALT/SGPT 11.0 U/L (7.0-40); AST/SGOT 18.0 U/L (<34); CALCIUM LEVEL 8.8 MG/DL (8.3-10.6); CARBON DIOXIDE LEVEL 26.0 MMOL/L (20-31); CHLORIDE LEVEL 100.0 MMOL/L (98-107); CREATININE FOR GFR 0.89 MG/DL (0.70-1.30); GLOMERULAR FILTRATION RATE 89.9 (>42); POTASSIUM SERUM 4.5 MMOL/L (3.5-5.1); SODIUM LEVEL 136.0 MMOL/L (136-145)
[2025-03-13] MEDS: PIPERACILLIN/TAZOBACTAM SOD 4.5 GM in DEXTROSE 5% (D5W) ADV/MINI-BAG 50 ML IV SCH (02:12)
[2025-03-13] MEDS: VANCOMYCIN HCL 1,500 MG, VIAL MATE ADAPTER 1 EACH in NS 500 ML IV ONE (03:00)
[2025-03-13] MEDS: ACETAMINOPHEN 500 MG TAB PO PRN (03:49)
[2025-03-13 05:04] LABS: APPEARANCE, URINE CLEAR (CLEAR); BACTERIA, URINE AUTO NEGATIVE (NEGATIVE); BILIRUBIN, URINE AUTO NEGATIVE (NEGATIVE); BLOOD, URINE BLOOD NEGATIVE (NEGATIVE); GLUCOSE, URINE (UA) AUTO 1+ mg/dL (NEGATIVE); KETONE, URINE AUTO TRACE mg/dL (NEGATIVE); LEUKOCYTE ESTERASE, URINE AUTO NEGATIVE (NEGATIVE); NITRITE, URINE AUTO NEGATIVE (NEGATIVE); PROTEIN, URINE AUTO NEGATIVE (NEGATIVE); RBC, URINE AUTO 2 /HPF (0-3); SPECIFIC GRAVITY URINE AUTO 1.024 (1.002-1.035); SQUAMOUS EPITHELIAL CELL UR AU 0 /HPF (0-6); UROBILINOGEN, URINE AUTO 0.2 mg/dL (0.0-2.0); WBC, URINE AUTO 0 /HPF (0-3)
[2025-03-13 06:29] LABS: PLATELET COUNT, AUTOMATED 290 10^3/uL (150-450)
[2025-03-13 06:50] LABS: CALCIUM LEVEL 8.9 MG/DL (8.3-10.6); CARBON DIOXIDE LEVEL 26.0 MMOL/L (20-31); CHLORIDE LEVEL 99.0 MMOL/L (98-107); CREATININE FOR GFR 0.89 MG/DL (0.70-1.30); GLOMERULAR FILTRATION RATE 89.9 (>42); POTASSIUM SERUM 4.4 MMOL/L (3.5-5.1); SODIUM LEVEL 137.0 MMOL/L (136-145)
[2025-03-13] MEDS ORDERED: VANCOMYCIN HCL 1,000 MG, VIAL MATE ADAPTER 1 EACH in NS 250 ML IV SCH (08:00)
[2025-03-13] MEDS ORDERED: OMEPRAZOLE 20MG CAP PO PRN (08:25)
[2025-03-13] MEDS: VANCOMYCIN HCL 1,250 MG, VIAL MATE ADAPTER 1 EACH in NS 250 ML IV SCH (09:11)
[2025-03-13] MEDS: BISOPROLOL FUM 2.5 MG PER 1/2 TAB PO SCH (09:37)
[2025-03-13 09:54] LABS: CALCIUM LEVEL 8.7 MG/DL (8.3-10.6); CARBON DIOXIDE LEVEL 28 MMOL/L (20-31); CHLORIDE LEVEL 100 MMOL/L (98-107); CREATININE FOR GFR 0.86 MG/DL (0.70-1.30); GLOMERULAR FILTRATION RATE > 90.0 (>42); POTASSIUM SERUM 4.4 MMOL/L (3.5-5.1); SODIUM LEVEL 137 MMOL/L (136-145)
[2025-03-13] MEDS: SILVER NITRATE APPLICATOR (1 = QTY 10) TOP ONE ×2 (10:00→11:45)
[2025-03-13 16:25] LABS: CALCIUM LEVEL 8.7 MG/DL (8.3-10.6); CARBON DIOXIDE LEVEL 28.0 MMOL/L (20-31); CHLORIDE LEVEL 98.0 MMOL/L (98-107); CREATININE FOR GFR 0.91 MG/DL (0.70-1.30); GLOMERULAR FILTRATION RATE 88.4 (>42); POTASSIUM SERUM 4.4 MMOL/L (3.5-5.1); SODIUM LEVEL 136.0 MMOL/L (136-145)
[2025-03-13] MEDS ORDERED: ROSUVASTATIN 10 MG TAB PO SCH (21:00)
== END 2025-03-13 17:28 | disposition short-term general hospital (02) | DRG 316 ==
LOC: M ED 10:09 → M MSPAV 16:40 → INTOOBSV 16:40 → OBSVTOIN 03-13 14:53
PROVIDERS: ADMIT Family Medicine; ATTEND Family Medicine
DX: T82.838A Hemorrhage due to vascular prosthetic devices, implants and grafts, initial encounter (principal); I10 Essential (primary) hypertension; E11.51 Type 2 diabetes mellitus with diabetic peripheral angiopathy without gangrene; E11.42 Type 2 diabetes mellitus with diabetic polyneuropathy; Z89.512 Acquired absence of left leg below knee; E78.5 Hyperlipidemia, unspecified; I48.91 Unspecified atrial fibrillation; K21.9 Gastro-esophageal reflux disease without esophagitis; T87.89 Other complications of amputation stump; Z79.01 Long term (current) use of anticoagulants; Z86.73 Personal history of transient ischemic attack (TIA), and cerebral infarction without residual deficits; E11.621 Type 2 diabetes mellitus with foot ulcer; L97.519 Non-pressure chronic ulcer of other part of right foot with unspecified severity; Z79.82 Long term (current) use of aspirin; Z79.899 Other long term (current) drug therapy; Z79.4 Long term (current) use of insulin; Z87.891 Personal history of nicotine dependence; L92.9 Granulomatous disorder of the skin and subcutaneous tissue, unspecified; I25.10 Atherosclerotic heart disease of native coronary artery without angina pectoris; Z88.0 Allergy status to penicillin; Y83.1 Surgical operation with implant of artificial internal device as the cause of abnormal reaction of the patient, or of later complication, without mention of misadventure at the time of the procedure

== ENCOUNTER 2025-04-25 15:06 | Emergency (ER) | payer MEDICARE ==
[~2025-04-25] VITALS: Ht 182.9 cm; Wt 90.8 kg
[~2025-04-25 15:06] MED LIST changes: +ACET-1387 PO; -ACET-1593 PO; +ACET1TAB55 PO; +DULO30CA9 PO; +MM S100C PO; -ROSU10TA61 PO; +ROSU10TA90 PO
[2025-04-25 16:05] LABS: PLATELET COUNT, AUTOMATED 244 10^3/uL (150-450)
[2025-04-25 16:34] LABS: CALCIUM LEVEL 8.5 MG/DL (8.3-10.6); CARBON DIOXIDE LEVEL 24.0 MMOL/L (20-31); CHLORIDE LEVEL 103.0 MMOL/L (98-107); CREATININE FOR GFR 1.31 MG/DL (0.70-1.30); GLOMERULAR FILTRATION RATE 57.1 (>42); POTASSIUM SERUM 4.3 MMOL/L (3.5-5.1); SODIUM LEVEL 137.0 MMOL/L (136-145)
[2025-04-25 17:18] LABS: C REACTIVE PROTEIN QUANTITATIV 1.63 MG/DL (<1.0)
[2025-04-25] MEDS ORDERED: OYST1TAB PO (18:04)
[2025-04-25] MEDS ORDERED: OXYC10TA12 PO (18:04)
[2025-04-25] MEDS ORDERED: VITA100093 PO (18:04)
[2025-04-25] MEDS ORDERED: ROSU10TA90 PO (18:04)
[2025-04-25] MEDS ORDERED: TAMS-18 PO (18:04)
[2025-04-25] MEDS ORDERED: AMLO1TAB24 PO (18:04)
[2025-04-25] MEDS ORDERED: HOME MED LIST COMPLETE! XX SCH (18:10)
[2025-04-25] MEDS ORDERED: GLUCOSE 4 GM CHEW PO PRN (19:45)
[2025-04-25] MEDS ORDERED: GLUCAGON INJ 1 MG VIAL SC PRN (19:45)
[2025-04-25] MEDS ORDERED: DEXTROSE 50% 50 ML SYRINGE IV PRN (19:45)
[2025-04-25] MEDS: INSULIN LISPRO (NovoLOG) PER UNIT SC SCH (20:32)
[2025-04-25] MEDS: NS (Normal Saline) 0.9% 1,000 ML IV ONE (20:44)
[2025-04-25] MEDS: PERCOCET 5MG/325MG TAB PO PRN (22:40)
[2025-04-25] MEDS: ENOXAPARIN 100 MG/1 ML SYRINGE (J1650 PER 10MG) SC SCH (22:40)
[2025-04-25 23:46] VITALS: BP 114/57
[2025-04-25] MEDS: BISOPROLOL FUM 2.5 MG PER 1/2 TAB PO SCH (23:46)
[2025-04-26] MEDS: ROSUVASTATIN 10 MG TAB PO SCH (08:18)
[2025-04-26] MEDS: TAMSULOSIN 0.4 MG CAP PO SCH (08:18)
[2025-04-26 08:27] LABS: PLATELET COUNT, AUTOMATED 224 10^3/uL (150-450)
[2025-04-26 08:47] LABS: CALCIUM LEVEL 8.1 MG/DL (8.3-10.6); CARBON DIOXIDE LEVEL 27.0 MMOL/L (20-31); CHLORIDE LEVEL 103.0 MMOL/L (98-107); CREATININE FOR GFR 0.9 MG/DL (0.70-1.30); GLOMERULAR FILTRATION RATE 89.6 (>42); POTASSIUM SERUM 4.0 MMOL/L (3.5-5.1); SODIUM LEVEL 138.0 MMOL/L (136-145)
[2025-04-26] MEDS ORDERED: amLODIPine 5 MG TAB PO SCH (09:00)
[2025-04-26] MEDS: INSULIN LISPRO (NovoLOG) PER UNIT SC SCH (11:53)
[2025-04-26] MEDS: PERCOCET 5MG/325MG TAB PO PRN (13:54)
[2025-04-26 14:36] VITALS: BP 120/70; TEMP 97.9; O2SAT 96
== END 2025-04-26 14:38 | disposition short-term general hospital (02) ==
LOC: M ED 15:06 → EDBD 15:06 → M ED 04-26 14:38
DX: T87.81 Dehiscence of amputation stump (principal); T87.54 Necrosis of amputation stump, left lower extremity; E11.9 Type 2 diabetes mellitus without complications; I10 Essential (primary) hypertension; N40.0 Benign prostatic hyperplasia without lower urinary tract symptoms; Z86.79 Personal history of other diseases of the circulatory system; Z89.512 Acquired absence of left leg below knee; Z88.8 Allergy status to other drugs, medicaments and biological substances; Z79.01 Long term (current) use of anticoagulants; Z79.82 Long term (current) use of aspirin; Z79.4 Long term (current) use of insulin; Z79.899 Other long term (current) drug therapy
CPT/HCPCS: 36415; 80048; 84145; 85027; 85652; 86140; 87040; 87070; 87077; 87186; 99285; J1650; J1815